=== PATIENT | female | born 1980 | race Caucasian/White ===

== ENCOUNTER 2022-12-19 07:29 | Outpatient (OUT) | payer OTHER, SELFPAY ==
[2022-12-19 07:50] LABS: Hematocrit 43.2 % (36.0-48.0); Hemoglobin 13.9 g/dL (12.0-16.0); Mean Corpuscular HGB Conc 32.2 g/dL (29.9-35.2); Mean Corpuscular Hemoglobin 31.1 pg (26.7-34.0); Mean Corpuscular Volume 96.6 fL (81.0-99.0); Mean Platelet Volume 9.7 fL (9.5-13.5); Platelet Count 323 10^3/uL (150-450); Red Blood Count 4.47 10^6/uL (4.20-5.40); Red Cell Distribution Width 14.3 % (11.0-15.0); White Blood Count 10.7 10^3/uL (4.0-11.0)
[2022-12-19 09:08] LABS: Alanine Aminotransferase 24 U/L (14-59); Albumin Globulin Ratio 0.9; Albumin Level 3.2 g/dL (3.4-5.0); Alkaline Phosphatase 64 U/L (46-116); Anion Gap 14.9; Aspartate Amino Transferase 17 U/L (15-37); BUN Creatinine Ratio 18.3; Bilirubin Total 0.4 mg/dL (0.2-1.0); Calcium 8.7 mg/dL (8.5-10.1); Carbon Dioxide 23.9 mmol/L (21.0-32.0); Chloride 101 mmol/L (98-107); Chol HDL Ratio 2.5; Cholesterol 155 mg/dL (<=200); Estimated GFR (African America >60 (>=60); Estimated GFR (Non-African Ame >60 (>=60); Globulin 3.6 g/dL; Glucose 86 mg/dL (74-106); HDL Cholesterol 61 mg/dL (40-60); Potassium 3.8 mmol/L (3.5-5.1); Sodium 136 mmol/L (136-145); Total Protein 6.8 g/dL (6.4-8.2); Triglycerides 134 mg/dL (<=150); VLDL CHOLESTEROL 26.8 mg/dL
[2022-12-19 10:14] LABS: Free T4 0.82 ng/dL (0.76-1.46)
[2022-12-20 06:09] LABS: HCV Ab Non Reactive (Non Reactive); HIV Ab/p24 Ag Screen Non Reactive (Non Reactive)
== END 2022-12-19 07:30 | disposition home or self-care (01) ==
LOC: LAB 07:32
PROVIDERS: PCP Nurse Practitioner Primary Care; Visit Provider Nurse Practitioner Primary Care
DX: Z00.00 Encounter for general adult medical examination without abnormal findings (principal); Z11.59 Encounter for screening for other viral diseases; Z13.6 Encounter for screening for cardiovascular disorders; Z13.29 Encounter for screening for other suspected endocrine disorder; Z11.4 Encounter for screening for human immunodeficiency virus [HIV]
CPT/HCPCS: 36415; 80053; 80061; 84439; 84443; 85027; 87389; 87522

== ENCOUNTER 2023-07-30 10:59 | Outpatient (OUT) | payer OTHER, SELFPAY ==
--- NOTE | 2023-07-30 11:49 | PM.PRESUREVA ---
History of Present Illness History of Present Illness Chief complaint: CHRONIC SINUSITITS Narrative: Patient presents for preadmission testing. The patient reports a long history of sinus issues including sinus infections, severe headaches, and congestion. She states she also has a chronic cough, although she continues to smoke a pack of cigarettes a day. Review of Systems ROS Narrative : Negative except as stated in HPI, ten or more systems reviewed. Constitutional: No fever , chills, weakness ENT: No sore throat or epistaxis Cardiovascular: No chest pain, palpitations, or activity intolerance Respiratory: Chronic cough, occasional shortness of breath and wheezing Musculoskeletal: No joint pain or swelling Gastrointestinal: No abdominal pain, constipation, diarrhea, or vomiting Genitourinary: No dysuria or hematuria Neurological: No numbness, tingling, weakness, or headache Psychiatric: No mood changes. [facility] Medical History (Updated 07/30/23 @ 11:54 by Suad Guthrie NP) Chronic cough ?R05.3 - Chronic cough (ICD-10) Anemia ?D64.9 - Anemia, unspecified (ICD-10) Extremity edema ?R60.0 - Localized edema (ICD-10) Insomnia ?G47.00 - Insomnia, unspecified (ICD-10) Depression ?F32.A - Depression, unspecified (ICD-10) Anxiety ?F41.9 - Anxiety disorder, unspecified (ICD-10) Bipolar disorder ?F31.9 - Bipolar disorder, unspecified (ICD-10) COVID-19 ?U07.1 - COVID-19 (ICD-10) Bronchitis ?J40 - Bronchitis, not specified as acute or chronic (ICD-10) Reactive airway disease ?J45.909 - Unspecified asthma, uncomplicated (ICD-10) Migraine ?G43.909 - Migraine, unspecified, not intractable, without status migrainosus (ICD-10) Seizures ?R56.9 - Unspecified convulsions (ICD-10) Dysmenorrhea ?N94.6 - Dysmenorrhea, unspecified (ICD-10) Menorrhagia ?N92.0 - Excessive and frequent menstruation with regular cycle (ICD-10) Seasonal allergies ?J30.2 - Other seasonal allergic rhinitis (ICD-10) Hypertrophy, nasal, turbinate ?J34.3 - Hypertrophy of nasal turbinates (ICD-10) Deviated septum ?J34.2 - Deviated nasal septum (ICD-10) Chronic sinusitis ?J32.9 - Chronic sinusitis, unspecified (ICD-10) Surgical History (Updated 07/30/23 @ 11:30 by uSad Guthrie NP) History of esophagogastroduodenoscopy (EGD) ?Z98.890 - Other specified postprocedural states (ICD-10) History of section ?Z98.891 - History of uterine scar from previous surgery (ICD-10) History of section ?Z98.891 - History of uterine scar from previous surgery (ICD-10) Family History (Updated 07/30/23 @ 11:30 by Suad Guthrie NP) Other Family history of DVT Family history of Parkinson disease Family history of aneurysm Family history of cancer Family history of diabetes mellitus Social History (Updated 07/30/23 @ 11:26 by Suad Guthrie NP) Within the past year, how often did you have a drink containing alcohol: monthly or less Smoking status: Current every day smoker What tobacco products do you use: cigarettes Packs per day: 1 Years smoked: 30 Smoking pack-years: 30.00 Non-prescribed substance use: denies use 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[employer] Highest level of school completed/degree received: Bachelor's degree Meds Home Medications and Allergies Home Medications ?Medication ?Instructions ?Recorded ?Confirmed ?Type albuterol sulfate 2.5 mg/3 mL 2.5 mg inhalation Q6H PRN 07/30/23 07/30/23 History (0.083 %) solution for nebulization shortness of breath or wheezing albuterol sulfate 90 mcg/actuation 2 inh inhalation Q4H PRN shortness 07/30/23 07/30/23 History aerosol inhaler of breath or wheezing aripiprazole 5 mg tablet 5 mg PO DAILY 07/30/23 07/30/23 History buspirone 10 mg tablet 10 mg PO DAILY 07/30/23 07/30/23 History fluticasone fur. 200 mcg-umeclid 1 inh inhalation Q24H 07/30/23 07/30/23 History 62.5 mcg-vilant 25 mcg inhalat.powder (Trelegy Ellipta) furosemide 20 mg tablet 20 mg PO DAILY PRN edema 07/30/23 07/30/23 History lamotrigine 100 mg tablet 100 mg PO QAM 07/30/23 07/30/23 History venlafaxine 75 mg capsule,extended 75 mg PO QAM 07/30/23 07/30/23 History release 24 hr Allergies Allergy/AdvReac Type Severity Reaction Status Date / Time No Known Drug Allergies Allergy Verified 07/30/23 11:17 Exam Narrative Exam Narrative: Constitutional: Awake, alert, comfortable, well-appearing, nontoxic, interactive, vital signs as charted Head: Normocephalic, atraumatic Eyes: Conjunctiva and lids normal to inspection, pupils normal ENT: Tympanic membranes pearly parkinson, nonerythematous, noninjected, Bilateral nasal turbinate hypertrophy, posterior oropharynx clear, oral mucosa moist Neck: Supple, normal appearance, normal range of motion, no meningeal signs, no lymphadenopathy Respiratory: No respiratory distress, breath sounds clear Cardiovascular: Regular rate and rhythm, strong and regular heart tones Musculoskeletal: Normal gait, no swelling or edema Skin: No rashes or induration, no lesions, only visible skin inspected Neuro: No neurological deficits, normal sensation Psychiatric: Oriented ?3, normal affect. Assessment and Plan Assessment and Plan (1) Chronic sinusitis: (2) Deviated septum: (3) Hypertrophy, nasal, turbinate: Plan Bilateral maxillary antrostomy, right anterior ethmoidectomy, septoplasty, bilateral inferior turbinate submucosal resection scheduled with Dr. Patterson Aug 12 2023.
[2023-07-30 13:14] LABS: INR 0.97; Partial Thromboplastin Time 29.7 sec (22.3-36.2); Prothrombin Time 10.3 sec (9.0-11.6)
[2023-07-30 13:41] LABS: Anion Gap 11.1; BUN Creatinine Ratio 12.1; Calcium 9.1 mg/dL (8.5-10.1); Carbon Dioxide 27.1 mmol/L (21.0-32.0); Chloride 103 mmol/L (98-107); Estimated GFR (African America >60 (>=60); Estimated GFR (Non-African Ame >60 (>=60); Glucose 104 mg/dL (74-106); Potassium 4.2 mmol/L (3.5-5.1); Sodium 137 mmol/L (136-145)
== END 2023-07-30 11:00 | disposition home or self-care (01) ==
LOC: PST 10:59
PROVIDERS: PCP Nurse Practitioner Primary Care; Visit Provider Otolaryngology
DX: Z01.812 Encounter for preprocedural laboratory examination (principal); Z01.818 Encounter for other preprocedural examination; J32.9 Chronic sinusitis, unspecified; J34.2 Deviated nasal septum
CPT/HCPCS: 80048; 85610; 85730; G0463

== ENCOUNTER 2023-08-12 09:43 | Day surgery (SDC) | payer OTHER, SELFPAY ==
[2023-07-30 11:45] VITALS: BP 132/84; PULSE 87; TEMP 36.4; O2SAT 97; BMI 37.8
[2023-08-12] VITALS (14 sets, daily range): BP systolic 100–153; BP diastolic 64–102; PULSE 80–91; TEMP 36.1–36.2; O2SAT 93–96; BMI 38.5
--- NOTE | 2023-08-12 | OP_ITS ---
OPERATION DATE: 08/12/2023 SURGEON: Delicia Patterson M.D. PREOPERATIVE DIAGNOSIS: Chronic sinusitis, deviated nasal septum and bilateral inferior turbinate hypertrophy. POSTOPERATIVE DIAGNOSIS: Chronic sinusitis, deviated nasal septum and bilateral inferior turbinate hypertrophy. PROCEDURE: Bilateral maxillary antrostomy, right anterior ethmoidectomy, septoplasty and bilateral inferior turbinate submucosal resection. INDICATIONS: This 42-year-old woman presented with chronic nasal obstruction secondary to a deviated nasal septum and bilateral inferior turbinate hypertrophy, as well as chronic sinusitis, unresponsive to aggressive medical management. PROCEDURE: Patient identified in the holding area and taken back to the OR where she was placed in a supine position. After induction of general anesthesia, the table was turned, the head elevated 20 degrees and the face was draped in a sterile fashion. Afrin soaked pledgets were placed in each side of the nose and, after waiting adequate time for decongestion, the nose was copiously irrigated bilaterally. Attention was then turned to the right paranasal sinuses. The right middle turbinate and lateral nasal wall were injected with lidocaine 1% with 1:100,000 epinephrine as was the left side of the nasal septum. After waiting adequate time for hemostasis, a curved scissor to the right was used to incise the large sarah bullosa, and was removed with an ethmoid forcep. The uncinate process was incised with a sickle knife and removed with an ethmoid forcep. The natural ostium of the maxillary sinus was then found using a Luis Antonio seeker and opened posteriorly with a straight cutting ethmoid forcep and inferiorly using a back biter and side biting forceps. Then a straight ethmoid forcep was used to open the bulla ethmoidalis and the anterior turbinate air cells anteriorly were exenterated using a straight ethmoid forcep and upbiting ethmoid forcep. The maxillary sinus was then copiously irrigated, and the posterior root of the middle turbinate was prophylactically cauterized to minimize the risk of postoperative bleeding. The right nasal septum and the right inferior turbinate were injected with lidocaine 1% with 1:100,000 epinephrine. Attention was the turned to the nasal septum. A left sided Claxton incision was made and a caudal elevator was used to elevate the left perichondrium and periosteum. Then, the bony cartilaginous junction was and a mucoperiosteal flap was elevated on the right hand side. Cutting and grabbing Brittany forceps were then used to remove the boy septum. A large septal spur was careful exposed using a caudal elevator and then removed with an ethmoid forcep. To help alleviate deflection of the anterior cartilaginous septum, a 2-3 mm inferior strut of cartilaginous septum was trimmed inferiorly, maintaining a 1 cm or greater attachment anteriorly. This was then removed and the cartilaginous septum laid much more freely within the midline. The septal flap was then copiously irrigated and lidocaine 1% with 1:100,000 epinephrine was injected into the left middle turbinate and lateral nasal wall, as well as the left inferior turbinate. Then, attention was turned to the right inferior turbinate. A stab incision was made anteriorly with a caudal elevator, and tunnel elevated along the medial surface of the turbinate bone with caudal elevator. A 2.0 mm microdebrider blade was used to exenterate the submucosal tissues of the inferior turbinate. The turbinate was then outfractured with the long nasal speculum. Attention was turned to the left inferior turbinate, and the same procedure performed. Then, a curved scissor to the right was used to incise the inferior portion of the right middle turbinate, exposing the uncinate process. The uncinate process was incised with a sickle knife, removed with an ethmoid forcep, and a [place] seeker was used to identify the natural ostium of the maxillary sinus. This was opened posteriorly with the straight cutting forcep and inferiorly with side biting and back biting forceps. The right maxillary sinus was then copiously irrigated. Then, once again, the septal flap was irrigated and both sides of the nose were copiously irrigated. A 5-0 chromic suture was used to close the Claxton incision, and then ventilating Silastic splints were coated with antibiotic ointment, placed in the nose and sutured in place with a 2-0 nylon transseptal stitch. The patient was awakened and taken to the recovery room in good condition. BRADEN
--- OUTSIDE RECORDS SUMMARY | 2023-08-12 09:48 | XMS_ITS | CCD ---
Author Organization [facility] Care Team Providers Care Business Analytics Faculty Member Name Role Phone Yohana Kitchen Unavailable Chela Kumar Unavailable NITO ., DR JOSÉ MIGUEL Potts Admitting Unavailable BEAUCHAMP ., DR JOSÉ MIGUEL Potts Attending Unavailable MIS, DR THOMSON Primary Care Unavailable LAURITAY ., DR CORREA Consulting Unavailable BARTLETT ., FABIOLA Consulting Unavailable HALKER ., PAIGE Admitting Unavailable HALKER ., PAIGE Attending Unavailable ELIOT CHO Primary Care Unavailable BARTLETT ., FABIOLA Admitting Unavailable BARTLETT ., FABIOLA Attending Unavailable [facility] Primary Care Unavailable KINGSLAND, DR LOUIE Carrillo Consulting Unavailable BARTLETT ., FABIOLA Consulting Unavailable BEAUCHAMP ., DR JOSÉ MIGUEL Potts Admitting Unavailable BEAUCHAMP ., DR JOSÉ MIGUEL Potts Attending Unavailable MISC, DR THOMSON Primary Care Unavailable BARTLETT ., FABIOLA Consulting Unavailable BEAUCHAMP ., DR JOSÉ MIGUEL Potts Admitting Unavailable BEAUCHAMP ., DR JOSÉ MIGUEL Potts Attending Unavailable MISC, DR THOMSON Primary Care Unavailable BARTLETT ., FABIOLA Consulting Unavailable BEAUCHAMP ., DR JOSÉ MIGUEL Potts Admitting Unavailable BEAUCHAMP ., DR JOSÉ MIGUEL Potts Attending Unavailable MIS, DR THOMSON Primary Care Unavailable BARTLETT ., FABIOLA Consulting Unavailable Ilana Gallegos Unavailable Neyda Garland Unavailable Sridhar Brown Primary Care Provider [phone] ARIANA LOTT Primary Care Physician [phone] Timmis, Jana H Admitting Unavailable Timmis, Jana H Attending Unavailable Timmis, Jana H Referring Unavailable TIMMIS, JANA H Attending Unavailable SRIDHAR BIRD Referring Unavailable TIMMIS, JANA H Attending Unavailable BUDDY, BELÉN L Attending Unavailable SHAMMO, SRIDHAR Referring Unavailable SHAMMO, SRIHDAR Primary Care Unavailable BUDDY, EBLÉN L Attending Unavailable SHAMMO, SRIDHAR Referring Unavailable SHAMMO, SRIDHAR Primary Care Unavailable SHANTHI LUGO Attending Unavailable SHAMMO, SRIDHAR Referring Unavailable SHAMMO, SRIDHAR Primary Care Unavailable BUDDY, BELÉN L Attending Unavailable SHAMMO, SRIDHAR Referring Unavailable SHAMMO, SRIDHAR Primary Care Unavailable BUDDY, BELÉN Referring Unavailable SHAMMO, SRIDHAR Primary Care Unavailable BUDDY, BELÉN Referring Unavailable SHAMMO, SRIDHAR Primary Care Unavailable BUDDY, BELÉN Referring Unavailable SHAMMO, SRIDHAR Primary Care Unavailable JACKSON, ZENAIDA Referring Unavailable [place], [place] Primary Care Unavailable LOUIE HEREDIA Referring Unavailable JACKSON, [place] Primary Care Unavailable LOUIE HEREDIA Attending Unavailable LOUIE HEREDIA Referring Unavailable JACKSON, [place] Primary Care Unavailable SHAMMO, SRIDHAR Referring Unavailable SHAMMO, SRIDHAR Primary Care Unavailable SHAMMO, SRIDHAR Referring Unavailable SHAMMO, SRIDHAR Primary Care Unavailable BUDDY, BELÉN Admitting Unavailable BUDDY, BELÉN Attending Unavailable BUDDY, BELÉN Referring Unavailable SHAMMO, SRIDHAR Primary Care Unavailable REGGIE WEBB Attending Unavailable JACKSON, [place] Primary Care Unavailable JACKSON, [place] Primary Care Unavailable BRUNO WALL Attending Unavailable Medications Current Medications Medication Drug Class(es) Dates Sig (Normalized) Sig (Original) [id number] 200 actuat albuterol 0.09 mg/actuat metered dose inhaler (17 sources) beta2-Adrenergic Agonist Start: 08-26-2022 take 2 puff(s) by inhalation every four to six hours as needed Albuterol Sulfate HFA 108 (90 Base) MCG/ACT 2 puffs as needed Inhalation every 4-6 hours for 14 days Aug, Active Start: 08-26-2022 take 2 puff(s) by in halation every four to six hours as needed Albuterol Sulfate HFA 108 (90 Base) MCG/ACT 2 puffs as needed Inhalation every 4-6 hours for 14 days Aug, Not-Taking/PRN Start: 10-16-2021 take 2 puff(s) by in halation every four hours as needed albuterol (PROVENTIL HFA;VENTOLIN HFA) 90 mcg/actuation inhaler Inhale 2 puffs every 4 (four) hours as needed. 0 10/16/2021 Active Start: 08-08-2021 take 3 mL by inhalat ion every six hours as needed albuterol (PROVENTIL,VENTOLIN) 2.5 mg /3 mL (0.083 %) nebulizer solution Inhale 3 mL by nebulization every 6 (six) hours as needed. 0 08/08/2021 Active Albuterol Sulfat e HFA Active albuterol HFA 90 mcg/inh MDI (1 source) Start: 12-02-2017 take 2 puff(s) by inhalation every four hours for wheezing albuterol HFA 90 mcg/inh MDI 2 puff(s), Inhalation, q4hr for wheezing, 8.5 gram, Refill(s) 0 Start Date: 12/02/17 Status: Ordered amoxicillin 875 mg / clavulanate 125 mg oral tablet (3 sources) Penicillin-class Antibacterial Start: 04-16-2023 End: 05-16-2023 take 1 tablet by mouth once in the morning amoxicillin-pot clavulanate (AUGMENTIN) 875-125 mg per tablet Take 1 tablet by mouth in the morning and 1 tablet before bedtime. 0 04/16/2023 05/16/2023 Active Start: 08-26-2022 take 1 tablet by zach th every twelve hours Amoxicillin-Pot Clavulanate 875-125 MG 1 tablet Orally every 12 hrs for 10 day(s) Aug, Not-Taking/PRN ARIPiprazole 5 mg oral tablet (6 sources) Atypical Antipsychotic Start: 04-15-2022 take 1 tablet by mouth once daily ARIPiprazole (ABILIFY) 5 mg tablet Take 1 tablet (5 mg total) by mouth nightly. 0 04/15/2022 Active baclofen 10 mg oral tablet (6 sources) gamma-Aminobutyric Acid-ergic Agonist Start: 09-13-2021 take 1 tablet by mouth once daily baclofen (LIORESAL) 10 mg tablet Take 1 tablet (10 mg total) by mouth nightly. 0 09/13/2021 Active busPIRone hydrochloride 10 mg oral tablet (8 sources) take 1 tablet by mouth in the morning, then take 1 tablet by mouth at bedtime busPIRone (BUSPAR) 10 mg tablet Take 1 tablet (10 mg total) by mouth in the morning and 1 tablet (10 mg total) before bedtime. 0 Active BuSpar Active ciprofloxacin 3 mg/ml ophthalmic solution (1 source) Quinolone Antimicrobial Start: 01-26-2021 clonazePAM 0.5 mg oral tablet (3 sources) Benzodiazepine Start: 08-15-2015 take 0.5 tablet by mouth three times daily as needed for anxiety ClonazePAM 0.5 mg Tab .5 tab, Oral, TID, PRN Anxiety, Refills(s) 0 Start Date: 08/15/15 Status: Ordered clonazePAM Activ e Dicyclomine (2 sources) Anticholinergic Dicyclomine HCl Active estradiol 0.5 mg oral tablet (5 sources) Estrogen Start: 09-02-2022 End: 06-17-2023 estradioL (ESTRACE) 0.5 mg tablet fluticasone-umecli din-vilanter (TRELEGY ELLIPTA) 200-62.5-25 mcg blister with device (6 sources) Start: 02-11-2023 take 1 puff(s) by mouth in the morning fluticasone-umecl idin-vilanter (TRELEGY ELLIPTA) 200-62.5-25 mcg blister with device INHALE 1 PUFF BY MOUTH IN THE MORNING 60 each 5 02/11/2023 Active furosemide 20 mg oral tablet (11 sources) Loop Diuretic Start: 08-08-2021 take 1 tablet by mouth once daily as needed furosemide (LASIX) 20 mg tablet Take 1 tablet (20 mg total) by mouth daily as needed. 0 08/08/2021 Active gabapentin 300 mg oral capsule (2 sources) Anti-epileptic Agent take 1 capsule by mouth every eight hours Gabapentin 300 MG 1 capsule Orally three times a day Active hydrOXYzine pamoate 25 mg oral capsule (6 sources) Antihistamine Start: 11-27-2021 take 1 capsule by mouth once daily hydrOXYzine (VISTARIL) 25 mg capsule Take 1 capsule (25 mg total) by mouth nightly. 0 11/27/2021 Active lamoTRIgine 100 mg oral tablet (9 sources) Mood Stabilizer, Anti-epileptic Agent Start: 04-16-2022 take 1 tablet by mouth in the morning lamoTRIgine (LaMICtal) 100 mg tablet Take 1 tablet (100 mg total) by mouth in the morning. 0 04/16/2022 Active lamoTRIgine Acti ve ofloxacin 3 mg/ml otic solution (1 source) Quinolone Antimicrobial Start: 03-03-2023 take 1-2 drop(s) into the eye(s) four times daily Ofloxacin 0.3 % 1-2 drop into affected eye Ophthalmic Four times a day for 7 day(s) Feb, Active Progesterone (3 sources) Progesterone Progesterone Active 24 hr venlafaxine 75 mg extended release oral capsule (11 sources) Serotonin and Norepinephrine Reuptake Inhibitor Start: 10-21-2021 take 1 capsule by mouth every twenty-four hours in the morning venlafaxine XR (EFFEXOR XR) 75 mg 24 hr capsule Take 1 capsule (75 mg total) by mouth in the morning. 0 10/21/2021 Active Venlafaxine HCl Active Completed/Discontinued Medications Medication Drug Class(es) Dates Sig (Normalized) Sig (Original) acetaminophen 325 mg / HYDROcodone bitartrate 5 mg oral tablet (9 sources) Opioid Agonist Start: 10-25-2021 End: 06-03-2023 HYDROcodone-acetam inophen (NORCO) 5-325 mg per tablet take 1 tablet by zach every six hours as needed [place] 5-325 MG 1 tablet as needed Orally every 6 hrs Active benzonatate 200 mg oral capsule (9 sources) Non-narcotic Antitussive Start: 06-28-2022 take 1 capsule by mouth every eight hours Benzonatate 200 MG 1 capsule Orally Three times a day Jun, Not-Taking/PRN Start: 08-29-2021 take 1 capsule by mo [facility] three times daily as needed benzonatate (TESSALON PERLES) 100 mg capsule Take 1 capsule (100 mg total) by mouth 3 (three) times a day as needed. 0 08/29/2021 Active doxycycline hyclate 100 mg oral tablet (3 sources) Tetracycline-class Drug Start: 06-28-2022 take 1 tablet by mouth every twelve hours Doxycycline Hyclate 100 MG 1 tablet Orally Twice a day for 10 day(s) Jun, Not-Taking/PRN ibuprofen 600 mg oral tablet (6 sources) Nonsteroidal Anti-inflammatory Drug Start: 05-30-2020 End: 06-03-2023 take 1 tablet by mouth every six hours as needed ibuprofen (MOTRIN) 600 mg tablet Take 1 tablet (600 mg total) by mouth every 6 (six) hours as needed. 0 10/10/2021 06/03/2023 Discontinued (Patient Discharge) Start: 12-02-2017 take 1 tablet by zach th every eight hours at mealtime ibuprofen 600 mg Tab 600 mg = 1 tab(s), Oral, q8hr, with food or milk, # 30 tab(s), Refills(s) 0 Start Date: 12/02/17 Status: Ordered methylPREDNISolone 4 mg oral tablet (2 sources) Corticosteroid Start: 08-26-2022 methylPREDNISolone 4 MG as directed Orally for daily dose take half with breakfast, half with dinner for 6 days Aug, Not-Taking/PRN Omeprazole (2 sources) Proton Pump Inhibitor PriLOSEC Not-Taking predniSONE 20 mg oral tablet (3 sources) Start: 06-28-2022 take 1 tablet by mouth every twelve hours predniSONE 20 MG 1 tablet Orally bid for 5 day(s) Jun, Not-Taking/PRN Triamcinolone (3 sources) Corticosteroid Start: 09-23-2016 Kenalog -40 mg Sep, Problems Active Problems Problem Classification Problem Date Documented Da te Episodic/Chronic Abdominal pain (5 sources) Abdominal pain; Translations: [Unspecified abdominal pain] Episodic Asthma (2 sources) Asthma-chronic obstructive pulmonary disease overlap syndrome; Translations: [Asthma-COPD overlap syndrome] Onset: 04-02-2023 04-21-2023 Chronic Chronic obstructive pulmonary disease and bronchiectasis (2 sources) Chronic bronchitis; Translations: [Unspecified chronic bronchitis] Onset: 07-14-2023 04-21-2023 Chronic Chronic obstructive pulmonary disease and bronchiectasis (1 source) Bronchitis, not specified as acute or chronic Episodic Epilepsy; convulsions (1 source) Seizure 09-02-2013 Episodic Immunizations and screening for infectious disease (4 sources) Contact with and (suspected) exposure to other viral communicable diseases; Translations: [Suspected clinical finding] Onset: 03-29-2021 Resolved: 03-29-2021 Episodic Inflammation; infection of eye (except that caused by tuberculosis or sexually transmitteddisease) (2 sources) Unspecified conjunctivitis Onset: 01-26-2021 Resolved: 01-26-2021 Episodic Menopausal disorders (1 source) Menopausal syndrome Onset: 04-22-2023 Chronic Nausea and vomiting (5 sources) Nausea; Translations: [Nausea] Episodic Nonspecific chest pain (4 sources) Other chest pain; Translations: [OTHER CHEST PAIN] Onset: 05-02-2022 Episodic Other connective tissue disease (5 sources) Bursitis of right shoulder; Translations: [Bursitis of right shoulder] Episodic Other connective tissue disease (1 source) Pain in left leg; Translations: [Pain in left leg] Onset: 08-07-2023 Episodic Other connective tissue disease (1 source) Pain in lower limb Onset: 08-07-2023 Episodic Other female genital disorders (4 sources) Abnormal uterine bleeding; Translations: [Other specified abnormal uterine and vaginal bleeding] 04-22-2023 Chronic Other female genital disorders (2 sources) Other specified abnormal uterine and vaginal bleeding; Translations: [Other specified abnormal uterine and vaginal bleeding] Onset: 06-02-2023 Chronic Other female genital disorders (1 source) Dysfunctional uterine bleeding Onset: 08-04-2023 Chronic Other female genital disorders (1 source) Abnormal uterine and vaginal bleeding, unspecified; Translations: [Abnormal uterine and vaginal bleeding, unspecified] Onset: 06-02-2023 Chronic Other gastrointestinal disorders (5 sources) Swollen abdomen; Translations: [Abdominal distension (gaseous)] Episodic Other gastrointestinal disorders (5 sources) Constipation alternates with diarrhea; Translations: [Other specified symptoms and signs involving the digestive system and abdomen] Episodic Other lower respiratory disease (1 source) Cough Onset: 04-02-2023 Episodic Other nutritional; endocrine; and metabolic disorders (5 sources) Obese class I; Translations: [Body mass index (BMI) 33.0-33.9, adult] Chronic Other nutritional; endocrine; and metabolic disorders (1 source) Obesity; Translations: [Obesity, unspecified] 04-21-2023 Chronic Other upper respiratory infections (1 source) Chronic sinusitis, unspecified; Translations: [Chronic sinusitis, unspecified] Onset: 04-10-2023 Chronic Other upper respiratory infections (2 sources) Acute sinusitis, unspecified; Translations: [Acute recurrent maxillary sinusitis] Episodic Spondylosis; intervertebral disc disorders; other back problems (11 sources) Cervicalgia; Translations: [Radiculopathy, lumbar region] Onset: 10-24-2021 Episodic Sprains and strains (6 sources) Sprain of shoulder; Translations: [Unspecified sprain of right shoulder joint, subsequent encounter] Onset: 10-29-2021 Episodic Substance-related disorders (3 sources) Tobacco dependence syndrome; Translations: [Nicotine dependence, unspecified, uncomplicated] Onset: 07-14-2023 04-21-2023 Chronic Comment on above: Added secondary to d ocumentation in Social History. Unclassified (1 source) LOW BACK PAIN, UNSPECIFIED; Translations: [LOW BACK PAIN, UNSPECIFIED] Onset: 01-28-2022 Unclassified (1 source) EMB/Hysteroscopy Onset: 06-03-2023 Varicose veins of lower extremity (5 sources) Varicose veins of lower extremity; Translations: [Varicose veins of bilateral lower extremities with other complications] Episodic Past or Other Problems Problem Classification Problem Date Documented Da te Episodic/Chronic Other connective tissue disease (4 sources) Bicipital tendinitis, right shoulder; Translations: [BICIPITAL TENDINITIS RIGHT SHOULDER] Onset: 10-25-2021 Episodic Other non-traumatic joint disorders (4 sources) Pain in right shoulder; Translations: [PAIN IN RIGHT SHOULDER] Onset: 09-13-2021 Episodic Other non-traumatic joint disorders (1 source) Pain in left knee; Translations: [PAIN IN LEFT KNEE] Onset: 10-01-2021 Episodic Other screening for suspected conditions (not mental disorders or infectious disease) (1 source) Encounter for screening mammogram for malignant neoplasm of breast; Translations: [Encounter for screening mammogram for malignant neoplasm of breast] Onset: 04-10-2023 Episodic Unclassified (1 source) Cough R05.9 Viral infection (1 source) COVID-19 Onset: 03-29-2021 Resolved: 03-29-2021 Results Test Name Value Interpretation Reference Range Facility Fibrin D-dimer DDU (PPP) [Ma ss/Vol]on 08-07-2023 D DIMER <150 Normal <255 [facility] Comment on above: Result Comment: Results <255 ng/mL DDU: The presence of a VTE can safely be excluded with a negative D-Dimer result and Wells score. A negative result doesn't exclude the possibility of DIC. The test be repeated along with other diagnostic tests if the patient's symptoms persist or worsen. [email or web address] Performed By: #### 4 8066-5 ####[facility] ([id number])[address] [place] [address] HCG ( test) Bryanna d Ql (S)on 08-04-2023 SERUM Negative Normal NEG [facility] Comment on above: Performed By: #### 8 0385-8 ####[facility] ([id number])[address] [place] [address] CBC AND AUTO DIFFon 07-14-19 24 ABSOLUTE BASOPHIL 0.1 X10E9/L Normal 0.0-0.2 [facility] Comment on above: Performed By: #### C BCA ####[facility] ([id number])[address], [address] [place] [address] ABSOLUTE NEUTROPHIL 4.4 X10E9/L Normal 1.5-6.6 [facility] Comment on above: Performed By: #### C BCA ####[facility] ([id number])[address] [address] [place] [address] Basophils/100 WBC (Bld) 1.2 % Normal P [facility] Comment on above: Performed By: #### C BCA ####[facility] ([id number])[address] [address] [place] [address] Eosinophils (Bld) [#/Vol] 0.4 10*3/uL Normal 0.0-0.4 [facility] Comment on above: Performed By: #### C BCA ####[facility] ([id number])[address], [address] [place] [address] Eosinophils/100 WBC (Bld) 4.7 % Normal [facility] Comment on above: Performed By: #### C BCA ####[facility] ([id number])[address], [place] [address] Erythrocyte distribution width (RBC) [Ratio] 14.8 % Normal 11.5-15.0 [facility] Comment on above: Performed By: #### C BCA ####[facility] ([id number])[address], [place] [address] Hematocrit (Bld) [Volume fraction] 41.2 % Normal 35-47 [facility] Comment on above: Performed By: #### C BCA ####[facility] ([id number])[address] [place] [address] Hemoglobin (Bld) [Mass/Vol] 13.6 g/dL Normal 11.7-15.5 [facility] Comment on above: Performed By: #### C BCA ####[facility] ([id number])[address] [address] [address] Lymphocytes (Bld) [#/Vol] 2.8 10*3/uL Normal 1.0-3.5 [facility] Comment on above: Performed By: #### C BCA ####[facility] ([id number])[address], [place] [address] Lymphocytes/100 WBC (Bld) 32.8 % Normal [facility] Comment on above: Performed By: #### C BCA ####[facility] ([id number])[address] [address] [place] [address] MCH (RBC) [Entitic mass] 31.3 pg Normal 27-34 [facility] Comment on above: Performed By: #### C BCA ####[facility] ([id number])[address], [place] [address] MCHC (RBC) [Mass/Vol] 33.1 g/dL Normal 32-36 [facility] Comment on above: Performed By: #### C BCA ####[facility] ([id number])[address], [place] [address] MCV (RBC) [Entitic vol] 95 fL Normal 80-100 [facility] Comment on above: Performed By: #### C BCA ####[facility] ([id number])[address], [place] [address] Monocytes (Bld) [#/Vol] 0.8 10*3/uL Normal 0-0.9 [facility] Comment on above: Performed By: #### C BCA ####[facility] ([id number])[address], [place] [address] Monocytes/100 WBC (Bld) 9.2 % Normal [facility] Comment on above: Performed By: #### C BCA ####[facility] ([id number])[address] [place] [address] Neutrophils/100 WBC (Bld) 52.1 % Normal [facility] Comment on above: Performed By: #### C BCA ####[facility] ([id number])[address], [place] [address] Platelet mean volume (Bld) [Entitic vol] 8.1 fL Normal 7-12 [facility] Comment on above: Performed By: #### C BCA ####[facility] ([id number])[address] [address], [place] [address] Platelets (Bld) [#/Vol] 321 10*3/uL Normal 150-450 [facility] Comment on above: Performed By: #### C BCA ####[facility] ([id number])[address], [place] [address] RBC COUNT 4.35 X10E12/L Normal 3.80-5.20 [facility] Comment on above: Performed By: #### C BCA ####[facility] ([id number])[address] [facility] [address] [place] [address] WBC (Bld) [#/Vol] 8.4 10*3/uL Normal 4.0-11.0 [facility] Comment on above: Performed By: #### C BCA ####[facility] ([id number])[address], [address] [place] [address] XR CHEST 2 VWSon 07-14-2023 XR CHEST 2 VWS XR CHEST 2 VWS XR CHEST 2 VWS INDICATION: Bronchitis, preoperative clearance COMPARISON: X-ray 01/29/2023 FINDINGS: Cardiomediastinal silhouette and pulmonary vasculature are within normal limits. Lungs and pleural space are clear. There is no pleural effusion or pneumothorax. IMPRESSION: No acute cardiopulmonary process. Finalized by Daniel Rosas on 07/14/2023 5:35 PM Normal [facility] POCT , urineon 05-15 Beta HCG ( test) Ql (U) Negative [facility] Surgical Pathologyon 024 Surgical Pathology Normal [facility] Comment on above: Result Comment: [facility] [address] [place] [address] Surgical Pathology Consultation Patient Name:MERE ESTEBAN:1980 (Age: 42)Gender:FTaken:4Reported:4Physician(s):Belén Goodwin M.D. ([phone])Copy To: Rec. #:[id number]: #[id number] Final Pathologic Diagnosis 1. Endocervix, curettage: Benign endocervical epithelium. 2. Endometrium, biopsy: Benign endometrium. Report Electronically Signed Out cjb/4Cjaylin Gayle MD Interpretation performed at [facility] [address] [place] [address], License number: [id number]. Clinical History Dysfunctional uterine bleeding (DUB) N93.8. Gross Description 1. Received in formalin labeled, WHITE, ECC is a plastic metal brush with a pale-adler mucoid material admixed with adler friable soft tissue fragments and brown hemorrhagic material, 2 x 0.8 x 0.1 cm in aggregate. The specimens are filtered and submitted in a single cassette. (1, ns, [id number], m2) TB 2. Received in formalin labeled, WHITE, EMB are 4 pale-adler delicate to friable soft tissue chips admixed with adler to brown hemorrhagic material, 2.5 x 1.5 x 0.1 cm in aggregate. The specimens are filtered and submitted in a single cassette. (1, ns, [id number], m2) TB tgb/06/04/2023WAK Specimen(s) Received 1: Endocervical curettings 2: Endometrial biopsy Fee Codes(s): 1; 34916 2; 37938 COMPLETE BLOOD COUNTon 06-01 Erythrocyte distribution width (RBC) [Ratio] 14.6 % Normal 11.5-15.0 [facility] Comment on above: Performed By: #### C RAYMUNDO, 78178-8, 6-3, 3024-7, 2842-3, 21600-8, 63900-7 #### [facility] ([id number]) [address], [address] [place] [address] Hematocrit (Bld) [Volume fraction] 44.6 % Normal 35-47 [facility] Comment on above: Performed By: #### C BC, 07507-8, 6-3, 3024-7, 2842-3, 61072-2, 69499-5 #### [facility] ([id number]) [address] [place] [address] Hemoglobin (Bld) [Mass/Vol] 14.6 g/dL Normal 11.7-15.5 [facility] Comment on above: Performed By: #### C RAYMUNDO, 92974-8, 3016-3, 3024-7, 2842-3, 66278-4, 77206-1 #### [facility] ([id number]) [address] [place] [address] MCH (RBC) [Entitic mass] 31.1 pg Normal 27-34 [facility] Comment on above: Performed By: #### Leila FONSECA, 70378-5, 3016-3, 3024-7, 2842-3, 20820-3, 18706-2 #### [facility] ([id number]) [address], [address] [place] [address] MCHC (RBC) [Mass/Vol] 32.6 g/dL Normal 32-36 [facility] Comment on above: Performed By: #### Leila FONSECA, 75206-1, 3016-3, 3024-7, 2842-3, 73986-5, 01089-6 #### [facility] ([id number]) [address], [address] [place] [address] MCV (RBC) [Entitic vol] 95 fL Normal 80-100 P [facility] Comment on above: Performed By: #### Leila FONSECA, 63892-8, 3016-3, 3024-7, 2842-3, 30722-0, 43465-1 #### [facility] ([id number]) [address], [address] [place] [address] Platelet mean volume (Bld) [Entitic vol] 8.9 fL Normal 7-12 [facility] Comment on above: Performed By: #### Leila FONSECA, 15746-1, 3016-3, 3024-7, 2842-3, 31807-9, 79955-3 #### [facility] ([id number]) [address], [address] [place] [address] Platelets (Bld) [#/Vol] 290 10*3/uL Normal 150-450 [facility] Comment on above: Performed By: #### Leila , 70353-3, 3016-3, 3024-7, 2842-3, 12060-3, 95155-9 #### [facility] ([id number]) [address], [address] [place] [address] RBC COUNT 4.68 X10E12/L Normal 3.80-5.20 [facility] Comment on above: Performed By: #### Leila , 16961-1, 3016-3, 3024-7, 2842-3, 54315-9, 70820-2 #### [facility] ([id number]) [address], [address] [place] [address] WBC (Bld) [#/Vol] 9.4 10*3/uL Normal 4.0-11.0 [facility] Comment on above: Performed By: #### Leila , 59688-5, 6-3, 3024-7, 2842-3, 35105-1, 98689-7 #### [facility] ([id number]) [address], [address] [place] [address] FREE T4on 06-02-2023 Free T4 [Mass/Vol] 0.79 ng/dL Normal 0.61-1.60 [facility] Comment on above: Performed By: #### [place], [address]-7, 6-3, 3024-7, 2842-3, 57706-7, 82881-2 #### [facility] ([id number]) [address] [place] [address] Follitropin Qnon 06-02-2023 FOLLICLE STIM HORMONE 4.2 mIU/mL Normal [facility] Comment on above: Result Comment: NORMAL FEMALE Luteal 1.8-5.1 mIU/mL Follicular 3.8-8.8 mIU/mL Mid Cycle 4.5-22.5 mIU/mL Post Pierre 16.7-113.6 mIU/mL Performed By: ###Alcira Leila , 23682-0,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 58 mm[Hg] Belén Goodwin MD Work Phone: [facility] 04-22-2023 09:07-0500 Systolic blood pressure 110 mm[Hg] Belén Goodwin MD Work Phone: [facility] 04-02-2023 10:06-0500 Body height 167.6 cm Shanthi Lugo [employer] Work Phone: [facility] 04-02-2023 10:06-0500 Body mass index (BMI) [Ratio] 34.48 kg/m2 Shanthiasmita Lugo [employer] Work Phone: [facility] 04-02-2023 10:06-0500 Body weight 96.89 kg Shanthi Lugo [employer] Work Phone: [facility] 04-02-2023 10:06-0500 Diastolic blood pressure 76 mm[Hg] Shanthi Lugo APRN-[employer]OOKIE Work Phone: [facility] 04-02-2023 10:06-0500 Heart rate 96 /min Shanthi Lugo [employer] Work Phone: [employer] 04-02-2023 10:06-0500 SaO2% (BldA) [Mass fraction] 98 % Shanthi Lugo [employer] Work Phone: [employer] 04-02-2023 10:06-0500 Systolic blood pressure 142 mm[Hg] Shanthi Lugo [employer] Work Phone: [employer] 03-03-2023 10:05-0500 Body height 167.64 cm Neyda Garland Other [facility] Other 03-03-2023 10:05-0500 Body mass index (BMI) [Ratio] 34.21 kg/m2 Neyda Garland Other [facility] Other 03-03-2023 10:05-0500 Body temperature 99.1 [degF] Neyda Garland Other [facility] Other 03-03-2023 10:05-0500 Body weight 96.16 kg Neyda Garland Other [facility] Other 03-03-2023 10:05-0500 Diastolic blood pressure 60 mm[Hg] Neyda Garland Other [facility] Other 03-03-2023 10:05-0500 Respiratory rate 18 /min Neyda Garland Other [facility] Other 03-03-2023 10:05-0500 SaO2% (BldA) [Mass fraction] 98 % Neyda Garland Other [facility] Other 03-03-2023 10:05-0500 Systolic blood pressure 125 mm[Hg] Neyda Garland Other [facility] Other 08-26-2022 17:15-0400 Body height 167.64 cm Ilana El Other [facility] Other 08-26-2022 17:15-0400 Body mass index (BMI) [Ratio] 33.08 kg/m2 Ilana Gallegos Other [facility] Other 08-26-2022 17:15-0400 Body temperature 98.2 [degF] Ilana Gallegos Other [facility] Other 08-26-2022 17:15-0400 Body weight 92.99 kg Ilana Gallegos Other [facility] Other 08-26-2022 17:15-0400 Respiratory rate 18 /min Ilana El Other [facility] Other 08-26-2022 17:15-0400 SaO2% (BldA) [Mass fraction] 97 % Ilana Gallegos Other [facility] Other 06-28-2022 18:35-0400 Body height 167.64 cm Yohana Kitchen Other [facility] Other 06-28-2022 18:35-0400 Body mass index (BMI) [Ratio] 34.38 kg/m2 Yohana Kitchen Other [facility] Other 06-28-2022 18:35-0400 Body temperature 96.9 [degF] Yohana Kitchen Other [facility] Other 06-28-2022 18:35-0400 Body weight 96.62 kg Yohana Kitchen Other [facility] Other 06-28-2022 18:35-0400 Respiratory rate 18 /min Yohana Kitchen Other [facility] Other 06-28-2022 18:35-0400 SaO2% (BldA) [Mass fraction] 96 % Yohana Kitchen Other [facility] Other 03-29-2021 10:15-0500 Body height 167.64 cm Chela Moyerault Other [facility] Other 03-29-2021 10:15-0500 Body mass index (BMI) [Ratio] 30.66 kg/m2 Chela José Other [facility] Other 03-29-2021 10:15-0500 Body temperature 97.5 [degF] Chela José Other [facility] Other 03-29-2021 10:15-0500 Body weight 86.18 kg Chela José Other [facility] Other 03-29-2021 10:15-0500 Respiratory rate 18 /min Chela José Other [facility] Other 03-29-2021 10:15-0500 SaO2% (BldA) [Mass fraction] 98 % Chela José Other [facility] Other 01-26-2021 11:35-0500 Body height Yohana Kitchen Other [facility] Other 01-26-2021 11:35-0500 Body mass index (BMI) [Ratio] 30.73 kg/m2 Yohana Fidelina Other [facility] Other 01-26-2021 11:35-0500 Body temperature 97.7 [degF] Yohana Fidelina Other [facility] Other 01-26-2021 11:35-0500 Body weight 86.37 kg Yohana Fidelina Other [facility] Other 01-26-2021 11:35-0500 Diastolic blood pressure 49 mm[Hg] Yohana Fidelina Other [facility] Other 01-26-2021 11:35-0500 Respiratory rate 18 /min Yohana Fidelina Other [facility] Other 01-26-2021 11:35-0500 SaO2% (BldA) [Mass fraction] 100 % Yohana Fidelina Other [facility] Other 01-26-2021 11:35-0500 Systolic blood pressure 11 mm[Hg] Yohana Fidelina Other [facility] Other Encounters Encounter Date Encounter Type Care Provider Facility Start: 08-07-2023 End: 08-07-2023 Emergency department patient visit ZENAIDA PAZ [facility] Start: 08-04-2023 End: 08-04-2023 Evaluation and management of inpatient REGGIE WEBB [facility] Start: 08-04-2023 End: 08-04-2023 Evaluation and management of inpatient [facility] Start: 07-14-2023 End: 07-15-2023 ambulatory LOUIE HEREDIA [facility] Start: 07-14-2023 Encounter for other preprocedural examination [facility] Start: 06-18-2023 Telephone encounter Shantel ferrell [facility] Start: 06-17-2023 End: 06-17-2023 ambulatory [facility] Start: 06-17-2023 End: 06-17-2023 Office outpatient visit 15 minutes Belén Goodwin MD Work Phone: [facility] Comment on above: DUB (dysfunctional u terine bleeding) (Primary Dx) Start: 06-04-2023 End: 06-04-2023 ambulatory JANA H TIMMIS Not Available Start: 06-03-2023 End: 06-04-2023 ambulatory [facility] Start: 06-03-2023 End: 06-03-2023 ambulatory [facility] Start: 06-03-2023 End: 06-03-2023 Office outpatient visit 15 minutes Belén Goodwin MD Work Phone: [facility] Comment on above: DUB (dysfunctional u terine bleeding) (Primary Dx) Start: 06-02-2023 End: 06-03-2023 Orders Only Cori Montilla RN [facility] Comment on above: Abnormal uterine ble eding (AUB) (Primary Dx) Start: 05-31-2023 End: 06-01-2023 ambulatory Jana H Timmis Facility:[facility] Start: 04-22-2023 End: 04-22-2023 ambulatory [facility] Start: 04-22-2023 End: 04-22-2023 Office outpatient visit 25 minutes Belén Goodwin MD Work Phone: [facility] Comment on above: DUB (dysfunctional u terine bleeding) (Primary Dx) Start: 04-16-2023 End: 04-16-2023 ambulatory JANA MELVIN Not Available Start: 04-16-2023 End: 05-24-2023 Pre-admission assessment Jana Melvin [facility] Start: 04-10-2023 End: 04-11-2023 ambulatory [facility] Start: 04-02-2023 End: 04-02-2023 ambulatory [facility] Start: 04-02-2023 End: 04-02-2023 Office outpatient visit [address] [facility] [employer] Work Phone: [facility] Comment on above: Chronic bronchitis, unspecified chronic bronchitis type (CMS- HCC) (Primary Dx); Asthma-COPD overlap syndrome; Tobacco dependence; Class 1 obesity with body mass index (BMI) of 34.0 to 34.9 in adult, unspecified obesity type, unspecified whether serious comorbidity present Start: 03-03-2023 End: 03-03-2023 ambulatory Neyda Garland Other [facility] Other Start: 03-03-2023 Office outpatient vi sit 15 minutes Neyda Garland [facility] Start: 08-26-2022 End: 08-26-2022 ambulatory Ilana Gallegos Other [facility] Other Start: 08-26-2022 Office outpatient vi sit 25 minutes Ilana Gallegos [facility] Start: 08-01-2022 ambulatory PAIGE COVARRUBIAS . Facili ty:[facility] Start: 06-28-2022 End: 06-28-2022 ambulatory Yohana Kitchen Other [facility] Other Start: 06-28-2022 Office outpatient vi sit 15 minutes Yohana Kitchen [facility] Start: 05-02-2022 End: 05-03-[address] JOSÉ MIGUEL BEAUCHAMP . Facility:[facility] Start: 01-24-2022 End: 01-25-[address] JOSÉ MIGUEL BEAUCHAMP . Facility:[facility] Start: 10-25-2021 End: 10-26-[address] JOSÉ MIGUEL BEAUCHAMP . Facility:[facility] Start: 10-24-2021 End: 10-25-2021 ambulatory FABIOLA BARTLETT . Facility:[facility] Start: 09-13-2021 End: 09-14-[address] JOSÉ MIGUEL BEAUCHAMP . Facility:[facility] Start: 03-29-2021 End: 03-29-2021 ambulatory Chela Kumar Other [facility] Other Start: 03-29-2021 Office outpatient vi sit 15 minutes Chela Kumar [facility] Start: 01-26-2021 End: 01-26-2021 ambulatory Yohana Kitchen Other [facility] Other Start: 01-26-2021 Office outpatient vi sit 15 minutes Yohananydia Kitchen [facility] Procedures Date Procedure Procedure Detail Performing Clinician Start: 06-17-2023 Follow-up visit Follow-up BELÉN GOODWIN Start: 06-03-2023 Urine test visual color cmprsn meths Belén Goodwin MD Work Phone: section Jana alvarado H/O: section Jana Melvin Plan of Treatment Date Care Activity Detail Author Start: 06-14-2032 DTaP,Tdap and Td Vaccines (3 - Td or Tdap) DTaP,Tdap and Td Vaccines (3 - Td or Tdap) [facility] Start: 06-16-2024 Adult BMI Screening Adult BMI Screen ing [facility] Start: 06-16-2024 Tobacco Screening Tobacco Screening [facility] Start: 06-02-2024 Adult BMI Screening Adult BMI Screen ing [facility] Start: 06-02-2024 Tobacco Screening Tobacco Screening [facility] Start: 04-22-2024 Adult BMI Screening Adult BMI Screen ing [facility] Start: 04-22-2024 Tobacco Screening Tobacco Screening [facility] Start: 04-10-2024 Adult BMI Screening Adult BMI Screen ing [facility] Start: 04-02-2024 Tobacco Screening Tobacco Screening [facility] Start: 11-16-2023 Influenza vaccination Influenza Vacc ine [facility] Start: 10-27-2023 End: 10-27-2023 Patient encounter procedure 10/27/2023 9:45 AM EDT Office Visit [facility] [address] [place] [id number] Luh Gupta MD [address] [id number] [place] [address] [facility] Start: 08-04-2023 End: 08-04-2023 Admission to same day surgery center 08/04/2023 12:30 PM EDT - 08/04/2023 1:30 PM EDT Surgery [facility] [address] [place] [phone] Belén Goodwin MD [address] [place] [address] HYSTEROSCOPY DILATION CURETTAGE ABLATION ENDOMETRIAL NOVASURE [41500 (CPT )] [facility] Comment on above: HYSTEROSCOPY DILATIO N CURETTAGE ABLATION ENDOMETRIAL NOVASURE [73286 (CPT )] Start: 08-04-2023 End: 08-04-2023 Hysteroscopy endometrial ablation HYSTEROSCOPY DILATION CURETTAGE ABLATION ENDOMETRIAL NOVASURE dysfunctional uterine bleeding 08/04/2023 12:30 PM EDT [facility] Start: 08-04-2023 Subsequent hospital visit by physician 08/04/2023 12:30 PM EDT Hospital Encounter [facility] [address] [place] [phone] Belén Goodwin MD [address] [place] [address] [facility] Start: 07-14-2023 End: 07-14-2023 Patient encounter procedure 07/14/2023 9:45 AM EDT Procedure visit [facility] - Pre Admit [address] [place] [address] [facility] Pre [facility] Start: 06-17-2023 End: 06-17-2023 Patient encounter procedure 06/17/2023 8:15 AM EDT Office Visit [facility] [address] [place] [phone] Belén Goodwin MD [address] [place] [address] [facility] Start: 06-03-2023 End: 06-02-2024 Surgical Pathology Surgical Pathology Pathology and Cytology Routine DUB (dysfunctional uterine bleeding) Expected: 06/03/2023 (Approximate), Expires: 06/02/2024 [facility] Work Phone: Comment on above: Expected: 06/03/2023 (Approximate), Expires: 06/02/2024 Start: 06-03-2023 End: 06-03-2023 Patient encounter procedure 06/03/2023 10:30 AM EDT Procedure visit [facility] [address] [place] [phone] Belén Goodwin MD [address] [place] [address] [facility] Start: 04-22-2023 End: 04-21-2024 US Pelvis transvaginal Ultrasound transvaginal non OB Imaging Routine DUB (dysfunctional uterine bleeding) Expected: 04/22/2023, Expires: 04/21/2024 [facility] Work Phone: Comment on above: Expected: 04/22/2023 , Expires: 04/21/2024 Start: 04-22-2023 End: 04-22-2023 Patient encounter procedure 04/22/2023 9:00 AM EST Office Visit [facility] [address] [place] [phone] Belén Goodwin MD [address] [place] [address] [facility] Start: 11-15-2022 Influenza vaccination Influenza Vacc ine [facility] Start: 09-15-2000 Screening for malign ant neoplasm of cervix Pap Smear [facility] Start: 09-15-1997 Adult BMI Follow Up Plan Adult BMI Follow Up Plan [facility] Start: 1991 Depression Screening Depression Scre ening [facility] Start: 1979 Tobacco Counseling Tobacco Counselin g [facility] End: 04-22-2024 CBC panel - Blood by Automated count CBC without diff Lab Routine DUB (dysfunctional uterine bleeding) 1 Occurrences starting 04/22/2023 until 04/22/2024 [facility] Comment on above: 1 Occurrences starti ng 04/22/2023 until 04/22/2024 End: 04-22-2024 Follicle stimulating hormone Follicle stimulating hormone Lab Routine DUB (dysfunctional uterine bleeding) 1 Occurrences starting 04/22/2023 until 04/22/2024 [facility] Comment on above: 1 Occurrences starti ng 04/22/2023 until 04/22/2024 End: 04-22-2024 HCG, Quantitative, HCG, Quantitative, Lab Routine DUB (dysfunctional uterine bleeding) 1 Occurrences starting 04/22/2023 until 04/22/2024 [facility] Comment on above: 1 Occurrences starti ng 04/22/2023 until 04/22/2024 End: 04-22-2024 Luteinizing hormone Luteinizing hormone Lab Routine DUB (dysfunctional uterine bleeding) 1 Occurrences starting 04/22/2023 until 04/22/2024 [facility] Comment on above: 1 Occurrences starti ng 04/22/2023 until 04/22/2024 End: 04-22-2024 Prolactin Prolactin Lab Routine DUB (dysfunctional uterine bleeding) 1 Occurrences starting 04/22/2023 until 04/22/2024 [facility] Comment on above: 1 Occurrences starti ng 04/22/2023 until 04/22/2024 End: 04-22-2024 Thyrotropin [Units/volume] in Serum or Plasma TSH Lab Routine DUB (dysfunctional uterine bleeding) 1 Occurrences starting 04/22/2023 until 04/22/2024 [facility] Comment on above: 1 Occurrences starti ng 04/22/2023 until 04/22/2024 End: 04-22-2024 Thyroxine (T4) free [Mass/volume] in Serum or Plasma T4, free Lab Routine DUB (dysfunctional uterine bleeding) 1 Occurrences starting 04/22/2023 until 04/22/2024 [facility] Comment on above: 1 Occurrences starti ng 04/22/2023 until 04/22/2024 Immunizations Immunization Date Immunization Notes Care Provider Vishal [facility] 12-13-2019 tetanus and diphther ia toxoids, adsorbed, preservative free, for adult use (2 Lf of tetanus toxoid and 2 Lf of diphtheria toxoid) Jana Melvin [facility] Payers Date Payer Category Payer Private Health Insurance [facility] [id number] 2021-Present [phone] [address] [place] [address] [id number] 1979 Unknown [id number] 2.16.840.1.202981.3.579. 2.593 1979 Unknown [id number] 2.16.840.1.791242.3.579. 2.593 1979 Unknown [id number] 2.16.840.1.823573.3.579. 2.593 1979 Unknown [id number] 2.16.840.1.220819.3.579. 2.593 1979 Unknown [id number] 2.16.840.1.721646.3.579. 2.593 1979 Unknown [id number] 2.16.840.1.320582.3.579. 2.3 1979 Unknown [id number] 2.16.840.1.783067.3.579. 2.727 1979 Unknown [id number] 2.16.840.1.821958.3.579. 2.1258 1979 Unknown [id number] 2.16.840.1.217437.3.579. 2.9 1979 Unknown [id number] 2.16.840.1.270648.3.579. 2.1285 1979 Unknown [id number] 2.16.840.1.982318.3.579. 2.1285 1979 Unknown [id number] 2.840.1.985778.3.579. 2.1285 1979 Unknown [id number] 2.16840.1.867831.3.579. 2.1285 1979 Unknown [id number] 2.16840.1.960794.3.579. 2.1285 1979 Unknown [id number] 2.16840.1.926528.3.579. 2.1285 1979 Unknown [id number] 2.840.1.204038.3.579. 2.1285 1979 Unknown [id number] 2.16.840.1.782607.3.579. 2.1285 1979 Unknown [id number] 2.16.840.1.087140.3.579. 2.1285 1979 Unknown [id number] 2.16.840.1.940448.3.579. 2.1285 1979 Unknown [id number] 2.16840.1.276447.3.579. 2.1285 1979 Unknown [id number] 2.16.840.1.818553.3.579. 2.1286 1979 Unknown [id number] 2.16.840.1.686122.3.579. 2.6 1979 Unknown [id number] 2.16.840.1.284553.3.579. 2.1286 1979 Unknown [id number] 2.16.840.1.844951.3.579. 2.1286 1979 Unknown [id number] 2.16.840.1.418875.3.579. 2.1286 1959 Private Health Insurance [id number] 2.16.840.1.568692.19 Social History Date Type Detail Facility Unknown if ever smoked [facility] Start: 04-02-2023 End: 06-17-2023 Sex Assigned At [facility] Other Start: 09-09-2022 Tobacco smoking status [facility] Smokes tobacco daily [facility] History of tobacco use Cigarette Smoker [facility] Start: 09-09-2022 End: 06-17-2023 Cigarettes smoked current (pack per day) - Reported 0.5 [facility] Start: 09-09-2022 Tobacco use and exposure Smokeless tobacco non-user [facility] Start: 04-21-2023 End: 06-17-2023 Alcohol intake Current drinker of alcohol (finding) [facility] Within the past 12 months we worried whether our food would run out before we got money to buy more. Never True [facility] Start: 12-03-2021 Alcohol Comment occassionally [facility] Start: 1980 Sex Assigned At Not on file P [facility] Start: 05-29-2020 Tobacco smoking status Heavy tobacco smoker (finding) [facility] Comment on above: PPD smoker Clinical Notes 03-29-2021 to 06-18-2023 Telephone Encounter - Shantel Fan - 06/18/2023 10:50 AM EDTTelephone Encounter - Shantel Fan - 06/18/2023 10:50 AM SHAKILATConeil Goodwin MD - 06/17/2023 8:15 AM EDTPatient Instructions Note Date & Type Note [facility] 06-18-2023 Miscellaneous Notes Patient has sinus surgery scheduled on 08/12/23. Patient is requesting her surgery with Dr. Goodwin be prior to that. Patient scheduled for surgery with Dr. Goodwin on 08/04/23 at 12:30pm with hospital arrival at 10:30am. PAT 07/09/23 at 9:45am. LVM for patient to return my call to discuss dates & times and schedule surgery f/u. Patient returned my call while I was out of the office at lunch. I returned patient's call. Patient notified of all dates & times. Patient voiced understanding. Surgery information letter mailed to the patient. documented in this encounter [facility] 06-18-2023 Telephone encounter Note Patient has sinus surgery scheduled on 08/12/23. Patient is requesting her surgery with Dr. Goodwin be prior to that. Patient scheduled for surgery with Dr. Goodwin on 08/04/23 at 12:30pm with hospital arrival at 10:30am. [facility] 07/09/23 at 9:45am. LVM for patient to return my call to discuss dates & times and schedule surgery f/u. [facility] 06-18-2023 Telephone encounter Note Patient returned my call while I was out of the office at lunch. I returned patient's call. Patient notified of all dates & times. Patient voiced understanding. Surgery information letter mailed to the patient. [facility] 06-17-2023 History of Presen t illness Narrative Mere Esteban is a 42 y.o.female. No LMP recorded (lmp unknown).. She presents today for follow up from [facility]. Current contraception:no method Final Pathologic Diagnosis 1. Endocervix, curettage: Benign endocervical epithelium. 2. Endometrium, biopsy: Benign endometrium. OB History 4 Para 2 Term 1 1 AB 2 Living 2 SAB 1 IAB Ectopic 1 Multiple Live Births 2 MEDICAL HX Past Medical History: Diagnosis Date Anxiety Chronic bronchitis (CMS-HCC) SURGICAL HX Past Surgical History: Procedure Laterality Date SECTION x2 TUBAL LIGATION FAMILY HX Family History Problem Relation Age of Onset Cancer Mother multiple myeloma Parkinsonism Father Breast cancer Maternal Aunt MEDS Current Outpatient Medications Medication Sig Dispense Refill albuterol (PROVENTIL HFA;VENTOLIN HFA) 90 mcg/actuation inhaler Inhale 2 puffs every 4 (four) hours as needed. albuterol (PROVENTIL,VENTOLIN) 2.5 mg /3 mL (0.083 %) nebulizer solution Inhale 3 mL by nebulization every 6 (six) hours as needed. ARIPiprazole (ABILIFY) 5 mg tablet Take 1 tablet (5 mg total) by mouth nightly. baclofen (LIORESAL) 10 mg tablet Take 1 tablet (10 mg total) by mouth nightly. benzonatate (TESSALON PERLES) 100 mg capsule Take 1 capsule (100 mg total) by mouth 3 (three) times a day as needed. busPIRone (BUSPAR) 10 mg tablet Take 1 tablet (10 mg total) by mouth in the morning and 1 tablet (10 mg total) before bedtime. zpogacldvgo-lqeyieqtu-mivpupmk (TRELEGY ELLIPTA) 200-62.5-25 mcg blister with device INHALE 1 PUFF BY MOUTH IN THE MORNING 60 each 5 furosemide (LASIX) 20 mg tablet Take 1 tablet (20 mg total) by mouth daily as needed. hydrOXYzine (VISTARIL) 25 mg capsule Take 1 capsule (25 mg total) by mouth nightly. lamoTRIgine (LaMICtal) 100 mg tablet Take 1 tablet (100 mg total) by mouth in the morning. venlafaxine XR (EFFEXOR XR) 75 mg 24 hr capsule Take 1 capsule (75 mg total) by mouth in the morning. No current facility-administered medications for this visit. ALLERGIES No Known Allergies Review of Systems Review of Systems Objective Wt 101.8 kg (224 lb 6.4 oz) LMP (LMP Unknown) BMI 36.22 kg/m Physical Exam BP 128/66 Wt 101.8 kg (224 lb 6.4 oz) LMP (LMP Unknown) BMI 36.22 kg/m Assessment/Plan: Dub EMB BENIGN DESIRES ENDOMETRIAL ABLATION RBAI OF DC/HYST/ABLATION DW PT AT LENGTH TO INCL BUT NOT LIMITED TO BLEEDING TRANSFUSION INFX ANESTHESIA DAEATH INJURY TO SURROUNDING TISSUES OR NEED FOR MORE EXTENSIVE SURGERY. VOICES UNDERSTANDING AND DESIRES TO PROCEED. CONSENT SIGNED AND ON CHART. MD Cori TELLEZ RN documented in this encounter [facility] 06-03-2023 History of Presen t illness Narrative ALL RESULTS DW PT AT LENGTH FOLLOWS AND ALL ?S ANSWERED ALL LABS WNL PELVIC SONO FINDINGS: The uterus measures 8.5 x 5.1 x 6.4 cm. The endometrium measures 1.1 cm in thickness. Small cystic focus within the endometrium. The right ovary measures 1.9 x 1.1 x 1.6 cm and left ovary measures 2.4 x 2.0 x 2.1 cm. The ovaries are normal. No free fluid in the pelvis. IMPRESSION: * The endometrium measures 1.1 cm in thickness and contains a small nonspecific internal cystic focus. The thickness of the endometrium is within normal limits if the patient is considered premenopausal. * Normal ovaries. PT INTERESTED IN ENDO ABLATION IF PATH TODAY IS BENIGN INFO DISTRIBUTED Endometrial Biopsy/ Endosee Procedure Note Indications: DUB Procedure Details The risks (including infection, bleeding, pain, and uterine perforation) and benefits of the procedure were explained to the patient. Verbal and written informed consent was obtained. The cervix prepped with betadine. A allis clamp was applied to the anterior lip of the cervix for stabilization. A pipelle passed without difficulty to sample the endometrium X 3 W SCANT SPECIMEN RETRIEVED The sample was sent for pathologic examination. The patient tolerated the procedure well. ENDOSEE HYSTEROSCOPY IS PERFORMED IN USUAL STANDARD FASHION WITHOUT DIFFICULTY BILATERAL TUBAL OSTIA ARE VISUALIZED AND HYSTEROSCOPY IS ADEQUATE. NO SUSPICIOUS LESIONS ARE VISUALIZED ATROPHIC ENDOMETRIUM IS NOTED. PATIENT TOLERATED PROCEDURE WELL SILVER NITRATE IS APPLIED TO THE ANTERIOR LIP OF THE CERVIX FOR HEMOSTASIS ALL INSTRUMENTS AND ROOF OF THE VAGINA Condition: Stable Complications: None Plan: The patient was advised to call for any fever or for prolonged or severe pain or bleeding. She was advised to use OTC ibuprofen as needed for mild to moderate pain. She was advised to avoid vaginal intercourse for 48 hours or until the bleeding has completely stopped. Follow up: To discuss results of biopsy. BELÉN GOODWIN MD documented in this encounter [facility] 06-03-2023 Miscellaneous Notes Addended by: ANGELICA RIZZO on: 06/03/2023 12:04 PM Modules accepted: Orders documented in this encounter [facility] 06-03-2023 Note Addended by: ANGELICA RIZZO on: 06/03/2023 12:04 PM Modules accepted: Orders [facility] 04-22-2023 History of Presen t illness Narrative Mere Esteban is a 42 y.o.female. Patient's last menstrual period was 04/08/2023.. She presents today for concerns with heavy period bleeding and cramping. She relates being on HRT and would like to discuss a pertial hysterectomy. REPORTS SEVERAL YEAR HO DUB REC DUB EVAL STARTED ON HRT FOR SX FROM [facility] IN [place] BUT DID NOT HELP SX OR BLEEDING ISSUES HEAVY TOBACCO USE--HAS A LOT OF ANXIETY Current contraception:no method OB History 4 Para 2 Term 1 1 AB 2 Living 2 SAB 1 IAB Ectopic 1 Multiple Live Births 2 MEDICAL HX Past Medical History: Diagnosis Date Anxiety Chronic bronchitis (CMS-HCC) SURGICAL HX Past Surgical History: Procedure Laterality Date SECTION x2 TUBAL LIGATION FAMILY HX Family History Problem Relation Age of Onset Cancer Mother multiple myeloma Parkinsonism Father Breast cancer Maternal Aunt MEDS Current Outpatient Medications Medication Sig Dispense Refill albuterol (PROVENTIL HFA;VENTOLIN HFA) 90 mcg/actuation inhaler Inhale 2 puffs every 4 (four) hours as needed. albuterol (PROVENTIL,VENTOLIN) 2.5 mg /3 mL (0.083 %) nebulizer solution Inhale 3 mL by nebulization every 6 (six) hours as needed. amoxicillin-pot clavulanate (AUGMENTIN) 875-125 mg per tablet Take 1 tablet by mouth in the morning and 1 tablet before bedtime. ARIPiprazole (ABILIFY) 5 mg tablet Take 1 tablet (5 mg total) by mouth nightly. baclofen (LIORESAL) 10 mg tablet Take 1 tablet (10 mg total) by mouth nightly. benzonatate (TESSALON PERLES) 100 mg capsule Take 1 capsule (100 mg total) by mouth 3 (three) times a day as needed. busPIRone (BUSPAR) 10 mg tablet Take 1 tablet (10 mg total) by mouth in the morning and 1 tablet (10 mg total) before bedtime. estradioL (ESTRACE) 0.5 mg tablet rdieoyizsxh-trjpmcmtr-fnfrtsom (TRELEGY ELLIPTA) 200-62.5-25 mcg blister with device INHALE 1 PUFF BY MOUTH IN THE MORNING 60 each 5 furosemide (LASIX) 20 mg tablet Take 1 tablet (20 mg total) by mouth daily as needed. hydrOXYzine (VISTARIL) 25 mg capsule Take 1 capsule (25 mg total) by mouth nightly. lamoTRIgine (LaMICtal) 100 mg tablet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 atrophy to the right upper extremity. NEUROLOGICAL: Brachioradialis +2 bilaterally. Radicular sensory is intact. DIAGNOSIS: Right shoulder pain, left knee pain, cervical neuritis and lumbar neuritis. PLAN: I believe most of her pain from her shoulder is originated from the neck, therefore we will get a cervical and lumbar x-ray with flexion and extension. The patient does have slight back pain but due to the lack of imaging, we will capture lumbar films as well. We will change her muscle relaxer from tizanidine to Baclofen 10 mg q.h.s. and add [place] 5/325 one q. day p.r.n. The patient was educated on the excessive use of her NSAIDs and appropriate doses were discussed. The intent is that the [place] will help with her pain relief and decrease the need for the ibuprofen as frequently. The patient agrees with the plan of care. She will be brought back to the clinic in two weeks' time for x-ray review. [facility] Signed and Approved by: FABIOLA BARTLETT . 10/05/2021 14:14:00[facility]01-13-2022 Evaluation note* Encounter Date Diagnosis Assessment Notes Treatment Notes Treatment Clinical Notes Mar, Contact with and (suspected) exposure to other viral communicable diseases (ICD-10 - Z20.828) Mar, COVID-19 (ICD-10 - U07.1) Today you tested positive for the COVID virus. This mean you need to follow all CDC quarantine guidelines found at [email or web address] v. It is important to rest, increase fluids, and stay at home. Contact PCP and inform them of results. Medications like Mucinex, Cepacol, Tylenol, saline nasal spray are over the counter medications that can help with the symptoms. Current guidelines include staying home, having no fever above 100.4 for 24 hours without medication and having significant improvement of symptoms before you are allowed to stop your quarantine.. For full guidelines go to CDC. GOV. Contact primary care and ask for guidance is essential to follow up * EDUCATION HANDOUT GIVEN ON OTC TREATMENTS, FOLLOW UP AND WHEN TO SEEK EMERGENCY TREATMENT Mar, Other Additional time spent conducting pre-visit phone call, screening for symptoms, instructions on social distancing, application and removal of PPE, and cleaning of examination room, equipment and supplies was preformed. Patient education given for testing methodology and results. Patient care instructions given in writting by [facility] Care At Home document. [employer] Other Evaluation + Plan note No data available for this section [facility] noteNort [employer] Other Evaluation note* Diagnosis Chronic bronchitis, unspecified chronic bronchitis type ([facility])- Primary Asthma-COPD overlap syndrome Tobacco dependence Tobacco use disorder Class 1 obesity with body mass index (BMI) of 34.0 to 34.9 in adult, unspecified obesity type, unspecified whether serious comorbidity present documented in this encounter [facility] [email or web address] SystemEvaluation note* Diagnosis DUB (dysfunctional uterine bleeding)- Primary Other disorder of menstruation and other abnormal bleeding from female genital tract [facility] [email or web address] System[facility]* Diagnosis Abnormal uterine bleeding (AUB) Abnormal uterine bleeding (AUB)- Primary documented in this encounter [facility] [email or web address] SystemEvaluation note* Diagnosis DUB (dysfunctional uterine bleeding)- Primary Other disorder of menstruation and other abnormal bleeding from female genital tract documented in this encounter [facility] [email or web address] SystemEvaluation note* Diagnosis DUB (dysfunctional uterine bleeding)- Primary Other disorder of menstruation and other abnormal bleeding from female genital tract documented in this encounter [facility] [email or web address] SystemHistory general Narrative - ReportedNort [employer] Other Hislbnq general Narrative - Reported* Type Description Date 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 Surgical History C section (two) [employer] Other History general Narrative - Reported* Type Description Date 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 Medical History Edema leg Medical History Depression Surgical History C section (two) [facility] Other Hospital Discharge instructions No data available for this section [facility] RehabilitationInstructionsNot on filedocumented in this encounter [facility] [email or web address] SystemInstructionsNot on filedocumented in this encounter [facility] [email or web address] SystemInstructionsNot on filedocumented in this encounter [facility] SystemProgress note No data available for this section [facility] Summary Purpose Family History No Family History Records FoundNo Family History Records Found No data available for this section No Family History Records FoundNo Family History Records FoundNo Family History Records FoundNo Family History Records Found Advance Directives No Advanced Directives Records FoundNo Advanced Directives Records FoundNo Advanced Directives Records FoundNo Advanced Directives Records FoundNo Advanced Directives Records FoundNo Advanced Directives Records Found Additional Source Comments INFORMATION SOURCE (unrecogn ized section and content) DATE CREATED AUTHOR 06/15/2021 [facility] DATE CREATED AUTHOR AUTHOR'S ORGANIZ ATION 07/27/2022 [facility] DATE CREATED AUTHOR AUTHOR'S ORGANIZ ATION 06/01/2023 [facility] DATE CREATED AUTHOR AUTHOR'S ORGANIZ ATION 06/05/2023 [facility] DATE CREATED AUTHOR AUTHOR'S ORGANIZ ATION 06/18/2023 [facility] DATE CREATED AUTHOR AUTHOR'S ORGANIZ ATION [facility]20[facility] REASON FOR VISIT (unrecogniz ed section and content) Reason Comments Asthma Labs: 01/29/2023 Cough Reason Comments Menopause Reason Comments EMB/Hysteroscopy Reason Comments Follow-up Care Teams (unrecognized sec tion and content) [employer] Faculty Member Relationship Specialty Start Date End Date Sridhar Bird APRN-CNP [address] [place] [address] PCP - General Primary Care 09/09/22 [employer] Faculty Member Relationship Specialty Start Date End Date Sridhar Bird APRN-CNP [address] [place] [address] PCP - General Primary Care 09/09/22 [employer] Faculty Member Relationship Specialty Start Date End Date Sridhar Bird APRN-CNP [address] [place] [address] PCP - General Primary Care 09/09/22 [employer] Faculty Member Relationship Specialty Start Date End Date Sridhar Bird APRN-CNP [address] [place] [address] PCP - General Primary Care 09/09/22 [employer] Faculty Member Relationship Specialty Start Date End Date Sridhar Bird APRN-CNP [address] [place] [address] PCP - General Primary Care 09/09/22 [employer] Faculty Member Relationship Specialty Start Date End Date Sridhar Bird APRN-CNP [address] [place] [id number] PCP - General Primary Care 09/09/22 FOR RECORDS PERTAINING TO PATIENTS WHO ARE OR HAVE BEEN ENROLLED IN A CHEMICAL DEPENDENCY/SUBSTANCEABUSE PROGRAM, SOME INFORMATION MAY BE OMITTED. This clinical summary was aggregated from multiple sources. Caution should be exercised in using it in the provision of clinical care. This summary normalizes information from multiple sources, and as a consequence, information in this document may materially change the coding, format and clinical context of patient data. In addition, data may be omitted in some cases. CLINICAL DECISIONS SHOULD BE BASED ON THE PRIMARY CLINICAL RECORDS. [facility] [employer] provides no warranty or guarantee of the accuracy or completeness of information in this document.
[2023-08-12 10:18] LABS: HCG Qualitative NEGATIVE (NEGATIVE); Internal Control Within Normal Limits
[2023-08-12] MEDS: LACTATED RINGER'S SOLUTION 1,000 ML 50 ML IV (10:18)
[2023-08-12] MEDS: OXYMETAZOLINE HCL 0.05% NASAL SPRAY 30 SPRAY NS (13:20)
[2023-08-12] MEDS: LIDOCAINE HCL 1%-EPINEPHRINE 1:100,000 20 ML MDV INJ (13:25)
[2023-08-12] MEDS: BACITRACIN OINTMENT 28.4 GM TUBE 1 APPLIC TOPICAL (14:13)
[2023-08-12] MEDS: HYDROMORPHONE HCL 0.5 MG/0.5 ML SYRINGE IV (14:36)
[2023-08-12] MEDS: ACETAMINOPHEN 300 MG/ 30 MG CODEINE TABLET 1 TAB PO (15:00)
--- NOTE | 2023-08-12 16:13 | PC.NURSE ---
Noted patient blotting nose. Scant amount of blood noted to tissue. Informed patient I could place a drip pad if she would like to avoid having to blot and cause her nose to be sore. Patient agreed. Encouraged patient to use ice at intervals as this would assist with swelling and potential bleeding.
== END 2023-08-12 15:50 | disposition home or self-care (01) ==
PROVIDERS: PCP Nurse Practitioner Primary Care; Visit Provider Otolaryngology
PROC: (CPT 160; principal; 2023-08-12 10:45)
DX: J32.9 Chronic sinusitis, unspecified (principal); J34.2 Deviated nasal septum; J34.3 Hypertrophy of nasal turbinates; Z86.16 Personal history of COVID-19; F17.210 Nicotine dependence, cigarettes, uncomplicated; R51.9 Headache, unspecified; J34.89 Other specified disorders of nose and nasal sinuses; J45.909 Unspecified asthma, uncomplicated
CPT/HCPCS: 30140; 30520; 31020; 31200; 36415; 84703; 88300; 88304; J1094; J1170; J2704

== ENCOUNTER 2023-09-03 14:40 | Emergency (ER) | payer OTHER, SELFPAY ==
[2023-09-03 14:49] VITALS: BP 125/86; PULSE 85; TEMP 36.6; O2SAT 98; BMI 35.5
--- OUTSIDE RECORDS SUMMARY | 2023-09-03 14:58 | XMS_ITS ---
Patient Summarization (C-CDA 2.1 CCD) Created on: September 03, 2023 MERE ESTEBAN : 1980 Sex: Undifferentiated Author Organization Sample organization Care Team Providers Care Paid Search Specialist Name Role Phone Yohana Kitchen Unavailable Chela Kumar Unavailable NITO ., DR JOSÉ MIGUEL Potts Admitting Unavailable BEAUCHAMP ., DR JOSÉ MIGUEL Potts Attending Unavailable MISC, DR THOMSON Primary Care Unavailable HOY ., DR CORREA Consulting Unavailable BARTLETT ., FABIOLA Consulting Unavailable HALKER ., PAIGE Admitting Unavailable HALKER ., PAIGE Attending Unavailable ELIOT CHO Primary Care Unavailable BARTLETT ., FABIOLA Admitting Unavailable BARTLETT ., FABIOLA Attending Unavailable MISC, DR THOMSON Primary Care Unavailable [place], DR LOUIE Carrillo Consulting Unavailable BARTLETT ., [...] Unavailable Ilana Gallegos Unavailable Neyda Garland Unavailable Shammo CHIEF RADIOLOGY-FRAME TABLE OPERATOR HELPER, Sridhar Primary Care Provider [phone] ARIANA RENDON Primary Care Physician Timmis, Delicia H Admitting Unavailable Timmis, Delicia H Attending Unavailable Timmis, Delicia H Referring Unavailable BUDDY, BELÉN Referring Unavailable SHAMMO, SRIDHAR Primary Care Unavailable BUDDY, BELÉN Referring Unavailable SHAMMO, SRIDHAR Primary Care Unavailable BUDDY, BELÉN Referring Unavailable SHAMMO, SRIDHAR Primary Care Unavailable JACKSON, ZENAIDA Referring Unavailable JACKSON, ZENAIDA Primary Care Unavailable LOUIE HEREDIA Referring Unavailable JACKSON, ZENAIDA Primary Care Unavailable LOUIE HEREDIA Attending Unavailable LOUIE HEREDIA Referring Unavailable JACKSON, ZENAIDA Primary Care Unavailable SHAMMO, SRIDHAR Referring Unavailable SHAMMO, SRIDHAR Primary Care Unavailable SHAMMO, SRIDHAR Referring Unavailable SHAMMO, SRIDHAR Primary Care Unavailable BUDDYGAVINOIE Admitting Unavailable BUDDY, BELÉN Attending Unavailable BUDDY, BELÉN Referring Unavailable SHAMMO, SRIDHAR Primary Care Unavailable REGGIE WEBB Attending Unavailable JACKSON, ZENAIDA Primary Care Unavailable JACKSON, ZENAIDA Primary Care Unavailable BRUNO WALL Attending Unavailable MD Delicia Melvin Jr Attending Provider Delicia Cabral Jr Attending Unavailable Delicia Melvin Jr Admitting Unavailable TIMMIDELICIA Potts Attending Unavailable SHAMMO, SRIDHAR Referring Unavailable TIMMIS, DELICIA Marin Attending Unavailable TIMMIS, DELICIA Marin Attending Unavailable JACKSON, ZENAIDA Referring Unavailable BUDDYBELÉN L Attending Unavailable SHAMMO, SRIDHAR Referring Unavailable SHAMMO, SRIDHAR Primary Care Unavailable BUDDY, BELÉN L Attending Unavailable SHAMMO, SRIDHAR Referring Unavailable SHAMMO, SRIDHAR Primary Care Unavailable SHANTHI LUGO Attending Unavailable SHAMMO, SRIDHAR Referring Unavailable SHAMMO, SRIDHAR Primary Care Unavailable BUDDY, BELÉN L Attending Unavailable SHAMMO, SRIDHAR Referring Unavailable SHAMMO, SRIDHAR Primary Care Unavailable BUDDY, BELÉN L Attending Unavailable JACKSON, ZENAIDA Referring Unavailable JACKSON, ZENAIDA Primary Care Unavailable Encounters Encounter Date Encounter Type Care Provider Facility Start: 09-01-2023 End: 09-01-2023 [facility] Start: 08-20-2023 End: 08-20-2023 ambulatory DELICIA MELVIN Not Available Start: 08-12-2023 End: 08-12-2023 ambulatory Delicia Melvin Jr [facility] Work Phone: Start: 08-12-2023 End: 08-12-2023 Departed Referred MD Delicia Melvin Jr [facility] Start: 08-07-2023 End: 08-07-2023 Emergency department patient visit [facility] Start: 08-04-2023 End: 08-04-2023 Evaluation and management of inpatient REGGIE WEBB [facility] Start: 08-04-2023 End: 08-04-2023 Evaluation and management of inpatient [facility] Start: 07-14-2023 End: 07-15-2023 ambulatory LOUIE HEREDIA [facility] Start: 07-14-2023 Encounter for other preprocedural examination [facility] Start: 06-18-2023 Telephone encounter Shantel ferrell [facility] Start: 06-17-2023 End: 06-17-2023 ambulatory [facility] Start: 06-17-2023 End: 06-17-2023 Office outpatient visit 15 minutes Belén Goodwin MD Work Phone: [facility] Comment on above: DUB (dysfunctional u terine bleeding) (Primary Dx) Start: 06-04-2023 End: 06-04-2023 ambulatory DELICIA H TIMMIS Not Available Start: 06-03-2023 End: 06-04-2023 ambulatory [facility] Start: 06-03-2023 End: 06-03-2023 Office outpatient visit 15 minutes Belén Goodwin MD Work Phone: [facility] Comment on above: DUB (dysfunctional u terine bleeding) (Primary Dx) Start: 06-03-2023 End: 06-03-2023 ambulatory [facility] Start: 06-02-2023 End: 06-03-2023 Orders Only Cori Montilla RN [facility] Comment on above: Abnormal uterine ble eding (AUB) (Primary Dx) Start: 05-31-2023 End: 06-01-2023 ambulatory Delicia H Timmis Facility:[facility] Start: 04-22-2023 End: 04-22-2023 Office outpatient visit 25 minutes Belén Goodwin MD Work Phone: [facility] Comment on above: DUB (dysfunctional u terine bleeding) (Primary Dx) Start: 04-22-2023 End: 04-22-2023 ambulatory BELÉN Belle [facility] Start: 04-16-2023 End: 05-24-2023 Pre-admission assessment Delicia Melvin [facility] Start: 04-16-2023 End: 04-16-2023 ambulatory DELICIA MELVIN Not Available Start: 04-10-2023 End: 04-11-2023 ambulatory [facility] Start: 04-02-2023 End: 04-02-2023 Office outpatient visit 25 minutes Shanthi Belle [facility] CHIEF RADIOLOGY-FRAME TABLE OPERATOR HELPER Work Phone: [facility] Comment on above: Chronic bronchitis, unspecified chronic bronchitis type (CMS- HCC) (Primary Dx); Asthma-COPD overlap syndrome; Tobacco dependence; Class 1 obesity with body mass index (BMI) of 34.0 to 34.9 in adult, unspecified obesity type, unspecified whether serious comorbidity present Start: 04-02-2023 End: 04-02-2023 ambulatory [facility] Start: 03-03-2023 End: 03-03-2023 ambulatory Neyda Garland Other [employer] Other Start: 03-03-2023 Office outpatient vi sit 15 minutes Neyda Garland [facility] Start: 08-26-2022 End: 08-26-2022 ambulatory Ilana Gallegos Other [employer] Other Start: 08-26-2022 Office outpatient vi sit 25 minutes Ilana Gallegos [facility] Start: 08-01-2022 ambulatory PAIGE COVARRUBIAS . Facili ty:[facility] Start: 06-28-2022 End: 06-28-2022 ambulatory Yohana Kitchen Other [employer] Other Start: 06-28-2022 Office outpatient vi sit 15 minutes Yohana Kitchen [facility] Start: 05-02-2022 End: 05-03-2022 [...] 03-29-2021 End: 03-29-2021 ambulatory Chela Kumar Other [employer] Other Start: 03-29-2021 Office outpatient vi sit 15 minutes Chela Kumar [facility] Start: 01-26-2021 End: 01-26-2021 ambulatory Yohana Fidelina Other [employer] Other Start: 01-26-2021 Office outpatient vi sit 15 minutes Yohana Fidelina [facility] Immunizations Immunization Date Immunization Notes Care Provider Vishal [facility] 12-13-2019 tetanus and diphther ia toxoids, adsorbed, preservative free, for adult use (2 Lf of tetanus toxoid and 2 Lf of diphtheria toxoid) Delicia Melvin [facility] Medications Current Medications Medication Drug Class(es) Dates Sig (Normalized) Sig (Original) [id number] 200 actuat albuterol 0.09 mg/actuat metered dose [...] Start: 01-26-2021 clonazePAM 0.5 mg oral tablet (4 sources) Benzodiazepine Start: 08-15-2015 Clonazepam (Klonopin) 0.5 mg Tablet Active 0.5 MG PO As Directed March 24, 2018 1:00am clonazePAM Activ e dicyclomine hydrochloride 10 mg oral capsule (3 sources) Anticholinergic Start: 03-24-2018 Dicyclomine Ac tive 10 MG PO As Directed March 24, 2018 1:00am Dicyclomine HCl Active estradiol 0.5 mg oral [...] 02/11/2023 Active furosemide 20 mg oral tablet (12 sources) Loop Diuretic Start: 03-24-2018 take 1 tablet by mouth once daily [...] a day for 7 day(s) Feb, Active omeprazole 40 mg delayed release oral capsule (3 sources) Proton Pump Inhibitor Start: 03-24-2018 Omeprazole Active 40 MG PO As Directed March 24, 2018 1:00am PriLOSEC Not-Valentin ing Progesterone (3 sources) Progesterone Progesterone Act kushal 24 hr venlafaxine 75 mg extended release oral capsule (11 sources) Serotonin and Norepinephrine Reuptake Inhibitor Start: 10-22-19 take 1 capsule by mouth every twenty-four hours in the morning venlafaxine XR (EFFEXOR XR) 75 mg 24 hr capsule Take 1 capsule (75 mg total) by mouth in the morning. 0 10/21/2021 Active Venlafaxine HCl Active Completed/Discontinued Medications Medication Drug Class(es) Dates Sig (Normalized) Sig (Original) acetaminophen 325 mg / HYDROcodone bitartrate 5 mg oral tablet (10 sources) Opioid Agonist Start: 10-25-2021 End: 06-03-2023 HYDROcodone-acetam inophen (NORCO) 5-325 mg per tablet Start: 03-24-2018 Hydrocodone-Ac etaminophen Active 1 TAB PO As Directed March 24, 2018 1:00am take 1 tablet by zach th every six hours as needed [place] 5-325 MG 1 tablet as needed Orally every 6 hrs Active benzonatate 200 mg oral capsule (9 sources) Non-narcotic Antitussive Start: 06-28-2022 take 1 capsule by mouth every eight hours Benzonatate 200 MG 1 capsule Orally Three times a day Jun, Not-Taking/PRN Start: 08-29-2021 take 1 capsule by mo ut three times daily as needed benzonatate (TESSALON [...] Start: 12-02-2017 take 1 tablet by zach every eight hours at mealtime ibuprofen 600 mg Tab 600 mg = 1 tab(s), Oral, q8hr, with food or milk, # 30 tab(s), Refills(s) 0 Start Date: 12/02/17 Status: Ordered methylPREDNISolone 4 mg oral tablet (2 sources) Corticosteroid Start: 08-26-2022 methylPREDNISolone 4 MG as directed Orally for daily dose take half with breakfast, half with dinner for 6 days Aug, Not-Taking/PRN predniSONE 20 mg oral tablet (3 sources) Start: 06-28-2022 take 1 tablet by mouth every twelve hours predniSONE 20 MG 1 tablet Orally bid for 5 day(s) Jun, Not-Taking/PRN Triamcinolone (3 sources) Corticosteroid Start: 09-23-2016 Kenalog -40 mg Sep, Payers Date Payer Category Payer Self-pay [id number] 2021 Private Health Insurance [facility] [id number] 2021-[facility] [phone] [address] [place] [address] [id number] .[id number] 1980 Unknown [id number] 2.16.840.1.398738.3.579.2 .593 1979 Unknown [id number] 2.16.840.1.196949.3.579.2 .593 1979 Unknown [id number] 2.16.840.1.003976.3.579.2 .593 1979 Unknown [id number] 2.16.840.1.320764.3.579.2 .593 1979 Unknown [id number] 2.16.840.1.060734.3.579.2 .593 1979 Unknown [id number] 2.16.840.1.770804.3.579.2 .593 1979 Unknown [id number] 2.16840.1.915826.3.579.2 .727 1979 Unknown [id number] 2.16.840.1.579908.3.579.2 .1286 1979 Unknown [id number] 2.16.840.1.594171.3.579.2 .128 1979 Unknown [id number] 2.16.840.1.611401.3.579.2 .1286 1979 Unknown [id number] 2.16840.1.486181.3.579.2 .128 1979 Unknown [id number] 2.16.840.1.687651.3.579.2 .1286 1979 Unknown [id number] 2.16.840.1.599830.3.579.2 .128 1979 Unknown [id number] 2.16.840.1.309732.3.579.2 .1286 1979 Unknown [id number] 2.16.840.1.008949.3.579.2 .12808 1980 Unknown [id number] 2.840.1.589664.3.579.2 .1285 1979 Unknown [id number] 2.840.1.011897.3.579.2 .1285 1979 Unknown [id number] 2.840.1.970356.3.579.2 .1285 1979 Unknown [id number] 2.0.1.414837.3.579.2 .1285 1979 Unknown [id number] 2.0.1.350215.3.579.2 .1258 1979 Unknown [id number] 2.0.1.633641.3.579.2 .1258 1979 Unknown [id number] 2.0.1.579876.3.579.2 .1258 1979 Unknown [id number] 2..1.493093.3.579.2 .1285 1979 Unknown [id number] 2.0.1.871064.3.579.2 .1285 1979 Unknown [id number] .0.1.705181.3.579.2 .1285 1979 Unknown [id number] .0.1.359251.3.579.2 .1285 1979 Unknown [id number] 05.02.830.1.948685.3.579.2 .1285 1959 Private Health Insurance [id number] Medicaid [facility] [id number] Unknown [place] BC/BS [id number] Unknown [id number] 05.02.830.1.235510.3.579.2 .531 Plan of Treatment Date Care Activity Detail Author Start: 06-14-2032 DTaP,Tdap and Td Vaccines (3 - Td or Tdap) DTaP,Tdap and Td Vaccines (3 - Td or Tdap) [facility] Start: 06-16-2024 Adult BMI Screening Adult BMI Screen ing [facility] Start: 06-16-2024 Tobacco Screening Tobacco Screening [facility] Start: 06-02-2024 Adult BMI Screening Adult BMI Screen ing [facility] Start: 06-02-2024 Tobacco Screening Tobacco Screening [facility] Start: 04-22-2024 Adult BMI Screening Adult BMI Screen ing [facility] Start: 04-22-2024 Tobacco Screening Tobacco Screening [facility] Start: 04-10-2024 Adult BMI Screening Adult BMI Screen ing [facility] Start: 04-02-2024 Tobacco Screening Tobacco Screening [facility] Start: 11-16-2023 Influenza vaccination Influenza Vacc ine [facility] Start: 10-27-2023 End: 10-27-2023 Patient encounter procedure 10/27/2023 9:45 AM EDT [facility] [address] [address] Luh Gupta MD [address] [place] [address] [facility] Start: 08-04-2023 End: 08-04-2023 Admission to same day surgery center 08/04/2023 12:30 PM EDT - 08/04/2023 1:30 PM EDT Surgery [facility] [address] [place] [address] Belén Goodwin MD [address] [place], [place] [id number] HYSTEROSCOPY DILATION CURETTAGE ABLATION ENDOMETRIAL NOVASURE [43214 (CPT )] [facility] Comment on above: HYSTEROSCOPY DILATIO N CURETTAGE ABLATION ENDOMETRIAL NOVASURE [75338 ([facility] )] Start: 08-04-2023 End: 08-04-2023 Hysteroscopy endometrial ablation HYSTEROSCOPY DILATION CURETTAGE ABLATION ENDOMETRIAL NOVASURE dysfunctional uterine bleeding 08/04/2023 12:30 PM EDT [facility] Start: 08-04-2023 Subsequent hospital visit by physician 08/04/2023 12:30 PM EDT Hospital Encounter [facility] Surgery [address] [place] [address] Belén Goodwin MD [address] [place] [address] [facility] Start: 07-14-2023 End: 07-14-2023 Patient encounter procedure 07/14/2023 9:45 AM EDT Procedure visit [facility] - Pre Admit [address] [place] [address] [facility] Pre [facility] Start: 06-17-2023 End: 06-17-2023 Patient encounter procedure 06/17/2023 8:15 AM EDT Office Visit [facility] [address] Belén Goodwin MD [address] [place] [address] [facility] Start: 06-03-2023 End: 06-02-2024 Surgical Pathology Surgical Pathology Pathology and Cytology Routine DUB (dysfunctional uterine bleeding) Expected: 06/03/2023 (Approximate), Expires: 06/02/2024 [facility] Work Phone: Comment on above: Expected: 06/03/2023 (Approximate), Expires: 06/02/2024 Start: 06-03-2023 End: 06-03-2023 Patient encounter procedure 06/03/2023 10:30 AM EDT Procedure visit [facility] [address] [place] [address] Belén Goodwin MD [address] [place] [address] [facility] Start: 04-22-2023 End: 04-21-2024 US Pelvis transvaginal Ultrasound transvaginal non OB Imaging Routine DUB (dysfunctional uterine bleeding) Expected: 04/22/2023, Expires: 04/21/2024 [facility] Work Phone: Comment on above: Expected: 04/22/2023 , Expires: 04/21/2024 Start: 04-22-2023 End: 04-22-2023 Patient encounter procedure 04/22/2023 9:00 AM EST Office Visit [facility] [address] [place] [id number] Belén Goodwin MD [address] [address] [facility] Start: 11-15-2022 Influenza vaccination Influenza Vacc ine [facility] Start: 09-15-2000 Screening for malign ant neoplasm of cervix Pap Smear [facility] Start: 09-15-1997 Adult BMI Follow Up Plan Adult BMI Follow Up Plan [facility] Start: 1991 Depression Screening Depression Scre ening [facility] Start: 1979 Tobacco Counseling Tobacco Counselin g [facility] End: 04-22-2024 CBC panel - Blood by Automated count CBC without diff Lab Routine DUB (dysfunctional uterine bleeding) 1 Occurrences starting 04/22/2023 until 04/22/2024 [facility] Comment on above: 1 Occurrences starti ng 04/22/2023 until 04/22/2024 End: 04-22-2024 Follicle stimulating hormone Follicle stimulating hormone Lab Routine DUB (dysfunctional uterine bleeding) 1 Occurrences starting 04/22/2023 until 04/22/2024 [facility] Comment on above: 1 Occurrences starti ng 04/22/2023 until 04/22/2024 End: 04-22-2024 HCG, Quantitative, HCG, Quantitative, Lab Routine DUB (dysfunctional uterine bleeding) 1 Occurrences starting 04/22/2023 until 04/22/2024 [facility] Comment on above: 1 Occurrences starti ng 04/22/2023 until 04/22/2024 End: 04-22-2024 Luteinizing hormone Luteinizing hormone Lab Routine DUB (dysfunctional uterine bleeding) 1 Occurrences starting 04/22/2023 until 04/22/2024 [facility] Comment on above: 1 Occurrences starti ng 04/22/2023 until 04/22/2024 End: 04-22-2024 Prolactin Prolactin Lab Routine DUB (dysfunctional uterine bleeding) 1 Occurrences starting 04/22/2023 until 04/22/2024 [facility] Comment on above: 1 Occurrences starti ng 04/22/2023 until 04/22/2024 End: 04-22-2024 Thyrotropin [Units/volume] in Serum or Plasma TSH Lab Routine DUB (dysfunctional uterine bleeding) 1 Occurrences starting 04/22/2023 until 04/22/2024 [facility] Comment on above: 1 Occurrences starti ng 04/22/2023 until 04/22/2024 End: 04-22-2024 Thyroxine (T4) free [Mass/volume] in Serum or Plasma T4, free Lab Routine DUB (dysfunctional uterine bleeding) 1 Occurrences starting 04/22/2023 until 04/22/2024 [facility] Comment on above: 1 Occurrences starti ng 04/22/2023 until 04/22/2024 Problems Active Problems Problem Classification Problem Date [...] chronic Episodic Epilepsy; convulsions (1 source) Seizure 06-19-2014 Episodic Immunizations and screening for infectious disease [...] bleeding] 04-22-2023 Chronic Other female genital disorders (1 source) Dysfunctional uterine bleeding Onset: 08-04-2023 Chronic Other female genital disorders (1 source) Abnormal uterine and vaginal bleeding, unspecified; Translations: [Abnormal uterine and vaginal bleeding, unspecified] Onset: 06-02-2023 Chronic Other female genital disorders (2 sources) Other specified abnormal uterine and vaginal bleeding; Translations: [Other specified abnormal uterine and vaginal bleeding] Onset: 06-02-2023 Chronic Other gastrointestinal disorders (5 sources) Swollen abdomen; Translations: [Abdominal distension (gaseous)] Episodic Other gastrointestinal disorders (5 sources) Constipation alternates with diarrhea; Translations: [Other specified symptoms and signs involving the digestive system and abdomen] Episodic Other nutritional; endocrine; and metabolic disorders (5 sources) Obese class I; Translations: [Body mass index (BMI) 33.0-33.9, adult] Chronic Other nutritional; endocrine; and metabolic disorders (1 source) Obesity; Translations: [Obesity, unspecified] 04-21-2023 Chronic Other nutritional; endocrine; and metabolic disorders (1 source) Other obesity due to excess calories; Translations: [Other obesity due to excess calories] Onset: 09-01-2023 Chronic Other nutritional; endocrine; and metabolic disorders (1 source) Body mass index (BMI) 34.0-34.9, adult; Translations: [Body mass index (BMI) 34.0-34.9, adult] Onset: 09-01-2023 Chronic Other nutritional; endocrine; and metabolic disorders (1 source) Weight loss Onset: 09-01-2023 Episodic Other upper respiratory infections (1 source) Chronic [...] TENDINITIS RIGHT SHOULDER] Onset: 10-25-2021 Episodic Other lower respiratory disease (1 source) Cough Onset: 04-02-2023 Episodic Other non-traumatic joint disorders (4 sources) [...] (1 source) COVID-19 Onset: 03-29-2021 Resolved: 03-29-2021 Procedures Date Procedure Procedure Detail Performing Clinician Start: 06-17-2023 Follow-up visit Follow-up BELÉN GOODWIN Start: 06-03-2023 Urine test visual color cmprsn meths Belén Goodwin MD Work Phone: section Delicia alvarado H/O: section Delicia Melvin Results Test Name Value Interpretation Reference Range Facility [facility] 08-12-2023 L Specimen: [id number] Received: 08/13/23 Status: MARCELL [place] Num: [id number] Spec Type: Surgical Subm Dr: DELICIA MELVIN MD Tissues: A Turbinates (RT INFERIOR TURB) B Turbinates (LT INF TURB) C Sinus Contents/Biopsy (RT SINUS CONTENT) D Sinus Contents/Biopsy (LT SINUS CONTENT) E Nasal Septum (SEPTUM) Procedures: HE/2, Gross/Micro L4/2, Level 1 Gross/3 Age/ Patient Sex Location Account Attending Physician Mere Esteban 42/F LABELL [id number] DELICIA MELVIN MD SPEC NUM: [id number] RECD: 08/13/23 STATUS: MARCELL GLASGOW NUM: [id number] SHRUTHI: 08/12/[address]: DELICIA MELVIN MD ENTERED: 08/13/23 [facility] [address]: Amrita Villegas SPEC TYPE: Surgical DEPT: VARGHESE OCAMPO ORDERED: HE/2, Gross/Micro L4/2, Level 1 Gross/3 ORDERED: HE/2, Gross/Micro L4/2, Level 1 Gross/3 Pathological Diagnosis A, right inferior turbinate, reduction turbinectomy: -Multiple minute pieces of turbinate tissue. Gross only examination B, left inferior turbinate, reduction turbinectomy:: -Multiple minute pieces of turbinate tissue. Gross only examination C, right sinus content, right sinus surgery: -Moderate chronic sinusitis of the nonspecific, and chronic hypertrophic (polypoid), and only mild allergic types, including patchy associated squamous metaplasia without dysplasia -No feature of fungal infection observed D, left sinus content, left sinus surgery: -Severe chronic sinusitis of nonspecific, and marked polypoid, and only mild allergic types, including patchy associated squamous metaplasia with reactive atypia and without obvious dysplasia -No feature of fungal infection observed E, nasal septum, septoplasty: -Fragments of nasal septal cartilage. Gross only examination Specimen: [id number] Received: 08/13/23 Status: MARCELL Pee Num: [id number] Spec Type: Surgical Subm Dr: DELICIA MELVIN MD Tissues: A Turbinates (RT INFERIOR TURB) B Turbinates (LT INF TURB) C Sinus Contents/Biopsy (RT SINUS CONTENT) D Sinus Contents/Biopsy (LT SINUS CONTENT) E Nasal Septum (SEPTUM) Procedures: HE/2, Gross/Micro L4/2, Level 1 Gross/3 Patient: Mere Esteban [id number] (Continued) Specimen: [id number] Received: 08/13/23 (Continued) Signed (signature on file) Neil Johns MD 08/18/232036 Specimen: [id number] Received: 08/13/23 Status: MARCELL [place] Num: [id number] Spec Type: Surgical Subm Dr: DELICIA MELVIN MD Tissues: A Turbinates (RT INFERIOR TURB) B Turbinates (LT INF TURB) C Sinus Contents/Biopsy (RT SINUS CONTENT) D Sinus Contents/Biopsy (LT SINUS CONTENT) E Nasal Septum (SEPTUM) Procedures: HE/2, Gross/Micro L4/2, Level 1 Gross/3 Patient: Mere Esteban [id number] (Continued) Specimen: [id number] Received: 08/13/23 (Continued) Clinical Information Chronic sinusitis, deviated septum, nasal turbinate. Gross Description Received are 5 formalin filled containers each labeled with the patient's name, date of and specific specimen site. A. Further labeled right inferior turbinate are multiple minute fragments of adler tissue within a cloth collection device collectively measuring 2.0 x 0.9 x 0.2 cm. The specimen is for gross only examination. A gross photo is included. B. Further labeled left inferior turbinate is an aggregate of minute adler tissue collectively measuring 1.0 x 0.3 x 0.1 cm. The specimen is for gross only examination. A gross photo is included. C. Further labeled right sinus content is a 3.8 x 2.2 x 0.6 cm aggregate of adler and cartilaginous tissue. Assistant Analyst sections following decalcification are submitted in C1. D. Further labeled left sinus content is a 2.6 x 1.8 x 0.5 cm aggregate of adler tissue, cartilaginous tissue and mucus. The specimen is submitted entirely following decalcification in D1. E. Further labeled septum are multiple fragments of adler-white cartilaginous tissue measuring in aggregate 6.2 x 1.8 x 0.5 cm. The specimen is for gross only examination. A gross photo is included. TW CPT Codes 83286L9 40933 X.3 Specimen: [id number] Received: 08/13/23 Status: MARCELL [place] Num: [id number] Spec Type: Surgical Subm Dr: DELICIA EMLVIN MD Tissues: A Turbinat (more content not included)... Normal [facility] Fibrin D-dimer DDU (PPP) [Ma ss/Vol]on 08-07-2023 D DIMER <150 Normal <255 [facility] Comment on above: Result Comment: Results <255 ng/mL DDU: The presence of a VTE can safely be excluded with a negative D-Dimer result and Wells score. A negative result doesn't exclude the possibility of DIC. The test be repeated along with other diagnostic tests if the patient's symptoms persist or worsen. [email or web address] Performed By: #### 4 8066-5 ####[facility] ([id number])[address] [place] [address] HCG ( test) IA.lindai d Ql (S)on 08-04-2023 SERUM Negative Normal NEG [facility] Comment on above: Performed By: #### 8 0385-8 ####[facility] ([id number])[address] [place] [address] Surgical Pathologyon 024 Surgical Pathology Normal [facility] Comment on above: Result Comment: [facility] [address] [place] [address] Surgical Pathology Consultation Patient Name:MERE ESTEBAN:1980 (Age: 42)Gender:FTaken:4Reported:08/12/2023hysician(s):Belén Goodwin M.D. ([phone])Copy To: Rec. #:[id number]: #[id number] Final Pathologic Diagnosis 1. Endocervical curettings: Fragments of endocervix, negative for dysplasia 2. Endometrial curettings: Fragments of secretory endometrium with breakdown Report Electronically Signed Out junaidk/08/12/2023Jacque Martin MD Interpretation performed at [employer], [address] [place] [address], License number: [id number]. Clinical History Dysfunctional uterine bleeding. Gross Description 1. Received in formalin labeled WHITE, #1: Endocervical curettings is a single Telfa pad with multiple adherent adler feathery bits of soft tissue, embedded in adler cloudy mucoid debris tinged with blood. The Telfa pad is scraped and the rest of the specimen is filtered, aggregating to 1.5 x 0.4 x 0.1 cm, and submitted in a single cassette. (1, ns, [id number], m1) MG 2. Received in formalin labeled WHITE, #2: Endometrial curettings are 2 Telfa pads with multiple adherent adler fragments/feathery bits of soft tissue, embedded in adler cloudy mucoid debris and hemorrhagic material. The Telfa pads are scraped and the rest of the specimen is filtered, aggregating to 7.5 x 1.2 x 0.3 cm, and submitted in cassettes A-C. (3, ns, [id number], m1) MG mjg/08/05/2023NSK Intraoperative Consultation Specimen(s) Received 1: Endocervical curettings 2: Endometrial curettings Fee Codes(s): 1; 90042 2; 44776 CBC AND AUTO DIFFon 07-14-19 24 ABSOLUTE BASOPHIL 0.1 X10E9/L Normal 0.0-0.2 [facility] Comment on above: Performed By: #### C BCA ####[facility] ([id number])[address], [address] [place] [address] ABSOLUTE NEUTROPHIL 4.4 X10E9/L Normal 1.5-6.6 [facility] Comment on above: Performed By: #### C BCA ####[facility] ([id number])[address], [address] [place] [address] Basophils/100 WBC (Bld) 1.2 % Normal P [facility] Comment on above: Performed By: #### C BCA ####[facility] ([id number])[address] [facility], [address] [place] [address] Eosinophils (Bld) [#/Vol] 0.4 10*3/uL Normal 0.0-0.4 [facility] Comment on above: Performed By: #### C BCA ####[facility] ([id number])[address] [address] [address] Eosinophils/100 WBC (Bld) 4.7 % Normal [facility] Comment on above: Performed By: #### C BCA ####[facility] ([id number])[address], [address] [address] Erythrocyte distribution width (RBC) [Ratio] 14.8 % Normal 11.5-15.0 [facility] Comment on above: Performed By: #### C BCA ####[facility] ([id number])[address] [address] [address] Hematocrit (Bld) [Volume fraction] 41.2 % Normal 35-47 [facility] Comment on above: Performed By: #### C BCA ####[facility] ([id number])[address] [address] [address] Hemoglobin (Bld) [Mass/Vol] 13.6 g/dL Normal 11.7-15.5 [facility] Comment on above: Performed By: #### C BCA ####[facility] ([id number])[address] [address] [address] Lymphocytes (Bld) [#/Vol] 2.8 10*3/uL Normal 1.0-3.5 [facility] Comment on above: Performed By: #### C BCA ####[facility] ([id number])[address] [address] [address] Lymphocytes/100 WBC (Bld) 32.8 % Normal [facility] Comment on above: Performed By: #### C BCA ####[facility] ([id number])[address] [address] [place] [address] MCH (RBC) [Entitic mass] 31.3 pg Normal 27-34 [facility] Comment on above: Performed By: #### C BCA ####[facility] ([id number])[address], [address], [place] [address] MCHC (RBC) [Mass/Vol] 33.1 g/dL Normal 32-36 [facility] Comment on above: Performed By: #### C BCA ####[facility] ([id number])[address], [address], [place] [address] MCV (RBC) [Entitic vol] 95 fL Normal 80-100 [facility] Comment on above: Performed By: #### C BCA ####[facility] ([id number])[address], [address], [place] [address] Monocytes (Bld) [#/Vol] 0.8 10*3/uL Normal 0-0.9 [facility] Comment on above: Performed By: #### C BCA ####[facility] ([id number])[address], [address], [place] [address] Monocytes/100 WBC (Bld) 9.2 % Normal [facility] Comment on above: Performed By: #### C BCA ####[facility] ([id number])[address], [place] [address] Neutrophils/100 WBC (Bld) 52.1 % Normal [facility] Comment on above: Performed By: #### C BCA ####[facility] ([id number])[address], [address], [place] [address] Platelet mean volume (Bld) [Entitic vol] 8.1 fL Normal 7-12 [facility] Comment on above: Performed By: #### C BCA ####[facility] ([id number])[address], [address], [place] [address] Platelets (Bld) [#/Vol] 321 10*3/uL Normal 150-450 [facility] Comment on above: Performed By: #### C BCA ####[facility] ([id number])[address], [address] [place] [address] RBC COUNT 4.35 X10E12/L Normal 3.80-5.20 [facility] Comment on above: Performed By: #### C BCA ####[facility] ([id number])[address], [address] [place] [address] WBC (Bld) [#/Vol] 8.4 10*3/uL Normal 4.0-11.0 [facility] Comment on above: Performed By: #### C BCA ####[facility] ([id number])[address], [address] [place] [address] XR CHEST 2 VWSon 07-14-2023 XR CHEST 2 VWS XR CHEST 2 VWS XR CHEST 2 VWS INDICATION: Bronchitis, preoperative clearance COMPARISON: X-ray 01/29/2023 FINDINGS: Cardiomediastinal silhouette and pulmonary vasculature are within normal limits. Lungs and pleural space are clear. There is no pleural effusion or pneumothorax. IMPRESSION: No acute cardiopulmonary process. Finalized by Daniel Rosas on 07/14/2023 5:35 PM Normal [facility] POCT , urineon 05-15 Beta HCG ( test) Ql (U) Negative [facility] Surgical Pathologyon 024 Surgical Pathology Normal [facility] Comment on above: Result Comment: [facility] [address] [place] [address] Surgical Pathology Consultation Patient Name:MERE ESTEBAN:1980 (Age: 42)Gender:FTaken:4Reported:4Physician(s):Belén Goodwin M.D. ([phone])Copy To: Rec. #:[id number]: #[id number] Final Pathologic Diagnosis 1. Endocervix, curettage: Benign endocervical epithelium. 2. Endometrium, biopsy: Benign endometrium. Report Electronically Signed Out cjb/06/06/2023jaylin Gayle MD Interpretation performed at [facility], [address] [place] [address], License number: [id number]. Clinical History Dysfunctional uterine bleeding (DUB) N93.8. Gross Description 1. Received in formalin labeled, WHITE, ECC is a plastic metal brush with a pale-adler mucoid material admixed with adler friable soft tissue fragments and brown hemorrhagic material, 2 x 0.8 x 0.1 cm in aggregate. The specimens are filtered and submitted in a single cassette. (1, ns, [id number], m2) TB 2. Received in formalin labeled, WHITE, EMB are 4 pale-adler delicate to friable soft tissue chips admixed with adler to brown hemorrhagic material, 2.5 x 1.5 x 0.1 cm in aggregate. The specimens are filtered and submitted in a single cassette. (1, ns, [id number], m2) TB tgb/06/04/2023WAK Specimen(s) Received 1: Endocervical curettings 2: Endometrial biopsy Fee Codes(s): 1; 74726 2; 36826 COMPLETE BLOOD COUNTon 06-01 Erythrocyte distribution width (RBC) [Ratio] 14.6 % Normal 11.5-15.0 [facility] Comment on above: Performed By: #### C , 74355-8, 6-3, 3024-7, 2842-3, 26211-0, 92899-4 #### [facility] ([id number]) [address] [facility], [address] [place] [address] Hematocrit (Bld) [Volume fraction] 44.6 % Normal 35-47 [facility] Comment on above: Performed By: #### C BC, 86292-4, 6-3, 3024-7, 2842-3, 19648-7, 48541-3 #### [facility] ([id number]) [address], [address] [place] [address] Hemoglobin (Bld) [Mass/Vol] 14.6 g/dL Normal 11.7-15.5 [facility] Comment on above: Performed By: #### Leila FONSECA, 61696-9, 3016-3, 3024-7, 2842-3, 61056-5, 27338-1 #### [facility] ([id number]) [address], [address] [place] [address] MCH (RBC) [Entitic mass] 31.1 pg Normal 27-34 [facility] Comment on above: Performed By: #### Leila FONSECA, 72183-3, 6-3, 3024-7, 2842-3, 63739-4, 19239-7 #### [facility] ([id number]) [address], [address] [place] [address] MCHC (RBC) [Mass/Vol] 32.6 g/dL Normal 32-36 [facility] Comment on above: Performed By: #### Leila FONSECA, 24141-6, 6-3, 3024-7, 2842-3, 13925-2, 04442-1 #### [facility] ([id number]) [address], [address] [place] [address] MCV (RBC) [Entitic vol] 95 fL Normal 80-100 [facility] Comment on above: Performed By: #### Leila FONSECA, 36617-1, 3016-3, 3024-7, 2842-3, 14491-6, 17229-5 #### [facility] ([id number]) [address], [address] [place] [address] Platelet mean volume (Bld) [Entitic vol] 8.9 fL Normal 7-12 [facility] Comment on above: Performed By: #### Leila FONSECA, 35739-8, 3016-3, 3024-7, 2842-3, 08660-5, 11546-4 #### [facility] ([id number]) [address], [address] [place] [address] Platelets (Bld) [#/Vol] 290 10*3/uL Normal 150-450 [facility] Comment on above: Performed By: #### Leila , 82061-0, 3016-3, 3024-7, 2842-3, 45846-4, 95952-1 #### [facility] ([id number]) [address], [address] [place] [address] RBC COUNT 4.68 X10E12/L Normal 3.80-5.20 [facility] Comment on above: Performed By: #### Leila FONSECA, 27413-6, 3016-3, 3024-7, 2842-3, 43007-9, 01707-6 #### [facility] ([id number]) [address] [address] [place] [address] WBC (Bld) [#/Vol] 9.4 10*3/uL Normal 4.0-11.0 [facility] Comment on above: Performed By: #### Leila FONSECA, 12659-6, 6-3, 3024-7, 2842-3, 93260-5, 07366-8 #### [facility] ([id number]) [address], [address] [place] [address] FREE T4on 06-02-2023 Free T4 [Mass/Vol] 0.79 ng/dL Normal 0.61-1.60 [facility] Comment on above: Performed By: #### [place], 11265-0, 3016-3, 3024-7, 2842-3, 00704-9, 58744-0 #### [facility] ([id number]) [address], [address] [place] [address] Follitropin Qnon 06-02-2023 FOLLICLE STIM HORMONE 4.2 mIU/mL Normal [facility] Comment on above: Result Comment: NORMAL FEMALE Luteal 1.8-5.1 mIU/mL Follicular 3.8-8.8 mIU/mL Mid Cycle 4.5-22.5 mIU/mL Post Mandi 16.7-113.6 mIU/mL Performed By: #### C , 18969-1, 3016-3, 3024-7, 2842-3, 67411-7, 04162-6 #### [facility] ([id number]) [address] [facility], [address] [place] [address] HCG.beta subunit IA 3rd IS Q non 06-02-2023 SERUM B HCG,3RD I.S. <5 Normal [facility] Comment on above: Result Comment: NEW REFERENCE [...] trophoblastic or nontrophoblastic neoplasms. Performed By: #### C , 76056-9, 3016-3, 3024-7, 2842-3, 08086-0, 56727-7 #### [facility] ([id number]) [address] [facility], [address] [place] [address] Lutropin Qnon 06-02-2023 LUTEINIZING HORMONE 5.9 mIU/mL Normal [facility] Comment on above: Result Comment: NORMAL FEMALE Follicular 2.1-10.9 mIU/mL Mid Cycle 19.2-103 mIU/mL Luteal 1.2-12.9 mIU/mL Post [place] 10.9-58.6 mIU/mL Performed By: #### C , 38597-1, 3016-3, 3024-7, 2842-3, 98677-3, 12922-2 #### [facility] ([id number]) [address], [address] [place] [address] Prolactin [Mass/Vol]on 06-01 PROLACTIN 21.1 ng/mL Normal 3.3-26.7 [facility] Comment on above: Performed By: #### Leila , 87111-2, 3016-3, 3024-7, 2842-3, 53617-0, 33005-0 #### [facility] ([id number]) [address], [address] [place] [address] TSH Qnon 06-02-2023 TSH 2.98 uIU/mL Normal 0.49-4.67 [facility] Comment on above: Performed By: #### Leila , 67114-0, 3016-3, 3024-7, 2842-3, 27145-8, 79019-9 #### [facility] ([id number]) [address], [address] [place] [address] US PELVIC WITH TRANSVAGINALo n 06-02-2023 US [...] Billy MD on 06/02/2023 2:55 PM Normal [facility] Pelvis transabdominal and transvaginalon 06-02-2023 Radiology Study observation (narrative) [facility] PELVIC ULTRASOUND HISTORY: Heavy bleeding COMPARISON: None [...] Erick Billy MD on 06/02/2023 2:55 PM SECTRAPACS Erick Billy MD - 06/02/2023 PELVIC ULTRASOUND [...] Erick Billy MD on 06/02/2023 2:55 PM [email or web address] US Pelvis transabdominal and transvaginalOrdered By: Erick Billy on 06-02-2023 [email or web address] Work Phone: CT Maxillofacial w/o Contras ton 05-31-2023 CT Maxillofacial w/o Contrast Exam Date/Time: 05/31/2023 08:10 EDT Reason for Exam: J32.4 Chronic pansinusitis Report IMPRESSION: 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 THERE [...] pneumatization of the right middle turbinate bone, sarah bullosa with mucosal thickening. There is moderate deviation of nasal septum towards the left with a moderate left nasal septal spur. The visualized portions of the mastoid air cells and middle ear spaces are within normal limits. Report The soft tissues are within normal limits. Ordering Provider: Delicia Melvin FINAL REPORT Dictated: 05/31/2023 10:30 am Eleazar Herr MD, V. Signed (Electronic Signature): 05/31/2023 10:30 am Signed by: Eleazar Herr MD, V. Transcribed by: MALORIE Technologist: DELISA [facility] Consent for Treatmenton 05-15 Consent for Treatment [id number] #1.00TIFF [facility] Physician Orderon 04-21-2023 Physician Order [id number] #1.00TIFF [facility] Physician Orderon 04-16-2023 Physician Order [id number] #1.00TIFF [facility] CT SINUSES WO CONTon 024 CT [...] is moderate leftward nasal septal deviation with sarah bullosa of right middle nasal turbinate. The [...] 2. Moderate rightward nasal septal deviation with sarah bullosa of right middle nasal turbinate. 3. Left ostiomeatal complex appears widely patent, right is occluded. All CT scans at this facility use dose modulation, iterative reconstruction, and/or weight based dosing when appropriate to reduce radiation dose to as low as reasonably achievable. Finalized by Kathryn Londono MD on 04/11/2023 1:22 PM Normal [facility] MAMM SCREENING BILATERAL W C medical lab assistant 04-10-2023 MAMM SCREENING BILATERAL W CAD MAMM [...] AM 1 c MAMM 1 YR Normal [facility] COVID + FLU Quick Testingon 06-28-2022 SARS-CoV-2 (COVID-19) RNA SADE+probe Ql (Unsp spec) Negative [employer] Other COVID + FLU Quick Testing Negative [employer] Other XR CSPINE MIN 4 VIEWSon 10-15 [...] by: LOUIE ROTHMAN Date: 2021-10-24 15:[address] [facility] XR LSPINE W_OBLS AND FLEX_EX Ton 10-24-2021 [...] LOUIE ROTHMAN Date: 2021-10-24 15:11 Normal [facility] COVID Quick Testingon 2021 Result Positive [employer] Other Social History Date Type Detail Facility Start: 04-21-2023 End: 06-17-2023 Alcohol intake Current drinker of alcohol (finding) [facility] [employer] Start: 04-02-2023 End: 06-17-2023 Sex Assigned At [employer] Other Start: 09-09-2022 Tobacco smoking status WYIS Smokes tobacco daily [facility] [employer] Start: 09-09-2022 End: 06-17-2023 Cigarettes smoked current (pack per day) - Reported 0.5 [facility] [employer] Start: 09-09-2022 Tobacco use and exposure Smokeless tobacco non-user [facility] [employer] Start: 12-03-2021 Alcohol Comment occassionally [facility] [employer] Start: 05-29-2020 Tobacco smoking status Heavy tobacco smoker (finding) [facility] Comment on above: PPD smoker Start: 03-23-2018 Tobacco smoking status NHIS Smoker (finding) [facility] Start: 1980 Sex Assigned At Not on file P [facility] [employer] Start: 1980 Sex Assigned At Female [facility] Unknown if ever smoked [employer] Other History of tobacco use Cigarette Smoker [facility] [employer] Within the past 12 months we worried whether our food would run out before we got money to buy more. Never True [facility] [employer] Vital Signs Date Time Vital Sign Value Performing Clinician Facility 06-17-2023 08:21-0400 Body mass index (BMI) [Ratio] 36.22 kg/m2 Belén Goodwin MD Work Phone: [facility] 06-17-2023 08:21-0400 Body weight 101.79 kg Belén Goodwin MD Work Phone: [facility] 06-17-2023 08:21-0400 Diastolic blood pressure 66 mm[Hg] Belén Goodwin MD Work Phone: [facility] 06-17-2023 08:21-0400 Systolic blood pressure 128 mm[Hg] Belén Goodwin MD Work Phone: [facility] 06-03-2023 10:53-0400 Body height 167.6 cm Belén Goodwin MD Work Phone: [facility] 06-03-2023 10:53-0400 Body mass index (BMI) [Ratio] 36.32 kg/m2 Belén Goodwin MD Work Phone: [facility] 06-03-2023 10:53-0400 Body weight 102.06 kg Belén Goodwin MD Work Phone: [facility] 06-03-2023 10:53-0400 Diastolic blood pressure 78 mm[Hg] Belén Goodwin MD Work Phone: [facility] 06-03-2023 10:53-0400 Systolic blood pressure 116 mm[Hg] Belén Goodwin MD Work Phone: [facility] 04-22-2023 09:07-0500 Body mass index (BMI) [Ratio] 35.99 kg/m2 Belén Goodwin MD Work Phone: [facility] 04-22-2023 09:07-0500 Body weight 101.15 kg Belén Goodwin MD Work Phone: [facility] 04-22-2023 09:07-0500 Diastolic blood pressure 58 mm[Hg] Belén Goodwin MD Work Phone: [facility] 04-22-2023 09:07-0500 Systolic blood pressure 110 mm[Hg] Belén Goodwin MD Work Phone: [email or web address] 04-02-2023 10:06-0500 Body height 167.6 cm Shanthi Lugo CHIEF RADIOLOGY-FRAME TABLE OPERATOR HELPER Work Phone: [email or web address] 04-02-2023 10:06-0500 Body mass index (BMI) [Ratio] 34.48 kg/m2 Shanthiasmita Lugo CHIEF RADIOLOGY-FRAME TABLE OPERATOR HELPER Work Phone: [email or web address] 04-02-2023 10:06-0500 Body weight 96.89 kg Shanthi Lugo CHIEF RADIOLOGY-FRAME TABLE OPERATOR HELPER Work Phone: [email or web address] 04-02-2023 10:06-0500 Diastolic blood pressure 76 mm[Hg] Shanthi Lugo CHIEF RADIOLOGY-FRAME TABLE OPERATOR HELPER Work Phone: [email or web address] 04-02-2023 10:06-0500 Heart rate 96 /min Shanthi Lugo CHIEF RADIOLOGY-FRAME TABLE OPERATOR HELPER Work Phone: [email or web address] 04-02-2023 10:06-0500 SaO2% (BldA) [Mass fraction] 98 % Shanthi Lugo CHIEF RADIOLOGY-FRAME TABLE OPERATOR HELPER Work Phone: [email or web address] 04-02-2023 10:06-0500 Systolic blood pressure 142 mm[Hg] Shanthi Lugo CHIEF RADIOLOGY-FRAME TABLE OPERATOR HELPER Work Phone: [email or web address] 03-03-2023 10:05-0500 Body height 167.64 cm [employer] Other [employer] Other 03-03-2023 10:05-0500 Body mass index (BMI) [Ratio] 34.21 kg/m2 [employer] Other [employer] Other 03-03-2023 10:05-0500 Body temperature 99.1 [degF] [employer] Other [employer] Other 03-03-2023 10:05-0500 Body weight 96.16 kg Neyda Garland Other [employer] Other 03-03-2023 10:05-0500 Diastolic blood pressure 60 mm[Hg] Neyda Garland Other [employer] Other 03-03-2023 10:05-0500 Respiratory rate 18 /min Neyda Garland Other [employer] Other 03-03-2023 10:05-0500 SaO2% (BldA) [Mass fraction] 98 % Neyda Garland Other [employer] Other 03-03-2023 10:05-0500 Systolic blood pressure 125 mm[Hg] Neyda Garland Other [employer] Other 08-26-2022 17:15-0400 Body height 167.64 cm Ilana Gallegos Other [employer] Other 08-26-2022 17:15-0400 Body mass index (BMI) [Ratio] 33.08 kg/m2 Ilana Gallegos Other [employer] Other 08-26-2022 17:15-0400 Body temperature 98.2 [degF] Ilana Gallegos Other [employer] Other 08-26-2022 17:15-0400 Body weight 92.99 kg Ilana Gallegos Other [employer] Other 08-26-2022 17:15-0400 Respiratory rate 18 /min Ilana Gallegos Other [employer] Other 08-26-2022 17:15-0400 SaO2% (BldA) [Mass fraction] 97 % Ilana Gallegos Other [employer] Other 06-28-2022 18:35-0400 Body height 167.64 cm Yohana Kitchen Other [employer] Other 06-28-2022 18:35-0400 Body mass index (BMI) [Ratio] 34.38 kg/m2 Yohana Kitchen Other [employer] Other 06-28-2022 18:35-0400 Body temperature 96.9 [degF] Yohana Kitchen Other [employer] Other 06-28-2022 18:35-0400 Body weight 96.62 kg Yohana Kitchen Other [employer] Other 06-28-2022 18:35-0400 Respiratory rate 18 /min Yohana Kitchen Other [facility] Media Other 06-28-2022 18:35-0400 SaO2% (BldA) [Mass fraction] 96 % Yohana Kitchen Other [employer] Other 03-29-2021 10:15-0500 Body height 167.64 cm Chela Kumar Other [employer] Other 03-29-2021 10:15-0500 Body mass index (BMI) [Ratio] 30.66 kg/m2 Chela Kumar Other [employer] Other 03-29-2021 10:15-0500 Body temperature 97.5 [degF] Chela Kumar Other [employer] Other 03-29-2021 10:15-0500 Body weight 86.18 kg Chela Kumar Other [employer] Other 03-29-2021 10:15-0500 Respiratory rate 18 /min Chela Kumar Other [employer] Other 03-29-2021 10:15-0500 SaO2% (BldA) [Mass fraction] 98 % Chela Kumar Other [employer] Other 01-26-2021 11:35-0500 Body height Yohana Kitchen Other [employer] Other 01-26-2021 11:35-0500 Body mass index (BMI) [Ratio] 30.73 kg/m2 Yohana Reamond Other [employer] Other 01-26-2021 11:35-0500 Body temperature 97.7 [degF] Yohana Reamond Other [employer] Other 01-26-2021 11:35-0500 Body weight 86.37 kg Yohana Reamond Other [employer] Other 01-26-2021 11:35-0500 Diastolic blood pressure 49 mm[Hg] Yohana Fidelina Other [employer] Other 01-26-2021 11:35-0500 Respiratory rate 18 /min Yohana Fidelina Other [employer] Other 01-26-2021 11:35-0500 SaO2% (BldA) [Mass fraction] 100 % Yohana Fidelina Other [employer] Other 01-26-2021 11:35-0500 Systolic blood pressure 11 mm[Hg] Yohana Kitchen Other [facility] Other Clinical Notes 03-29-2021 to 06-18-2023 Telephone Encounter - Shantel Fan - 06/18/2023 10:50 AM EDTTelephone Encounter - Shantel Fan - 06/18/2023 10:50 AM EDTConeil Goodwin MD - 06/17/2023 8:15 AM EDTPatient Instructions Note Date & Type Note Facility 06-18-2023 Miscellaneous Notes Patient has sinus surgery [...] to the patient. documented in this encounter [facility] 06-18-2023 Telephone encounter Note Patient has sinus surgery scheduled on 08/12/23. Patient is requesting her surgery with Dr. Goodwin be prior to that. Patient scheduled for surgery with Dr. Goodwin on 08/04/23 at 12:30pm with hospital arrival at 10:30am. PAT 07/09/23 at 9:45am. LVM for patient to return my call to discuss dates & times and schedule surgery f/u. [facility] 06-18-2023 Telephone encounter Note Patient returned my call while I was out of the office at lunch. I returned patient's call. Patient notified of all dates & times. Patient voiced understanding. Surgery information letter mailed to the patient. [facility] 06-17-2023 History of Presen t illness Narrative Mere Esteban is a 42 y.o.female. No LMP recorded (lmp unknown).. She presents today for follow up from [facility]. Current contraception:no method Final Pathologic Diagnosis 1. Endocervix, curettage: Benign endocervical epithelium. 2. Endometrium, biopsy: Benign endometrium. OB History 4 Para 2 Term 1 1 AB 2 Living 2 SAB 1 IAB Ectopic 1 Multiple Live Births 2 MEDICAL HX Past Medical History: Diagnosis Date Anxiety Chronic bronchitis ([facility]) SURGICAL HX Past Surgical History: Procedure Laterality [...] 1 tablet (10 mg total) before bedtime. gvqknsitauq-uobdbxalz-rgefihzz (TRELEGY ELLIPTA) 200-62.5-25 mcg blister with device [...] Cori TELLEZ RN [facility] History of Presen t illness Narrative [...] BELÉN GOODWIN MD documented in this encounter [facility] 06-03-2023 Miscellaneous Notes Addended by: ANGELICA RIZZO on: 06/03/2023 12:04 PM Modules accepted: Orders documented in this encounter [facility] 06-03-2023 Note Addended by: ANGELICA RIZZO on: 06/03/2023 12:04 PM Modules accepted: Orders [facility] 04-22-2023 History of Presen t illness Narrative Mere Esteban is a 42 y.o.female. Patient's last menstrual period was 04/08/2023.. She presents today for concerns with heavy period bleeding and cramping. She relates being on HRT and would like to discuss a pertial hysterectomy. REPORTS SEVERAL YEAR HO DUB REC DUB EVAL STARTED ON HRT FOR SX FROM [facility] IN [place] BUT DID NOT HELP SX OR BLEEDING [...] before bedtime. estradioL (ESTRACE) 0.5 mg tablet metqdniwnuh-bvjctqttp-vzasjizn (TRELEGY ELLIPTA) 200-62.5-25 mcg blister with device [...] RTO EMB/HYST TAKING ?HRT FROM DOC IN [place] WITHOUT EVAL OF AUB/DUB HEAVY TOBACCO USE ANXIETY OBESITY SP BTL LACK OF PREVENTATIVE CARE MD Cori TELLEZ RN documented in this encounter [email or web address] 04-02-2023 History of Presen t illness Narrative [...] Medical History: Diagnosis Date Anxiety Chronic bronchitis ([facility]) PERTINENT HISTORY: Her pertinent medical history includes Past Medical History: Diagnosis Date Anxiety Chronic bronchitis ([facility]) CURRENT MEDICATIONS: Reviewed with patient. Current Outpatient [...] 0.5 mg tablet, , Disp: , Rfl: llylhoibjox-cigkqgwxj-eyxhzkab (TRELEGY ELLIPTA) 200-62.5-25 mcg blister with device, [...] is moderate leftward nasal septal deviation with sarah bullosa of right middle nasal turbinate. The [...] 2. Moderate rightward nasal septal deviation with sarah bullosa of right middle nasal turbinate. 3. [...] is moderate leftward nasal septal deviation with sarah bullosa of right middle nasal turbinate. The [...] 2. Moderate rightward nasal septal deviation with sarah bullosa of right middle nasal turbinate. 3. [...] to give our office a call. CC: SUSIE Benitez [facility] Office: [phone] 8:26 AM on 04/21/2023 This note is dictated with the use of M*Modal.Please note that this dictation was completed with computer voice recognition software. Quite often unanticipated grammatical, syntax, homophones, and other interpretive errors are inadvertently transcribed by the computer software. Please disregard these errors. Please excuse any errors that have escaped final proofreading. SUSIE Bellamy 04/21/23 0840 documented in this encounter [facility] 04-02-2023 Instructions SUSIE Bellamy - 04/02/2023 9:45 AM EST If you re looking for general health and wellness resources, please visit [email or web address]. documented in this encounter [facility] 03-03-2023 Evaluation note Encounter Date Diagnosis Assessment [...] 24-28 hours if s/s persists or worsens. [employer] Other 06-12-2023 Evaluation note* Encounter Date Diagnosis [...] understanding and is agreeable to treatment plan. [employer] Other 04-14-2023 Evaluation note* Encounter Date Diagnosis [...] fever. May return to work on Friday [employer] Other 02-16-2023 NoteCONSULTATION CONSULTATION DATE: 05/02/2022 HISTORY [...] Medications include diclofenac 50 mg b.i.d., Abilify, Polkton 5/325 daily p.r.n., Lyrica 50 mg b.i.d. [...] 50 mg b.i.d. and will refill her Polkton today 5/325 daily p.r.n. 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 Our clinic has prescribed her Polkton 5/325 daily p.r.n. in the past. Patient was unaware she could call for refills. She has been out of Polkton since early November and has increased the [...] will start diclofenac 50 mg b.i.d. Her Polkton will be restarted at 5/325 daily p.r.n. Vitamin importance was discussed as was continuing with her workout therapy. She will be seen in the clinic in three months' time, unless otherwise indicated. Patient is in agreement with this plan.[id number] NoteCONSULTATION PROCEDURE DATE: 10/25/2021 PRE AND POSTOPERATIVE [...] be followed up in the clinic. [facility] [id number] NoteCONSULTATION CONSULTATION DATE: 10/25/2021 This is a [...] standing, walking and bending. Her medications include Polkton 5/325 q. day, Baclofen 10 mg q.h.s. and Motrin 600 mg daily. The patient did have oral surgery last week for removal of a broken tooth. The patient was given Tylenol 3 and a course of amoxicillin. The patient did not take the Tylenol 3 but continued with the Polkton that was prescribed from our clinic. REVIEW [...] in three months' time unless otherwise indicated.[facility] [id number] NoteCONSULTATION CONSULTATION DATE: 09/13/2021 This is a [...] to Baclofen 10 mg q.h.s. and add Polkton 5/325 one q. day p.r.n. The patient was educated on the excessive use of her NSAIDs and appropriate doses were discussed. The intent is that the Polkton will help with her pain relief and decrease the need for the ibuprofen as frequently. The patient agrees with the plan of care. She will be brought back to the clinic in two weeks' time for x-ray review. [facility] Signed and Approved by: FABIOLA BARTLETT . 10/05/2021 14:14:00[facility]01-13-2022 Evaluation note* Encounter Date Diagnosis Assessment Notes Treatment Notes Treatment Clinical Notes Mar, Contact with and (suspected) exposure to other viral communicable diseases (ICD-10 - Z20.828) Mar, COVID-19 (ICD-10 - U07.1) Today you tested positive for the COVID virus. This mean you need to follow all CDC quarantine guidelines found at [email or web address] v. It is important to rest, increase [...] Patient care instructions given in writting by [facility] document. [employer] Other Evaluation + Plan note No data available for this section [facility] noteNort [employer] Other Evaluation note* Diagnosis Chronic bronchitis, unspecified chronic bronchitis type ([facility])- Primary Asthma-COPD overlap syndrome Tobacco dependence Tobacco use disorder Class 1 obesity with body mass index (BMI) of 34.0 to 34.9 in adult, unspecified obesity type, unspecified whether serious comorbidity present [facility] Diagnosis DUB (dysfunctional uterine bleeding)- Primary Other disorder of menstruation and other abnormal bleeding from female genital tract [facility] Diagnosis Abnormal uterine bleeding (AUB) Abnormal uterine bleeding (AUB)- Primary [facility] Diagnosis DUB (dysfunctional uterine bleeding)- Primary Other disorder of menstruation and other abnormal bleeding from female genital tract [facility] Diagnosis DUB (dysfunctional uterine bleeding)- Primary Other disorder of menstruation and other abnormal bleeding from female genital tract [facility] noteNo assessment information available [facility] Work Phone: [employer] general Narrative - ReportedNortIngenium [employer] Other Hisbpqh general Narrative - Reported* Type Description Date 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 Surgical History C section (two) [employer] Other History general Narrative - Reported* Type Description Date 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 Medical History Edema leg Medical History Depression Surgical History C section (two) [employer] Other Hospital Discharge instructions No data available for this section [facility] filedocumented in this encounter [facility] filedocumented in this encounter [facility] SystemInstructionsNot on filedocumented in this encounter [facility] No data available for this section [facility] Summary Purpose Family History No Family History Records Found Relationship Condition Age at Onset Recorded Date/T marcie Not Specified Malignant neoplasm of bone Unknown Unknown Malignant neoplasm Unknown sister Malignant neoplasm Unknown History of malignant neoplasm of cervix U nknown Advance Directives No Advanced Directives Records Found Advance Directive Response Recorded Date/ Time Advance Directives No November 13, 2017 10:32am Additional Source Comments REASON FOR VISIT (unrecogniz ed section and content) Reason Comments Asthma Labs: 01/29/2023 Cough Reason Comments Menopause Reason Comments EMB/Hysteroscopy Reason Comments Follow-up INFORMATION SOURCE (unrecogn ized section and content) DATE CREATED AUTHOR 07/27/2022 [facility] DATE CREATED AUTHOR AUTHOR'S ORGANIZ ATION 06/01/2023 [facility] DATE CREATED AUTHOR AUTHOR'S ORGANIZ ATION 08/12/2023 [facility] DATE CREATED AUTHOR AUTHOR'S ORGANIZ ATION 08/19/2023 [facility] DATE CREATED AUTHOR AUTHOR'S ORGANIZ ATION 08/21/2023 [facility] EPIC DATE CREATED AUTHOR AUTHOR'S ORGANIZ ATION 09/01/2023 [facility] Care Teams (unrecognized sec tion and content) Paid Search Specialist Relationship Specialty Start Date End Date Sridhar Bird APRN-CNP [address] [place], [place] [id number] PCP - General Primary Care 09/09/22 Paid Search Specialist Relationship Specialty Start Date End Date Sridhar Bird APRN-CNP [address] [place] [address] PCP - General Primary Care 09/09/22 Paid Search Specialist Relationship Specialty Start Date End Date Sridhar Bird APRN-DIANA [address] [place] [address] PCP - General Primary Care 09/09/22 Paid Search Specialist Relationship Specialty Start Date End Date Sridhar Bird APRN-FRAME TABLE OPERATOR HELPER [address] [place] [address] PCP - General Primary Care 09/09/22 Paid Search Specialist Relationship Specialty Start Date End Date Sridhar Bird APRN-DIANA [address] [place] [address] PCP - General Primary Care 09/09/22 Paid Search Specialist Relationship Specialty Start Date End Date Sridhar Bird APRN-DIANA [address] [place] [address] PCP - General Primary Care 09/09/22 Team Status: Inactive Member Role Status Dates Delicia Melvin Jr, MD Attending Provider Active Start: August 12, 2023 End: August 12, 2023 Goals (unrecognized section and content) Goals may be documented in a n alternate section FOR RECORDS PERTAINING TO PATIENTS WHO ARE [...] BE BASED ON THE PRIMARY CLINICAL RECORDS. [facility] [employer] [facility]. provides no warranty or guarantee of the accuracy or completeness of information in this document.
--- NOTE | 2023-09-03 15:05 | ED_ITS ---
HPI HPI - General Adult General Chief complaint: Headache Stated complaint: HEADACHE - POST OP Time Seen by Provider: 09/03/23 14:44 Source: patient Mode of arrival: walk-in Limitations: no limitations History of Present Illness HPI narrative: Patient is a 42-year-old female who presents to the emergency department for pain and pressure in the frontal sinuses and across the nasal bridge. She states that headache has been present for 5 days. Today she feels nauseous. She had sinus surgery at this facility [address] Andres. She states she followed up with him yesterday for a postop follow-up. He numbed up her nose and instilled the camera into her sinuses and directly visualize the sinuses. He was happy with her postop progress. She states she mention the headache yesterday to him and he was not concerned that it was related to her surgery. She has had no visual changes, fevers, vomiting, peripheral paresthesias, neck pain. She states the pressure in her sinuses backs up to the ears. She has been using Tylenol without improvement. She states she had to miss work due to her symptoms. She went to urgent care today and they referred her to the ER for CT scanning because they told the patient that she may have bleeding or pus pockets . Related Data Home Medications ?Medication ?Instructions ?Recorded ?Confirmed albuterol sulfate 2.5 mg/3 mL 2.5 mg inhalation Q6H PRN 07/30/23 08/12/23 (0.083 %) solution for nebulization shortness of breath or wheezing albuterol sulfate 90 mcg/actuation 2 inh inhalation Q4H PRN shortness 07/30/23 08/12/23 aerosol inhaler of breath or wheezing aripiprazole 5 mg tablet 5 mg PO DAILY 07/30/23 08/12/23 buspirone 10 mg tablet 10 mg PO DAILY 07/30/23 08/12/23 fluticasone fur. 200 mcg-umeclid 1 inh inhalation Q24H 07/30/23 08/12/23 62.5 mcg-vilant 25 mcg inhalat.powder (Trelegy Ellipta) furosemide 20 mg tablet 20 mg PO DAILY PRN edema 07/30/23 08/12/23 lamotrigine 100 mg tablet 100 mg PO QAM 07/30/23 08/12/23 venlafaxine 75 mg capsule,extended 75 mg PO QAM 07/30/23 08/12/23 release 24 hr Previous Rx's ?Medication ?Instructions ?Recorded kfhafbkpaf-rjyunvifubcyh-ewfuimpe 1 cap PO Q6H PRN headache #12 caps 09/03/23 50 mg-300 mg-40 mg capsule (Fioricet) ketorolac 10 mg tablet 10 mg PO TID PRN pain #10 tabs 09/03/23 ondansetron 4 mg disintegrating 4 mg PO Q6H PRN nausea and 09/03/23 tablet vomiting #12 tabs Allergies Allergy/AdvReac Type Severity Reaction Status Date / Time No Known Drug Allergies Allergy Verified 07/30/23 11:17 Opioid HPI Opioid Management Most Recent Opioid Data: Last Pain Scale 4 08/12/23 15:36 Review of Systems ROS Constitutional Denies: fever or chills Ears, nose, mouth, and throat Denies: throat pain or nasal congestion Cardiovascular Denies: chest pain Respiratory Denies: shortness of breath or cough Gastrointestinal Denies: nausea or vomiting Integumentary/Breast Denies: rash Neurological Reports: headache; Denies: numbness in extremities, weakness in extremities, lack of coordination or dizziness Hematologic/Lymphatic Denies: easy bruising or easy bleeding [facility] Medical History (Updated 09/03/23 @ 15:56 by KEVIN Camara) Chronic cough ?R05.3 - Chronic cough (ICD-10) Anemia ?D64.9 - Anemia, unspecified (ICD-10) Extremity edema ?R60.0 - Localized edema (ICD-10) Insomnia ?G47.00 - Insomnia, unspecified (ICD-10) Depression ?F32.A - Depression, unspecified (ICD-10) Anxiety ?F41.9 - Anxiety disorder, unspecified (ICD-10) Bipolar disorder ?F31.9 - Bipolar disorder, unspecified (ICD-10) COVID-19 ?U07.1 - COVID-19 (ICD-10) Bronchitis ?J40 - Bronchitis, not specified as acute or chronic (ICD-10) Reactive airway disease ?J45.909 - Unspecified asthma, uncomplicated (ICD-10) Migraine ?G43.909 - Migraine, unspecified, not intractable, without status migrainosus (ICD-10) Seizures ?R56.9 - Unspecified convulsions (ICD-10) Dysmenorrhea ?N94.6 - Dysmenorrhea, unspecified (ICD-10) Menorrhagia ?N92.0 - Excessive and frequent menstruation with regular cycle (ICD-10) Seasonal allergies ?J30.2 - Other seasonal allergic rhinitis (ICD-10) Hypertrophy, nasal, turbinate ?J34.3 - Hypertrophy of nasal turbinates (ICD-10) Deviated septum ?J34.2 - Deviated nasal septum (ICD-10) Chronic sinusitis ?J32.9 - Chronic sinusitis, unspecified (ICD-10) Surgical History (Updated 07/30/23 @ 11:30 by Suad Guthrie NP) History of esophagogastroduodenoscopy (EGD) ?Z98.890 - Other specified postprocedural states (ICD-10) History of section ?Z98.891 - History of uterine scar from previous surgery (ICD-10) History of section ?Z98.891 - History of uterine scar from previous surgery (ICD-10) Family History (Updated 07/30/23 @ 11:30 by Suad Guthrie NP) Other Family history of DVT Family history of Parkinson disease Family history of aneurysm Family history of cancer Family history of diabetes mellitus Social History Within the past year, how often did you have a drink containing alcohol: monthly or less Smoking status: Current every day smoker What tobacco products do you use: ci garettes Packs per day: 1 Years smoked: 30 Smoking pack-years: 30.00 Non-prescribed substance use: denies use Previous occupational history: [email or web address] / [email or web address] work @ [email or web address] Highest level of school completed/degree received: Bachelor's degree Exam Narrative Exam Narrative: Gen.: Awake, alert, in no distress Head: Normocephalic, atraumatic ENT: Moist mucous membranes, Bilateral TMs bulging, normal pharynx with clear speech. Tenderness over the frontal sinuses and nasal bridge Respiratory: No respiratory distress Extremities: Moves extremities equally Psych: Normal mood and affect Neuro: No focal neuro deficit Skin: Warm, dry, intact Constitutional Vital Signs, click to edit/add: Last Vital Signs Temp 97.8 F 09/03/23 14:49 Pulse 85 09/03/23 14:49 Resp 20 09/03/23 14:49 BP 125/86 09/03/23 14:49 Pulse Ox 98 09/03/23 14:49 O2 Del Method Room Air 09/03/23 14:49 Course Vital Signs Vital signs: Vital Signs Temperature 97.8 F 09/03/23 14:49 Pulse Rate 85 09/03/23 14:49 Respiratory Rate 20 09/03/23 14:49 Blood Pressure 125/86 09/03/23 14:49 Pulse Oximetry 98 09/03/23 14:49 Oxygen Delivery Method Room Air 09/03/23 14:49 Temperature 97.8 F 09/03/23 14:49 Pulse Rate 85 09/03/23 14:49 Respiratory Rate 20 09/03/23 14:49 Blood Pressure 125/86 09/03/23 14:49 Pulse Oximetry 98 09/03/23 14:49 Oxygen Delivery Method Room Air 09/03/23 14:49 Medical Decision Making MDM Narrative Medical decision making narrative: Patient treated with IV fluids, Toradol, Decadron, Zofran. She drove herself to the emergency department. At this point, I do not feel the patient needs CT scanning as she had direct visualization of her sinuses yesterday and she is not having any purulent nasal drainage, bleeding, visual loss or fevers. She has a benign exam and stable vital signs in the ER. She will be treated for symptoms for home with Fioricet, Toradol, Zofran. Follow-up with PCP and ENT and return to the ER if symptoms change or worsen. SUPERVISED APC VISIT, PHYSICIAN ATTESTATION: Based on the medical record the care appears appropriate. ? Medical Records Medical records reviewed: Yes I reviewed the patient's medical records Lab Data Lab results reviewed: Yes I reviewed the patient's lab results Labs: Lab Results 09/03/23 Range/Units 15:10 WBC 9.7 (4.0-11.0) 10^3/uL RBC 4.21 (4.20-5.40) 10^6/uL Hgb 12.8 (12.0-16.0) g/dL Hct 39.7 (36.0-48.0) % MCV 94.3 (81.0-99.0) fL MCH 30.4 (26.7-34.0) pg MCHC 32.2 (29.9-35.2) g/dL RDW 14.0 (11.0-15.0) % Plt Count 328 (150-450) 10^3/uL MPV 9.5 (9.5-13.5) fL Neut % (Auto) 62.9 (43.0-75.0) % Lymph % (Auto) 20.9 (20.5-60.0) % Gregory % (Auto) 7.7 (1.7-12.0) % Eos % (Auto) 7.5 H (0.9-7.0) % Baso % (Auto) 0.7 (0.2-2.0) % Neut # (Auto) 6.1 (1.4-6.5) 10^3/uL Lymph # (Auto) 2.0 (1.2-3.8) 10^3/uL Gregory # (Auto) 0.8 (0.3-0.8) 10^3/uL Eos # (Auto) 0.7 (0.0-0.7) 10^3/uL Baso # (Auto) 0.1 (0.0-0.1) 10^3/uL Abs Immat Gran (auto) 0.03 (0.00-0.03) 10^3/uL Imm/Tot Granulo (auto) 0.3 (0.0-0.5) % Sodium 135 L (136-145) mmol/L Potassium 3.6 (3.5-5.1) mmol/L Chloride 102 (98-107) mmol/L Carbon Dioxide 26.3 (21.0-32.0) mmol/L Anion Gap 10.3 BUN 10.0 (7.0-18.0) mg/dL Creatinine 0.83 (0.55-1.02) mg/dL Est GFR ( Amer) >60 (>=60) Est GFR (Non-Af Amer) >60 (>=60) BUN/Creatinine Ratio 12.0 Glucose 106 (74-106) mg/dL Calcium 8.4 L (8.5-10.1) mg/dL Discharge Plan Discharge Stand Alone Forms: Portal Instructions Chief Complaint: Headache Clinical Impression: Headache Patient Disposition: Home, Self-Care Time of Disposition Decision: 15:56 Condition: Good Prescriptions / Home Meds: New ketorolac 10 mg tablet 10 mg PO TID PRN (Reason: pain) Qty: 10 0RF ondansetron 4 mg tablet,disintegrating 4 mg PO Q6H PRN (Reason: nausea and vomiting) Qty: 12 0RF gcmcststvn-sumxssyvydgak-ojil [Fioricet] 50-300-40 mg capsule 1 cap PO Q6H PRN (Reason: headache) Qty: 12 0RF Rx Instructions: DX: R51.9 No Action albuterol sulfate 2.5 mg /3 mL (0.083 %) solution for nebulization 2.5 mg inhalation Q6H PRN (Reason: shortness of breath or wheezing) albuterol sulfate 90 mcg/actuation HFA aerosol inhaler 2 inh INHALATION Q4H PRN (Reason: shortness of breath or wheezing) aripiprazole 5 mg tablet 5 mg PO DAILY buspirone 10 mg tablet 10 mg PO DAILY Trelegy Ellipta 200-62.5-25 mcg blister with device 1 inh INHALATION Q24H furosemide 20 mg tablet 20 mg PO DAILY PRN (Reason: edema) lamotrigine 100 mg tablet 100 mg PO QAM venlafaxine 75 mg capsule,extended release 24hr 75 mg PO QAM Print Language: Cambodian Instructions: Acute Headache (ED) Referrals: Sridhar Bird NP [Primary Care Provider] - 1 week
[2023-09-03] MEDS: 0.9 % SODIUM CHLORIDE 1,000 ML 999 ML IV (15:18)
[2023-09-03] MEDS: KETOROLAC TROMETHAMINE 30 MG/ML VIAL IVP (15:18)
[2023-09-03] MEDS: ONDANSETRON PF 4 MG/2 ML VIAL IV (15:18)
[2023-09-03] MEDS: DEXAMETHASONE SOD PHOS 10 MG/ML VIAL IV (15:18)
[2023-09-03 15:21] LABS: Basophils Absolute Auto 0.1 10^3/uL (0.0-0.1); Basophils Percent Auto 0.7 % (0.2-2.0); Eosinophils Absolute Auto 0.7 10^3/uL (0.0-0.7); Eosinophils Percent Auto 7.5 % (0.9-7.0); Hematocrit 39.7 % (36.0-48.0); Hemoglobin 12.8 g/dL (12.0-16.0); Immature Granulocytes Abs Auto 0.03 10^3/uL (0.00-0.03); Immature Granulocytes Pct Auto 0.3 % (0.0-0.5); Lymphocytes Percent Auto 20.9 % (20.5-60.0); Mean Corpuscular HGB Conc 32.2 g/dL (29.9-35.2); Mean Corpuscular Hemoglobin 30.4 pg (26.7-34.0); Mean Corpuscular Volume 94.3 fL (81.0-99.0); Mean Platelet Volume 9.5 fL (9.5-13.5); Monocytes Absolute Auto 0.8 10^3/uL (0.3-0.8); Monocytes Percent Auto 7.7 % (1.7-12.0); Neutrophils Absolute Auto 6.1 10^3/uL (1.4-6.5); Neutrophils Percent Auto 62.9 % (43.0-75.0); Platelet Count 328 10^3/uL (150-450); Red Blood Count 4.21 10^6/uL (4.20-5.40); White Blood Count 9.7 10^3/uL (4.0-11.0)
[2023-09-03 15:45] LABS: Anion Gap 10.3; Calcium 8.4 mg/dL (8.5-10.1); Carbon Dioxide 26.3 mmol/L (21.0-32.0); Chloride 102 mmol/L (98-107); Estimated GFR (African America >60 (>=60); Estimated GFR (Non-African Ame >60 (>=60); Glucose 106 mg/dL (74-106); Potassium 3.6 mmol/L (3.5-5.1); Sodium 135 mmol/L (136-145)
[2023-09-03 16:05] VITALS: BP 120/80; PULSE 78; O2SAT 98
== END 2023-09-03 16:06 | disposition home or self-care (01) ==
PROVIDERS: Physician Assistant; Emergency Provider Emergency Medicine; PCP Nurse Practitioner Primary Care
DX: R51.9 Headache, unspecified (principal); F17.210 Nicotine dependence, cigarettes, uncomplicated
CPT/HCPCS: 36415; 80048; 85025; 96374; 96375; 99284; J1100; J1885; J2405

== ENCOUNTER 2023-09-08 14:44 | Emergency (ER) | payer OTHER, SELFPAY ==
[2023-09-08 14:47] VITALS: BP 146/103; PULSE 84; TEMP 36.6; O2SAT 99; BMI 36.6
--- NOTE | 2023-09-08 14:54 | US_ITS ---
The [address] [address] Patient Name: MARIELENA ENGLAND MRN: [id number] date: 1980 Sex: F Assigned Patient Location: ER Current Patient Location: ER Accession/Order Number: [id number] Exam Date: 09/08/2023 15:36 Report Date: 09/08/2023 16:53 At the request of: MARIA TERESA TUCKER Procedure: US right upper quadrant Limited abdominal ultrasound 09/08/2023 3:36 PM EDT. Indication: Right upper quadrant abdominal pain. Comparison: None. . Findings: Liver is unremarkable in echotexture without evidence of focal lesion. No intra- or extrahepatic biliary ductal dilatation with the visualized portion of the common duct measuring 3 mm. Small gallbladder stones and/or polyps measuring up to 3.5 mm. No suspicious gallbladder wall thickening, pericholecystic fluid or sonographic Cano's sign. Limited visualization of the tail of the pancreas, with the visualized portion of the pancreas unremarkable. Right kidney measures 9.7 x 4.4 x 5.3 cm. No hydronephrosis. No free fluid in the right upper quadrant. US/US right upper quadrant Impression: 1. No radiographic evidence for acute cholecystitis. 2. Small gallbladder stones and/or polyps measuring up to 3.5 mm. Electronically authenticated by: CHUY SULLIVAN Date: 09/08/2023 16:53
--- OUTSIDE RECORDS SUMMARY | 2023-09-08 15:09 | XMS_ITS | CCD ---
Author Organization [facility] Care Team Providers Care Steel Handler Name Role Phone Yohana Kitchen Unavailable Chela Kumar Unavailable NITO ., DR JOSÉ MIGUEL Potts Admitting Unavailable BEAUCHAMP ., DR JOSÉ MIGUEL Potts Attending Unavailable MISC, DR THOMSON Primary Care Unavailable HOY ., DR CORREA Consulting Unavailable BARTLETT ., FABIOLA Consulting Unavailable HALKER ., PAIGE Admitting Unavailable HALMARIANNE .PAIGE Attending Unavailable ELIOT CHO Primary Care Unavailable BARTLETT ., FABIOLA Admitting Unavailable BARTLETT ., FABIOLA Attending Unavailable [facility] DR THOMSON Primary Care Unavailable [place], DR LOUIE Carrillo Consulting Unavailable BARTLETT ., [...] ., DR JOSÉ MIGUEL Potts Attending Unavailable [facility], DR THOMSON Primary Care Unavailable BARTLETT ., FABIOLA Consulting Unavailable Ilana Gallegos Unavailable Neyda Garland Unavailable Sridhar Brown Primary Care Provider ARIANA RENDON Primary Care Physician Jana Melvin Admitting Unavailable Jana Melvin Attending Unavailable Jana Melvin Referring Unavailable MD Jana Melvin Jr Attending Provider Jana Cabral Jr Attending Unavailable Timmis Jr, Jana H Admitting Unavailable BUDDY, BELÉN L Attending Unavailable SHAMMO, SRIDHAR Referring Unavailable SHAMMO, SRIDHAR Primary Care Unavailable BUDDY, BELÉN L Attending Unavailable SHAMMO, SRIDHAR Referring Unavailable SHAMMO, SRIDHAR Primary Care Unavailable SHANTHI LUGO Attending Unavailable SHAMMO, SRIDHAR Referring Unavailable SHAMMO, SRIDHAR Primary Care Unavailable BUDDY, BELÉN L Attending Unavailable SHAMMO, SRIDHAR Referring Unavailable SHAMMO, SRIDHAR Primary Care Unavailable BUDDY, BELÉN L Attending Unavailable JACKSON, SUN PRAIRIE Referring Unavailable JACKSON, SUN PRAIRIE Primary Care Unavailable TIMMIS, JANA H Attending Unavailable SHAMMO, SRIDHAR Referring Unavailable TIMMIS, JANA H Attending Unavailable TIMMIS, JANA H Attending Unavailable JACKSON, SUN [place] Referring Unavailable TIMMIS, JANA H Attending Unavailable JACKSON, SUN PRA[place]IE Referring Unavailable BUDDY, BELÉN L Referring Unavailable SHAMMO, SRIDHAR Primary Care Unavailable BUDDY, BELÉN L Referring Unavailable SHAMMO, SRIDHAR Primary Care Unavailable BUDDY, BELÉN L Referring Unavailable SHAMMO, SRIDHAR Primary Care Unavailable JACKSON, SUN PRAIRIE Referring Unavailable JACKSON, SUN PRAIRIE Primary Care Unavailable LOUIE HEREDIA Referring Unavailable JACKSON, SUN PRAIRIE Primary Care Unavailable LOUIE HEREDIA Attending Unavailable GIOVANNALOUIE Referring Unavailable JACKSON, SUN PRAIRIE Primary Care Unavailable SHAMMO, SRIDHAR Referring Unavailable SHAMMO, SRIDHAR Primary Care Unavailable SHAMMO, SRIDHAR Referring Unavailable SHAMMO, SRIDHAR Primary Care Unavailable BUDDY, BELÉN L Admitting Unavailable BUDDY, BELÉN L Attending Unavailable BUDDY, BELÉN L Referring Unavailable SHAMMO, SRIDHAR Primary Care Unavailable REGGIE WEBB Attending Unavailable JACKSON, SUN PRAIRIE Primary Care Unavailable JACKSON, SUN PRAIRIE Primary Care Unavailable BRUNO WALL Attending Unavailable BUDDY, BELÉN L Referring Unavailable JACKSON, SUN PRAIRIE Primary Care Unavailable Medications Current Medications Medication Drug Class(es) Dates Sig (Normalized) Sig (Original) [id number] 200 actuat albuterol 0.09 mg/actuat metered dose [...] zach th every six hours as needed [place] 5-325 MG 1 tablet as needed Orally every 6 hrs Active benzonatate 200 mg oral capsule (9 sources) Non-narcotic Antitussive Start: 06-28-2022 take 1 capsule by mouth every eight hours Benzonatate 200 MG 1 capsule Orally Three times a day Jun, Not-Taking/PRN Start: 08-29-2021 take 1 capsule by mo [facility] three times daily as needed benzonatate [...] Chronic Other nutritional; endocrine; and metabolic disorders (2 sources) Other obesity due to excess calories; Translations: [Other obesity due to excess calories] Onset: 09-01-2023 Chronic Other nutritional; endocrine; and metabolic disorders (2 sources) Body mass index (BMI) 34.0-34.9, adult; Translations: [...] Test Name Value Interpretation Reference Range Facility COMPLETE BLOOD COUNTon 09-02 Erythrocyte distribution width (RBC) [Ratio] 15.0 % Normal 11.5-15.0 [facility] Comment on above: Performed By: #### C DIANE FONSECA, 29025-0, 3024-7, [facility], 68941-4 ####[facility] ([id number])[address] [address] [place] [address] Hematocrit (Bld) [Volume fraction] 41.6 % Normal 35-47 [facility] Comment on above: Performed By: #### C DIANE FONSECA, 95820-8, 3024-7, HA1C, 53996-2 ####[facility] ([id number])[address] [address] [place] [address] Hemoglobin (Bld) [Mass/Vol] 14.0 g/dL Normal 11.7-15.5 [facility] Comment on above: Performed By: #### C DIANE FONSECA, 26910-4, 3024-7, [facility], 59473-7 ####[facility] ([id number])[address] [address] [place] [address] MCH (RBC) [Entitic mass] 31.6 pg Normal 27-34 [facility] Comment on above: Performed By: #### C BC, CMP, 82299-9, 3024-7, HA1C, 93660-6 ####[facility] ([id number])[address] [address], [place] [address] MCHC (RBC) [Mass/Vol] 33.7 g/dL Normal 32-36 [facility] Comment on above: Performed By: #### C BC, CMP, 43663-2, 3024-7, HA1C, 24884-7 ####[facility] ([id number])[address], [place] [address] MCV (RBC) [Entitic vol] 94 fL Normal 80-100 [facility] Comment on above: Performed By: #### C BC, CMP, 31690-5, 3024-7, HA1C, 60431-5 ####[facility] ([id number])[address] [address] [place] [address] Platelet mean volume (Bld) [Entitic vol] 8.4 fL Normal 7-12 [facility] Comment on above: Performed By: #### C BC, CMP, 95953-7, 3024-7, HA1C, 90438-8 ####[facility] ([id number])[address] [address] [place] [address] Platelets (Bld) [#/Vol] 319 10*3/uL Normal 150-450 [facility] Comment on above: Performed By: #### C BC, CMP, 71804-3, 3024-7, HA1C, 95700-1 ####[facility] ([id number])[address] [address] [place] [address] RBC COUNT 4.43 X10E12/L Normal 3.80-5.20 [facility] Comment on above: Performed By: #### C BC, CMP, 33980-0, 3024-7, HA1C, 82157-9 ####[facility] ([id number])[address] [place] [place] [address] WBC (Bld) [#/Vol] 8.0 10*3/uL Normal 4.0-11.0 [facility] Comment on above: Performed By: #### C BC, CMP, 06559-0, 3024-7, HA1C, 02286-7 ####[facility] ([id number])[address], [address] [place] [address] COMPREHENSIVE METABOLIC PANE Nito 09-03-2023 Albumin [Mass/Vol] 4.0 g/dL Normal 3.2-5.3 [facility] Comment on above: Performed By: #### C BC, CMP, 29388-7, 3024-7, HA1C, 24754-5 ####[facility] ([id number])[address] [address] [place] [address] ALP [Catalytic activity/Vol] 77 U/L Normal 39-130 [facility] Comment on above: Performed By: #### C BC, CMP, 59627-1, 3024-7, HA1C, 38310-6 ####[facility] ([id number])[address] [address], [place] [address] ALT [Catalytic activity/Vol] 19 U/L Normal 0-31 [facility] Comment on above: Performed By: #### C BC, CMP, 50010-3, 3024-7, HA1C, 07229-8 ####[facility] ([id number])[address] [address] [place] [address] Anion gap [Moles/Vol] 10 mmol/L Normal 5-15 [facility] Comment on above: Performed By: #### C BC, CMP, 53322-1, 3024-7, HA1C, 62482-4 ####[facility] ([id number])[address] [address] [place] [address] AST [Catalytic activity/Vol] 19 U/L Normal 0-41 [facility] Comment on above: Performed By: #### C BC, CMP, 36353-8, 3024-7, HA1C, 50483-1 ####[facility] ([id number])[address], [address], [place] [address] Bilirubin [Mass/Vol] 0.7 mg/dL Normal 0.3-1.2 [facility] Comment on above: Performed By: #### C BC, CMP, 10050-4, 3024-7, [facility], 25922-9 ####[facility] ([id number])[address] [address] [place] [address] Calcium [Mass/Vol] 9.0 mg/dL Normal 8.5-10.5 [facility] Comment on above: Performed By: #### C BC, CMP, 51039-4, 3024-7, [facility], 26359-4 ####[facility] ([id number])[address] [address] [place] [address] Chloride [Moles/Vol] 101 mmol/L Normal 98-109 [facility] Comment on above: Performed By: #### C BC, CMP, 32584-6, 3024-7, HA1C, 06488-4 ####[facility] ([id number])[address], [address], [place] [address] CO2 [Moles/Vol] 27 mmol/L Normal 22-32 [facility] Comment on above: Performed By: #### C BC, CMP, 06414-0, 3024-7, HA1C, 64001-8 ####[facility] ([id number])[address], [address], [place] [address] Creatinine [Mass/Vol] 0.71 mg/dL Normal 0.40-1.00 [facility] Comment on above: Result Comment: METH OD TRACEABLE TO IDMS STANDARD Performed By: #### C BC, CMP, 99041-8, 3024-7, HA1C, 05412-2 ####[facility] ([id number])[address] [address], [place] [address] eGFR (CKD-EPI) NON-RACE DEPENDENT >90 Normal >59 [facility] Comment on above: Result Comment: Reported eGFR is based on the CKD-EPI 2020 equation that does not use a race coefficient. Performed By: #### C BC, CMP, 15554-9, 3024-7, HA1C, 64897-7 ####[facility] ([id number])[address] [address] [place] [place] [address] Glucose [Mass/Vol] 88 mg/dL Normal 65-99 [facility] Comment on above: Performed By: #### C BC, CMP, 33744-7, 3024-7, HA1C, 26812-5 ####[facility] ([id number])[address] [address], [place] [address] Potassium [Moles/Vol] 3.7 mmol/L Normal 3.5-5.0 [facility] Comment on above: Performed By: #### C BC, CMP, 16575-5, 3024-7, HA1C, 07660-2 ####[facility] ([id number])[address] [address] [place] [place] [address] Protein [Mass/Vol] 6.9 g/dL Normal 6.0-8.0 [facility] Comment on above: Performed By: #### C BC, CMP, 61128-1, 3024-7, HA1C, 75163-9 ####[facility] ([id number])[address] [address] [place] [place] [address] Sodium [Moles/Vol] 138 mmol/L Normal 134-146 [facility] Comment on above: Performed By: #### C BC, CMP, 47388-0, 3024-7, HA1C, 43065-1 ####[facility] ([id number])[address], [address], [place] [address] Urea nitrogen [Mass/Vol] 8 mg/dL Normal 5-23 [facility] Comment on above: Performed By: #### Leila BC, CMP, 70108-9, 3024-7, HA1C, 06202-3 ####[facility] ([id number])[address], [address], [place] [address] FREE T4on 09-03-2023 Free T4 [Mass/Vol] 0.81 ng/dL Normal 0.61-1.60 [facility] Comment on above: Performed By: #### Leila BC, CMP, 45079-6, 4-7, HA1C, 76557-3 ####[facility] ([id number])[address], [address] [place] [address] HGB A1C (GLYCO-HGB)on 2023 Glucose [Mass/Vol] 103 mg/dL Normal [facility] Comment on above: Performed By: #### [place], 84946-8, 6-3, 3024-7, 2842-3, 84189-7, 89159-2 #### [facility] ([id number]) [address], [address] [place] [address] HbA1c (Bld) [Mass fraction] 5.2 % Normal 4.4-5.6 [facility] Comment on above: Result Comment: NOTE ADA Guidelines Result HgbA1c Normal : less than 5.7 % Prediabetes : 5.7 % to 6.4 % Diabetes : > 6.4 % Use with caution in patients with abnormal hemoglobin variants as the half-life of red blood cells and in vivo glycation rates are affected. Performed By: #### [place], 71061-8, 6-3, 3024-7, 2842-3, 98929-9, 73093-9 #### [facility] ([id number]) [address], [address] [place] [address] Lipid 1996 panelon 4 Cholesterol [Mass/Vol] 171 mg/dL Normal 150-200 [facility] Comment on above: Performed By: #### Leila BC, CMP, 45961-8, 3024-7, HA1C, 33210-8 ####[facility] ([id number])[address], [address] [place] [address] Cholesterol in HDL [Mass/Vol] 67 mg/dL Normal >39 [facility] Comment on above: Result Comment: HDL <40 mg/dL - High Risk HDL > or = 40mg/dL- Desirable HDL >60 mg/dL - Negative Risk Performed By: #### Leila BC, CMP, 03388-3, 4-7, HA1C, 33502-8 ####[facility] ([id number])[address] [address] Cholesterol in LDL [Mass/Vol] 55 mg/dL Normal <130 [facility] Comment on above: Result Comment: LDL <100 mg/dL - Desirable LDL >160 mg/dL - High Risk Performed By: #### C BC, CMP, 57333-4, 3024-7, HA1C, 47054-7 ####[facility] ([id number])[address] [address] Cholesterol in VLDL [Mass/Vol] 49 mg/dL High 0-30 [facility] Comment on above: Performed By: #### C BC, CMP, 79623-3, 3024-7, HA1C, 11526-2 ####[facility] ([id number])[address], [address], [place] [address] CHOLESTEROL:HDL 2.6 Normal 1.0-5.0 [facility] Comment on above: Performed By: #### C BC, CMP, 38896-7, 3024-7, HA1C, 57653-1 ####[facility] ([id number])[address], [address], [place] [address] Triglyceride [Mass/Vol] 243 mg/dL High 27-150 P [facility] Comment on above: Performed By: #### C BC, [facility], 74323-8, 3024-7, [facility], 64425-7 ####[facility] ([id number])[address] [address], [place] [address] Vitamin D+Metabolites [Mass/ Vol]on 09-03-2023 VITAMIN D 25 HYD TOT 13.9 ng/mL Low 30-100 [facility] Comment on above: Result Comment: Vitamin D status 25 [place] Vitamin D Deficiency <20 ng/mL Insufficiency 20-29 ng/mL Sufficiency 30-100 ng/mL Toxicity >100 ng/mL NOTE: A pediatric reference range has not been established by the sensor operator of this kit. The [place] [employer] recommends a Vitamin D level of = or >20ng/mL in infants and children. Performed By: #### C BC, 71437-2, 3016-3, 3024-7, 2842-3, 31729-1, 50905-8 #### [facility] ([id number]) [address], [address] [place] [address] Nito 08-12-2023 L Specimen: [id number] Received: 08/13/23 Status: MARCELL [place] Num: [id number] Spec Type: Surgical Subm Dr: JANA MELVIN MD Tissues: A Turbinates (RT INFERIOR TURB) B Turbinates (LT INF TURB) C Sinus Contents/Biopsy (RT SINUS CONTENT) D Sinus Contents/Biopsy (LT SINUS CONTENT) E Nasal Septum (SEPTUM) Procedures: HE/2, Gross/Micro L4/2, Level 1 Gross/3 Age/ Patient Sex Location Account Attending Physician EulaliaMere 42/F LABELL [id number] JANA MELVIN MD SPEC NUM: [id number] RECD: 08/13/23 STATUS: MARCELL [place] NUM: [id number] SHRUTHI: 08/12/[address]: JANA MELVIN MD ENTERED: 08/13/23 [facility] DR: Amrita Villegas SPEC TYPE: [...] nasal septal cartilage. Gross only examination Specimen: [id number] Received: 08/13/23 Status: MARCELL [place] Num: [id number] Spec Type: Surgical Subm Dr: JANA MELVIN MD Tissues: A Turbinates (RT INFERIOR TURB) B Turbinates (LT INF TURB) C Sinus Contents/Biopsy (RT SINUS CONTENT) D Sinus Contents/Biopsy (LT SINUS CONTENT) E Nasal Septum (SEPTUM) Procedures: HE/2, Gross/Micro L4/2, Level 1 Gross/3 Patient: Mere Esteban [id number] (Continued) Specimen: [id number] Received: 08/13/23 (Continued) Signed (signature on file) Neil Johns MD 08/18/232036 Specimen: [id number] Received: 08/13/23 Status: MARCELL [place] Num: [id number] Spec Type: Surgical Subm Dr: JANA MELVIN MD Tissues: A Turbinates (RT INFERIOR TURB) B Turbinates (LT INF TURB) C Sinus Contents/Biopsy (RT SINUS CONTENT) D Sinus Contents/Biopsy (LT SINUS CONTENT) E Nasal Septum (SEPTUM) Procedures: HE/2, Gross/Micro L4/2, Level 1 Gross/3 Patient: Mere Esteban Mandy [id number] (Continued) Specimen: [id number] Received: 08/13/23-141 (Continued) Clinical Information Chronic sinusitis, deviated septum, [...] cm aggregate of adler and cartilaginous tissue. Decating Machine Operator sections following decalcification are submitted in C1. [...] gross photo is included. TW CPT Codes 27210R0 33531 X.3 Specimen: [id number] Received: 08/13/23 Status: MARCELL [place] Num: [id number] Spec Type: Surgical Subm Dr: JANA MELVIN MD Tissues: A Turbinat (more content not included)... Normal [facility] Fibrin D-dimer DDU (PPP) [Ma ss/Vol]on 08-07-2023 D DIMER <150 Normal <255 [facility] Comment on above: Result Comment: Results <255 ng/mL DDU: The presence of a VTE can safely be excluded with a negative D-Dimer result and Wells score. A negative result doesn't exclude the possibility of DIC. The test be repeated along with other diagnostic tests if the patient's symptoms persist or worsen. [email or web address] Performed By: #### 4 8066-5 ####[facility] ([id number])[address] [place] [address] HCG ( test) IAmatthew fan Ql (S)on 08-04-2023 SERUM Negative Normal NEG [facility] Comment on above: Performed By: #### 8 0385-8 ####[facility] ([id number])[address] [place] [address] Surgical Pathologyon [address] [facility] Comment on above: Result Comment: [facility] [address] [place] [address] Surgical Pathology Consultation Patient Name:MERE ESTEBAN:1980 (Age: 42)Gender:FTaken:4Reported:4Physician(s):Belén Goodwin M.D. ([phone])Copy To: Rec. #:[id number]: #[id number] Final Pathologic Diagnosis 1. Endocervical curettings: Fragments of endocervix, negative for dysplasia 2. Endometrial curettings: Fragments of secretory endometrium with breakdown Report Electronically Signed Out nsk/08/12/2023Alfredoi Patti Martin MD Interpretation performed at [facility], [address] [place] [address], License number: [id number]. Clinical History Dysfunctional uterine bleeding. Gross Description [...] submitted in a single cassette. (1, ns, [id number], m1) MG 2. Received in formalin labeled WHITE, #2: Endometrial curettings are 2 Telfa pads with multiple adherent adler fragments/feathery bits of soft tissue, embedded in adler cloudy mucoid debris and hemorrhagic material. The Telfa pads are scraped and the rest of the specimen is filtered, aggregating to 7.5 x 1.2 x 0.3 cm, and submitted in cassettes A-C. (3, ns, [id number], m1) MG mjg/08/05/2023NSK Intraoperative Consultation Specimen(s) Received 1: Endocervical curettings 2: Endometrial curettings Fee Codes(s): 1; 38163 2; 08869 CBC AND AUTO DIFFon 04-29-20 24 ABSOLUTE BASOPHIL 0.1 X10E9/L Normal 0.0-0.2 [facility] Comment on above: Performed By: #### C BCA ####[facility] ([id number])[address] [address], [place] [address] ABSOLUTE NEUTROPHIL 4.4 X10E9/L Normal 1.5-6.6 [facility] Comment on above: Performed By: #### C BCA ####[facility] ([id number])[address] [address], [place] [address] Basophils/100 WBC (Bld) 1.2 % Normal [facility] Comment on above: Performed By: #### C BCA ####[facility] ([id number])[address] [address] [place] [address] Eosinophils (Bld) [#/Vol] 0.4 10*3/uL Normal 0.0-0.4 [facility] Comment on above: Performed By: #### C BCA ####[facility] ([id number])[address] [address] Eosinophils/100 WBC (Bld) 4.7 % Normal [facility] Comment on above: Performed By: #### C BCA ####[facility] ([id number])[address] [address], [place] [address] Erythrocyte distribution width (RBC) [Ratio] 14.8 % Normal 11.5-15.0 [facility] Comment on above: Performed By: #### C BCA ####[facility] ([id number])[address] [address] Hematocrit (Bld) [Volume fraction] 41.2 % Normal 35-47 [facility] Comment on above: Performed By: #### C BCA ####[facility] ([id number])[address] [address] [place] [address] Hemoglobin (Bld) [Mass/Vol] 13.6 g/dL Normal 11.7-15.5 [facility] Comment on above: Performed By: #### C BCA ####[facility] ([id number])[address] [address] Lymphocytes (Bld) [#/Vol] 2.8 10*3/uL Normal 1.0-3.5 [facility] Comment on above: Performed By: #### C BCA ####[facility] ([id number])[address] [address] Lymphocytes/100 WBC (Bld) 32.8 % Normal [facility] Comment on above: Performed By: #### C BCA ####[facility] ([id number])[address] [address] MCH (RBC) [Entitic mass] 31.3 pg Normal 27-34 [facility] Comment on above: Performed By: #### C BCA ####[facility] ([id number])[address] [address] MCHC (RBC) [Mass/Vol] 33.1 g/dL Normal 32-36 [facility] Comment on above: Performed By: #### C BCA ####[facility] ([id number])[address] [address] MCV (RBC) [Entitic vol] 95 fL Normal 80-100 [facility] Comment on above: Performed By: #### C BCA ####[facility] ([id number])[address] [address] Monocytes (Bld) [#/Vol] 0.8 10*3/uL Normal 0-0.9 [facility] Comment on above: Performed By: #### C BCA ####[facility] ([id number])[address] [address], [place] [address] Monocytes/100 WBC (Bld) 9.2 % Normal [facility] Comment on above: Performed By: #### C BCA ####[facility] ([id number])[address] [address] [place] [address] Neutrophils/100 WBC (Bld) 52.1 % Normal [facility] Comment on above: Performed By: #### C BCA ####[facility] ([id number])[address] [address] [place] [address] Platelet mean volume (Bld) [Entitic vol] 8.1 fL Normal 7-12 [facility] Comment on above: Performed By: #### C BCA ####[facility] ([id number])[address] [address] Platelets (Bld) [#/Vol] 321 10*3/uL Normal 150-450 [facility] Comment on above: Performed By: #### C BCA ####[facility] ([id number])[address] [address] RBC COUNT 4.35 X10E12/L Normal 3.80-5.20 [facility] Comment on above: Performed By: #### C BCA ####[facility] ([id number])[address] [address] WBC (Bld) [#/Vol] 8.4 10*3/uL Normal 4.0-11.0 [facility] Comment on above: Performed By: #### C BCA ####[facility] ([id number])[address] [address] [place] [address] XR CHEST 2 VWSon 07-14-2023 XR CHEST 2 VWS XR CHEST 2 VWS XR CHEST 2 VWS INDICATION: Bronchitis, preoperative clearance COMPARISON: X-ray 01/29/2023 FINDINGS: Cardiomediastinal silhouette and pulmonary vasculature are within normal limits. Lungs and pleural space are clear. There is no pleural effusion or pneumothorax. IMPRESSION: No acute cardiopulmonary process. Finalized by Daniel Rosas on 07/14/2023 5:35 PM Normal [facility] POCT , urineon 05-15 Beta HCG ( test) Ql (U) Negative [facility] Surgical Pathologyon [address] [facility] Comment on above: Result Comment: [facility] [address] [place] [address] Surgical Pathology Consultation Patient Name:MERE ESTEBAN:1980 (Age: 42)Gender:FTaken:4Reported:4Physician(s):Belén Goodwin M.D. ([phone])Copy To: Rec. #:[id number]: #[id number] Final Pathologic Diagnosis 1. Endocervix, curettage: Benign endocervical epithelium. 2. Endometrium, biopsy: Benign endometrium. Report Electronically Signed Out cjb/4Cjaylin Gayle MD Interpretation performed at [facility], [address] [place] [address], License number: [id number]. Clinical History Dysfunctional uterine bleeding (DUB) N93.8. Gross Description 1. Received in formalin labeled, WHITE, ECC is a plastic metal brush with a pale-adler mucoid material admixed with adler friable soft tissue fragments and brown hemorrhagic material, 2 x 0.8 x 0.1 cm in aggregate. The specimens are filtered and submitted in a single cassette. (1, ns, [id number], m2) TB 2. Received in formalin labeled, WHITE, EMB are 4 pale-adler delicate to friable soft tissue chips admixed with adler to brown hemorrhagic material, 2.5 x 1.5 x 0.1 cm in aggregate. The specimens are filtered and submitted in a single cassette. (1, ns, [id number], m2) [facility]/06/04/2023WAK Specimen(s) Received 1: Endocervical curettings 2: Endometrial biopsy Fee Codes(s): 1; 40893 2; 38374 COMPLETE BLOOD COUNTon 06-01 Erythrocyte distribution width (RBC) [Ratio] 14.6 % Normal 11.5-15.0 [facility] Comment on above: Performed By: #### C BC, 93498-1, 3016-3, 3024-7, 2842-3, 08972-0, 63146-5 #### [facility] ([id number]) [address] [facility] [place] [address] Hematocrit (Bld) [Volume fraction] 44.6 % Normal 35-47 [facility] Comment on above: Performed By: #### C BC, 97167-9, 3016-3, 3024-7, 2842-3, 94316-0, 71272-4 #### [facility] ([id number]) [address] [place] [address] Hemoglobin (Bld) [Mass/Vol] 14.6 g/dL Normal 11.7-15.5 [facility] Comment on above: Performed By: #### [place], 38333-9, 3016-3, 3024-7, 2842-3, 51146-6, 82049-8 #### [facility] ([id number]) [address] [facility] [facility] [place] [address] MCH (RBC) [Entitic mass] 31.1 pg Normal 27-34 [facility] Comment on above: Performed By: #### C BC, 74011-2, 3016-3, 3024-7, 2842-3, 66082-4, 34816-5 #### [facility] ([id number]) [address] [facility] [facility] [place] [address] MCHC (RBC) [Mass/Vol] 32.6 g/dL Normal 32-36 [facility] Comment on above: Performed By: #### Leila FONSECA, 67215-6, 3016-3, 3024-7, 2842-3, 19100-8, 60605-4 #### [facility] ([id number]) [address] [place] [address] MCV (RBC) [Entitic vol] 95 fL Normal 80-100 [facility] Comment on above: Performed By: #### Leila FONSECA, 63833-4, 3016-3, 3024-7, 2842-3, 36561-8, 37710-1 #### [facility] ([id number]) [address], [address] [place] [address] Platelet mean volume (Bld) [Entitic vol] 8.9 fL Normal 7-12 [facility] Comment on above: Performed By: #### Leila FONSECA, 36480-6, 3016-3, 3024-7, 2842-3, 31188-7, 52806-9 #### [facility] ([id number]) [address], [address] [place] [address] Platelets (Bld) [#/Vol] 290 10*3/uL Normal 150-450 [facility] Comment on above: Performed By: #### Leila FONSECA, 99777-8, 3016-3, 3024-7, 2842-3, 83721-1, 52275-8 #### [facility] ([id number]) [address], [address] [place] [address] RBC COUNT 4.68 X10E12/L Normal 3.80-5.20 [facility] Comment on above: Performed By: #### Leila FONSECA, 30211-5, 3016-3, 3024-7, 2842-3, 01875-6, 63460-3 #### [facility] ([id number]) [address] [place] [address] WBC (Bld) [#/Vol] 9.4 10*3/uL Normal 4.0-11.0 [facility] Comment on above: Performed By: #### Leila FONSECA, 89366-1, 3016-3, 3024-7, 2842-3, 65967-1, 07706-3 #### [facility] ([id number]) [address] [place] [address] FREE T4on 06-02-2023 Free T4 [Mass/Vol] 0.79 ng/dL Normal 0.61-1.60 [facility] Comment on above: Performed By: #### Leila FONSECA, 11378-3, 3016-3, 3024-7, 2842-3, 17179-9, 27559-0 #### [facility] ([id number]) [address] [place] [address] Follitropin Qnon 06-02-2023 FOLLICLE STIM HORMONE 4.2 mIU/mL Normal [facility] Comment on above: Result Comment: NORMAL FEMALE Luteal 1.8-5.1 mIU/mL Follicular 3.8-8.8 mIU/mL Mid Cycle 4.5-22.5 mIU/mL Post [place] 16.7-113.6 mIU/mL Performed By: #### Leila FONSCEA, 89078-4, 3016-3, 3024-7, 2842-3, 17241-1, 67677-8 #### [facility] ([id number]) [address] [place] [address] HCG.beta subunit IA 3rd IS Q non 06-02-2023 SERUM B HCG,3RD I.S. <5 Normal [facility] Comment on above: Result Comment: NEW REFERENCE [...] for trophoblastic or nontrophoblastic neoplasms. Performed By: ###Alcira FONSECA, 74065-1, 6-3, 3024-7, 2842-3, 17316-3, 10932-7 #### [facility] ([id number]) [address] [place] [address], [address] [place] [address] Lutropin Qnon 06-02-2023 LUTEINIZING HORMONE 5.9 mIU/mL Normal [facility] Comment on above: Result Comment: NORMAL FEMALE Follicular 2.1-10.9 mIU/mL Mid Cycle 19.2-103 mIU/mL Luteal 1.2-12.9 mIU/mL Post [place] 10.9-58.6 mIU/mL Performed By: ###Alcira FONSECA, 63599-5, 6-3, 3024-7, 2842-3, 91993-8, 18076-4 #### [facility] ([id number]) [address] [place] [address], [address] [place] [address] Prolactin [Mass/Vol]on 06-01 PROLACTIN 21.1 ng/mL Normal 3.3-26.7 [facility] Comment on above: Performed By: ##Michael FONSECA, 15407-5, 3016-3, 3024-7, 2842-3, 76466-9, 11318-8 #### [facility] ([id number]) [address] [place] [address] TSH Qnon 06-02-2023 TSH 2.98 uIU/mL Normal 0.49-4.67 [facility] Comment on above: Performed By: #### C , 14139-8, 3016-3, 3024-7, 2842-3, 28130-9, 18835-6 #### [facility] ([id number]) [address] [place] [address] US PELVIC WITH TRANSVAGINALo n 06-02-2023 US [...] Billy MD on 06/02/2023 2:55 PM Normal [facility] US Pelvis transabdominal and transvaginalon 06-02-2023 [...] Erick Billy MD on 06/02/2023 2:55 PM [facility] Billy MD - 06/02/2023 PELVIC ULTRASOUND [...] Erick Billy MD on 06/02/2023 2:55 PM [facility] (narrative[facility] US Pelvis transabdominal and transvaginalOrdered By: Erick Billy on 06-02-2023 [facility] Work Phone: CT Maxillofacial w/o Contras ton [...] MD, V. Transcribed by: MALORIE Technologist: DELISA [facility] Consent for Treatmenton 05-15 Consent for Treatment [id number] #1.00TIFF [facility] Physician Orderon 04-21-2023 Physician Order [id number] #1.00TIFF [facility] Physician Orderon 04-16-2023 Physician Order 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 MAMM SCREENING BILATERAL W CAD MAMM [...] AM 1 c MAMM 1 YR Normal [facility] COVID + FLU Quick Testingon 06-28-2022 SARS-CoV-2 (COVID-19) RNA SADE+probe Ql (Unsp spec) Negative [employer] Other COVID + FLU Quick Testing Negative [employer] Other XR CSPINE MIN 4 VIEWSon 10-15 [...] ROTHMAN Date: 2021-10-24 15:10 Normal [facility] XR LSPINE W_OBLS AND FLEX_EX [...] by: LOUIE ROTHMAN Date: 2021-10-24 15:11 Normal [facility] COVID Quick Testingon 2021 Result Positive [employer] Other Vital Signs Date Time Vital Sign Value Performing Clinician Facility 06-17-2023 08:21-0400 Body mass index (BMI) [Ratio] 36.22 kg/m2 Belén Goodwin MD [facility] 06-17-2023 08:21-0400 Body weight 101.79 kg Belén Goodwin MD [facility] 06-17-2023 08:21-0400 Diastolic blood pressure 66 mm[Hg] Belén Goodwin MD Work Phone: [facility] 06-17-2023 08:21-0400 Systolic blood pressure 128 mm[Hg] Belén Goodwin MD Work Phone: [facility] 06-03-2023 10:53-0400 Body height 167.6 cm Belén Goodwin MD Work Phone: [facility] 06-03-2023 10:53-0400 Body mass index (BMI) [Ratio] 36.32 kg/m2 Belén Goodwin MD Work Phone: [facility] 06-03-2023 10:53-0400 Body weight 102.06 kg Belén Goodwin MD Work Phone: [facility] 06-03-2023 10:53-0400 Diastolic blood pressure 78 mm[Hg] Belén Goodwin MD Work Phone: [facility] 06-03-2023 10:53-0400 Systolic blood pressure 116 mm[Hg] Belén Goodwin MD Work Phone: [facility] 04-22-2023 09:07-0500 Body mass index (BMI) [Ratio] 35.99 kg/m2 Belén Goodwin MD Work Phone: [facility] 04-22-2023 09:07-0500 Body weight 101.15 kg Belén Goodwin MD Work Phone: [facility] 04-22-2023 09:07-0500 Diastolic blood pressure 58 mm[Hg] Belén Goodwin MD Work Phone: [facility] 04-22-2023 09:07-0500 Systolic blood pressure 110 mm[Hg] Belén Goodwin MD Work Phone: [facility] 04-02-2023 10:06-0500 Body height 167.6 cm Shanthi RICHARDS Work Phone: [facility] 04-02-2023 10:06-0500 Body mass index (BMI) [Ratio] 34.48 kg/m2 Shanthi Lugo APRN-GAS STATION SUPERVISOR Work Phone: [employer] 04-02-2023 10:06-0500 Body weight 96.89 kg Shanthi Lugo VALIDATION INTERN-GAS STATION SUPERVISOR Work Phone: [employer] 04-02-2023 10:06-0500 Diastolic blood pressure 76 mm[Hg] Shanthi Lugo VALIDATION INTERN-GAS STATION SUPERVISOR [facility] 04-02-2023 10:06-0500 Heart rate 96 /min Shanthi Lugo VALIDATION INTERN-GAS STATION SUPERVISOR Work Phone: [facility] 04-02-2023 10:06-0500 SaO2% (BldA) [Mass fraction] 98 % Shanthi Lugo VALIDATION INTERN-GAS STATION SUPERVISOR Work Phone: [employer] 04-02-2023 10:06-0500 Systolic blood pressure 142 mm[Hg] Shanthi Lugo VALIDATION INTERN-GAS STATION SUPERVISOR Work Phone: [employer] 03-03-2023 10:05-0500 Body height 167.64 cm Neyda Garland Other [employer] Other 03-03-2023 10:05-0500 Body mass index (BMI) [Ratio] 34.21 kg/m2 Neyda Garland Other [employer] Other 03-03-2023 10:05-0500 Body temperature 99.1 [degF] Neyda Garland Other [employer] Other 03-03-2023 10:05-0500 Body weight 96.16 kg Neyda Garland Other [employer] Other 03-03-2023 10:05-0500 Diastolic blood pressure 60 mm[Hg] Neyda Garland Other [employer] Other 03-03-2023 10:05-0500 Respiratory rate 18 /min Neyda Garland Other [employer] Other 03-03-2023 10:05-0500 SaO2% (BldA) [Mass fraction] 98 % Neyda Garland Other [employer] Other 03-03-2023 10:05-0500 Systolic blood pressure 125 mm[Hg] Neyda Garland Other [employer] Other 08-26-2022 17:15-0400 Body height 167.64 cm Ilana Gallegos Other [employer] Other 08-26-2022 17:15-0400 Body mass index (BMI) [Ratio] 33.08 kg/m2 Ilana Gallegos Other [employer] Other 08-26-2022 17:15-0400 Body temperature 98.2 [degF] Ilana Gallegos Other [employer] Other 08-26-2022 17:15-0400 Body weight 92.99 kg Ilana Gallegos Other [employer] Other 08-26-2022 17:15-0400 Respiratory rate 18 /min Ilana Gallegos Other [employer] Other 08-26-2022 17:15-0400 SaO2% (BldA) [Mass fraction] 97 % Ilana Gallegos Other [employer] Other 06-28-2022 18:35-0400 Body height 167.64 cm Yohana Kitchen Other [employer] Other 06-28-2022 18:35-0400 Body mass index (BMI) [Ratio] 34.38 kg/m2 Yohana Kitchen Other [employer] Other 06-28-2022 18:35-0400 Body temperature 96.9 [degF] Yohana Kitchen Other [employer] Other 06-28-2022 18:35-0400 Body weight 96.62 kg Yohana Kitchen Other [employer] Other 06-28-2022 18:35-0400 Respiratory rate 18 /min Yohana Kitchen Other [employer] Other 06-28-2022 18:35-0400 SaO2% (BldA) [Mass fraction] 96 % Yohana Kitchen Other [employer] Other 03-29-2021 10:15-0500 Body height 167.64 cm Chela Moyerault Other [employer] Other 03-29-2021 10:15-0500 Body mass index (BMI) [Ratio] 30.66 kg/m2 Chela José Other [employer] Other 03-29-2021 10:15-0500 Body temperature 97.5 [degF] Chela José Other [employer] Other 03-29-2021 10:15-0500 Body weight 86.18 kg Chela José Other [employer] Other 03-29-2021 10:15-0500 Respiratory rate 18 /min Chela Kumar Other [employer] Other 03-29-2021 10:15-0500 SaO2% (BldA) [Mass fraction] 98 % Chela Kumar Other [employer] Other 01-26-2021 11:35-0500 Body height Yohaan Kitchen Other [employer] Other 01-26-2021 11:35-0500 Body mass index (BMI) [Ratio] 30.73 kg/m2 Yohana Reamond Other [employer] Other 01-26-2021 11:35-0500 Body temperature 97.7 [degF] Yohana Reamond Other [employer] Other 01-26-2021 11:35-0500 Body weight 86.37 kg Yohana Fidelina Other [employer] Other 01-26-2021 11:35-0500 Diastolic blood pressure 49 mm[Hg] Yohana Fidelina Other [employer] Other 01-26-2021 11:35-0500 Respiratory rate 18 /min Yohana Fidelina Other [employer] Other 01-26-2021 11:35-0500 SaO2% (BldA) [Mass fraction] 100 % Yohana Fidelina Other [employer] Other 01-26-2021 11:35-0500 Systolic blood pressure 11 mm[Hg] Yohana Fidelina Other [employer] Other Encounters Encounter Date Encounter Type Care Provider Facility Start: 09-03-2023 End: 09-03-[address] [facility] Start: 09-02-2023 End: 09-02-2023 ambulatory JANA ROBERTSONMIS Not Available Start: 09-01-2023 End: 09-01-2023 ambulatory [facility] Start: 08-20-2023 End: 08-20-2023 ambulatory JANA Marin TIMMIS Not Available Start: 08-12-2023 End: 08-12-2023 ambulatory Jana Melvin [facility] Work Phone: Start: 08-12-2023 End: 08-12-2023 Departed Referred MD Jana Melvin [facility] Start: 08-07-2023 End: 08-07-2023 Emergency department patient visit [facility] Start: 08-04-2023 End: 08-04-2023 Evaluation and management of inpatient REGGIE Jyoti [facility] Start: 08-04-2023 End: 08-04-2023 Evaluation and management of inpatient [facility] Start: 07-14-2023 End: 07-14-2023 ambulatory LOUIE Snyder GIOVANNA [facility] Start: 07-14-2023 Encounter for other preprocedural examination [facility] Start: 06-18-2023 Telephone encounter Shantel ferrell [facility] Start: 06-17-2023 End: 06-17-2023 ambulatory [facility] Start: 06-17-2023 End: 06-17-2023 Office outpatient visit 15 minutes Belén Goodwin MD Work Phone: [facility] Comment on above: DUB (dysfunctional u terine bleeding) (Primary Dx) Start: 06-04-2023 End: 06-04-2023 ambulatory JANA Tania ROBERTSONMIS Not Available Start: 06-03-2023 End: 06-03-[address] [facility] Start: 06-03-2023 End: 06-03-2023 Office outpatient visit 15 minutes Belén Goodwin MD Work Phone: [facility] Comment on above: DUB (dysfunctional u terine bleeding) (Primary Dx) Start: 06-03-2023 End: 06-03-2023 ambulatory [facility] Start: 06-02-2023 End: 06-02-2023 Orders Only Cori Montilla RN [facility] Comment on above: Abnormal uterine ble eding (AUB) (Primary Dx) Start: 05-31-2023 End: 06-01-2023 ambulatory Jana Tania Timmis Facility:[facility] Start: 04-22-2023 End: 04-22-2023 Office outpatient visit 25 minutes Belén Goodwin MD Work Phone: [facility] Comment on above: DUB (dysfunctional u terine bleeding) (Primary Dx) Start: 04-22-2023 End: 04-22-2023 ambulatory [facility] Start: 04-16-2023 End: 05-24-2023 Pre-admission assessment Jana Melvin [facility] Start: 04-16-2023 End: 04-16-2023 ambulatory JANA ROBERTSONMIS Not Available Start: 04-10-2023 End: 04-10-2023 ambulatory [facility] Start: 04-02-2023 End: 04-02-2023 Office outpatient visit 25 minutes Shnathi Lugo APRN-GAS STATION SUPERVISOR Work Phone: [facility] Comment on above: Chronic bronchitis, unspecified chronic bronchitis type (CMS- HCC) (Primary Dx); Asthma-COPD overlap syndrome; Tobacco dependence; Class 1 obesity with body mass index (BMI) of 34.0 to 34.9 in adult, unspecified obesity type, unspecified whether serious comorbidity present Start: 04-02-2023 End: 04-02-2023 [facility] Start: 03-03-2023 End: 03-03-2023 ambulatory Neyda Garland Other [employer] Other Start: 03-03-2023 Office outpatient vi sit 15 minutes Neyda Garland [facility] Start: 08-26-2022 End: 08-26-2022 ambulatory Ilana Gallegos Other [employer] Other Start: 08-26-2022 Office outpatient vi sit 25 minutes Ilana Gallegos [facility] Start: 08-01-2022 ambulatory PAIGE COVARRUBIAS . Facili ty:[facility] Start: 06-28-2022 End: 06-28-2022 ambulatory Yohana Kitchen Other [employer] Other Start: 06-28-2022 Office outpatient vi sit 15 minutes Yohananydia Kitchen [facility] Start: 05-02-2022 [...] 03-29-2021 End: 03-29-2021 ambulatory Chela Kumar Other [employer] Other Start: 03-29-2021 Office outpatient vi sit 15 minutes Chela Kumar [facility] Start: 01-26-2021 End: 01-26-2021 ambulatory Yohana Kitchen Other [employer] Other Start: 01-26-2021 Office outpatient vi sit 15 minutes Yohana Kitchen [facility] Procedures Date Procedure Procedure Detail Performing Clinician Start: 06-17-2023 Follow-up visit Follow-up BELÉN GOODWIN Start: 06-03-2023 Urine test visual color cmprsn néstors Belén Goodwin MD Work Phone: section Jana alvarado H/O: section Jana Melvin Plan of Treatment Date Care Activity Detail Author Start: 06-14-2032 DTaP,Tdap and Td Vaccines (3 - Td or Tdap) DTaP,Tdap and Td Vaccines (3 - Td or Tdap) [facility] Start: 06-16-2024 Adult BMI Screening Adult BMI Screen ing [facility] Start: 06-16-2024 Tobacco Screening Tobacco Screening [facility] Start: 06-02-2024 Adult BMI Screening Adult BMI Screen ing [facility] Start: 06-02-2024 Tobacco Screening Tobacco Screening [facility] Start: 04-22-2024 Adult BMI Screening Adult BMI Screen ing [facility] Start: 04-22-2024 Tobacco Screening Tobacco Screening [facility] Start: 04-10-2024 Adult BMI Screening Adult BMI Screen ing [facility] Start: 04-02-2024 Tobacco Screening Tobacco Screening [facility] Start: 11-16-2023 Influenza vaccination Influenza Vacc ine [facility] Start: 10-27-2023 End: 10-27-2023 Patient encounter procedure 10/27/2023 9:45 AM EDT Office Visit [facility] [address] [place] [address] Luh Gupta MD [address] [facility] [place] [address] [facility] Start: 08-04-2023 End: 08-04-2023 Admission to same day surgery center 08/04/2023 12:30 PM EDT - 08/04/2023 1:30 PM EDT Surgery [facility] Surgery [address] [place] [address] Belén Goodwin MD [address] [place] [address] HYSTEROSCOPY DILATION CURETTAGE ABLATION ENDOMETRIAL NOVASURE [61980 (CPT )] [facility] Comment on above: HYSTEROSCOPY DILATIO N CURETTAGE ABLATION ENDOMETRIAL NOVASURE [71530 (CPT )] Start: 08-04-2023 End: 08-04-2023 Hysteroscopy endometrial ablation HYSTEROSCOPY DILATION CURETTAGE ABLATION ENDOMETRIAL NOVASURE dysfunctional uterine bleeding 08/04/2023 12:30 PM EDT [facility] Start: 08-04-2023 Subsequent hospital visit by physician 08/04/2023 12:30 PM EDT Hospital Encounter [facility] - Surgery [address] [place] [address] Belén Goodwin MD [address] [place] [address] [facility] Start: 07-14-2023 End: 07-14-2023 Patient encounter procedure 07/14/2023 9:45 AM EDT Procedure visit [facility] - Pre Admit [address] [place] [address] [facility] Pre Ad[facility] Start: 06-17-2023 End: 06-17-2023 Patient encounter procedure 06/17/2023 8:15 AM EDT [facility] [address] [place] [id number] Belén Goodwin MD [address] [place] [address] [facility] Start: 06-03-2023 End: 06-02-2024 Surgical Pathology Surgical Pathology Pathology and Cytology Routine DUB (dysfunctional uterine bleeding) Expected: 06/03/2023 (Approximate), Expires: 06/02/2024 [facility] Work Phone: Comment on above: Expected: 06/03/2023 (Approximate), Expires: 06/02/2024 Start: 06-03-2023 End: 06-03-2023 Patient encounter procedure 06/03/2023 10:30 AM EDT Procedure visit [facility] [address] [place] [address] Belén Goodwin MD [address] [place], [place] [id number] [facility] Start: 04-22-2023 End: 04-21-2024 US Pelvis transvaginal Ultrasound transvaginal non OB Imaging Routine DUB (dysfunctional uterine bleeding) Expected: 04/22/2023, Expires: 04/21/2024 [facility] Work Phone: Comment on above: Expected: 04/22/2023 , Expires: 04/21/2024 Start: 04-22-2023 End: 04-22-2023 Patient encounter procedure 04/22/2023 9:00 AM EST Office Visit [facility] [place] [address] Belén Goodwin MD [address] [place] [address] [facility] Start: 11-15-2022 Influenza vaccination Influenza Vacc ine [facility] Start: 09-15-2000 Screening for malign ant neoplasm of cervix Pap Smear [facility] Start: 09-15-1997 Adult BMI Follow Up Plan Adult BMI Follow Up Plan [facility] Start: 1991 Depression Screening Depression Scre benji [facility] Start: 1979 Tobacco Counseling Tobacco Counselin g [facility] End: 04-22-2024 CBC panel - Blood by Automated count CBC without diff Lab Routine DUB (dysfunctional uterine bleeding) 1 Occurrences starting 04/22/2023 until 04/22/2024 [facility] Comment on above: 1 Occurrences starti ng 04/22/2023 until 04/22/2024 End: 04-22-2024 Follicle stimulating hormone Follicle stimulating hormone Lab Routine DUB (dysfunctional uterine bleeding) 1 Occurrences starting 04/22/2023 until 04/22/2024 [facility] [facility] Comment on above: 1 Occurrences starti ng 04/22/2023 until 04/22/2024 End: 04-22-2024 HCG, Quantitative, HCG, Quantitative, Lab Routine DUB (dysfunctional uterine bleeding) 1 Occurrences starting 04/22/2023 until 04/22/2024 [facility] Comment on above: 1 Occurrences starti ng 04/22/2023 until 04/22/2024 End: 04-22-2024 Luteinizing hormone Luteinizing hormone Lab Routine DUB (dysfunctional uterine bleeding) 1 Occurrences starting 04/22/2023 until 04/22/2024 [facility] [employer] Comment on above: 1 Occurrences starti ng 04/22/2023 until 04/22/2024 End: 04-22-2024 Prolactin Prolactin Lab Routine DUB (dysfunctional uterine bleeding) 1 Occurrences starting 04/22/2023 until 04/22/2024 [facility] [employer] Comment on above: 1 Occurrences starti ng 04/22/2023 until 04/22/2024 End: 04-22-2024 Thyrotropin [Units/volume] in Serum or Plasma TSH Lab Routine DUB (dysfunctional uterine bleeding) 1 Occurrences starting 04/22/2023 until 04/22/2024 [facility] Comment on above: 1 Occurrences starti ng 04/22/2023 until 04/22/2024 End: 04-22-2024 Thyroxine (T4) free [Mass/volume] in Serum or Plasma T4, free Lab Routine DUB (dysfunctional uterine bleeding) 1 Occurrences starting 04/22/2023 until 04/22/2024 [facility] Comment on above: 1 Occurrences starti ng 04/22/2023 until 04/22/2024 Immunizations Immunization Date Immunization Notes Care Provider Vishal [facility] 12-13-2019 tetanus and diphther ia toxoids, adsorbed, preservative free, for adult use (2 Lf of tetanus toxoid and 2 Lf of diphtheria toxoid) Jana Melvin [facility] Payers Date Payer Category Payer Self-pay [id number] 2021 Private Health Insurance [facility] [id number] 2021-Present [phone] [address] [place] [address] [id number] .7.3.536713.315 1979 Unknown [id number] 2.16.840.1.402942.3.579.2 .593 1979 Unknown [id number] 2.16.840.1.734040.3.579.2 .593 1979 Unknown [id number] 2.16.840.1.445455.3.579.2 .593 1979 Unknown [id number] 2.16.840.1.585513.3.579.2 .593 1979 Unknown [id number] 2.16.840.1.269067.3.579.2 .593 1979 Unknown [id number] 2.16.840.1.340684.3.579.2 .593 1979 Unknown [id number] 2.16.840.1.580145.3.579.2 .727 1979 Unknown [id number] 2.16.840.1.911138.3.579.2 .1286 1979 Unknown [id number] 2.16.840.1.261692.3.579.2 .1286 1979 Unknown [id number] 2.16.840.1.444430.3.579.2 .1286 1979 Unknown [id number] 2.16.840.1.347798.3.579.2 .1285 1979 Unknown [id number] 2.16.840.1.746700.3.579.2 .1285 1979 Unknown [id number] 2.16.840.1.705551.3.579.2 .1258 1979 Unknown [id number] 2.16.840.1.037351.3.579.2 .1258 1979 Unknown [id number] 2.16.840.1.598034.3.579.2 .1258 1979 Unknown [id number] 2.16.840.1.917166.3.579.2 .1258 1979 Unknown [id number] 2.16840.1.480979.3.579.2 .1285 1979 Unknown [id number] 2.840.1.869109.3.579.2 .1285 1979 Unknown [id number] 2.16840.1.970900.3.579.2 .1285 1979 Unknown [id number] 2.840.1.149762.3.579.2 .1285 1979 Unknown [id number] 2.16840.1.887948.3.579.2 .1285 1979 Unknown [id number] 2.16840.1.806663.3.579.2 .1285 1979 Unknown [id number] 2.16840.1.946685.3.579.2 .1285 1979 Unknown [id number] 2.16840.1.264899.3.579.2 .1285 1979 Unknown [id number] 2.16.840.1.174901.3.579.2 .1285 1979 Unknown [id number] 2.16.840.1.537708.3.579.2 .1285 1979 Unknown [id number] 2.16.840.1.518544.3.579.2 .1286 1979 Unknown [id number] 2.16.840.1.911202.3.579.2 .1286 1979 Unknown [id number] 2.16.840.1.383133.3.579.2 .1286 1959 Private Health Insurance [id number] 2.16.840.1.115090.19 Medicaid [facility] [id number] Unknown [place] BC/BS [id number] Unknown [id number] 2.16.840.1.489774.3.579.2 .531 Social History Date Type Detail Facility Unknown if ever smoked [employer] Other Start: 04-02-2023 End: 06-17-2023 Sex Assigned At [employer] Other Start: 09-09-2022 Tobacco smoking status [facility] Smokes tobacco daily [facility] History of tobacco use Cigarette Smoker [facility] Start: 09-09-2022 End: 06-17-2023 Cigarettes smoked current (pack per day) - Reported 0.5 [facility] Start: 09-09-2022 Tobacco use and exposure Smokeless tobacco non-user [facility] Start: 04-21-2023 End: 06-17-2023 Alcohol intake Current drinker of alcohol (finding) [facility] Within the past 12 months we worried whether our food would run out before we got money to buy more. Never True [facility] Start: 12-03-2021 Alcohol Comment occassionally [facility] Start: 1980 Sex Assigned At Not on file P [facility] Start: 05-29-2020 Tobacco smoking status Heavy tobacco smoker (finding) [facility] Comment on above: PPD smoker Start: 03-23-2018 Tobacco smoking status NHIS Smoker (finding) [facility] Start: 1980 Sex Assigned At Female [facility] Clinical Notes 03-29-2021 to 06-18-2023 Telephone Encounter - Shantel Fan - 06/18/2023 10:50 AM EDTTelephone Encounter - Shantel Fan - 06/18/2023 10:50 AM EDTConeil Goodwin MD - 06/17/2023 8:15 AM EDTPatient Instructions Note Date & Type Note Facility 06-18-2023 Miscellaneous Notes Patient has sinus surgery scheduled on 08/12/23. Patient is requesting her surgery with Dr. Buddy baxter prior to that. Patient scheduled for surgery [...] to the patient. documented in this encounter [facility] 06-18-2023 Telephone encounter Note Patient has sinus surgery scheduled on 08/12/23. Patient is requesting her surgery with Dr. Buddy baxter prior to that. Patient scheduled for surgery with Dr. Goodwin on 08/04/23 at 12:30pm with hospital arrival at 10:30am. PAT 07/09/23 at 9:45am. LVM for patient to return my call to discuss dates & times and schedule surgery f/u. [facility] Travel Notes [facility] 06-18-2023 Telephone encounter Note Patient returned my call while I was out of the office at lunch. I returned patient's call. Patient notified of all dates & times. Patient voiced understanding. Surgery information letter mailed to the patient. [facility] 06-17-2023 History of Presen t illness Narrative Mere Esteban is a 42 y.o.female. No LMP recorded (lmp unknown).. She presents today for follow up from [facility]. Current contraception:no method Final Pathologic Diagnosis 1. [...] 1 tablet (10 mg total) before bedtime. ndzfdnogofi-zvpckbsui-bivskxqi (TRELEGY ELLIPTA) 200-62.5-25 mcg blister with device [...] Cori TELLEZ RN documented in this encounter [employer] 06-03-2023 History of Presen t illness Narrative [...] BELÉN GOODWIN MD documented in this encounter [facility] 06-03-2023 Miscellaneous Notes Addended by: ANGELICA RIZZO on: 06/03/2023 12:04 PM Modules accepted: Orders documented in this encounter [facility] 06-03-2023 Note Addended by: ANGELICA RIZZO on: 06/03/2023 12:04 PM Modules accepted: Orders [facility] 04-22-2023 History of Presen t illness Narrative Mere Esteban is a 42 y.o.female. Patient's last menstrual period was 04/08/2023.. She presents today for concerns with heavy period bleeding and cramping. She relates being on HRT and would like to discuss a pertial hysterectomy. REPORTS SEVERAL YEAR HO DUB REC DUB EVAL STARTED ON HRT FOR SX FROM [facility] IN [place] BUT DID NOT HELP SX OR BLEEDING ISSUES HEAVY TOBACCO USE--HAS A LOT OF ANXIETY Current contraception:no method OB History 4 Para 2 Term 1 1 AB 2 Living 2 SAB 1 IAB Ectopic 1 Multiple Live Births 2 MEDICAL HX Past Medical History: Diagnosis Date Anxiety Chronic bronchitis ([facility]) SURGICAL HX Past Surgical History: Procedure Laterality [...] before bedtime. estradioL (ESTRACE) 0.5 mg tablet qwqiuwzsjts-fwllnaktq-hkjwmpca (TRELEGY ELLIPTA) 200-62.5-25 mcg blister with device [...] RTO EMB/HYST TAKING ?HRT FROM [facility] IN [place] WITHOUT EVAL OF AUB/DUB HEAVY TOBACCO USE ANXIETY OBESITY SP BTL LACK OF PREVENTATIVE CARE MD Cori TELLEZ RN documented in this encounter [employer] 04-02-2023 History of Presen t illness Narrative [...] Medical History: Diagnosis Date Anxiety Chronic bronchitis [facility] PERTINENT HISTORY: Her pertinent medical history includes Past Medical History: Diagnosis Date Anxiety Chronic bronchitis ([facility] CURRENT MEDICATIONS: Reviewed with patient. [...] 0.5 mg tablet, , Disp: , Rfl: yiektmkksmz-rnxlsiqbh-kjvxgbvv (TRELEGY ELLIPTA) 200-62.5-25 mcg blister with device, [...] our office a call. CC: SUSIE Benitez [facility] Office: [phone] 8:26 AM on 04/21/2023 This note is dictated with the use of M*Modal.Please note that this dictation was completed with computer voice recognition software. Quite often unanticipated grammatical, syntax, homophones, and other interpretive errors are inadvertently transcribed by the computer software. Please disregard these errors. Please excuse any errors that have escaped final proofreading. SUSIE Bellamy 04/21/23 0840 documented in this encounter [facility] 04-02-2023 Instructions SUSIE Bellamy - 04/02/2023 9:45 AM EST If you re looking for general health and wellness resources, please visit [email or web address]. documented in this encounter [facility] 03-03-2023 Evaluation note Encounter Date Diagnosis [...] 24-28 hours if s/s persists or worsens. [employer] Other 06-12-2023 Evaluation note* Encounter Date Diagnosis [...] understanding and is agreeable to treatment plan. [employer] Other 04-14-2023 Evaluation note* Encounter Date Diagnosis [...] fever. May return to work on Friday [employer] Other 02-16-2023 NoteCONSULTATION CONSULTATION DATE: 05/02/2022 HISTORY [...] Medications include diclofenac 50 mg b.i.d., Abilify, [place] 5/325 daily p.r.n., Lyrica 50 mg b.i.d. [...] 50 mg b.i.d. and will refill her Harlowton today 5/325 daily p.r.n. We will have her return to the clinic in three months' time for medication management.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 Our clinic has prescribed her Harlowton 5/325 daily p.r.n. in the past. Patient was unaware she could call for refills. She has been out of Harlowton since early November and has increased the [...] will start diclofenac 50 mg b.i.d. Her Har[place]ton will be restarted at 5/325 daily p.r.n. Vitamin importance was discussed as was continuing with her workout therapy. She will be seen in the clinic in three months' time, unless otherwise indicated. Patient is in agreement with this plan.[facility] [id number] NoteCONSULTATION PROCEDURE DATE: 10/25/2021 PRE AND POSTOPERATIVE [...] be followed up in the clinic. [facility] [id number] NoteCONSULTATION CONSULTATION DATE: 10/25/2021 This is a [...] standing, walking and bending. Her medications include Har[place] 5/325 q. day, Baclofen 10 mg q.h.s. and Motrin 600 mg daily. The patient did have oral surgery last week for removal of a broken tooth. The patient was given Tylenol 3 and a course of amoxicillin. The patient did not take the Tylenol 3 but continued with the Harlowton that was prescribed from our clinic. REVIEW [...] in three months' time unless otherwise indicated.[facility] [id number] NoteCONSULTATION CONSULTATION DATE: 09/13/2021 This is a [...] to Baclofen 10 mg q.h.s. and add Harlowton 5/325 one q. day p.r.n. The patient was educated on the excessive use of her NSAIDs and appropriate doses were discussed. The intent is that the Harlowton will help with her pain relief and decrease the need for the ibuprofen as frequently. The patient agrees with the plan of care. She will be brought back to the clinic in two weeks' time for x-ray review. [facility] Signed and Approved by: FABIOLA BARTLETT . 10/05/2021 14:14:00[facility]01-13-2022 Evaluation note* Encounter Date Diagnosis Assessment Notes Treatment Notes Treatment Clinical Notes Mar, Contact with and (suspected) exposure to other viral communicable diseases (ICD-10 - Z20.828) Mar, COVID-19 (ICD-10 - U07.1) Today you tested positive for the COVID virus. This mean you need to follow all CDC quarantine guidelines found at [email or web address] v. It is important to rest, increase [...] Patient care instructions given in writting by [facility] Care At Home document. [employer] Other Evaluation + Plan note No data available for this section [facility] noteNort Prevently Other Evaluation note* Diagnosis Chronic bronchitis, unspecified chronic bronchitis type ([facility])- Primary Asthma-COPD overlap syndrome Tobacco dependence Tobacco use disorder Class 1 obesity with body mass index (BMI) of 34.0 to 34.9 in adult, unspecified obesity type, unspecified whether serious comorbidity present documented in this encounter [facility] Travel Notes SystemEvaluation note* Diagnosis DUB (dysfunctional uterine bleeding)- Primary Other disorder of menstruation and other abnormal bleeding from female genital tract documented in this encounter [facility] Travel Notes SystemEvaluation note* Diagnosis Abnormal uterine bleeding (AUB) Abnormal uterine bleeding (AUB)- Primary [facility] Diagnosis DUB (dysfunctional uterine bleeding)- Primary Other disorder of menstruation and other abnormal bleeding from female genital tract documented in this encounter [facility]* Diagnosis DUB (dysfunctional uterine bleeding)- Primary Other disorder of menstruation and other abnormal bleeding from female genital tract documented in this encounter [facility] SystemEvaluation noteNo assessment information available [facility] Work Phone: Hisbqpa general Narrative - ReportedNort Prevently Other Hishpxt general Narrative - Reported* Type Description Date 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 Surgical History C section (two) [employer] Other History general Narrative - Reported* Type Description Date 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 Medical History Edema leg Medical History Depression Surgical History C section (two) [employer] Other Hospital Discharge instructions No data available for this section [facility] CenterInstructionsNot on filedocumented in this encounter [facility] filedocumented in this encounter [facility] SystemInstructionsNot on filedocumented in this encounter [facility] No data available for this section [facility] Summary Purpose Family History No Family History [...] and content) DATE CREATED AUTHOR 07/27/2022 [facility] DATE CREATED AUTHOR AUTHOR'S ORGANIZ ATION 06/01/2023 [facility] DATE CREATED AUTHOR AUTHOR'S ORGANIZ ATION 08/19/2023 [facility] DATE CREATED AUTHOR AUTHOR'S ORGANIZ ATION 09/01/2023 [facility] DATE CREATED AUTHOR AUTHOR'S ORGANIZ ATION 09/03/2023 [facility] Special[facility] EPIC DATE CREATED AUTHOR AUTHOR'S ORGANIZ ATION 09/05/2023 [facility] Care Teams (unrecognized sec tion and content) Steel Handler Relationship Specialty Start Date End Date Sridhar Bird APRN-CNP [address] [place] [address] PCP - General Primary Care 09/09/22 Steel Handler Relationship Specialty Start Date End Date Sridhar Bird APRN-CNP [address] [place] [address] PCP - General Primary Care 09/09/22 Steel Handler Relationship Specialty Start Date End Date Sridhar Bird APRN-CNP [address] [place] [address] PCP - General Primary Care 09/09/22 Steel Handler Relationship Specialty Start Date End Date Sridhar Bird APRN-GAS STATION SUPERVISOR [address] [place] [address] PCP - General Primary Care 09/09/22 Steel Handler Relationship Specialty Start Date End Date Sridhar Bird APRN-GAS STATION SUPERVISOR [address] [place] [address] PCP - General Primary Care 09/09/22 Steel Handler Relationship Specialty Start Date End Date Sridhar Bird APRN-DIANA [address] [place] [address] PCP - General Primary Care 09/09/22 Team Status: Inactive Member Role Status Dates Jana Melvin Jr, MD Attending Provider Active Start: [...] BE BASED ON THE PRIMARY CLINICAL RECORDS. [facility]. provides no warranty or guarantee of the accuracy or completeness of information in this document.
--- NOTE | 2023-09-08 15:10 | ED.ABDPAIN1 ---
HPI - Abdominal Pain General Chief Complaint: Abdominal Pain Stated Complaint: ABDOMINAL PAIN Time Seen by Provider: 09/08/23 14:48 Source: patient Mode of arrival: walk-in Limitations: no limitations History of Present Illness HPI narrative: 42-year-old female presents for abdominal pain. Its across her upper abdomen and she has had it continuously for 5 days. No trauma constipation or diarrhea. No fever or chest pain or shortness of breath. She is never had issues like this before and has never had any abdominal surgeries. The pain is moderate. Related Data Home Medications ?Medication ?Instructions ?Recorded ?Confirmed albuterol sulfate 2.5 mg/3 mL 2.5 mg inhalation Q6H PRN 07/30/23 08/12/23 (0.083 %) solution for nebulization shortness of breath or wheezing albuterol sulfate 90 mcg/actuation 2 inh inhalation Q4H PRN shortness 07/30/23 08/12/23 aerosol inhaler of breath or wheezing aripiprazole 5 mg tablet 5 mg PO DAILY 07/30/23 08/12/23 buspirone 10 mg tablet 10 mg PO DAILY 07/30/23 08/12/23 fluticasone fur. 200 mcg-umeclid 1 inh inhalation Q24H 07/30/23 08/12/23 62.5 mcg-vilant 25 mcg inhalat.powder (Trelegy Ellipta) furosemide 20 mg tablet 20 mg PO DAILY PRN edema 07/30/23 08/12/23 lamotrigine 100 mg tablet 100 mg PO QAM 07/30/23 08/12/23 venlafaxine 75 mg capsule,extended 75 mg PO QAM 07/30/23 08/12/23 release 24 hr Previous Rx's ?Medication ?Instructions ?Recorded [id number] 1 cap PO Q6H PRN headache #12 caps 09/03/23 50 mg-300 mg-40 mg capsule (Fioricet) ketorolac 10 mg tablet 10 mg PO TID PRN pain #10 tabs 09/03/23 ondansetron 4 mg disintegrating 4 mg PO Q6H PRN nausea and 09/03/23 tablet vomiting #12 tabs hydrocodone 5 mg-acetaminophen 325 1 tab PO Q6H PRN pain 5 days #20 09/08/23 mg tablet tabs ondansetron 4 mg disintegrating 4 mg PO Q6H PRN nausea and 09/08/23 tablet vomiting #20 tabs Allergies Allergy/AdvReac Type Severity Reaction Status Date / Time No Known Drug Allergies Allergy Verified 07/30/23 11:17 Review of Systems ROS Narrative A ten point review of systems is negative except as noted above. [facility] Medical History (Updated 09/08/23 @ 17:03 by Taz Espinal MD) Chronic cough ?R05.3 - Chronic cough (ICD-10) Anemia ?D64.9 - Anemia, unspecified (ICD-10) Extremity edema ?R60.0 - Localized edema (ICD-10) Insomnia ?G47.00 - Insomnia, unspecified (ICD-10) Depression ?F32.A - Depression, unspecified (ICD-10) Anxiety ?F41.9 - Anxiety disorder, unspecified (ICD-10) Bipolar disorder ?F31.9 - Bipolar disorder, unspecified (ICD-10) COVID-19 ?U07.1 - COVID-19 (ICD-10) Bronchitis ?J40 - Bronchitis, not specified as acute or chronic (ICD-10) Reactive airway disease ?J45.909 - Unspecified asthma, uncomplicated (ICD-10) Migraine ?G43.909 - Migraine, unspecified, not intractable, without status migrainosus (ICD-10) Seizures ?R56.9 - Unspecified convulsions (ICD-10) Dysmenorrhea ?N94.6 - Dysmenorrhea, unspecified (ICD-10) Menorrhagia ?N92.0 - Excessive and frequent menstruation with regular cycle (ICD-10) Seasonal allergies ?J30.2 - Other seasonal allergic rhinitis (ICD-10) Hypertrophy, nasal, turbinate ?J34.3 - Hypertrophy of nasal turbinates (ICD-10) Deviated septum ?J34.2 - Deviated nasal septum (ICD-10) Chronic sinusitis ?J32.9 - Chronic sinusitis, unspecified (ICD-10) Surgical History (Updated 07/30/23 @ 11:30 by Suad Guthrie NP) History of esophagogastroduodenoscopy (EGD) ?Z98.890 - Other specified postprocedural states (ICD-10) History of section ?Z98.891 - History of uterine scar from previous surgery (ICD-10) History of section ?Z98.891 - History of uterine scar from previous surgery (ICD-10) Family History (Updated 07/30/23 @ 11:30 by Suad Guthrie NP) Other Family history of DVT Family history of Parkinson disease Family history of aneurysm Family history of cancer Family history of diabetes mellitus Social History Within the past year, how often did you have a drink containing alcohol: monthly or less Smoking status: Current every day smoker What tobacco products do you use: cigarettes Packs per day: 1 Years smoked: 30 Smoking pack-years: 30.00 Non-prescribed substance use: denies use 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 General: The patient appears mildly uncomfortable. Skin: Warm, dry, no pallor noted. There is no rash noted. Head: Normocephalic, atraumatic Eye: Normal conjunctiva, no drainage Ears, Nose, Mouth, and Throat: oral mucosa is moist. Nares patent. Cardiovascular: Regular Rate and Rhythm Respiratory: Patient is in no distress, no accessory muscle use, lungs are clear to auscultation, no wheezing, rales or rhonchi Back: non-tender GI: Soft and nondistended. She has tenderness across the upper abdomen. No mass. Musculoskeletal: The patient has no evidence of calf tenderness, no pitting edema, symmetrical pulses noted bilaterally Neurological: A&O, normal speech Psychiatric: Cooperative Constitutional Vital Signs, click to edit/add: Last Vital Signs Temp 97.9 F 09/08/23 14:47 Pulse 77 09/08/23 16:39 Resp 18 09/08/23 16:39 BP 160/106 H 09/08/23 16:39 Pulse Ox 98 09/08/23 16:39 O2 Del Method Room Air 09/08/23 16:39 Course Vital Signs Vital signs: Vital Signs Temperature 97.9 F 09/08/23 14:47 Pulse Rate 84 09/08/23 14:47 Respiratory Rate 20 09/08/23 14:47 Blood Pressure 146/103 H 09/08/23 14:47 Pulse Oximetry 99 09/08/23 14:47 Oxygen Delivery Method Room Air 09/08/23 14:47 Temperature 97.9 F 09/08/23 14:47 Pulse Rate 77 09/08/23 16:39 Respiratory Rate 18 09/08/23 16:39 Blood Pressure 160/106 H 09/08/23 16:39 Pulse Oximetry 98 09/08/23 16:39 Oxygen Delivery Method Room Air 09/08/23 16:39 MDM - Abdominal Pain MDM Narrative Medical decision making narrative: Blood work is normal, no evidence of pancreatitis or hepatitis. Gallstones were noted and she is referred to general surgery for follow-up and was provided pain medication and antiemetic. Treatment diagnosis and follow-up were discussed with the patient. Differential Diagnosis Differential diagnosis: Likely abdominal pain, constipation, gastroenteritis, pancreatitis and other (Biliary colic, acute cholecystitis) Lab Data Attestation: I reviewed the patient's lab results. Labs: Lab Results 09/08/23 Range/Units 15:07 WBC 11.1 H (4.0-11.0) 10^3/uL RBC 4.41 (4.20-5.40) 10^6/uL Hgb 13.5 (12.0-16.0) g/dL Hct 41.7 (36.0-48.0) % MCV 94.6 (81.0-99.0) fL MCH 30.6 (26.7-34.0) pg MCHC 32.4 (29.9-35.2) g/dL RDW 14.1 (11.0-15.0) % Plt Count 311 (150-450) 10^3/uL MPV 10.2 (9.5-13.5) fL Neut % (Auto) 61.8 (43.0-75.0) % Lymph % (Auto) 23.3 (20.5-60.0) % [place] % (Auto) 7.2 (1.7-12.0) % Eos % (Auto) 6.8 (0.9-7.0) % Baso % (Auto) 0.6 (0.2-2.0) % Neut # (Auto) 6.9 H (1.4-6.5) 10^3/uL Lymph # (Auto) 2.6 (1.2-3.8) 10^3/uL [place] # (Auto) 0.8 (0.3-0.8) 10^3/uL Eos # (Auto) 0.8 H (0.0-0.7) 10^3/uL Baso # (Auto) 0.1 (0.0-0.1) 10^3/uL Abs Immat Gran (auto) 0.03 (0.00-0.03) 10^3/uL Imm/Tot Granulo (auto) 0.3 (0.0-0.5) % Sodium 137 (136-145) mmol/L Potassium 4.5 (3.5-5.1) mmol/L Chloride 101 (98-107) mmol/L Carbon Dioxide 25.7 (21.0-32.0) mmol/L Anion Gap 14.8 BUN 9.0 (7.0-18.0) mg/dL Creatinine 0.72 (0.55-1.02) mg/dL Est GFR ( Amer) >60 (>=60) Est GFR (Non-Af Amer) >60 (>=60) BUN/Creatinine Ratio 12.5 Glucose 92 (74-106) mg/dL Calcium 9.0 (8.5-10.1) mg/dL Total Bilirubin 0.4 (0.2-1.0) mg/dL Direct Bilirubin <0.1 (0.0-0.2) mg/dL AST 29 (15-37) U/L ALT 30 (14-59) U/L Alkaline Phosphatase 100 (46-116) U/L Total Protein 7.4 (6.4-8.2) g/dL Albumin 3.4 (3.4-5.0) g/dL Globulin 4.0 g/dL Albumin/Globulin Ratio 0.9 Amylase 36 (25-115) U/L Lipase 34.0 (16.0-77.0) U/L Serum HCG, Qual Negative (NEGATIVE) Imaging Data GallbladderNeurology:: Radiologist's impression: ITS Impressions Upper Quadrant Ultrasound 09/08/23 14:54 Impression: 1. No radiographic evidence for acute cholecystitis. 2. Small gallbladder stones and/or polyps measuring up to 3.5 mm. Electronically authenticated by: CHUY SULLIVAN Date: 09/08/2023 16:53 Discharge Plan Discharge Stand Alone Forms: Portal Instructions Chief Complaint: Abdominal Pain Clinical Impression: Abdominal pain Patient Disposition: Home, Self-Care Time of Disposition Decision: 17:02 Condition: Good Mode of Transportation: Private Vehicle Prescriptions / Home Meds: New hydrocodone-acetaminophen 5-325 mg tablet 1 tab PO Q6H PRN (Reason: pain) 5 Days Qty: 20 0RF ondansetron 4 mg tablet,disintegrating 4 mg PO Q6H PRN (Reason: nausea and vomiting) Qty: 20 0RF No Action ketorolac 10 mg tablet 10 mg PO TID PRN (Reason: pain) Qty: 10 0RF ondansetron 4 mg tablet,disintegrating 4 mg PO Q6H PRN (Reason: nausea and vomiting) Qty: 12 0RF [id number] [Fioricet] 50-300-40 mg capsule 1 cap PO Q6H PRN (Reason: headache) Qty: 12 0RF Rx Instructions: DX: R51.9 albuterol sulfate 2.5 mg /3 mL (0.083 %) solution for nebulization 2.5 mg inhalation Q6H PRN (Reason: shortness of breath or wheezing) albuterol sulfate 90 mcg/actuation HFA aerosol inhaler 2 inh INHALATION Q4H PRN (Reason: shortness of breath or wheezing) aripiprazole 5 mg tablet 5 mg PO DAILY buspirone 10 mg tablet 10 mg PO DAILY Trelegy Ellipta 200-62.5-25 mcg blister with device 1 inh INHALATION Q24H furosemide 20 mg tablet 20 mg PO DAILY PRN (Reason: edema) lamotrigine 100 mg tablet 100 mg PO QAM venlafaxine 75 mg capsule,extended release 24hr 75 mg PO QAM Print Language: Samoan Instructions: Abdominal Pain (ED) Referrals: Yadiel Nichole MD [Physician] - 1 week Physician,Non-StaffMD [Primary Care Provider] - 1 week
[2023-09-08] MEDS: ONDANSETRON PF 4 MG/2 ML VIAL IV (15:15)
[2023-09-08 15:20] LABS: Basophils Absolute Auto 0.1 10^3/uL (0.0-0.1); Basophils Percent Auto 0.6 % (0.2-2.0); Eosinophils Absolute Auto 0.8 10^3/uL (0.0-0.7); Eosinophils Percent Auto 6.8 % (0.9-7.0); Hematocrit 41.7 % (36.0-48.0); Hemoglobin 13.5 g/dL (12.0-16.0); Immature Granulocytes Abs Auto 0.03 10^3/uL (0.00-0.03); Immature Granulocytes Pct Auto 0.3 % (0.0-0.5); Lymphocytes Absolute Auto 2.6 10^3/uL (1.2-3.8); Lymphocytes Percent Auto 23.3 % (20.5-60.0); Mean Corpuscular HGB Conc 32.4 g/dL (29.9-35.2); Mean Corpuscular Hemoglobin 30.6 pg (26.7-34.0); Mean Corpuscular Volume 94.6 fL (81.0-99.0); Mean Platelet Volume 10.2 fL (9.5-13.5); Monocytes Absolute Auto 0.8 10^3/uL (0.3-0.8); Monocytes Percent Auto 7.2 % (1.7-12.0); Neutrophils Absolute Auto 6.9 10^3/uL (1.4-6.5); Neutrophils Percent Auto 61.8 % (43.0-75.0); Platelet Count 311 10^3/uL (150-450); Red Blood Count 4.41 10^6/uL (4.20-5.40); Red Cell Distribution Width 14.1 % (11.0-15.0); White Blood Count 11.1 10^3/uL (4.0-11.0)
[2023-09-08 15:30] LABS: Alanine Aminotransferase 30 U/L (14-59); Albumin Globulin Ratio 0.9; Albumin Level 3.4 g/dL (3.4-5.0); Alkaline Phosphatase 100 U/L (46-116); Amylase 36 U/L (25-115); Anion Gap 14.8; Aspartate Amino Transferase 29 U/L (15-37); BUN Creatinine Ratio 12.5; Bilirubin Direct <0.1 mg/dL (0.0-0.2); Bilirubin Total 0.4 mg/dL (0.2-1.0); Carbon Dioxide 25.7 mmol/L (21.0-32.0); Chloride 101 mmol/L (98-107); Estimated GFR (African America >60 (>=60); Estimated GFR (Non-African Ame >60 (>=60); Glucose 92 mg/dL (74-106); Sodium 137 mmol/L (136-145); Total Protein 7.4 g/dL (6.4-8.2)
[2023-09-08 15:33] LABS: Potassium 4.5 mmol/L (3.5-5.1)
[2023-09-08 16:04] LABS: HCG Qualitative NEGATIVE (NEGATIVE); Internal Control Within Normal Limits
[2023-09-08 16:39] VITALS: BP 160/106; PULSE 77; O2SAT 98
[2023-09-08 17:18] VITALS: BP 150/90; PULSE 72; O2SAT 98
== END 2023-09-08 17:23 | disposition home or self-care (01) ==
PROVIDERS: Emergency Provider Emergency Medicine
DX: R10.9 Unspecified abdominal pain (principal); F17.210 Nicotine dependence, cigarettes, uncomplicated
CPT/HCPCS: 36415; 76705; 80048; 80076; 82150; 83690; 84703; 85025; 96374; 99285; J2405

== ENCOUNTER 2023-09-11 16:16 | Outpatient (OUT) | payer OTHER, SELFPAY ==
--- NOTE | 2023-09-11 | XR_ITS ---
[address] [address] Patient Name: MARIELENA ENGLAND MRN: [id number] date: 1980 Sex: F Assigned Patient Location: [facility] Current Patient Location: Accession/Order Number: [id number] Exam Date: 09/11/2023 16:20 Report Date: 09/12/2023 07:32 At the request of: ZENAIDA PAZ Procedure: XR abdomen min 2V EXAMINATION: XR abdomen min 2V HISTORY: R10.10 Upper abdominal pain, R19.7 Diarrhea COMPARISON: No relevant comparison available. FINDINGS: BOWEL GAS PATTERN: No abnormal dilation or deviation. Moderate stool in the right colon CALCIFICATIONS: None significant. OTHER: Negative. No abnormal gaseous collections. XR/XR abdomen min 2V IMPRESSION: Nonobstructive bowel gas pattern Electronically authenticated by: LOUIE ROTHMAN Date: 09/12/2023 07:32
--- OUTSIDE RECORDS SUMMARY | 2023-09-11 16:29 | XMS_ITS | CCD ---
Author Organization [facility] Care Team Providers Care Insurance Salesperson Name Role Phone Yohana Kitchen Unavailable Chela [...] Unavailable MISC, DR THOMSON Primary Care Unavailable DUPONT, DR LOUIE Carrillo Consulting Unavailable BARTLETT ., [...] Care Provider ARIANA RENDON Primary Care Physician [phone] MD Jana Melvin Jr Attending Provider Jana Cabral Jr Attending Unavailable Jana Melvin Jr Admitting Unavailable JANA MELVIN Attending Unavailable SRIDHAR BIRD Referring Unavailable TIMMIS, JANA H Attending Unavailable TIMMIS, JANA H Attending Unavailable JACKSON, ZENAIDA Referring Unavailable TIMMIS, JANA H Attending Unavailable JACKSON, ZENAIDA Referring Unavailable BUDDY, BELÉN Referring Unavailable SHAMMO, [...] Care Unavailable REGGIE WEBB Attending Unavailable JACKSON, FORRESTON Primary Care Unavailable JACKSON, ZENAIDA Primary Care Unavailable BRUNO WALL Attending Unavailable BUDDY, BELÉN Referring Unavailable JACKSON, ZENAIDA Primary Care Unavailable JACKSON, FORRESTON Primary Care Unavailable Yadiel CASAREZ Attending Unavailable Timmis, Jana H Admitting Unavailable Timmis, Jana H Attending Unavailable Timmis, Jana H Referring Unavailable BUDDY, BELÉN L Attending Unavailable SHAMMO, [...] Attending Unavailable JACKSON, ZENAIDA Referring Unavailable JACKSON, FORRESTON Primary Care Unavailable BUDDY, BELÉN L Attending Unavailable JACKSON, ZENAIDA Referring Unavailable JACKSON, ZENAIDA Primary Care Unavailable Medications Current Medications Medication Drug Class(es) Dates Sig (Normalized) Sig (Original) [id number] 200 actuat albuterol 0.09 mg/actuat metered dose [...] 2018 1:00am take 1 tablet by zach every six hours as needed [place] 5-325 MG 1 tablet as needed Orally every 6 hrs Active benzonatate 200 mg oral capsule (9 sources) Non-narcotic Antitussive Start: 06-28-2022 take 1 capsule by mouth every eight hours Benzonatate 200 MG 1 capsule Orally Three times a day Jun, Not-Taking/PRN Start: 08-29-2021 take 1 capsule by mo [facility] three times daily as needed [...] Date Documented Da te Episodic/Chronic Abdominal pain (6 sources) Abdominal pain; Translations: [Unspecified abdominal pain] Onset: 09-08-2023 Episodic Asthma (2 sources) Asthma-chronic obstructive pulmonary [...] width (RBC) [Ratio] 15.0 % Normal 11.5-15.0 [facility] Comment on above: Performed By: #### C RAYMUNDO CMP, 40687-9, 3024-7, HA1C, 96096-3 ####[facility] ([id number])[address] [address] Hematocrit (Bld) [Volume fraction] 41.6 % Normal 35-47 [facility] Comment on above: Performed By: #### C BC, CMP, 57749-4, 3024-7, HA1C, 70986-4 ####[facility] ([id number])[address] [address] Hemoglobin (Bld) [Mass/Vol] 14.0 g/dL Normal 11.7-15.5 [facility] Comment on above: Performed By: #### C BC, CMP, 01822-9, 3024-7, HA1C, 85411-2 ####[facility] ([id number])[address] [address] MCH (RBC) [Entitic mass] 31.6 pg Normal 27-34 [facility] Comment on above: Performed By: #### C BC, CMP, 01830-9, 3024-7, HA1C, 09145-9 ####[facility] ([id number])[address], [place] [address] MCHC (RBC) [Mass/Vol] 33.7 g/dL Normal 32-36 [facility] Comment on above: Performed By: #### C BC, CMP, 75009-6, 3024-7, HA1C, 67987-3 ####[facility] ([id number])[address] [address] MCV (RBC) [Entitic vol] 94 fL Normal 80-100 [facility] Comment on above: Performed By: #### C BC, CMP, 76973-7, 3024-7, HA1C, 26302-9 ####[facility] ([id number])[address] [address], [place] [address] Platelet mean volume (Bld) [Entitic vol] 8.4 fL Normal 7-12 [facility] Comment on above: Performed By: #### C BC, CMP, 51421-1, 3024-7, HA1C, 78938-6 ####[facility] ([id number])[address] [address] [place] [address] Platelets (Bld) [#/Vol] 319 10*3/uL Normal 150-450 [facility] Comment on above: Performed By: #### C BC, CMP, 09257-2, 3024-7, HA1C, 38613-8 ####[facility] ([id number])[address] [address], [place] [address] RBC COUNT 4.43 X10E12/L Normal 3.80-5.20 [facility] Comment on above: Performed By: #### C BC, CMP, 54009-5, 3024-7, HA1C, 60213-5 ####[facility] ([id number])[address] [address], [place] [address] WBC (Bld) [#/Vol] 8.0 10*3/uL Normal 4.0-11.0 [facility] Comment on above: Performed By: #### C BC, CMP, 76937-1, 3024-7, HA1C, 27127-3 ####[facility] ([id number])[address], [place] [address] COMPREHENSIVE METABOLIC PANE Nito 09-03-2023 Albumin [Mass/Vol] 4.0 g/dL Normal 3.2-5.3 [facility] Comment on above: Performed By: #### C BC, CMP, 69765-9, 3024-7, HA1C, 74060-5 ####[facility] ([id number])[address], [address], [place] [address] ALP [Catalytic activity/Vol] 77 U/L Normal 39-130 [facility] Comment on above: Performed By: #### C BC, CMP, 42713-6, 3024-7, HA1C, 00393-9 ####[facility] ([id number])[address] [address], [place] [address] ALT [Catalytic activity/Vol] 19 U/L Normal 0-31 [facility] Comment on above: Performed By: #### C BC, CMP, 67895-2, 3024-7, HA1C, 79155-5 ####[facility] ([id number])[address] [address], [place] [address] Anion gap [Moles/Vol] 10 mmol/L Normal 5-15 [facility] Comment on above: Performed By: #### C BC, CMP, 89964-3, 3024-7, HA1C, 08809-0 ####[facility] ([id number])[address], [address], [place] [address] AST [Catalytic activity/Vol] 19 U/L Normal 0-41 [facility] Comment on above: Performed By: #### C BC, CMP, 84120-9, 3024-7, HA1C, 96140-4 ####[facility] ([id number])[address], [address], [place] [address] Bilirubin [Mass/Vol] 0.7 mg/dL Normal 0.3-1.2 [facility] Comment on above: Performed By: #### C BC, CMP, 67173-1, 3024-7, HA1C, 99156-7 ####[facility] ([id number])[address], [address], [place] [address] Calcium [Mass/Vol] 9.0 mg/dL Normal 8.5-10.5 [facility] Comment on above: Performed By: #### C BC, CMP, 53836-5, 3024-7, HA1C, 17859-1 ####[facility] ([id number])[address], [address], [place] [address] Chloride [Moles/Vol] 101 mmol/L Normal 98-109 [facility] Comment on above: Performed By: #### C BC, CMP, 29813-0, 3024-7, HA1C, 35830-7 ####[facility] ([id number])[address], [address], [place] [address] CO2 [Moles/Vol] 27 mmol/L Normal 22-32 [facility] Comment on above: Performed By: #### C BC, CMP, 71114-1, 3024-7, HA1C, 07996-9 ####[facility] ([id number])[address], [address], [place] [address] Creatinine [Mass/Vol] 0.71 mg/dL Normal 0.40-1.00 [facility] Comment on above: Result Comment: METH OD TRACEABLE TO IDMS STANDARD Performed By: #### C DIANE FONSECA, 31986-8, 3024-7, HA1C, 56512-6 ####[facility] ([id number])[address], [place] [address] eGFR (CKD-EPI) NON-RACE DEPENDENT >90 Normal >59 [facility] Comment on above: Result Comment: Reported eGFR is based on the CKD-EPI 2020 equation that does not use a race coefficient. Performed By: #### C DIANE FONSECA, 13069-7, 3024-7, HA1C, 57329-7 ####[facility] ([id number])[address] [address], [place] [address] Glucose [Mass/Vol] 88 mg/dL Normal 65-99 [facility] Comment on above: Performed By: #### C DIANE FONSECA, 40748-3, 4-7, HA1C, 24915-1 ####[facility] ([id number])[address] [address], [place] [address] Potassium [Moles/Vol] 3.7 mmol/L Normal 3.5-5.0 [facility] Comment on above: Performed By: #### Leila FONSECA CMP, 31803-2, 3024-7, HA1C, 42405-6 ####[facility] ([id number])[address] [address], [place] [address] Protein [Mass/Vol] 6.9 g/dL Normal 6.0-8.0 [facility] Comment on above: Performed By: #### Leila FONSECA, CMP, 91357-0, 3024-7, HA1C, 94565-4 ####[facility] ([id number])[address] [address], [place] [address] Sodium [Moles/Vol] 138 mmol/L Normal 134-146 [facility] Comment on above: Performed By: #### C BC, CMP, 63154-4, 3024-7, HA1C, 20435-6 ####[facility] ([id number])[address] [address], [place] [address] Urea nitrogen [Mass/Vol] 8 mg/dL Normal 5-23 [facility] Comment on above: Performed By: #### C BC, CMP, 39985-9, 3024-7, HA1C, 62497-4 ####[facility] ([id number])[address], [place] [address] FREE T4on 09-03-2023 Free T4 [Mass/Vol] 0.81 ng/dL Normal 0.61-1.60 [facility] Comment on above: Performed By: #### C BC, CMP, 34829-2, 3024-7, HA1C, 92269-9 ####[facility] ([id number])[address], [place] [address] HGB A1C (GLYCO-HGB)on 2023 Glucose [Mass/Vol] 103 mg/dL Normal [facility] Comment on above: Performed By: #### C BC, 73413-4, 3016-3, 3024-7, 2842-3, 40370-2, 24744-5 #### [facility] ([id number]) [address], [facility] [address] [place] [address] HbA1c (Bld) [Mass fraction] 5.2 % Normal 4.4-5.6 [facility] Comment on above: Result Comment: NOTE ADA Guidelines Result HgbA1c Normal : less than 5.7 % Prediabetes : 5.7 % to 6.4 % Diabetes : > 6.4 % Use with caution in patients with abnormal hemoglobin variants as the half-life of red blood cells and in vivo glycation rates are affected. Performed By: #### C BC, 22258-9, 3016-3, 3024-7, 2842-3, 29853-3, 76078-5 #### [facility] ([id number]) [address], [address] [place] [address] Lipid 1996 panelon 4 Cholesterol [Mass/Vol] 171 mg/dL Normal 150-200 [facility] Comment on above: Performed By: #### Leila BC, CMP, 56922-2, 4-7, HA1C, 11044-5 ####[facility] ([id number])[address] [address] Cholesterol in HDL [Mass/Vol] 67 mg/dL Normal >39 [facility] Comment on above: Result Comment: HDL <40 mg/dL - High Risk HDL > or = 40mg/dL- Desirable HDL >60 mg/dL - Negative Risk Performed By: #### Leila BC, CMP, 87821-1, 4-7, HA1C, 73626-7 ####[facility] ([id number])[address] [address] Cholesterol in LDL [Mass/Vol] 55 mg/dL Normal <130 [facility] Comment on above: Result Comment: LDL <100 mg/dL - Desirable LDL >160 mg/dL - High Risk Performed By: #### Leila BC, CMP, 37423-3, 4-7, HA1C, 45670-0 ####[facility] ([id number])[address] [address] Cholesterol in VLDL [Mass/Vol] 49 mg/dL High 0-30 [facility] Comment on above: Performed By: #### C BC, [facility], 64294-8, 3024-7, HA1C, 22657-9 ####[facility] ([id number])[address] [facility] [address], [place] [address] CHOLESTEROL:HDL 2.6 Normal 1.0-5.0 [facility] Comment on above: Performed By: #### C BC, [facility], 18981-0, 3024-7, HA1C, 96330-4 ####[facility] ([id number])[address] [facility], [place] [address] Triglyceride [Mass/Vol] 243 mg/dL High 27-150 P [facility] Comment on above: Performed By: #### Leila FONSECA, [facility], 60361-6, 3024-7, HA, 13077-6 ####[facility] ([id number])[address] [place] [address] Vitamin D+Metabolites [Mass/ Vol]on 09-03-2023 VITAMIN D 25 HYD TOT 13.9 ng/mL Low 30-100 [facility] Comment on above: Result Comment: Vitamin D status 25 [place] Vitamin D Deficiency <20 ng/mL Insufficiency 20-29 ng/mL Sufficiency 30-100 ng/mL Toxicity >100 ng/mL NOTE: A pediatric reference range has not been established by the vice president pharmacy of this kit. The [place] [employer] recommends a Vitamin D level of = or >20ng/mL in infants and children. Performed By: #### C BC, 06844-8, 3016-3, 3024-7, 2842-3, 70128-0, 85877-3 #### [facility] ([id number]) [address] [facility] [address] [place] [address] Nito 08-12-2023 L Specimen: [id number] Received: 08/13/23 Status: MARCELL [place] Num: [id number] Spec Type: Surgical Subm Dr: JANA MELVIN MD Tissues: A Turbinates (RT INFERIOR TURB) B Turbinates (LT INF TURB) C Sinus Contents/Biopsy (RT SINUS CONTENT) D Sinus Contents/Biopsy (LT SINUS CONTENT) E Nasal Septum (SEPTUM) Procedures: HE/2, Gross/Micro L4/2, Level 1 Gross/3 Age/ Patient Sex Location Account Attending Physician Mere Esteban 42/F LABE[facility] [id number] JANA MELVIN MD SPEC NUM: [id number] RECD: 08/13/23 STATUS: MARCELL [place] NUM: [id number] SHRUTHI: 08/12/[address]: JANA MELVIN MD ENTERED: 08/13/23 [facility] DR: Bakari,Lab SPEC TYPE: Surgical DEPT: VARGHESE OCAMPO ORDERED: [...] nasal septal cartilage. Gross only examination Specimen: [id number] Received: 08/13/23 Status: MARCELL [place] Num: [id number] Spec Type: Surgical Subm Dr: JANA MELVIN MD Tissues: A Turbinates (RT INFERIOR TURB) B Turbinates (LT INF TURB) C Sinus Contents/Biopsy (RT SINUS CONTENT) D Sinus Contents/Biopsy (LT SINUS CONTENT) E Nasal Septum (SEPTUM) Procedures: HE/2, Gross/Micro L4/2, Level 1 Gross/3 Patient: Mere Esteban [id number] (Continued) Specimen: [id number] Received: 08/13/23 (Continued) Signed (signature on file) Neil Johns MD 08/18/23 2037 Specimen: [id number] Received: 08/13/23 Status: MARCELL Burger: [id number] Spec Type: Surgical Subm Dr: JANA MELVIN MD Tissues: A Turbinates (RT INFERIOR TURB) B Turbinates (LT INF TURB) C Sinus Contents/Biopsy (RT SINUS CONTENT) D Sinus Contents/Biopsy (LT SINUS CONTENT) E Nasal Septum (SEPTUM) Procedures: HE/2, Gross/Micro L4/2, Level 1 Gross/3 Patient: Mere Esteban [id number] (Continued) Specimen: [id number] Received: 08/13/23 (Continued) Clinical Information Chronic sinusitis, [...] cm aggregate of adler and cartilaginous tissue. Classics Professor sections following decalcification are submitted in C1. [...] gross photo is included. TW CPT Codes 57654M9 21782 X.3 Specimen: [id number] Received: 08/13/23 Status: MARCELL [place] Num: [id number] Spec Type: Surgical Subm Dr: JANA MELVIN MD Tissues: A Turbinat (more content not included)... Normal [facility] Fibrin D-dimer DDU (PPP) [Ma ss/Vol]on 08-07-2023 D DIMER <150 Normal <255 [facility] Comment on above: Result Comment: Results <255 ng/mL DDU: The presence of a VTE can safely be excluded with a negative D-Dimer result and Wells score. A negative result doesn't exclude the possibility of DIC. The test be repeated along with other diagnostic tests if the patient's symptoms persist or worsen. [email or web address] Performed By: #### 4 8066-5 ####[facility] ([id number])[address] [place] [address] HCG ( test) Bryanna Morales (S)on 08-04-2023 SERUM Negative Normal NEG [facility] Comment on above: Performed By: #### 8 0385-8 ####[facility] ([id number])[address] [place] [address] Surgical Pathologyon 024 Surgical Pathology Normal [facility] Comment on above: Result Comment: [facility] [address] [place] [address] Surgical Pathology Consultation Patient Name:MERE ESTEBAN:1980 (Age: 42)Gender:FTaken:4Reported:4Physician(s):Belén Goodwin M.D. ([phone])Copy To: Rec. #:[id number]: #[id number] Final Pathologic Diagnosis 1. Endocervical curettings: Fragments of endocervix, negative for dysplasia 2. Endometrial curettings: Fragments of secretory endometrium with breakdown Report Electronically Signed Out nsk/08/12/2023Jacque Martin MD Interpretation performed at [facility], [address] [place] [address], License number: [id number]. Clinical History Dysfunctional uterine bleeding. Gross Description [...] submitted in a single cassette. (1, ns, [id number], m1) MG 2. Received in formalin labeled WHITE, #2: Endometrial curettings are 2 Telfa pads with multiple adherent adler fragments/feathery bits of soft tissue, embedded in adler cloudy mucoid debris and hemorrhagic material. The Telfa pads are scraped and the rest of the specimen is filtered, aggregating to 7.5 x 1.2 x 0.3 cm, and submitted in cassettes A-C. (3, ns, [id number], m1) MG mjg/08/05/2023NSK Intraoperative Consultation Specimen(s) Received 1: Endocervical curettings 2: Endometrial curettings Fee Codes(s): 1; 23741 2; 75991 CBC AND AUTO DIFFon 07-14-19 24 ABSOLUTE BASOPHIL 0.1 X10E9/L Normal 0.0-0.2 [facility] Comment on above: Performed By: #### C BCA ####[facility] ([id number])[address] [place] [address] ABSOLUTE NEUTROPHIL 4.4 X10E9/L Normal 1.5-6.6 [facility] Comment on above: Performed By: #### C BCA ####[facility] ([id number])[address] [address], [place] [address] Basophils/100 WBC (Bld) 1.2 % Normal [facility] Comment on above: Performed By: #### C BCA ####[facility] ([id number])[address] [address], [place] [address] Eosinophils (Bld) [#/Vol] 0.4 10*3/uL Normal 0.0-0.4 [facility] Comment on above: Performed By: #### C BCA ####[facility] ([id number])[address] [place] [address] Eosinophils/100 WBC (Bld) 4.7 % Normal [facility] Comment on above: Performed By: #### C BCA ####[facility] ([id number])[address] [address] [place] [address] Erythrocyte distribution width (RBC) [Ratio] 14.8 % Normal 11.5-15.0 [facility] Comment on above: Performed By: #### C BCA ####[facility] ([id number])[address] [address] [place] [address] Hematocrit (Bld) [Volume fraction] 41.2 % Normal 35-47 [facility] Comment on above: Performed By: #### C BCA ####[facility] ([id number])[address] [place] [address] Hemoglobin (Bld) [Mass/Vol] 13.6 g/dL Normal 11.7-15.5 [facility] Comment on above: Performed By: #### C BCA ####[facility] ([id number])[address] [address] [place] [address] Lymphocytes (Bld) [#/Vol] 2.8 10*3/uL Normal 1.0-3.5 [facility] Comment on above: Performed By: #### C BCA ####[facility] ([id number])[address] [address] [place] [address] Lymphocytes/100 WBC (Bld) 32.8 % Normal [facility] Comment on above: Performed By: #### C BCA ####[facility] ([id number])[address] [address] [place] [address] MCH (RBC) [Entitic mass] 31.3 pg Normal 27-34 [facility] Comment on above: Performed By: #### C BCA ####[facility] ([id number])[address] [address] [place] [address] MCHC (RBC) [Mass/Vol] 33.1 g/dL Normal 32-36 [facility] Comment on above: Performed By: #### C BCA ####[facility] ([id number])[address] [address] [place] [address] MCV (RBC) [Entitic vol] 95 fL Normal 80-100 [facility] Comment on above: Performed By: #### C BCA ####[facility] ([id number])[address] [address] [place] [address] Monocytes (Bld) [#/Vol] 0.8 10*3/uL Normal 0-0.9 [facility] Comment on above: Performed By: #### C BCA ####[facility] ([id number])[address], [place] [address] Monocytes/100 WBC (Bld) 9.2 % Normal P [facility] Comment on above: Performed By: #### C BCA ####[facility] ([id number])[address], [place] [address] Neutrophils/100 WBC (Bld) 52.1 % Normal [facility] Comment on above: Performed By: #### C BCA ####[facility] ([id number])[address] [address], [place] [address] Platelet mean volume (Bld) [Entitic vol] 8.1 fL Normal 7-12 [facility] Comment on above: Performed By: #### C BCA ####[facility] ([id number])[address] [address] [place] [address] Platelets (Bld) [#/Vol] 321 10*3/uL Normal 150-450 [facility] Comment on above: Performed By: #### C BCA ####[facility] ([id number])[address] [address], [place] [address] RBC COUNT 4.35 X10E12/L Normal 3.80-5.20 [facility] Comment on above: Performed By: #### C BCA ####[facility] ([id number])[address] [address], [place] [address] WBC (Bld) [#/Vol] 8.4 10*3/uL Normal 4.0-11.0 [facility] Comment on above: Performed By: #### C BCA ####[facility] ([id number])[address] [address], [place] [address] XR CHEST 2 VWSon 04-29-2024 XR CHEST 2 VWS XR CHEST 2 VWS XR CHEST 2 VWS INDICATION: Bronchitis, preoperative clearance COMPARISON: X-ray 01/29/2023 FINDINGS: Cardiomediastinal silhouette and pulmonary vasculature are within normal limits. Lungs and pleural space are clear. There is no pleural effusion or pneumothorax. IMPRESSION: No acute cardiopulmonary process. Finalized by Daniel Rosas on 07/14/2023 5:35 PM Normal [facility] POCT , urineon 05-15 Beta HCG ( test) Ql (U) Negative [facility] Surgical Pathologyon 024 Surgical Pathology Normal [facility] Comment on above: Result Comment: [facility] [address] [place] [address] Surgical Pathology Consultation Patient Name:MERE ESTEBAN:1980 (Age: 42)Gender:FTaken:4Reported:4Physician(s):Belén Goodwin M.D. ([phone])Copy To: Rec. #:[id number]: #[id number] Final Pathologic Diagnosis 1. Endocervix, curettage: Benign endocervical epithelium. 2. Endometrium, biopsy: Benign endometrium. Report Electronically Signed Out cjb/4Cjaylin Gayle MD Interpretation performed at [facility], [address] [place] [address], License number: [id number]. Clinical History Dysfunctional uterine bleeding (DUB) N93.8. Gross Description 1. Received in formalin labeled, WHITE, ECC is a plastic metal brush with a pale-adler mucoid material admixed with adler friable soft tissue fragments and brown hemorrhagic material, 2 x 0.8 x 0.1 cm in aggregate. The specimens are filtered and submitted in a single cassette. (1, ns, [id number], m2) TB 2. Received in formalin labeled, WHITE, EMB are 4 pale-adler delicate to friable soft tissue chips admixed with adler to brown hemorrhagic material, 2.5 x 1.5 x 0.1 cm in aggregate. The specimens are filtered and submitted in a single cassette. (1, ns, [id number], m2) TB tgb/06/04/2023WAK Specimen(s) Received 1: Endocervical curettings 2: Endometrial biopsy Fee Codes(s): 1; 59822 2; 90237 COMPLETE BLOOD COUNTon 06-01 Erythrocyte distribution width (RBC) [Ratio] 14.6 % Normal 11.5-15.0 [facility] Comment on above: Performed By: #### C BC, 73750-2, 3016-3, 3024-7, 2842-3, 08816-8, 69499-3 #### [facility] ([id number]) [address], [address] [place] [address] Hematocrit (Bld) [Volume fraction] 44.6 % Normal 35-47 [facility] Comment on above: Performed By: #### C BC, 21991-3, 3016-3, 3024-7, 2842-3, 36639-0, 31267-4 #### [facility] ([id number]) [address], [address] [place] [address] Hemoglobin (Bld) [Mass/Vol] 14.6 g/dL Normal 11.7-15.5 [facility] Comment on above: Performed By: #### C BC, 32788-1, 3016-3, 3024-7, 2842-3, 47293-3, 38482-7 #### [facility] ([id number]) [address], [address] [place] [address] MCH (RBC) [Entitic mass] 31.1 pg Normal 27-34 [facility] Comment on above: Performed By: #### C BC, 23095-1, 3016-3, 3024-7, 2842-3, 34382-6, 38157-1 #### [facility] ([id number]) [address], [address] [place] [address] MCHC (RBC) [Mass/Vol] 32.6 g/dL Normal 32-36 [facility] Comment on above: Performed By: #### Leila FONSECA, 38260-3, 3016-3, 3024-7, 2842-3, 32270-7, 58501-3 #### [facility] ([id number]) [address], [address] [place] [address] MCV (RBC) [Entitic vol] 95 fL Normal 80-100 [facility] Comment on above: Performed By: #### Leila FONSECA, 75143-1, 3016-3, 3024-7, 2842-3, 37996-8, 91920-9 #### [facility] ([id number]) [address], [address] [place] [address] Platelet mean volume (Bld) [Entitic vol] 8.9 fL Normal 7-12 [facility] Comment on above: Performed By: #### Leila FONSECA, 11634-9, 3016-3, 3024-7, 2842-3, 08183-9, 27226-0 #### [facility] ([id number]) [address], [facility] [address] [place] [address] Platelets (Bld) [#/Vol] 290 10*3/uL Normal 150-450 [facility] Comment on above: Performed By: #### Leila FONSECA, 53640-9, 3016-3, 3024-7, 2842-3, 41286-6, 34486-0 #### [facility] ([id number]) [address], [address] [place] [address] RBC COUNT 4.68 X10E12/L Normal 3.80-5.20 [facility] Comment on above: Performed By: #### Leila FONSECA, 68957-9, 3016-3, 3024-7, 2842-3, 74797-5, 25576-8 #### [facility] ([id number]) [address], [address] [place] [address] WBC (Bld) [#/Vol] 9.4 10*3/uL Normal 4.0-11.0 [facility] Comment on above: Performed By: #### Leila FONSECA, 96218-5, 6-3, 3024-7, 2842-3, 15219-4, 70849-4 #### [facility] ([id number]) [address], [address] [place] [address] FREE T4on 06-02-2023 Free T4 [Mass/Vol] 0.79 ng/dL Normal 0.61-1.60 [facility] Comment on above: Performed By: #### Leila FONSECA, 00846-9, 6-3, 3024-7, 2842-3, 18047-1, 93701-2 #### [facility] ([id number]) [address], [address] [place] [address] Follitropin Qnon 06-02-2023 FOLLICLE STIM HORMONE 4.2 mIU/mL Normal Pro [facility] Comment on above: Result Comment: NORMAL FEMALE Luteal 1.8-5.1 mIU/mL Follicular 3.8-8.8 mIU/mL Mid Cycle 4.5-22.5 mIU/mL Post [place] 16.7-113.6 mIU/mL Performed By: #### Leila FONSECA, 83719-3, 6-3, 3024-7, 2842-3, 26097-8, 01420-6 #### [facility] ([id number]) [address], [address] [place] [address] HCG.beta subunit IA 3rd IS Q non 06-02-2023 SERUM B HCG,3RD I.S. <5 Normal [facility] Comment on above: Result Comment: NEW [...] or nontrophoblastic neoplasms. Performed By: #### Leila FONSECA, 65653-2, 3016-3, 3024-7, 2842-3, 24509-8, 22735-5 #### [facility] ([id number]) [address], [address] [place] [address] Lutropin Qnon 06-02-2023 LUTEINIZING HORMONE 5.9 mIU/mL Normal [facility] Comment on above: Result Comment: NORMAL FEMALE Follicular 2.1-10.9 mIU/mL Mid Cycle 19.2-103 mIU/mL Luteal 1.2-12.9 mIU/mL Post [place] 10.9-58.6 mIU/mL Performed By: ###Alcira FONSECA, 84394-2, 3016-3, 3024-7, 2842-3, 50653-6, 25087-0 #### [facility] ([id number]) [address], [address] [place] [address] Prolactin [Mass/Vol]on 06-01 PROLACTIN 21.1 ng/mL Normal 3.3-26.7 [facility] Comment on above: Performed By: #### C , 53666-6, 3016-3, 3024-7, 2842-3, 29448-0, 40591-2 #### [facility] ([id number]) [address], [address] [place] [address] TSH Qnon 06-02-2023 TSH 2.98 uIU/mL Normal 0.49-4.67 [facility] Comment on above: Performed By: #### C , 22893-2, 3016-3, 3024-7, 2842-3, 66873-5, 02104-3 #### [facility] ([id number]) [address], [address] [place] [address] US PELVIC WITH TRANSVAGINALo n 06-02-2023 US [...] Billy MD on 06/02/2023 2:55 PM Normal [facility] US Pelvis transabdominal and transvaginalon 06-02-2023 [...] Erick Billy MD on 06/02/2023 2:55 PM [facility] Erick Billy MD - 06/02/2023 PELVIC ULTRASOUND [...] Erick Billy MD on 06/02/2023 2:[address] Radiology Study observation (narrative) [facility] US Pelvis transabdominal and transvaginalOrdered By: Erick Billy on 06-02-[address] [facility] Work Phone: CT Maxillofacial w/o Contras ton [...] MD, V. 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 04-10-2023 MAMM SCREENING BILATERAL W CAD MAMM [...] AM 1 c MAMM 1 YR Normal [facility] COVID + FLU Quick Testingon 06-28-2022 SARS-CoV-2 (COVID-19) RNA SADE+probe Ql (Unsp spec) Negative [employer] Other COVID + FLU Quick Testing Negative [place] [employer] Other XR CSPINE MIN 4 VIEWSon 10-15 [...] by: LOUIE ROTHMAN Date: 2021-10-24 15:10 Normal [facility] XR LSPINE W_OBLS AND FLEX_EX Ton 10-24-2021 [...] by: LOUIE ROTHMAN Date: 2021-10-24 15:11 Normal [facility] COVID Quick Testingon 2021 Result Positive [place] [employer] Other Vital Signs Date Time Vital Sign Value Performing Clinician Facility 06-17-2023 08:21-0400 Body mass index (BMI) [Ratio] 36.22 kg/m2 Belén Goodwin MD Work Phone: [facility] 06-17-2023 08:21-0400 Body weight 101.79 kg Belén Goodwin MD Work Phone: [facility] 06-17-2023 08:21-0400 Diastolic blood pressure 66 mm[Hg] Belén Goodwin MD Work Phone: [facility] 06-17-2023 08:21-0400 Systolic blood pressure 128 mm[Hg] Belén Goodwin MD Work Phone: [facility] 06-03-2023 10:53-0400 Body height 167.6 cm Belén Goodwin MD Work Phone: [facility] 06-03-2023 10:53-0400 Body mass index (BMI) [Ratio] 36.32 kg/m2 Belén Goodwin MD Work Phone: [facility] 06-03-2023 10:53-0400 Body weight 102.06 kg Belén Goodwin MD Work Phone: [facility] 06-03-2023 10:53-0400 Diastolic blood pressure 78 mm[Hg] Belén Goodwin MD Work Phone: [facility] 06-03-2023 10:53-0400 Systolic blood pressure 116 mm[Hg] Belén Goodwin MD Work Phone: [facility] 04-22-2023 09:07-0500 Body mass index (BMI) [Ratio] 35.99 kg/m2 Belén Goodwin MD Work Phone: [facility] 04-22-2023 09:07-0500 Body weight 101.15 kg Belén Goodwin MD Work Phone: [facility] 04-22-2023 09:07-0500 Diastolic blood pressure 58 mm[Hg] Belén Goodwin MD Work Phone: [facility] 04-22-2023 09:07-0500 Systolic blood pressure 110 mm[Hg] Belén Goodwin MD Work Phone: [facility] 04-02-2023 10:06-0500 Body height 167.6 cm Shanthi Lugo APRN-DELIVERY CREW WORKER Work Phone: [email or web address] 04-02-2023 10:06-0500 Body mass index (BMI) [Ratio] 34.48 kg/m2 Shanthi Lugo HEAD FILTER TANK TENDER HELPER-DELIVERY CREW WORKER Work Phone: [email or web address] 04-02-2023 10:06-0500 Body weight 96.89 kg Shanthi Lugo HEAD FILTER TANK TENDER HELPER-DELIVERY CREW WORKER Work Phone: [email or web address] 04-02-2023 10:06-0500 Diastolic blood pressure 76 mm[Hg] Shanthi Lugo HEAD FILTER TANK TENDER HELPER-DELIVERY CREW WORKER Work Phone: [email or web address] 04-02-2023 10:06-0500 Heart rate 96 /min Shanthi Lugo HEAD FILTER TANK TENDER HELPER-DELIVERY CREW WORKER Work Phone: [email or web address] 04-02-2023 10:06-0500 SaO2% (BldA) [Mass fraction] 98 % Shanthi Lugo HEAD FILTER TANK TENDER HELPER-DELIVERY CREW WORKER Work Phone: [email or web address] 04-02-2023 10:06-0500 Systolic blood pressure 142 mm[Hg] Shanthi Lugo APRN-DELIVERY CREW WORKER Work Phone: [email or web address] 03-03-2023 10:05-0500 Body height 167.64 cm Neyda Garland Other [employer] [facility] [facility] Other 03-03-2023 10:05-0500 Body mass index (BMI) [Ratio] 34.21 kg/m2 Neyda Garland Other [employer] [facility] Other 03-03-2023 10:05-0500 Body temperature 99.1 [degF] Neyda Garland Other [employer] [facility] [facility] Other 03-03-2023 10:05-0500 Body weight 96.16 kg Neyda Garland Other [employer] [facility] [facility] Other 03-03-2023 10:05-0500 Diastolic blood pressure 60 mm[Hg] Neyda Garland Other [employer] [facility] [facility] Other 03-03-2023 10:05-0500 Respiratory rate 18 /min Neyda Garland Other [employer] [facility] [facility] Other 03-03-2023 10:05-0500 SaO2% (BldA) [Mass fraction] 98 % Neyda Garland Other [employer] [facility] [facility] Other 03-03-2023 10:05-0500 Systolic blood pressure 125 mm[Hg] Neyda Garland Other [employer] [facility] [facility] Other 08-26-2022 17:15-0400 Body height 167.64 cm Ilana Gallegos Other [employer] [facility] Other 08-26-2022 17:15-0400 Body mass index (BMI) [Ratio] 33.08 kg/m2 Ilana Gallegos Other [employer] [facility] Other 08-26-2022 17:15-0400 Body temperature 98.2 [degF] Ilana Gallegos Other [employer] [facility] Other 08-26-2022 17:15-0400 Body weight 92.99 kg Ilana Gallegos Other [employer] [facility] Other 08-26-2022 17:15-0400 Respiratory rate 18 /min Ilana Gallegos Other [employer] [facility] [facility] Other 08-26-2022 17:15-0400 SaO2% (BldA) [Mass fraction] 97 % Ilana Gallegos Other [employer] [facility] Other 06-28-2022 18:35-0400 Body height 167.64 cm Yohana Kitchen Other [employer] [facility] [facility] Other 06-28-2022 18:35-0400 Body mass index (BMI) [Ratio] 34.38 kg/m2 Yohana Kitchen Other [employer] [facility] [facility] Other 06-28-2022 18:35-0400 Body temperature 96.9 [degF] Yohana Kitchen Other [employer] [facility] Other 06-28-2022 18:35-0400 Body weight 96.62 kg Yohana Kitchen Other [employer] [facility] [facility] Other 06-28-2022 18:35-0400 Respiratory rate 18 /min Yohana Kitchen Other [employer] [facility] [facility] Other 06-28-2022 18:35-0400 SaO2% (BldA) [Mass fraction] 96 % Yohana Kitchen Other [employer] [facility] Other 03-29-2021 10:15-0500 Body height 167.64 cm Chela José Other [employer] [facility] [facility] Other 03-29-2021 10:15-0500 Body mass index (BMI) [Ratio] 30.66 kg/m2 Chela Kumar Other [employer] Other 03-29-2021 10:15-0500 Body temperature 97.5 [degF] Chela Kumar Other [employer] [facility] Other 03-29-2021 10:15-0500 Body weight 86.18 kg Chela Kumar Other [employer] [facility] Other 03-29-2021 10:15-0500 Respiratory rate 18 /min Chela Kumar Other [employer] [facility] Other 03-29-2021 10:15-0500 SaO2% (BldA) [Mass fraction] 98 % Chela Kumar Other [employer] [facility] Other 01-26-2021 11:35-0500 Body height Yohana Reamond Other [employer] [facility] Other 01-26-2021 11:35-0500 Body mass index (BMI) [Ratio] 30.73 kg/m2 Yohana Fidelina Other [employer] [facility] Other 01-26-2021 11:35-0500 Body temperature 97.7 [degF] Yohana Fidelina Other [employer] [facility] Other 01-26-2021 11:35-0500 Body weight 86.37 kg Yohana Fidelina Other [employer] [facility] [facility] Other 01-26-2021 11:35-0500 Diastolic blood pressure 49 mm[Hg] Yohana Fidelina Other [employer] [facility] Other 01-26-2021 11:35-0500 Respiratory rate 18 /min Yohana Fidelina Other [employer] [facility] Other 01-26-2021 11:35-0500 SaO2% (BldA) [Mass fraction] 100 % Yohana Fidelina Other [employer] [facility] Other 01-26-2021 11:35-0500 Systolic blood pressure 11 mm[Hg] Yohana Fidelina Other [facility] [employer] Other Encounters Encounter Date Encounter Type Care Provider Facility Start: 09-25-2023 ambulatory Yadiel CASAREZ Facility :[facility] Start: 09-10-2023 ambulatory Yadiel CASAREZ Facility:[facility] Start: 09-09-2023 End: 09-09-2023 ambulatory [facility] Start: 09-08-2023 End: 09-08-2023 Emergency department patient visit [facility] Start: 09-03-2023 End: 09-03-2023 ambulatory [facility] Start: 09-02-2023 End: 09-02-2023 ambulatory JANA Tania AILYNMIS Not Available Start: 09-01-2023 End: 09-01-2023 ambulatory [facility] Start: 08-20-2023 End: 08-20-2023 ambulatory JANA ROBERTSONMIS Not Available Start: 08-12-2023 End: 08-12-2023 ambulatory Jana [facility]vin Jr [facility] Work Phone: Start: 08-12-2023 End: 08-12-2023 Departed Referred MD Jana Melvin Jr [facility] Start: 08-07-2023 End: 08-07-2023 Emergency department patient visit [facility] Start: 08-04-2023 End: 08-04-2023 Evaluation and management of inpatient REGGIE WEBB [facility] Start: 08-04-2023 End: 08-04-2023 Evaluation and management of inpatient [facility] Start: 07-14-2023 End: 07-14-2023 ambulatory LOUIE HEREDIA [facility] Start: 07-14-2023 Encounter for other preprocedural examination [facility] Start: 06-18-2023 Telephone encounter Shantel ferrell [facility] Start: 06-17-2023 End: 06-17-2023 ambulatory [facility] Start: 06-17-2023 End: 06-17-2023 Office outpatient visit 15 minutes Belén Goodwin MD Work Phone: [facility] Comment on above: DUB (dysfunctional u terine bleeding) (Primary Dx) Start: 06-04-2023 End: 06-04-2023 ambulatory JANA H TIMMIS Not Available Start: 06-03-2023 End: 06-03-2023 ambulatory [facility] Start: 06-03-2023 End: 06-03-2023 Office outpatient visit 15 minutes Belén Goodwin MD Work Phone: [facility] Comment on above: DUB (dysfunctional u terine bleeding) (Primary Dx) Start: 06-03-2023 End: 06-03-2023 ambulatory [facility] Start: 06-02-2023 End: 06-02-2023 Orders Only [facility] Montilla [facility] Comment on above: Abnormal uterine ble eding (AUB) (Primary Dx) Start: 05-31-2023 End: 05-31-2023 ambulatory Jana H Timmis [place] [place]: 04-22-2023 End: 04-22-2023 Office outpatient visit 25 minutes Belén Goodwin MD Work Phone: [facility] Comment on above: DUB (dysfunctional u terine bleeding) (Primary Dx) Start: 04-22-2023 End: 04-22-2023 ambulatory [facility] Start: 04-16-2023 End: 05-24-2023 Pre-admission assessment Jana H Timmis [facility] Start: 04-16-2023 End: 04-16-2023 ambulatory JANA H TIMMIS Not Available Start: 04-10-2023 End: 04-10-2023 ambulatory [facility] Start: 04-02-2023 End: 04-02-2023 Office outpatient visit 25 [facility] HEAD FILTER TANK TENDER HELPER-DELIVERY CREW WORKER Work Phone: [facility] Comment on above: Chronic bronchitis, unspecified chronic bronchitis type (CMS- HCC) (Primary Dx); Asthma-COPD overlap syndrome; Tobacco dependence; Class 1 obesity with body mass index (BMI) of 34.0 to 34.9 in adult, unspecified obesity type, unspecified whether serious comorbidity present Start: 04-02-2023 End: 04-02-2023 ambulatory [facility] Start: 03-03-2023 End: 03-03-2023 ambulatory Neyda Garland Other [employer] [facility] Other Start: 03-03-2023 Office outpatient vi sit 15 minutes Neyda Garland [facility] Start: 08-26-2022 End: 08-26-2022 ambulatory Ilana Gallegos Other [employer] [facility] Other Start: 08-26-2022 Office outpatient vi sit 25 minutes Ilana Gallegos [facility] Start: 08-01-2022 ambulatory PAIGE COVARRUBIAS . Facili ty:[facility] Start: 06-28-2022 End: 06-28-2022 ambulatory Yohana Kitchen Other [employer] Other Start: 06-28-2022 Office outpatient vi sit [...] 09-14-[address] JOSÉ MIGUEL BEAUCHAMP . Facility: Start: 03-29-2021 End: 03-29-2021 ambulatory Chela Kumar Other [employer] [facility] Other Start: 03-29-2021 Office outpatient vi sit 15 minutes Chela José [facility] Start: 01-26-2021 End: 01-26-2021 ambulatory Yohana Fidelina Other [employer] [facility] Other Start: 01-26-2021 Office outpatient vi sit [...] Td Vaccines (3 - Td or Tdap) [facility] Start: 06-16-2024 Adult BMI Screening Adult BMI Screen ing [facility] Start: 06-16-2024 Tobacco Screening Tobacco Screening [facility] Start: 06-02-2024 Adult BMI Screening Adult BMI Screen ing [facility] Start: 06-02-2024 Tobacco Screening Tobacco Screening [facility] Start: 04-22-2024 Adult BMI Screening Adult BMI Screen ing [facility] Start: 04-22-2024 Tobacco Screening Tobacco Screening [facility] Start: 04-10-2024 Adult BMI Screening Adult BMI Screen ing [facility] Start: 04-02-2024 Tobacco Screening Tobacco Screening [facility] Start: 11-16-2023 Influenza vaccination Influenza Vacc ine [facility] Start: 10-27-2023 End: 10-27-2023 Patient encounter procedure 10/27/2023 9:45 AM EDT Office Visit [facility] [address] [place] [phone] Luh Gupta MD [address] [facility] [address] [place] [address] [facility] Start: 08-04-2023 End: 08-04-2023 Admission to same day surgery center 08/04/2023 12:30 PM EDT - 08/04/2023 1:30 PM EDT Surgery [facility] - Surgery [address] [place] [phone] Belén Goodwin MD [address] [place] [address] HYSTEROSCOPY DILATION CURETTAGE ABLATION ENDOMETRIAL NOVASURE [58308 (CPT )] [facility] Comment on above: HYSTEROSCOPY DILATIO N CURETTAGE ABLATION ENDOMETRIAL NOVASURE [50227 (CPT )] Start: 08-04-2023 End: 08-04-2023 Hysteroscopy endometrial ablation HYSTEROSCOPY DILATION CURETTAGE ABLATION ENDOMETRIAL NOVASURE dysfunctional uterine bleeding 08/04/2023 12:30 PM EDT [facility] Start: 08-04-2023 Subsequent hospital visit by physician 08/04/2023 12:30 PM EDT Hospital Encounter [facility] - Surgery [address] [place] [id number] Belén Goodwin MD [address] [place] [address] [facility] Start: 07-14-2023 End: 07-14-2023 Patient encounter procedure 07/14/2023 9:45 AM EDT Procedure visit [facility] - Pre Admit [address] [place] [phone] [facility] - Pre Admit Start: 06-17-2023 End: 06-17-2023 Patient encounter procedure 06/17/2023 8:15 AM EDT Office Visit [facility] [place] [phone] Belén Goodwin MD [address] [place] [place] [address] [facility] Start: 06-03-2023 End: 06-02-2024 Surgical Pathology Surgical Pathology Pathology and Cytology Routine DUB (dysfunctional uterine bleeding) Expected: 06/03/2023 (Approximate), Expires: 06/02/2024 [facility] Work Phone: Comment on above: Expected: 06/03/2023 (Approximate), Expires: 06/02/2024 Start: 06-03-2023 End: 06-03-2023 Patient encounter procedure 06/03/2023 10:30 AM EDT Procedure visit [facility] [address] [place] [address] Belén Goodwin MD [address] [facility] [place] [address] [facility] Start: 04-22-2023 End: 04-21-2024 US Pelvis transvaginal Ultrasound transvaginal non OB Imaging Routine DUB (dysfunctional uterine bleeding) Expected: 04/22/2023, Expires: 04/21/2024 [facility] Work Phone: Comment on above: Expected: 04/22/2023 , Expires: 04/21/2024 Start: 04-22-2023 End: 04-22-2023 Patient encounter procedure 04/22/2023 9:00 AM EST Office Visit [facility] [address] [place] [phone] Belén Goodwin MD [address] [place] [address] [facility] y Start: 11-15-2022 Influenza vaccination Influenza Vacc ine [facility] Start: 09-15-2000 Screening for malign ant neoplasm of cervix Pap Smear [facility] Start: 09-15-1997 Adult BMI Follow Up Plan Adult BMI Follow Up Plan [facility] Start: 1991 Depression Screening Depression Scre ening [facility] Start: 1979 Tobacco Counseling Tobacco Counselin g [facility] End: 04-22-2024 CBC panel - Blood by Automated count CBC without diff Lab Routine DUB (dysfunctional uterine bleeding) 1 Occurrences starting 04/22/2023 until 04/22/2024 [facility] Comment on above: 1 Occurrences starti ng 04/22/2023 until 04/22/2024 End: 04-22-2024 Follicle stimulating hormone Follicle stimulating hormone Lab Routine DUB (dysfunctional uterine bleeding) 1 Occurrences starting 04/22/2023 until 04/22/2024 [facility] Comment on above: 1 Occurrences starti ng 04/22/2023 until 04/22/2024 End: 04-22-2024 HCG, Quantitative, HCG, Quantitative, Lab Routine DUB (dysfunctional uterine bleeding) 1 Occurrences starting 04/22/2023 until 04/22/2024 [facility] Comment on above: 1 Occurrences starti ng 04/22/2023 until 04/22/2024 End: 04-22-2024 Luteinizing hormone Luteinizing hormone Lab Routine DUB (dysfunctional uterine bleeding) 1 Occurrences starting 04/22/2023 until 04/22/2024 [facility] Comment on above: 1 Occurrences starti ng 04/22/2023 until 04/22/2024 End: 04-22-2024 Prolactin Prolactin Lab Routine DUB (dysfunctional uterine bleeding) 1 Occurrences starting 04/22/2023 until 04/22/2024 [facility] Comment on above: 1 Occurrences starti ng 04/22/2023 until 04/22/2024 End: 04-22-2024 Thyrotropin [Units/volume] in Serum or Plasma TSH Lab Routine DUB (dysfunctional uterine bleeding) 1 Occurrences starting 04/22/2023 until 04/22/2024 [facility] Comment on above: 1 Occurrences starti ng 04/22/2023 until 04/22/2024 End: 04-22-2024 Thyroxine (T4) free [Mass/volume] in Serum or Plasma T4, free Lab Routine DUB (dysfunctional uterine bleeding) 1 Occurrences starting 04/22/2023 until 04/22/[address] [facility] Comment on above: 1 Occurrences starti ng 04/22/2023 until 04/22/2024 Immunizations Immunization Date Immunization Notes Care Provider Vishal mejia 12-13-2019 tetanus and diphther ia toxoids, adsorbed, preservative free, for adult use (2 Lf of tetanus toxoid and 2 Lf of diphtheria toxoid) Jana Melvin [facility] Payers Date Payer Category Payer Self-pay [id number] 2021 Private Health Insurance [facility] [id number] 2021-Present [phone] [address] [place] [address] 1.2.840.177216.1.13.424.2 .7.3.156046.315 1979 Unknown [id number] 2.16.840.1.399725.3.579.2 .593 1979 Unknown [id number] 2.16.840.1.621911.3.579.2 .593 1979 Unknown [id number] 2.16.840.1.986762.3.579.2 .593 1979 Unknown [id number] 2.16.840.1.296014.3.579.2 .593 1979 Unknown [id number] 2.16.840.1.396699.3.579.2 .593 1979 Unknown [id number] 2.16.840.1.156679.3.579.2 .593 1979 Unknown [id number] 2.16.840.1.778553.3.579.2 .1258 1979 Unknown [id number] 2.16840.1.352095.3.579.2 .1258 1979 Unknown [id number] 2.16.840.1.250974.3.579.2 .1258 1979 Unknown [id number] 2.840.1.258972.3.579.2 .1258 1979 Unknown [id number] 2.16840.1.744153.3.579.2 .1285 1979 Unknown [id number] 2.840.1.495932.3.579.2 .1285 1979 Unknown [id number] 2.840.1.319731.3.579.2 .1285 1979 Unknown [id number] 2..1.644485.3.579.2 .1285 1979 Unknown [id number] 2.840.1.373532.3.579.2 .1285 1979 Unknown [id number] 2.0.1.737867.3.579.2 .1285 1979 Unknown [id number] 2.0.1.168210.3.579.2 .1285 1979 Unknown [id number] 2..1.060794.3.579.2 .1285 1979 Unknown [id number] 2.840.1.416525.3.579.2 .1285 1979 Unknown [id number] 2.840.1.449169.3.579.2 .1285 1979 Unknown [id number] 2.840.1.444430.3.579.2 .1285 1979 Unknown [id number] 2.840.1.089992.3.579.2 .1285 1979 Unknown [id number] 2.16.840.1.602911.3.579.2 .1285 1979 Unknown [id number] 2.16.840.1.288957.3.579.2 .1285 1979 Unknown [id number] 2.16.840.1.683009.3.579.2 .1979 Unknown [id number] 2.16.840.1.818086.3.579.2 .1979 Unknown [id number] 2.16.840.1.271098.3.579.2 .1979 Unknown [id number] 2.16.840.1.864767.3.579.2 .1285 1979 Unknown [id number] 2.16.840.1.918966.3.579.2 .1285 1979 Unknown [id number] 2.16840.1.701510.3.579.2 .1285 1979 Unknown [id number] 2.16.840.1.185726.3.579.2 .1285 1979 Unknown [id number] 2.16.840.1.995916.3.579.2 .1285 1979 Unknown [id number] 2.16.840.1.946666.3.579.2 .1285 1959 Private Health Insurance [id number] 2.840.1.058714.19 Medicaid [facility] [id number] Unknown [place]/ [id number] Unknown [id number] 2.16840.1.825854.3.579.2 .531 Social History Date Type Detail Facility Unknown if ever smoked [facility] Other Start: 04-02-2023 End: 06-17-2023 Sex Assigned At [facility] Other Start: 09-09-2022 Tobacco smoking status NHIS Smokes tobacco daily [facility] History of tobacco use Cigarette Smoker [facility] Start: 09-09-2022 End: 06-17-2023 Cigarettes smoked current (pack per day) - Reported 0.5 [facility] Start: 09-09-2022 Tobacco use and exposure Smokeless tobacco non-user [facility] Start: 04-21-2023 End: 06-17-2023 Alcohol intake Current drinker of alcohol (finding) [facility] Within the past 12 months we worried whether our food would run out before we got money to buy more. Never True [facility] Start: 12-03-2021 Alcohol Comment occassionally [facility] Start: 1980 Sex Assigned At Not on file P [facility] Start: 05-29-2020 Tobacco smoking status Heavy tobacco smoker (finding) [facility] Comment on above: PPD smoker Start: 03-23-2018 Tobacco smoking status NHIS Smoker (finding) [facility] Start: 1980 Sex Assigned At Female F [facility] Clinical Notes 03-29-2021 to 06-18-2023 Telephone Encounter - Shantel Fan - 06/18/2023 10:50 AM EDTTelephone Encounter - Shantel Fan - 06/18/2023 10:50 AM Joceline Goodwin MD - 06/17/2023 8:15 AM EDTPatient [...] to the patient. documented in this encounter [facility] 06-18-2023 Telephone encounter Note Patient has sinus surgery scheduled on 08/12/23. Patient is requesting her surgery with Dr. Goodwin be prior to that. Patient scheduled for surgery with Dr. Goodwin on 08/04/23 at 12:30pm with hospital arrival at 10:30am. PAT 07/09/23 at 9:45am. LVM for patient to return my call to discuss dates & times and schedule surgery f/u. [facility] 06-18-2023 Telephone encounter Note Patient returned my call while I was out of the office at lunch. I returned patient's call. Patient notified of all dates & times. Patient voiced understanding. Surgery information letter mailed to the patient. [facility] 06-17-2023 History of Presen t illness Narrative Mere Estbean is a 42 y.o.female. No LMP recorded (lmp unknown).. She presents today for follow up from [facility]. Current contraception:no method Final Pathologic Diagnosis [...] 1 tablet (10 mg total) before bedtime. vzppsijqyqd-xcygibhdx-peacopxj (TRELEGY ELLIPTA) 200-62.5-25 mcg blister with device [...] PROCEED. CONSENT SIGNED AND ON CHART. MD Coir TELLEZ RN documented in this encounter [facility] 06-03-2023 History of Presen t illness Narrative [...] BELÉN GOODWIN MD documented in this encounter [facility] 06-03-2023 Miscellaneous Notes Addended by: ANGELICA RIZZO on: 06/03/2023 12:04 PM Modules accepted: Orders documented in this encounter [facility] 06-03-2023 Note Addended by: ANGELICA RIZZO on: 06/03/2023 12:04 PM Modules accepted: Orders [facility] 04-22-2023 History of Presen t illness Narrative Mere Esteban is a 42 y.o.female. Patient's last menstrual period was 04/08/2023.. She presents today for concerns with heavy period bleeding and cramping. She relates being on HRT and would like to discuss a pertial hysterectomy. REPORTS SEVERAL YEAR HO DUB REC DUB EDISON STARTED ON HRT FOR SX FROM [facility] IN [place] BUT DID NOT HELP SX OR BLEEDING [...] before bedtime. estradioL (ESTRACE) 0.5 mg tablet quvkwbdyadq-hoistpwoq-rpxbdhhi (TRELEGY ELLIPTA) 200-62.5-25 mcg blister with device [...] RTO EMB/HYST TAKING ?HRT FROM [facility] IN [place] WITHOUT EVAL OF AUB/DUB HEAVY TOBACCO USE ANXIETY OBESITY SP BTL LACK OF PREVENTATIVE CARE MD Cori TELLEZ RN [facility] encounter [facility] History of Presen t illness Narrative [...] Medical History: Diagnosis Date Anxiety Chronic bronchitis ([facility]) PERTINENT HISTORY: Her pertinent medical history includes Past Medical History: Diagnosis Date Anxiety Chronic bronchitis ([facility]) CURRENT MEDICATIONS: Reviewed with patient. Current Outpatient [...] 0.5 mg tablet, , Disp: , Rfl: wepxusnihfc-bphaqvpgn-xtatbate (TRELEGY ELLIPTA) 200-62.5-25 mcg blister with device, [...] our office a call. CC: SUSIE Benitez [facility] Office: [phone] 8:26 AM on 04/21/2023 This note is dictated with the use of M*Modal.Please note that this dictation was completed with computer voice recognition software. Quite often unanticipated grammatical, syntax, homophones, and other interpretive errors are inadvertently transcribed by the computer software. Please disregard these errors. Please excuse any errors that have escaped final proofreading. SUSIE Bellamy 04/21/23 0840 documented in this encounter [facility] [email or web address] [facility] 04-02-2023 Instructions SUSIE Bellamy - 04/02/2023 9:45 AM EST If you re looking for general health and wellness resources, please visit [email or web address]. documented in this encounter [email or web address] 03-03-2023 Evaluation note Encounter Date Diagnosis Assessment [...] 24-28 hours if s/s persists or worsens. [facility] Other 06-12-2023 Evaluation note* Encounter Date Diagnosis [...] understanding and is agreeable to treatment plan. [facility] Other 04-14-2023 Evaluation note* Encounter Date Diagnosis [...] fever. May return to work on Friday [facility] Other 02-16-2023 NoteCONSULTATION CONSULTATION DATE: 05/02/2022 HISTORY [...] Medications include diclofenac 50 mg b.i.d., Abilify, Seville 5/325 daily p.r.n., Lyrica 50 mg b.i.d. [...] 50 mg b.i.d. and will refill her Seville today 5/325 daily p.r.n. 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 Our clinic has prescribed her Seville 5/325 daily p.r.n. in the past. Patient was unaware she could call for refills. She has been out of Seville since early November and has increased the [...] will start diclofenac 50 mg b.i.d. Her Seville will be restarted at 5/325 daily p.r.n. Vitamin importance was discussed as was continuing with her workout therapy. She will be seen in the clinic in three months' time, unless otherwise indicated. Patient is in agreement with this plan.[facility] HospitalKiprrabh08-[facility] NoteCONSULTATION PROCEDURE DATE: 10/25/2021 PRE AND POSTOPERATIVE [...] be followed up in the clinic. [facility] [id number] NoteCONSULTATION CONSULTATION DATE: 10/25/2021 This is a [...] standing, walking and bending. Her medications include Seville 5/325 q. day, Baclofen 10 mg q.h.s. and Motrin 600 mg daily. The patient did have oral surgery last week for removal of a broken tooth. The patient was given Tylenol 3 and a course of amoxicillin. The patient did not take the Tylenol 3 but continued with the Seville that was prescribed from our clinic. REVIEW [...] in three months' time unless otherwise indicated.[facility] [id number] NoteCONSULTATION CONSULTATION DATE: 09/13/2021 This is a [...] to Baclofen 10 mg q.h.s. and add Seville 5/325 one q. day p.r.n. The patient was educated on the excessive use of her NSAIDs and appropriate doses were discussed. The intent is that the Seville will help with her pain relief and decrease the need for the ibuprofen as frequently. The patient agrees with the plan of care. She will be brought back to the clinic in two weeks' time for x-ray review. [facility] Signed and Approved by: FABIOLA BARTLETT . 10/05/2021 14:14:00[facility]01-13-2022 Evaluation note* Encounter Date Diagnosis Assessment Notes Treatment Notes Treatment Clinical Notes Mar, Contact with and (suspected) exposure to other viral communicable diseases (ICD-10 - Z20.828) Mar, COVID-19 (ICD-10 - U07.1) Today you tested positive for the COVID virus. This mean you need to follow all [facility] quarantine guidelines found at [email or web address] v. It is important to rest, increase [...] Patient care instructions given in writting by [facility] Care At Home document. [place] [employer] Other Evaluation + Plan note No data available for this section [facility] noteNortSelect Specialty Hospital [facility] [employer] Other Evaluation note* Diagnosis Chronic bronchitis, unspecified chronic bronchitis type ([facility])- Primary Asthma-COPD overlap syndrome Tobacco dependence Tobacco use disorder Class 1 obesity with body mass index (BMI) of 34.0 to 34.9 in adult, unspecified obesity type, unspecified whether serious comorbidity present documented in this encounter [facility]* Diagnosis DUB (dysfunctional uterine bleeding)- Primary Other disorder of menstruation and other abnormal bleeding from female genital tract documented in this encounter [facility]* Diagnosis Abnormal uterine bleeding (AUB) Abnormal uterine bleeding (AUB)- Primary documented in this encounter [facility]* Diagnosis DUB (dysfunctional uterine bleeding)- Primary Other disorder of menstruation and other abnormal bleeding from female genital tract documented in this encounter 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 Surgical History C section (two) [facility] Other [place] general Narrative - Reported* Type Description Date 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 Medical History Edema leg Medical History Depression Surgical History C section (two) [facility] Other Hospital Discharge instructions No data available for this section [facility] HospitalInstructionsNot on filedocumented in this encounter [facility] System[facility]ructionsNot on filedocumented in this encounter [facility] [email or web address] SystemInstructionsNot on filedocumented in this encounter [facility] [email or web address] SystemProgress note No data available for this section [facility] Summary Purpose Family History No Family [...] and content) DATE CREATED AUTHOR 07/27/2022 [facility] DATE CREATED AUTHOR AUTHOR'S ORGANIZ ATION 08/19/2023 [facility] DATE CREATED AUTHOR AUTHOR'S ORGANIZ ATION 09/03/2023 [facility] EPIC DATE CREATED AUTHOR AUTHOR'S ORGANIZ ATION 09/09/2023 [facility] DATE CREATED AUTHOR AUTHOR'S ORGANIZ ATION 09/10/2023 [facility] DATE CREATED AUTHOR AUTHOR'S ORGANIZ ATION 09/11/2023 [facility] Care Teams (unrecognized sec tion and content) Insurance Salesperson Relationship Specialty Start Date End Date Pelon Sridhar HEAD FILTER TANK TENDER HELPER-DELIVERY CREW WORKER [address] [place] [address] PCP - General Primary Care 09/09/22 Insurance Salesperson Relationship Specialty Start Date End Date PelonSridhar HEAD FILTER TANK TENDER HELPER-DELIVERY CREW WORKER [address] [place] [address] PCP - General Primary Care 09/09/22 Insurance Salesperson Relationship Specialty Start Date End Date PelonSridhar HEAD FILTER TANK TENDER HELPER-DELIVERY CREW WORKER [address] [place] [address] PCP - General Primary Care 09/09/22 Insurance Salesperson Relationship Specialty Start Date End Date Pelon Sridhar HEAD FILTER TANK TENDER HELPER-DELIVERY CREW WORKER [address] [place] [address] PCP - General Primary Care 09/09/22 Insurance Salesperson Relationship Specialty Start Date End Date Sridhar Bird HEAD FILTER TANK TENDER HELPER-DELIVERY CREW WORKER [address] [place] [address] PCP - General Primary Care 09/09/22 Insurance Salesperson Relationship Specialty Start Date End Date Sridhar Bird HEAD FILTER TANK TENDER HELPER-DELIVERY CREW WORKER [address] [place] [address] PCP - General Primary Care 09/09/22 Team [...] BE BASED ON THE PRIMARY CLINICAL RECORDS. [facility] [facility]. provides no warranty or guarantee of the accuracy or completeness of information in this document.
== END 2023-09-11 16:17 | disposition home or self-care (01) ==
PROVIDERS: PCP Nurse Practitioner; Visit Provider Nurse Practitioner
DX: R10.10 Upper abdominal pain, unspecified (principal); R19.7 Diarrhea, unspecified
CPT/HCPCS: 74019

== ENCOUNTER 2023-11-17 15:10 | Emergency (ER) | payer OTHER, SELFPAY ==
[2023-11-17 15:15] VITALS: BP 149/108; PULSE 91; TEMP 36.8; O2SAT 98; BMI 37.8
--- NOTE | 2023-11-17 15:21 | XR_ITS ---
[address] [address] Patient Name: MARIELENA ENGLAND MRN: [id number] date: 1980 Sex: F Assigned Patient Location: ER Current Patient Location: Accession/Order Number: [id number] Exam Date: 11/17/2023 15:35 Report Date: 11/17/2023 16:28 At the request of: ROGER HUBBARD Procedure: XR ankle RT min 3V EXAM: XR ankle RT min 3V HISTORY: fall COMPARISON: None. FINDINGS/IMPRESSION: 1. No acute fracture or dislocation. 2. Ankle mortise is maintained. 3. Normal alignment of the hindfoot and midfoot. 4. Subcutaneous soft tissue edema about the ankle. Electronically authenticated by: ROBB SWEET Date: 11/17/2023 16:28
--- NOTE | 2023-11-17 15:21 | XR_ITS ---
The [address] [address] Patient Name: MARIELENA ENGLAND MRN: [id number] date: 1980 Sex: F Assigned Patient Location: ER Current Patient Location: ER Accession/Order Number: [id number] Exam Date: 11/17/2023 15:35 Report Date: 11/17/2023 16:29 At the request of: ROGER HUBBARD Procedure: XR foot RT min 3V EXAM: XR foot RT min 3V HISTORY: fall COMPARISON: None. FINDINGS/IMPRESSION: 1. Intra-articular fracture of the first proximal phalanx. There is minimal displacement of the fracture. 2. Mild degeneration of the interphalangeal joints. 3. Subcutaneous soft tissue edema overlying the mid foot. 4. Normal alignment of the hindfoot and midfoot. 5. No significant joint degeneration. Electronically authenticated by: ROBB SWEET Date: 11/17/2023 16:29
--- OUTSIDE RECORDS SUMMARY | 2023-11-17 15:35 | XMS_ITS | CCD ---
Author Organization [facility] Care Team Providers Care Data Conversion Analyst Name Role Phone Yohana Kitchen Unavailable Chela [...] Admitting Unavailable BARTLETT ., FABIOLA Attending Unavailable [facility] DR THOMSON Primary Care Unavailable DENTON, DR LOUIE Carrillo Consulting Unavailable BARTLETT ., [...] ., DR JOSÉ MIGUEL Potts Attending Unavailable [facility] Primary Care Unavailable BARTLETT ., FABIOLA Consulting Unavailable Ilana Gallegos Unavailable Neyda Garland Unavailable Shammo FRANK-DIANA, Sridhar Primary Care Provider ARIANA RENDON Primary Care Physician MD Jana Melvin Jr Attending Provider Jana Cabral Jr Attending Unavailable Jana Melvin Jr Admitting Unavailable BELÉN GOODWIN Referring Unavailable SHAMMO, SRIDHAR Primary Care Unavailable BELÉN GOODWIN Referring Unavailable SHAMMO, SRIDHAR Primary Care Unavailable BUDDY, BELÉN Referring Unavailable SHAMMO, SRIDHAR Primary Care Unavailable JACKSON, ZENAIDA Referring Unavailable JACKSON, ZENAIDA Primary Care Unavailable LOUIE HEREDIA Referring Unavailable JACKSON, ZENAIDA Primary Care Unavailable LOUIE HEREDIA Attending Unavailable GIOVANNALOUIE TINOCO Referring Unavailable JACKSON, ZENAIDA Primary Care Unavailable [...] Care Unavailable JACKSON, ZENAIDA Primary Care Unavailable JACKSON, ZENAIDA Primary Care Physician [phone] JACKSON, ZENAIDA Primary Care Unavailable BERNIE SANCHEZ Referring Unavailable TIMMIS, JANA Marin Attending Unavailable SHAMMO, SRIDHAR Referring Unavailable TIMMIS, JANA H Attending Unavailable TIMMIS, JANA H Attending Unavailable JACKSON, ZENAIDA Referring Unavailable TIMMIS, JANA H Attending Unavailable JACKSON, ZENAIDA Referring Unavailable TIMMIS, JANA H Attending Unavailable JACKSON, ZENAIDA Referring Unavailable NILL, Yadiel R Admitting Unavailable NILL, Yadiel R Attending Unavailable NILL, Yadiel R Referring Unavailable JACKSON, ZENAIDA Primary Care Unavailable Timmis, Jana H Admitting Unavailable Timmis, Jana H Attending Unavailable Timmis, Jana H Referring Unavailable NILL, Yadiel R Attending Unavailable JACKSON, ZENAIDA Primary Care Unavailable NILL, Yadiel R Attending Unavailable JACKSON, ZENAIDA Primary Care Unavailable BUDDY, BELÉN L Attending Unavailable SHAMMO, SRIDHAR Referring Unavailable SHAMMO, SRIDHAR Primary Care Unavailable BUDDY, BELÉN L Attending Unavailable SHAMMO, SRIDHAR Referring Unavailable SHAMMO, SRIDHAR Primary Care Unavailable BUDDY, BELÉN L Attending Unavailable JACKSON, ZENAIDA Referring Unavailable JACKSON, ZENAIDA Primary Care Unavailable BUDDY, BELÉN L Attending Unavailable JACKSON, ZENAIDA Referring Unavailable JACKSON, ZENAIDA Primary Care Unavailable L[facility] SANCHEZ Attending Unavailable SHAMMO, SRIDHAR Referring Unavailable JACKSON, ZENAIDA Primary Care Unavailable BUDDY, BELÉN L Attending Unavailable JACKSON, ZENAIDA Referring Unavailable JACKSON, ZENAIDA Primary Care Unavailable KREGEL, SHANTHI L Attending Unavailable SHAMMO, SRIDHAR Referring Unavailable SHAMMO, SRIDHAR Primary Care Unavailable BELÉN GOODWIN Attending Unavailable SHAMMO, SRIDHAR Referring Unavailable SHAMMO, SRIDHAR Primary Care Unavailable Medications Current Medications Medication Drug Class(es) Dates Sig (Normalized) Sig (Original) acetaminophen 300 mg / butalbital 50 mg / caffeine 40 mg / codeine phosphate 30 mg oral capsule (3 sources) Opioid Agonist, Barbiturate, Central Nervous System Stimulant, Methylxanthine Start: 09-19-2023 take 1 capsule by mouth every six hours acetaminophen/bu talbital/caffein e/codeine 300 mg-50 mg-40 mg-30 mg oral capsule 1 cap(s), Oral, q6hr Headache, Refill(s) 0 Start Date: 09/19/23 Status: Ordered albuterol 0.83 mg/ml inhalation solution (20 sources) beta2-Adrenergic Agonist Start: 09-19-2023 take 2.5 mg by inhalation every six hours albuterol 0.083% Inh Lois 3 mL 2.5 mg, 3 mL, NEB, q6hr Shortness of breath or wheezing, Refill(s) 0 Start Date: 09/19/23 Status: Ordered Start: 08-26-2022 take 2 puff(s) by in [...] HFA Active albuterol HFA 90 mcg/inh MDI (4 sources) Start: 12-02-2017 take 2 puff(s) by inhalation [...] Active busPIRone hydrochloride 10 mg oral tablet (11 sources) Start: 09-19-2023 take 1 tablet by mouth once daily busPIRone 10 mg Tab 10 mg = 1 tab(s), Oral, Daily, Refills(s) 0, Anxiety Start Date: 09/19/23 Status: Ordered take 1 tablet by zach th in the morning, then take 1 tablet [...] End: 06-17-2023 estradioL (ESTRACE) 0.5 mg tablet fluticasone-umeclid in-vilanter (TRELEGY ELLIPTA) 200-62.5-25 mcg blister with device (6 sources) Start: 02-11-2023 take 1 puff(s) by mouth in the morning fluticasone-umecli din-vilanter (TRELEGY ELLIPTA) 200-62.5-25 mcg blister with device INHALE 1 PUFF BY MOUTH IN THE MORNING 60 each 5 02/11/2023 Active furosemide 20 mg oral tablet (15 sources) Loop Diuretic Start: 09-19-2023 take 1 tablet by mouth once daily as needed for edema Lasix 20 mg Tab 20 mg = 1 tab(s), Oral, Daily, PRN Edema, Refills(s) 0 Start Date: 09/19/23 Status: Ordered Start: 03-24-2018 take 1 tablet by zach once daily as needed furosemide (LASIX) 20 mg tablet Take 1 tablet (20 mg total) by mouth daily as needed. 0 08/08/2021 Active gabapentin 300 mg oral capsule (2 sources) Anti-epileptic Agent take 1 capsule by mouth every eight hours Gabapentin 300 MG 1 capsule Orally three times a day Active hydrOXYzine pamoate 25 mg oral capsule (6 sources) Antihistamine Start: 11-28-19 take 1 capsule by mouth once daily hydrOXYzine (VISTARIL) 25 mg capsule Take 1 capsule (25 mg total) by mouth nightly. 0 11/27/2021 Active ketorolac tromethamine 10 mg oral tablet (3 sources) Nonsteroidal Anti-inflammatory Drug, Cyclooxygenase Inhibitor Start: 09-19-19 take 1 tablet by mouth three times daily as needed for pain ketorolac 10 mg Tab 10 mg = 1 tab(s), Oral, TID, PRN for pain, Refills(s) 0 Start Date: 09/19/23 Status: Ordered lamoTRIgine 100 mg oral tablet (12 sources) Mood Stabilizer, Anti-epileptic Agent Start: 09-19-19 take 1 tablet by mouth once daily lamotrigine 100 mg Tab 100 mg = 1 tab(s), Oral, Daily, Refills(s) 0, Depression Start Date: 09/19/23 Status: Ordered Start: 04-16-2022 take 1 tablet by zach th in the morning lamoTRIgine (LaMICtal) 100 mg [...] day for 7 day(s) Feb, Active omeprazole 20 mg delayed release oral capsule (4 sources) Proton Pump Inhibitor Start: 10-22-2023 take 1 capsule by mouth once daily omeprazole 20 mg Cap-DR 20 mg = 1 cap(s), Oral, Daily, Refills(s) 0 Start Date: 10/22/23 Status: Ordered Start: 03-24-2018 Omeprazole Act kushal 40 MG PO As Directed March 24, 2018 1:00am PriLOSEC Not-Valentin ing Progesterone (3 sources) Progesterone Progesterone Act kushal Trelegy Ellipta 200 mcg-62.5 mcg-25 mcg/inh inhalation powder (3 sources) Start: 09-19-2023 take 1 puff(s) by inhalation once daily Trelegy Ellipta 200 mcg-62.5 mcg-25 mcg/inh inhalation powder 1 puff(s), Inhalation, Daily, Refill(s) 0, Shortness of breath or wheezing Start Date: 09/19/23 Status: Ordered Start: 09-19-2023 take 1 puff(s) by in halation once daily Trelegy Ellipta 200 mcg-62.5 mcg-25 mcg/inh inhalation powder 1 puff(s), Inhalation, Daily, Refill(s) 0 Start Date: 09/19/23 Status: Ordered 24 hr venlafaxine 75 mg extended release oral capsule (14 sources) Serotonin and Norepinephrine Reuptake Inhibitor Start: 09-19-2023 take 1 capsule by mouth once daily venlafaxine 75 mg Cap-ER 75 mg = 1 cap(s), Oral, Daily, Refills(s) 0, Anxiety Start Date: 09/19/23 Status: Ordered Start: 10-21-2021 take 1 capsule by mo [facility] every twenty-four hours in the morning venlafaxine [...] zach th every six hours as needed [place]ahira 5-325 MG 1 tablet as needed Orally every 6 hrs Active benzonatate 200 mg oral capsule (9 sources) Non-narcotic Antitussive Start: 06-28-2022 take 1 capsule by mouth every eight hours Benzonatate 200 MG 1 capsule Orally Three times a day Jun, Not-Taking/PRN Start: 08-29-2021 take 1 capsule by mo uth three times daily as needed benzonatate (TESSALON [...] Date Documented Da te Episodic/Chronic Abdominal pain (14 sources) Abdominal pain; Translations: [Unspecified abdominal pain] Onset: 09-08-2023 Episodic Anal and rectal conditions (1 source) Anorectal disorder; Translations: [Other specified diseases of anus and rectum] Onset: 10-06-2023 Episodic Anxiety disorders (3 sources) Anxiety 09-19-2023 Chronic Asthma (2 sources) Asthma-chronic obstructive pulmonary disease overlap syndrome; Translations: [Asthma-COPD overlap syndrome] Onset: 10-27-2023 04-21-2023 Chronic Chronic obstructive pulmonary disease and bronchiectasis (6 sources) Chronic bronchitis; Translations: [Unspecified chronic bronchitis] Onset: 04-02-2023 04-21-2023 Chronic Chronic obstructive pulmonary disease and bronchiectasis (1 source) Bronchitis, not specified as acute or chronic Episodic Chronic obstructive pulmonary disease and bronchiectasis (1 source) Chronic obstructive pulmonary disease and bronchiectasis; Translations: [Other specified chronic obstructive pulmonary disease] Onset: 10-27-2023 Deficiency and other anemia (3 sources) Anemia 09-19-2023 Episodic Epilepsy; convulsions (7 sources) Seizure 09-02-2013 Episodic Comment on above: Outside Source Comme nt: Comment on above: last at age 19 Headache; including migraine (3 sources) Migraine 09-19-2023 Chronic Immunizations and screening for infectious disease (4 sources) Contact with and (suspected) exposure to other viral communicable diseases; Translations: [Suspected clinical finding] Onset: 03-29-2021 Resolved: 03-29-2021 Episodic Inflammation; infection of eye (except that caused by tuberculosis or sexually transmitteddisease) (2 sources) Unspecified conjunctivitis Onset: 01-26-2021 Resolved: 01-26-2021 Episodic Menopausal disorders (1 source) Menopausal syndrome Onset: 04-22-2023 Chronic Mood disorders (3 sources) Bipolar disorder 09-19-2023 Chronic Nausea and vomiting (5 sources) Nausea; Translations: [Nausea] Episodic Nonspecific chest pain (4 sources) Other chest pain; Translations: [OTHER CHEST PAIN] Onset: 05-02-2022 Episodic Other and unspecified benign neoplasm (1 source) Polyp of colon; Translations: [Polyp of colon] Onset: 10-06-2023 Episodic Other connective tissue disease (5 sources) Bursitis of right shoulder; Translations: [Bursitis of right shoulder] Episodic Other connective tissue disease (1 source) Pain in left leg; Translations: [Pain in left leg] Onset: 08-07-2023 Episodic Other connective tissue disease (1 source) Pain in lower limb Onset: 08-07-2023 Episodic Other female genital disorders (7 sources) Abnormal uterine bleeding; Translations: [Other specified [...] bleeding] Onset: 06-02-2023 Chronic Other gastrointestinal disorders (6 sources) Swollen abdomen; Translations: [Abdominal distension (gaseous)] Onset: 09-25-2023 Episodic Other gastrointestinal disorders (5 sources) Constipation alternates with diarrhea; Translations: [Other specified symptoms and signs involving the digestive system and abdomen] Episodic Other gastrointestinal disorders (4 sources) Altered bowel function; Translations: [Change in bowel habit] Onset: 09-25-2023 Episodic Other gastrointestinal disorders (3 sources) Abdominal bloating 09-25-2023 Episodic Other lower respiratory disease (3 sources) Chronic cough 09-19-2023 Episodic Other nutritional; endocrine; and metabolic disorders (5 sources) Obese class I; Translations: [Body mass index (BMI) 33.0-33.9, adult] Chronic Other nutritional; endocrine; and metabolic disorders (2 sources) Obesity; Translations: [Obesity, unspecified] Onset: 09-25-2023 04-21-2023 Chronic Other nutritional; endocrine; and metabolic disorders (2 sources) Other obesity due to excess calories; Translations: [Other obesity due to excess calories] Onset: 09-01-2023 Chronic Other nutritional; endocrine; and metabolic disorders (2 sources) Body mass index (BMI) 34.0-34.9, adult; Translations: [Body mass index (BMI) 34.0-34.9, adult] Onset: 09-01-2023 Chronic Other nutritional; endocrine; and metabolic disorders (6 sources) Body mass index 30+ - obesity 09-25-2023 Chronic Other nutritional; endocrine; and metabolic disorders (3 sources) Obesity caused by energy imbalance 09-25-2023 Chronic Other nutritional; endocrine; and metabolic disorders (1 source) Weight loss Onset: 09-01-2023 Episodic Other screening for suspected conditions (not mental disorders or infectious disease) (5 sources) Encounter for screening mammogram for malignant neoplasm of breast; Translations: [Abnormal findings diagnostic imaging of liver+biliary tract] Onset: 04-10-2023 Episodic Other upper respiratory disease (3 sources) Seasonal allergy 09-19-2023 Chronic Other upper respiratory infections (1 source) Chronic sinusitis, unspecified; Translations: [Chronic sinusitis, unspecified] Onset: 04-10-2023 Chronic Other upper respiratory infections (2 sources) Acute sinusitis, unspecified; Translations: [Acute recurrent maxillary sinusitis] Episodic Residual codes; unclassified (1 source) Tobacco user; Translations: [Tobacco use] Onset: 09-25-2023 Episodic Residual codes; unclassified (3 sources) Insomnia 09-19-2023 Episodic Screening and history of mental health and substance abuse codes (3 sources) Tobacco use and exposure - finding 09-25-2023 Chronic Spondylosis; intervertebral disc disorders; other back problems (11 sources) Cervicalgia; Translations: [Radiculopathy, lumbar region] Onset: 10-24-2021 Episodic Sprains and strains (6 sources) Sprain of shoulder; Translations: [Unspecified sprain of right shoulder joint, subsequent encounter] Onset: 10-29-2021 Episodic Substance-related disorders (6 sources) Tobacco dependence syndrome; Translations: [Nicotine dependence, unspecified, uncomplicated] Onset: 07-14-2023 04-21-2023 Chronic Comment on above: Added secondary to d ocumentation in Social History. Unclassified (1 source) LOW BACK PAIN, UNSPECIFIED; Translations: [LOW BACK PAIN, UNSPECIFIED] Onset: 01-28-2022 Unclassified (1 source) EMB/Hysteroscopy Onset: 06-03-2023 Varicose veins of lower extremity (8 sources) Varicose veins of lower extremity; Translations: [Varicose veins of bilateral lower extremities with other complications] 09-19-2023 Episodic Past or Other Problems Problem Classification [...] [PAIN IN LEFT KNEE] Onset: 10-01-2021 Episodic Unclassified (1 source) Cough R05.9 Viral infection (1 source) COVID-19 Onset: 03-29-2021 Resolved: 03-29-2021 Results Test Name Value Interpretation Reference Range Facility General Surgery Office/Clini c Noteon 10-31-2023 General Surgery Office/Clinic Note General Surgery Office/Clinic Note Chief Complaint post operative follow up HPI Staff 22 day post operative follow up post EGD and colonoscopy with antral and rectal biopsies and descending and rectal polypectomies. PCP prescribed Omeprazole which has not changed complaint of RUQ pain. History of Present Illness s/p EGD and colonoscopy due to abd pain/bloating; EGD with mild antral gastritis, bx consistent with reactive gastropathy, negative for H pylori; colonoscopy with 2 hyperplastic polyps removed, desc colon and rectum, rectal biopsies without inflammation; patient started on omeprazole 20 mg recently, no improvement. Review of Systems ROS - Provider Constitutional: no fever, no sweats, no weight loss. Eyes: no glasses, no blurred vision, no visual loss. ENMT: no dentures, no hoarseness, no swallowing difficulties, no hearing loss, no ear infection(s), no nose bleeds. Cardiovascular: normal blood pressure, no chest pain, regular heartbeat, no heart murmur. Respiratory: no shortness of breath, no cough, no asthma, no wheezing. Gastrointestinal: no nausea, no vomiting, no diarrhea, no constipation, no blood in stool, no change in bowel habits, no abdominal pain, no hepatitis. Genitourinary: no kidney stones, no urine infection, no dysuria. Musculoskeletal: no pain, no weakness. Skin: no changing moles, no rash, no skin lumps. Neurologic: no seizures, no epilepsy, no headache. Psychiatric: no emotional or psychiatric problem. Heme/Lymph: no bleeding problems, no anemia, no blood clots, no transfusions. Allergy/Immunologic: no swollen lymph nodes/glands, no IV drug abuse. Other: Additional ROS info: Except as noted in the above Review of Systems and in the History of Present Illness, all other systems have been reviewed and are negative or noncontributory. Assessment/Plan 1. Abdominal pain (R10.9: Unspecified abdominal pain) increase omeprazole to 40 mg daily; high fiber diet and daily fibers supplement; call with problems/questions. 2. Abdominal bloating (R14.0: Abdominal distension (gaseous)) see # 1 Follow-up No qualifying data available Problem List/Past Medical History Ongoing Abdominal bloating Abdominal pain Abnormal gallbladder ultrasound Abnormal uterine bleeding. Anemia Anxiety Asthma-chronic obstructive pulmonary disease overlap syndrome Bipolar disorder BMI 36.0-36.9,adult Change in bowel habits Chronic cough Epigastric pain Insomnia Migraine Obesity (BMI 30-39.9) Obesity due to excess calories Seasonal allergy Seizure Smoker Tobacco use Varicose veins of lower extremity Historical Seizures Procedure/Surgical History Colonoscopy (10/06/2023), EGD - esophagogastroduodenosco py (10/06/2023), Hysteroscopy, surgical; with endometrial ablation (eg, endometrial resection, electrosurgical ablation, thermoablation) (08/04/2023), section, section, EGD - esophagogastroduodenosco py, Nasal septoplasty. Medications acetaminophen/butalbital /caffeine/codeine 300 mg-50 mg-40 mg-30 mg oral capsule, 1 cap(s), Oral, q6hr, PRN, Self Directed albuterol 0.083% Inh Lois 3 mL, 2.5 mg= 3 mL, NEB, q6hr, PRN, Self Directed albuterol HFA 90 mcg/inh MDI, 2 puff(s), Inhalation, q4hr, PRN, Self Directed busPIRone 10 mg Tab, 10 mg= 1 tab(s), Oral, Daily ketorolac 10 mg Tab, 10 mg= 1 tab(s), Oral, TID, PRN, Not taking lamotrigine 100 mg Tab, 100 mg= 1 tab(s), Oral, Daily Lasix 20 mg Tab, 20 mg= 1 tab(s), Oral, Daily, PRN, Self Directed omeprazole 20 mg Cap-DR, 20 mg= 1 cap(s), Oral, Daily Trelegy Ellipta 200 mcg-62.5 mcg-25 mcg/inh inhalation powder, 1 puff(s), Inhalation, Daily venlafaxine 75 mg Cap-ER, 75 mg= 1 cap(s), Oral, Daily Allergies No Known Allergies Social History Alcohol - Low Risk, 10/09/2011 Current, 05/29/2020 Current, Alcohol use interferes with work or home: No. Drinks more than intended: No. Others hurt by drinking: No. Ready to change: No. Household alcohol concerns: No., 12/01/2017 Substance Abuse - Denies Substance Abuse, 10/09/2011 Tobacco - High Risk, 12/01/2017 10 or more cigarettes (1/2 pack or more)/day in last 30 days Tobacco Use:. Never Smokeless Tobacco Use:. Cigarettes, 0.5 per day. Started age 11.0 Years. Yes, 09/25/2023 Family History COPD: Mother. Multiple myeloma: Mother. Parkinson disease: Father. Immunizations Vaccine Date Status tetanus-diphtheria toxoids 12/13/2019 Given patient seen 10/28/23 [facility] Comment on above: Result Comment: Elec tronically Signed By: LEIDA LINDSEY, Yadiel Hughes\.br\Date and Time Signed: 10/31/23 11:28 EDT Ambulatory Visit Summaryon 0 10-28-2023 Ambulatory Visit Summary Ambulatory Visit Summary MERE ESTEBAN :1980 Visit Date:10/28/2023 Ambulatory Visit Instructions Your Care Team Attending Physician - LEIDA LINDSEY, Yadiel Hughes Primary Care Physician - ZENAIDA PAZ This Is Your Medications List Contact prescribing physician if questions or concerns APAP/butalbital/caffeine /codeine (acetaminophen/butalbita l/caffeine/codeine 300 mg-50 mg-40 mg-30 mg oral capsule) albuterol (albuterol 0.083% Inh Lois 3 mL) albuterol (albuterol HFA 90 mcg/inh MDI) busPIRone (busPIRone 10 mg Tab) fluticasone/umeclidinium /vilanterol (Trelegy Ellipta 200 mcg-62.5 mcg-25 mcg/inh inhalation powder) furosemide (Lasix 20 mg Tab) ketorolac (ketorolac 10 mg Tab) lamotrigine (lamotrigine 100 mg Tab) omeprazole (omeprazole 20 mg Cap-DR) venlafaxine (venlafaxine 75 mg Cap-ER) Procedures Performed Colonoscopy (10/06/2023), EGD - esophagogastroduodenosco py (10/06/2023), Hysteroscopy, surgical; with endometrial ablation (eg, endometrial resection, electrosurgical ablation, thermoablation) (08/04/2023), section, section, EGD - esophagogastroduodenosco py, Nasal septoplasty. Medications What How Much When Instructions Unchanged albuterol (albuterol 0.083% Inh Lois 3 mL) 3 Milliliter Nebulized inhalation (aerosol) Every 6 hours as needed for Shortness of breath or wheezing Contact prescribing physician if questions or concerns Unchanged albuterol (albuterol HFA 90 mcg/ inh MDI) 2 Puffs Inhalation Every 4 hours as needed for for wheezing Contact prescribing physician if questions or concerns Unchanged APAP/ butalbital/ caffeine/ codeine (acetaminophen/ butalbital/ caffeine/ codeine 300 mg-50 mg-40 mg-30 mg oral capsule) 1 Capsules By Mouth Every 6 hours as needed for Headache Contact prescribing physician if questions or concerns Unchanged busPIRone (busPIRone 10 mg Tab) 1 Tablets By Mouth Every day Contact prescribing physician if questions or concerns Unchanged fluticasone/ umeclidinium/ vilanterol (Trelegy Ellipta 200 mcg-62.5 mcg-25 mcg/ inh inhalation powder) 1 Puffs Inhalation Every day Contact prescribing physician if questions or concerns Unchanged furosemide (Lasix 20 mg Tab) 1 Tablets By Mouth Every day as needed for Edema Contact prescribing physician if questions or concerns Unchanged ketorolac (ketorolac 10 mg Tab) 1 Tablets By Mouth 3 times a day as needed for for pain Contact prescribing physician if questions or concerns Unchanged lamotrigine (lamotrigine 100 mg Tab) 1 Tablets By Mouth Every day Contact prescribing physician if questions or concerns Unchanged omeprazole (omeprazole 20 mg Cap-DR) 1 Capsules By Mouth Every day Contact prescribing physician if questions or concerns Unchanged venlafaxine (venlafaxine 75 mg Cap-ER) 1 Capsules By Mouth Every day Contact prescribing physician if questions or concerns Allergies No Known Allergies Problems Ongoing - Any problem that you are currently receiving treatment for. Abdominal bloating Abdominal pain Abnormal gallbladder ultrasound Abnormal uterine bleeding. Anemia Anxiety Asthma-chronic obstructive pulmonary disease overlap syndrome Bipolar disorder BMI 36.0-36.9,adult Change in bowel habits Chronic cough Epigastric pain Insomnia Migraine Obesity (BMI 30-39.9) Obesity due to excess calories Seasonal allergy Seizure Smoker Tobacco use Varicose veins of lower extremity Historical - Any problem that you are no longer receiving treatment for. Seizures Patient Survey You may receive a survey via text or e-mail asking about your office visit. Please share your experience with us by completing your survey. We appreciate your feedback and thank you for choosing us for your care. Marcela [facility] Reminderson 10-22-2023 Reminders Reminders From: Palma Gloria LPN To: N - Clinical; Sent: 10/22/2023 11:40:26 EDT Show up: 09/05/2033 07:00:00 EDT Subject: colonoscopy recall Due Date/Time: 10/05/2033 07:00:00 EDT Reminder/Recall Patient due for screening colonoscopy 10/05/2033 [facility] EGDon 10-20-2023 Esophagogastroduodenosc opy EGD Patient: MERE ESTEBAN Age: 43 years Sex: Female : 1980 Associated Diagnoses: None Author: Yadiel CASAREZ MD Pre-Procedure Procedure Date 10/06/2023 09:15:00 . Procedure Type: Esophagogastroduodenosco py with biopsy. Procedure provider Performed by Yadiel CASAREZ MD. Pre-procedure diagnosis: Epigastric pain. ASA Classification: Class II. . Monitoring: See anesthesia record. . Procedure The procedure was performed in the hospital. See anesthesia record for sedation given during procedure. The patient was positioned starting in the left lateral decubitus position. Endoscope type used was an adult-size, introduced orally, advanced to the 2nd portion of the duodenum. No difficulty was encountered during the procedure. Views were excellent. Gastric biopsies were taken of the antrum. The patient tolerated the procedure well. Findings Examination of the esophagus revealed a normal esophagus. The squamocolumnar junction appeared regular. Gastritis was identified at the greater curvature of the antrum. The affected area was erythematous. The gastritis is mildly severe. A single biopsy was collected. Examination of the duodenum revealed a normal duodenum. Images Procedure images: hiatus antrum GE junction . Post-Procedure Complications: none. Estimated blood loss: 1 milliliters. Specimens: sent to pathology. Devices/ implants: none left in place. Impression and Plan EGD: Diagnosis: Antral gastritis ([id number]-KH K29.50, Working, Medical). Course: Progressing as expected. Education and Follow-up: Counseled: Family. [facility] Comment on above: Other Comment: Lucille acosta Attachment - attachment storage system not supported [id number] Can be viewed in source system Missing Attachment - attachment storage system not supported [id number] Can be viewed in source system Missing Attachment - attachment storage system not supported [id number] Can be viewed in source system Surgical Pathology Reporton 10-16-2023 Surgical Pathology Report [facility] [address] [place] [address]- Surgical Pathology Report Collected Date/Time: 10/06/2023 08:45 EDT Pathologist: Freddy Knight MD Received Date/Time: 10/06/2023 10:07 EDT LEIDA LINDSEY, Yadiel CASAREZ MD, Yadiel Gardner Surgical Pathology Report - 10/16/2023 13:55 EDT - Auth (Verified) Final Diagnosis A: STOMACH, ANTRUM, BIOPSY: - Antral-type gastric mucosa with reactive gastropathy. - No Helicobacter pylori microorganisms identified with immunohistochemical stain. . B: COLON, DESCENDING, POLYPECTOMY: - Fragments of hyperplastic polyp. C: RECTUM, POLYPECTOMY: - Fragments of hyperplastic polyp. D: RECTUM, BIOPSY: - Benign colonic mucosa with no significant histopathology. - No evidence of chronic, active or microscopic colitis identified. (Electronic Signature) Yan. Antonia MD 10/16/2023 13:55 Clinical Information Right upper quadrant pain, abdominal pain Pre-Op Diagnosis: Right upper quadrant pain, abdominal pain Procedure: EGD, colonoscopy Post-Op Diagnosis: 1.Colon polyps 2.Rectal inflammation Specimen(s) Received A: Antral biopsy B: Descending colon polyp C: Rectal polyp D: Rectal biopsy Gross Description A: Received in formalin labeled with patient name, number, and antral biopsy are two fragments of adler/pink tissue measuring 0.1to 0.2 cm in greatest dimension. The specimen is entirely submitted in one cassette. B: Received in formalin labeled with patient name, number, and descending colon polyp are four fragments of adler/pink tissue ranging from 0.1 to 0.4 cm in greatest dimension, measuring in aggregate 0.9 x 0.8 x 0.1 cm. Specimen is entirely submitted in one cassette. C: Received in formalin labeled with patient name, number, and rectal polyp is a adler/pink polypoid tissue measuring 0.5 x 0.4 x 0.1 cm. Specimen is entirely submitted in one cassette. D: Received in formalin labeled with patient name, number, and rectal biopsy is a single fragment of adler/pink tissue measuring 0.2 x 0.2 x 0.1 cm. Specimen is entirely submitted in one cassette. (DC) DC:[facility] Microscopic Description A-D: Microscopic examination performed unless gross only specified. Surgical Pathology Report Collected Date/Time: 10/06/2023 08:45 EDT Pathologist: Freddy Knight MD Received Date/Time: 10/06/2023 10:07 EDT LEIDA LINDSEY, Yadiel CASAREZ MD, Yadiel Hughes Microscopic Description The use of one or more reagents in the above tests is regulated as an analyte specific reagent (ASR). The test or tests are ordered following initial H&E microscopic examination. The performance characteristics were determined by the Laboratory of [facility]. They have not been cleared or approved by the US Food and Drug Administration. The FDA has determined that such clearance or approval is not necessary. These tests are used for clinical purposes. They should not be regarded as investigational or for research. Appropriate positive and negative controls are performed and are acceptable. Normal [facility] Comment on above: Performed By: #### [id number] #### [facility] [address] [place] [address] CT ABDOMEN PELVIS W WO CONTR Lanette 10-07-2023 CT ABDOMEN PELVIS W WO CONTRAST EXAMINATION: CT OF THE ABDOMEN AND PELVIS WITH AND WITHOUT CONTRAST 10/02/2023 4:16 pm TECHNIQUE: CT of the abdomen and pelvis was performed with and without the administration of intravenous contrast. Multiplanar reformatted images are provided for review. Automated exposure control, iterative reconstruction, and/or weight based adjustment of the mA/kV was utilized to reduce the radiation dose to as low as reasonably achievable. COMPARISON: None. HISTORY: ORDERING SYSTEM PROVIDED HISTORY: Upper abdominal pain TECHNOLOGIST PROVIDED HISTORY: STAT Creatinine as needed:->Yes FINDINGS: CARDIOVASCULAR: The visualized heart and pericardium demonstrate no acute abnormality. The aorta and branch vessels are patent and normal in caliber. LUNG BASES: There are no focal consolidations or pleural effusions. HEPATOBILIARY: Tiny hypodensity noted which is too small to characterize.. There is no biliary ductal dilatation. The gallbladder is unremarkable. SPLEEN: Unremarkable. PANCREAS: Unremarkable ADRENAL GLANDS: Unremarkable. KIDNEYS: Kidneys are normal in size and contour and demonstrate symmetric enhancement. There is no hydronephrosis. ABDOMINAL NODES: No adenopathy is appreciated. PELVIC ORGANS: The urinary bladder is unremarkable. The uterus is unremarkable. PERITONEUM/MESENTERY/BOW EL: The stomach is unremarkable. There is no bowel obstruction. There is no bowel wall thickening. The appendix is normal. BONES/SOFT TISSUES: There is no acute osseous or soft tissue abnormality. IMPRESSION: No acute intra-abdominal or pelvic process. Interpreted by: Micheal Wheeler MD Signed by: Micheal Wheeler MD 10/07/23 Final result Normal [facility] Main OR Intraoperative Recor don 10-07-2023 Main OR Intraoperative Record Main OR Intraoperative Record IntraOp Document Type FT Summary Primary Physician: Yadiel CASAREZ MD Finalized Date/Time: 10/07/23 11:23:45 Pt. Name: ROSARIO ESTEBANDARYL Eden/Sex: 1980 Female Med Rec #: [id number] Physician: Yadiel CASAREZ MD Financial #: [id number] Pt. Type: O Room/Bed: / Admit/Disch: 10/06/23 07:40:17 - 10/06/23 23:59:59 Institution: Case Times FT Entry 1 Patient Times In Room 10/06/23 08:35:00 Out Room 10/06/23 09:11:00 Procedure Times Start 10/06/23 08:40:00 Stop 10/06/23 09:09:00 Anesthesia Times Start 10/06/23 08:35:00 Stop 10/06/23 09:11:00 Time at [place] 10/06/23 08:52:00 Last Modified By: Suad Matthews RN 10/06/23 09:11:16 General Comments: 0845-EGD completed/AW RN 0848-Colonoscopy started/AW RN 10/07/23 Chart opened to review and send charges LRoth CSFA Case Attendance FT Entry 1 Entry 2 Entry 3 Case Attendee Alonso MCCABE, Anthony CASAREZ MD, Yadiel Matthews RN, Suad Role Performed ELIOT Surgeon - Primary Setter Induction Heating Equipment - Primary Time In 10/06/23 08:35:00 10/06/23 08:35:00 10/06/23 08:35:00 Time Out 10/06/23 09:11:00 10/06/23 09:11:00 10/06/23 09:11:00 Procedure EGD AND COLONOSCOPY(.) EGD AND COLONOSCOPY(.) EGD AND COLONOSCOPY(.) Comments Dr. Brothers supervising Last Modified By: Byron PENA, Suad Matthews RN, Suad Jay RN 10/06/23 09:11:16 10/06/23 09:11:16 10/06/23 09:11:16 Entry 4 Case Attendee Donna French Role Performed Scrub - Primary Time In 10/06/23 08:35:00 Time Out 10/06/23 09:11:00 Procedure EGD AND COLONOSCOPY(.) Comments Last Modified By: Suad Matthews RN 10/06/23 09:11:16 Perioperative Protocols FT Pre-Care Text: Implements protective measures prior to operative or invasive procedure, confirms identity before the operative or invasive procedure, verifies operative procedure, surgical site, and laterality Entry 1 Procedure(s) EGD AND COLONOSCOPY(.) Patient Identity Birthday, ID Band Verified (select at Check, Patient least 2): Participation Consents / H and P Anesthesia Consent, Operative Site N/A Verified H&P, Surgery/Procedure Marking Verified Consent Surgical Site No Laterality Verified n/a Verified Procedure Verified Yes Correct Patient Yes Position Verified Availability Equipment, Medication Prep Dry n/a Verified (If Applicable) Time Out Anthony Sanchez CRNA, Time Out Complete 10/06/23 08:38:00 Participants Yadiel CASAREZ MD, Workman RN, Manolo Borjas Micala E Outcomes Met? Yes Last Modified By: Suad Matthews RN 10/06/23 08:44:14 Post-Care Text: The patient is free from signs and symptoms of injury caused by extraneous objects Allergy Information FT Pre-Care Text: Verifies allergies Entry 1 Allergies Reviewed? Yes Allergies Reviewed Self/Patient With Outcomes Met? Yes Last Modified By: Suad Matthews RN 10/06/23 08:44:21 Post-Care Text: The patient received appropriate medication(s) safely administered during the perioperative period Surgical Procedures FT Entry 1 Procedure Description Procedure EGD AND COLONOSCOPY Modifiers . Surgeon Description EGD with antral biopsy . COLONOSCOPY with descending colon polypectomy, rectal biopsy and rectal polypectomy Primary Procedure Yes Primary Surgeon Yadiel CASAREZ MD 10/06/23 08:40:00 Stop 10/06/23 09:09:00 Anesthesia Type General Surgical Service General Wound Class 2 - Clean-Contaminated Last Modified By: Suad Matthews RN 10/06/23 09:09:10 General Case Data FT Pre-Care Text: Classifies surgical wound, implements aseptic technique, initiates traffic control Entry 1 Case Information OR ENDO 2 FT Case Level Level 2 Wound Class 2 - Clean-Contaminated Specialty General ASA Class 3 Preop Diagnosis RIGHT UPPER QUAD PAIN, Postop Same As Preop No ABDOMINAL PAIN Postop Diagnosis EGD-antral gastritis. Outcomes Met? Yes Colonoscopy-descending colon polyp, rectal polyp and rectal inflammation Last Modified By: Suad Matthews RN 10/06/23 09:09:16 Post-Care Text: The patient is free from signs and symptoms of infection Skin Assessment (Pre Procedure) FT Pre-Care Text: Implements protective measures to prevent skin/ tissue injury due to thermal or mechanical sources Evaluates for signs and symptoms of physical injury to skin and tissue Entry 1 Skin Integrity Intact, [place], Warm, & Skin Abnormality No Dry Outcomes Met? Yes Last Modified By: Suad Matthews RN 10/06/23 08:45:04 Post-Care Text: The patient is free from signs and symptoms of injury caused by extraneous objects Patient Positioning FT Pre-Care Text: Identifies physical alterations that require additional precautions for procedure-specific positioning, verifies presence of prosthetics or corrective devices, positions the patient, evaluates the patient for signs and symptoms of injury as a result of positioning Entry 1 Procedure EGD AND COLONOSC (more content not included)... Normal [facility] Discharge Instructionson Discharge Instructions Discharge Instruc tions MERE ESTEBAN :1980 Visit Date:10/06/2023 Inpatient Discharge Instructions Your Care Team Admitting Physician - Yadiel CASAREZ MD Referring Physician - Yadiel CASAREZ MD Reason for Your Visit RIGHT UPPER QUAD PAIN, ABDOMINAL PAIN Your Diagnosis Colon polyps Rectal inflammation Tests Performed Pathology Tissue Exam -- Results Pending -- Please visit your patient portal for your results or contact your primary care physician. This Is Your Medications List APAP/butalbital/caffeine /codeine (acetaminophen/butalbita l/caffeine/codeine 300 mg-50 mg-40 mg-30 mg oral capsule) albuterol (albuterol 0.083% Inh Lois 3 mL) albuterol (albuterol HFA 90 mcg/inh MDI) busPIRone (busPIRone 10 mg Tab) fluticasone/umeclidinium /vilanterol (Trelegy Ellipta 200 mcg-62.5 mcg-25 mcg/inh inhalation powder) furosemide (Lasix 20 mg Tab) ketorolac (ketorolac 10 mg Tab) lamotrigine (lamotrigine 100 mg Tab) venlafaxine (venlafaxine 75 mg Cap-ER) Procedure History Colonoscopy (10/06/2023), EGD - esophagogastroduodenosco py (10/06/2023), Hysteroscopy, surgical; with endometrial ablation (eg, endometrial resection, electrosurgical ablation, thermoablation) (08/04/2023), section, section, EGD - esophagogastroduodenosco py, Nasal septoplasty. Discharge Vitals Temperature (Temporal Artery) 36.8 ?C Heart Rate (Monitored) 93 Respiratory Rate 25 Blood Pressure 133/79 Height 167 cm Weight 101.6 kg BMI 36.43 What to do next Instructions From Your Doctor Event Name Event Result Discharge Activity Resume normal activities in 24 hours, Arrange for a responsible adult supervision for 24 hours Discharge Restrictions No driving for 24 hrs, Do not operate machinery or tools, Do not make important decisions for 24 hours, Do not drink alcoholic beverages for 24 hours Discharge Diet(s) Regular Call Your Doctor For Persistent or heavy bleeding, Temperature above 101.5 degrees, Redness, swelling, or pus at operative site, Severe pain at the operative site, Persistent vomiting Discharge Instructions Discharge Instructions New Follow Up Appointments after Discharge Follow Up with Yadiel CASAREZ When: Within 7 to 10 days Where: [place], [facility] [address] [address]- Business (1) Medications What How Much When Instructions Next Dose Unchanged albuterol (albuterol 0.083% Inh Lois 3 mL) 3 Milliliter Nebulized inhalation (aerosol) Every 6 hours as needed for Shortness of breath or wheezing Unchanged albuterol (albuterol HFA 90 mcg/ inh MDI) 2 Puffs Inhalation Every 4 hours as needed for for wheezing Unchanged APAP/ butalbital/ caffeine/ codeine (acetaminophen/ butalbital/ caffeine/ codeine 300 mg-50 mg-40 mg-30 mg oral capsule) 1 Capsules By Mouth Every 6 hours as needed for Headache Unchanged busPIRone (busPIRone 10 mg Tab) 1 Tablets By Mouth Every day Unchanged fluticasone/ umeclidinium/ vilanterol (Trelegy Ellipta 200 mcg-62.5 mcg-25 mcg/ inh inhalation powder) 1 Puffs Inhalation Every day Unchanged furosemide (Lasix 20 mg Tab) 1 Tablets By Mouth Every day as needed for Edema Unchanged ketorolac (ketorolac 10 mg Tab) 1 Tablets By Mouth 3 times a day as needed for for pain Unchanged lamotrigine (lamotrigine 100 mg Tab) 1 Tablets By Mouth Every day Unchanged venlafaxine (venlafaxine 75 mg Cap-ER) 1 Capsules By Mouth Every day Allergies No Known Allergies Problems Ongoing - Any problem that you are currently receiving treatment for. Abdominal bloating Abdominal pain Abnormal gallbladder ultrasound Abnormal uterine bleeding. Anemia Anxiety Asthma-chronic obstructive pulmonary disease overlap syndrome Bipolar disorder BMI 36.0-36.9,adult Change in bowel habits Chronic cough Epigastric pain Insomnia Migraine Obesity (BMI 30-39.9) Obesity due to excess calories Seasonal allergy Seizure Smoker Tobacco use Varicose veins of lower extremity Historical - Any problem that you are no longer receiving treatment for. Seizures Education Materials Colonoscopy Care After Surgery Please read the instructions outlined below and refer to this sheet in the next few weeks. These discharge instructions provide you with general information on caring for yourself after you leave the hospital. Your doctor may also give you specific instructions. While your treatment has been planned according to the most current medical practices available, unavoidable complications occasionally occur. If you have any problems or questions after discharge, please call your doctor. ACTIVITY You may resume your regular activity, but move at a slower pace for the next 24 hours. Take frequent rest periods for the next 24 hours. Walking will help get rid of the air and reduce the bloated feeling in your abdomen (belly). No driving for 24 hours (because of the (more content not included)... Normal [facility] Comment on above: Result Comment: Elec tronically Signed By: Ori PENA, Valeria\.br\Date and Time Signed: 10/06/23 09:28 EDT Inpatient Patient Summaryon 10-06-2023 Inpatient Patient Summary Inpatient Patient Summary [address] [address] [facility] Clinical Discharge Instructions PERSON INFORMATION Name: MERE ESTEBAN PHYSICIANS Admitting Physician: Yadiel CASAREZ MD Attending Physician: Yadiel CASAREZ MD PCP: ZENAIDA PAZ Discharge Diagnosis: Colon polyps; Rectal inflammation Comment: PATIENT EDUCATION INFORMATION Instructions: Medication Leaflets: Follow up: With: Address: When: Yadiel CASAREZ [address] [place] [address], [address], [address] [address] [facility] (1) Within 7 to 10 days MEDICATION LIST Medications to Continue with No Changes Other Medications albuterol (albuterol 0.083% Inh Lois 3 mL) 3 Milliliter Nebulized inhalation (aerosol) every 6 hours as needed Shortness of breath or wheezing. albuterol (albuterol HFA 90 mcg/inh MDI) 2 Puffs Inhalation every 4 hours as needed for wheezing. Refills: 0. APAP/butalbital/caffeine /codeine (acetaminophen/butalbita l/caffeine/codeine 300 mg-50 mg-40 mg-30 mg oral capsule) 1 Capsules By Mouth every 6 hours as needed Headache. busPIRone (busPIRone 10 mg Tab) 1 Tablets By Mouth every day. fluticasone/umeclidinium /vilanterol (Trelegy Ellipta 200 mcg-62.5 mcg-25 mcg/inh inhalation powder) 1 Puffs Inhalation every day. furosemide (Lasix 20 mg Tab) 1 Tablets By Mouth every day as needed Edema. ketorolac (ketorolac 10 mg Tab) 1 Tablets By Mouth 3 times a day as needed for pain. lamotrigine (lamotrigine 100 mg Tab) 1 Tablets By Mouth every day. venlafaxine (venlafaxine 75 mg Cap-ER) 1 Capsules By Mouth every day. Comment: Normal [facility] Main OR PACU I Recordon 09-15 Main OR PACU I Record Main OR PACU I Rec ord PACU Phase I Document Type FT Summary Primary Physician: Yadiel CASAREZ MD Finalized Date/Time: 10/06/23 09:53:44 Pt. Name: MERE ESTEBAN Mandy Eden/Sex: 1980 Female Med Rec #: [id number] Physician: Yadiel CASAREZ MD Financial #: [id number] Pt. Type: O Room/Bed: / Admit/Disch: 10/06/23 07:40:17 - Institution: Case Times PACU I FT Pre-Care Text: Identifies barriers to communication and implements measures to provide psychological support Develops individualized plan of care, and ensures continuity of care Maintains patient's dignity and privacy, and maintains patient confidentiality Identifies and reports philosophical, cultural, and spiritual beliefs and values Identifies individual values and wishes concerning care Implements aseptic technique, and administers prescribed antibiotic therapy and immunizing agents as ordered Evaluates postoperative tissue perfusion Implements thermoregulation measures, and monitors body temperature Evaluates postoperative respiratory status Evaluates postoperative cardiac status Evaluates postoperative neurological status Assesses pain control, collaborated in initiating patient-controlled analgesia and implements alternative methods of pain control Verifies allergies, administers prescribed medications and solutions, evaluates response to medications Entry 1 In PACU I 10/06/23 09:13:00 Discharge from PACU 10/06/23 09:33:00 I Outcomes Met? Yes Last Modified By: Valeria Rehman RN 10/06/23 09:53:34 Post-Care Text: The patient demonstrates knowledge of the expected response to the operative or invasive procedure The patient's care is consistent with the individualized perioperative plan of care The patient's right to privacy is maintained The patient's value system, lifestyle, ethnicity, and culture are considered, respected, and incorporated into the perioperative plan of care The patient participates in decisions affecting his or her perioperative plan of care The patient is free from signs and symptoms of infection The patient has wound/tissue perfusion consistent with or improved from baseline levels established preoperatively The patient is at or returning to normothermia at the conclusion of the immediate postoperative period The patient's respiratory function is consistent with or improved from baseline levels established preoperatively The patient's cardiovascular status is consistent with or improved from baseline levels established preoperatively The patient's cardiovascular status is consistent with or improved from baseline levels established preoperatively The patient demonstrates and/or reports adequate pain control throughout the perioperative period The patient received appropriate medication(s), safely administered during the perioperative period Acuity Level PACU I FT Entry 1 Start Time 10/06/23 09:13:00 Stop Time 10/06/23 09:33:00 Acuity Level Acuity Level I Last Modified By: Valeria Rehman RN 10/06/23 09:53:30 Finalized By: Valeria Rehman RN Document Signatures Signed By: Valeria Rehman RN 10/06/23 09:53 Normal [facility] Main OR Preoperative Recordo n 10-06-2023 Main OR Preoperative Record Main OR Preoperative Record Holding Area Document Type FT Summary Primary Physician: Yadiel CASAREZ MD Finalized Date/Time: 10/06/23 08:15:54 Pt. Name: MERE ESTEBAN Mandy Eden/Sex: 1980 Female Med Rec #: [id number] Physician: Yadiel CASAREZ MD Financial #: [id number] Pt. Type: O Room/Bed: / Admit/Disch: 10/06/23 07:40:17 - Institution: Case Times Holding FT Pre-Care Text: Verifies consent for planned procedure, identifies individual values and wishes concerning care, includes family members in perioperative teaching Secures patient's records' belongings, and valuables, maintains patient's dignity and privacy, and maintains patient confidentiality Entry 1 In Holding 10/06/23 08:06:00 Outcomes Met? Yes Last Modified By: Carrington Quiles RN 10/06/23 08:14:48 Post-Care Text: The patient participates in decisions affecting his or her perioperative plan of care The patient's right to privacy is maintained Surgery Checklist FT Entry 1 Patient Birthday, ID Band Procedure History and Physical, Identification: Check, Patient Verification: Surgical Consent, With Participation Patient NPO after Midnight: No Date/Time: 10/06/23 03:30:00 Results Reviewed yellow liquid bowel Personal Items: Jewelry Comments: results Personal Items clothing, shoes, ring Limitations: none Comment: x1, watch Complaints of Pain: Yes Pain Comment: abdominal pain 09/23 Operative Site n/a Marked By: n/a Marking: Location: n/a Availability Equipment Verified: Does Patient Smoke Yes If Yes to Smoking. 1 pack per day Cigars or Cigarettes. How much per day? Patient states Yes Comment - Adult tiffany postop adult Supervision supervision available Case Cancelled in No Holding Area see comments below for reason Last Modified By: Carrington Quiles RN 10/06/23 08:15:53 Finalized By: Carrington Quiles RN Document Signatures Signed By: Carrington Quiles RN 10/06/23 08:15 Normal [facility] Outpatient Surgery Discharge Instructionon 10-06-2023 Outpatient Surgery Discharge Instruction Outpatient Surgery Discharge Instruction [place] [id number] Patient Discharge Instructions PERSON INFORMATION Name: MERE ESTEBAN Date of : 1980 Current Date: 10/06/2023 09:14:57 PHYSICIANS Admitting Physician: Yadiel CASAREZ MD Discharge Diagnosis: Colon polyps; Rectal inflammation MERE ESTEBAN has been given the following list of follow-up instructions, prescriptions, and patient education materials: PATIENT FOLLOW-UP INFORMATION Diet: Regular Discharge Activity: Resume normal activities in 24 hours, Arrange for a responsible adult supervision for 24 hours Discharge Restrictions: No driving for 24 hrs, Do not operate machinery or tools, Do not make important decisions for 24 hours, Do not drink alcoholic beverages for 24 hours Call Your Doctor For: Persistent or heavy bleeding, Temperature above 101.5 degrees, Redness, swelling, or pus at operative site, Severe pain at the operative site, Persistent vomiting IF UNABLE TO CONTACT YOUR PHYSICIAN AND YOU FEEL IT IS AN EMERGENCY, GO TO THE NEAREST EMERGENCY ROOM OR CALL 911 I, MERE ESTEBAN, have received the attached patient education materials/instructions and have verbalized understanding: May we do a follow up call? Yes No I was present when discharge instructions were given Patient Signature Date Clinican/Nurse Signature Date Follow up: With: Address: When: Yadiel LEIDA [address], [address], [facility] [address] [place] [address] Business (1) Within 7 to 10 days Pharmacy Information: You may receive a survey from Marely Shepard asking you to rate your care experience. Your feedback is important and will help us understand what we do well and how we can improve the quality of care we provide to you, your loved ones and our community. It?s an honor to serve you. Thank you for choosing [facility] HERE ARE THE MEDICATION CHANGES THAT OCCURRED DURING YOUR HOSPITAL STAY Medications to Continue with No Changes Other Medications albuterol (albuterol 0.083% Inh Lois 3 mL) 3 Milliliter Nebulized inhalation (aerosol) every 6 hours as needed Shortness of breath or wheezing. albuterol (albuterol HFA 90 mcg/inh MDI) 2 Puffs Inhalation every 4 hours as needed for wheezing. Refills: 0. APAP/butalbital/caffeine /codeine (acetaminophen/butalbita l/caffeine/codeine 300 mg-50 mg-40 mg-30 mg oral capsule) 1 Capsules By Mouth every 6 hours as needed Headache. busPIRone (busPIRone 10 mg Tab) 1 Tablets By Mouth every day. fluticasone/umeclidinium /vilanterol (Trelegy Ellipta 200 mcg-62.5 mcg-25 mcg/inh inhalation powder) 1 Puffs Inhalation every day. furosemide (Lasix 20 mg Tab) 1 Tablets By Mouth every day as needed Edema. ketorolac (ketorolac 10 mg Tab) 1 Tablets By Mouth 3 times a day as needed for pain. lamotrigine (lamotrigine 100 mg Tab) 1 Tablets By Mouth every day. venlafaxine (venlafaxine 75 mg Cap-ER) 1 Capsules By Mouth every day. PATIENT EDUCATION INFORMATION Instructions: Medication Leaflets: Normal [facility] ED Note-Physicianon 09-10-19 ED Note-Physician [id number]#1.00TIF F [facility] RAD - Ultrasound Reporton RAD - Ultrasound Report [id number]#1.00TIFF [facility] COMPLETE BLOOD COUNTon 09-02 Erythrocyte distribution width (RBC) [Ratio] 15.0 % Normal 11.5-15.0 [facility] Comment on above: Performed By: #### C RAYMUNDO [facility], 38467-5, 3024-7, [facility], 97703-4 ####[facility] ([id number])[address] [address] Hematocrit (Bld) [Volume fraction] 41.6 % Normal 35-47 [facility] Comment on above: Performed By: #### Leila FONSECA CMP, 19665-1, 3024-7, [facility], 81303-2 ####[facility] ([id number])[address] [address] Hemoglobin (Bld) [Mass/Vol] 14.0 g/dL Normal 11.7-15.5 [facility] Comment on above: Performed By: #### Leila FONSECA [facility], 26520-8, 3024-7, [facility], 49377-9 ####[facility] ([id number])[address] [address] MCH (RBC) [Entitic mass] 31.6 pg Normal 27-34 [facility] Comment on above: Performed By: #### C BC, CMP, 70904-2, 3024-7, HA1C, 18939-8 ####[facility] ([id number])[address] [address] [place] [address] MCHC (RBC) [Mass/Vol] 33.7 g/dL Normal 32-36 [facility] Comment on above: Performed By: #### C BC, CMP, 83918-3, 3024-7, 1C, 23526-9 ####[facility] ([id number])[address] [address] [place] [address] MCV (RBC) [Entitic vol] 94 fL Normal 80-100 [facility] Comment on above: Performed By: #### Leila BC, CMP, 21042-7, 3024-7, HA1C, 00824-8 ####[facility] ([id number])[address] [address] [place] [address] Platelet mean volume (Bld) [Entitic vol] 8.4 fL Normal 7-12 [facility] Comment on above: Performed By: #### C BC, CMP, 11581-7, 3024-7, HA1C, 49318-2 ####[facility] ([id number])[address] [address] Platelets (Bld) [#/Vol] 319 10*3/uL Normal 150-450 [facility] Comment on above: Performed By: #### C BC, CMP, 30677-7, 3024-7, HA1C, 08193-2 ####[facility] ([id number])[address] [address] RBC COUNT 4.43 X10E12/L Normal 3.80-5.20 [facility] Comment on above: Performed By: #### C BC, CMP, 17232-9, 3024-7, HA1C, 82195-5 ####[facility] ([id number])[address], [address] [address] WBC (Bld) [#/Vol] 8.0 10*3/uL Normal 4.0-11.0 [facility] Comment on above: Performed By: #### C BC, CMP, 45919-1, 3024-7, HA1C, 38073-4 ####[facility] ([id number])[address], [address] [address] COMPREHENSIVE METABOLIC PANE Nito 09-03-2023 Albumin [Mass/Vol] 4.0 g/dL Normal 3.2-5.3 [facility] Comment on above: Performed By: #### C BC, CMP, 33717-1, 3024-7, HA1C, 20501-9 ####[facility] ([id number])[address] [address] [address] ALP [Catalytic activity/Vol] 77 U/L Normal 39-130 [facility] Comment on above: Performed By: #### C BC, CMP, 09599-5, 3024-7, HA1C, 77321-0 ####[facility] ([id number])[address] [address] [address] ALT [Catalytic activity/Vol] 19 U/L Normal 0-31 [facility] Comment on above: Performed By: #### C BC, CMP, 66946-4, 3024-7, HA1C, 29189-8 ####[facility] ([id number])[address], [address], [place] [address] Anion gap [Moles/Vol] 10 mmol/L Normal 5-15 [facility] Comment on above: Performed By: #### C BC, CMP, 84387-0, 3024-7, HA1C, 87395-5 ####[facility] ([id number])[address], [address], [place] [address] AST [Catalytic activity/Vol] 19 U/L Normal 0-41 [facility] Comment on above: Performed By: #### C BC, CMP, 66726-9, 3024-7, HA1C, 53590-3 ####[facility] ([id number])[address], [address], [place] [address] Bilirubin [Mass/Vol] 0.7 mg/dL Normal 0.3-1.2 [facility] Comment on above: Performed By: #### C BC, CMP, 32235-5, 3024-7, HA1C, 41234-1 ####[facility] ([id number])[address], [address], [place] [address] Calcium [Mass/Vol] 9.0 mg/dL Normal 8.5-10.5 [facility] Comment on above: Performed By: #### Leila BC, CMP, 54271-5, 3024-7, [facility], 71665-0 ####[facility] ([id number])[address] [address], [place] [address] Chloride [Moles/Vol] 101 mmol/L Normal 98-109 [facility] Comment on above: Performed By: #### Leila BC, CMP, 05577-5, 3024-7, HA1C, 32721-8 ####[facility] ([id number])[address], [address], [place] [address] CO2 [Moles/Vol] 27 mmol/L Normal 22-32 [facility] Comment on above: Performed By: #### C BC, CMP, 57850-2, 3024-7, HA1C, 63687-6 ####[facility] ([id number])[address], [address], [place] [address] Creatinine [Mass/Vol] 0.71 mg/dL Normal 0.40-1.00 [facility] Comment on above: Result Comment: METH OD TRACEABLE TO IDMS STANDARD Performed By: #### C BC, CMP, 86466-0, 3024-7, HA1C, 46273-6 ####[facility] ([id number])[address] [address], [place] [address] eGFR (CKD-EPI) NON-RACE DEPENDENT >90 Normal >59 [facility] Comment on above: Result Comment: Reported eGFR is based on the CKD-EPI 2020 equation that does not use a race coefficient. Performed By: #### C BC, CMP, 46500-1, 3024-7, HA1C, 22559-5 ####[facility] ([id number])[address] [address] [place] [address] Glucose [Mass/Vol] 88 mg/dL Normal 65-99 [facility] Comment on above: Performed By: #### C BC, CMP, 37716-9, 3024-7, HA1C, 04833-5 ####[facility] ([id number])[address] [address] [address] Potassium [Moles/Vol] 3.7 mmol/L Normal 3.5-5.0 [facility] Comment on above: Performed By: #### C BC, CMP, 75875-3, 3024-7, HA1C, 51228-1 ####[facility] ([id number])[address] [address], [place] [address] Protein [Mass/Vol] 6.9 g/dL Normal 6.0-8.0 [facility] Comment on above: Performed By: #### C BC, CMP, 91583-9, 3024-7, HA1C, 10769-9 ####[facility] ([id number])[address] [address] [address] Sodium [Moles/Vol] 138 mmol/L Normal 134-146 [facility] Comment on above: Performed By: #### C BC, CMP, 30509-6, 3024-7, HA1C, 52845-1 ####[facility] ([id number])[address] [address] Urea nitrogen [Mass/Vol] 8 mg/dL Normal 5- [facility] Comment on above: Performed By: #### Leila BC, CMP, 02292-1, 3024-7, HA1C, 67725-9 ####[facility] ([id number])[address] [address] FREE T4on 09-03-2023 Free T4 [Mass/Vol] 0.81 ng/dL Normal 0.61-1.60 [facility] Comment on above: Performed By: #### Leila BC, [facility], 61519-1, 4-7, HA1C, 50346-2 ####[facility] ([id number])[address] [address] HGB A1C (GLYCO-HGB)on 2023 Glucose [Mass/Vol] 103 mg/dL Normal [facility] Comment on above: Performed By: #### [place], 45954-8, 3015-3, 4-7, 2842-3, 74932-2, 10462-9 #### [facility] ([id number]) [address] [address] [place] [address] HbA1c (Bld) [Mass fraction] 5.2 % Normal 4.4-5.6 [facility] Comment on above: Result Comment: NOTE ADA Guidelines Result HgbA1c Normal : less than 5.7 % Prediabetes : 5.7 % to 6.4 % Diabetes : > 6.4 % Use with caution in patients with abnormal hemoglobin variants as the half-life of red blood cells and in vivo glycation rates are affected. Performed By: #### Leila BC, 86934-9, 6-3, 4-7, 2842-3, 82780-9, 51255-8 #### [facility] ([id number]) [address], [address] [place] [address] Lipid 1996 panelon 4 Cholesterol [Mass/Vol] 171 mg/dL Normal 150-200 [facility] Comment on above: Performed By: #### Leila BC, CMP, 65735-1, 3024-7, HA1C, 39381-8 ####[facility] ([id number])[address], [address] [place] [address] Cholesterol in HDL [Mass/Vol] 67 mg/dL Normal >39 [facility] Comment on above: Result Comment: HDL <40 mg/dL - High Risk HDL > or = 40mg/dL- Desirable HDL >60 mg/dL - Negative Risk Performed By: #### Leila BC, CMP, 03356-5, 3024-7, HA1C, 09270-6 ####[facility] ([id number])[address], [address] [place] [address] Cholesterol in LDL [Mass/Vol] 55 mg/dL Normal <130 [facility] Comment on above: Result Comment: LDL <100 mg/dL - Desirable LDL >160 mg/dL - High Risk Performed By: #### C BC, CMP, 71098-0, 3024-7, HA1C, 65614-5 ####[facility] ([id number])[address], [address] [place] [address] Cholesterol in VLDL [Mass/Vol] 49 mg/dL High 0-30 [facility] Comment on above: Performed By: #### C BC, CMP, 54789-6, 3024-7, HA1C, 00604-5 ####[facility] ([id number])[address] [address], [place] [address] CHOLESTEROL:HDL 2.6 Normal 1.0-5.0 [facility] Comment on above: Performed By: #### C BC, [facility], 27103-0, 3024-7, HA1C, 50971-5 ####[facility] ([id number])[address], [facility] [address], [place] [address] Triglyceride [Mass/Vol] 243 mg/dL High 27-150 P [facility] Comment on above: Performed By: #### C BC, [facility], 03091-4, 3024-7, HA1C, 62876-0 ####[facility] ([id number])[address] [address], [place] [address] Vitamin D+Metabolites [Mass/ Vol]on 09-03-2023 VITAMIN D 25 HYD TOT 13.9 ng/mL Low 30-100 [facility] Comment on above: Result Comment: Vitamin D status 25 [place] Vitamin D Deficiency <20 ng/mL Insufficiency 20-29 ng/mL Sufficiency 30-100 ng/mL Toxicity >100 ng/mL NOTE: A pediatric reference range has not been established by the regional service manager of this kit. The [employer] recommends a Vitamin D level of = or >20ng/mL in infants and children. Performed By: #### C BC, 56184-7, 3016-3, 3024-7, 2842-3, 39439-7, 82633-6 #### [facility] ([id number]) [address], [facility] [address] [place] [address] Nito 08-12-2023 L Specimen: [id number] Received: 08/13/23 Status: MARCELL Szymanski Num: [id number] Spec Type: Surgical Subm Dr: JANA MELVIN MD Tissues: A Turbinates (RT INFERIOR TURB) B Turbinates (LT INF TURB) C Sinus Contents/Biopsy (RT SINUS CONTENT) D Sinus Contents/Biopsy (LT SINUS CONTENT) E Nasal Septum (SEPTUM) Procedures: HE/2, Gross/Micro L4/2, Level 1 Gross/3 Age/ Patient Sex Location Account Attending Physician EulaliaMere 42/F LABELL [id number] JANA MELVIN MD SPEC NUM: [id number] RECD: 08/13/23 STATUS: MARCELL SZYMANSKI NUM: [id number] SHRUTHI: 08/12/[address]: JANA MELVIN MD ENTERED: 08/13/23 [facility] DR: Amrita Villegas SPEC TYPE: Surgical DEPT: [...] nasal septal cartilage. Gross only examination Specimen: [id number] Received: 08/13/23 Status: VASQUEZIain Req Num: [id number] Spec Type: Surgical Subm Dr: JANA MELVIN MD Tissues: A Turbinates (RT INFERIOR TURB) B Turbinates (LT INF TURB) C Sinus Contents/Biopsy (RT SINUS CONTENT) D Sinus Contents/Biopsy (LT SINUS CONTENT) E Nasal Septum (SEPTUM) Procedures: HE/2, Gross/Micro L4/2, Level 1 Gross/3 Patient: Mere Esteban [id number] (Continued) Specimen: [id number] Received: 08/13/23 (Continued) Signed (signature on file) Neil Johns MD 08/18/232036 Specimen: [id number] Received: 08/13/23 Status: MARCELL Szymanski Num: [id number] Spec Type: Surgical Subm Dr: TIMMIS,JANA H MD Tissues: A Turbinates (RT INFERIOR TURB) B Turbinates (LT INF TURB) C Sinus Contents/Biopsy (RT SINUS CONTENT) D Sinus Contents/Biopsy (LT SINUS CONTENT) E Nasal Septum (SEPTUM) Procedures: HE/2, Gross/Micro L4/2, Level 1 Gross/3 Patient: EulaliaMere J [id number] (Continued) Specimen: [id number] Received: 08/13/23 (Continued) Clinical Information Chronic sinusitis, [...] cm aggregate of adler and cartilaginous tissue. Info Print Press Operator sections following decalcification are submitted in [...] gross photo is included. TW CPT Codes 22885A1 31474 X.3 Specimen: [id number] Received: 08/13/23 Status: MARCELL Szymanski Num: [id number] Spec Type: Surgical Subm Dr: JANA MELVIN MD Tissues: A Turbinat (more content not included)... Normal [facility] Fibrin D-dimer DDU (PPP) [Ma ss/Vol]on 08-07-2023 D DIMER <150 Normal <255 [facility] Comment on above: Result Comment: Results <255 ng/mL DDU: The presence of a VTE can safely be excluded with a negative D-Dimer result and Wells score. A negative result doesn't exclude the possibility of DIC. The test be repeated along with other diagnostic tests if the patient's symptoms persist or worsen. [email or web address] Performed By: #### 4 8066-5 ####[facility] ([id number])[address] [place] [address] HCG ( test) IAmatthew d Ql (S)on 08-04-2023 SERUM Negative Normal NEG [facility] Comment on above: Performed By: #### 8 0385-8 ####[facility] ([id number])[address] [place] [address] Surgical Pathologyon 024 Surgical Pathology Normal [facility] Comment on above: Result Comment: [facility] [address] [place] [address] Surgical Pathology Consultation Patient Name:MERE ESTEBAN:1980 (Age: 42)Gender:FTaken:4Reported:4Physician(s):Belén Goodwin M.D. ([phone])Copy To: Rec. #:[id number]: #[id number] Final Pathologic Diagnosis 1. Endocervical curettings: Fragments of endocervix, negative for dysplasia 2. Endometrial curettings: Fragments of secretory endometrium with breakdown Report Electronically Signed Out nsk/08/12/2023Jacque Martin MD Interpretation performed at [facility], [address] [place] [address], License number: [id number]. Clinical History Dysfunctional uterine bleeding. Gross Description [...] submitted in a single cassette. (1, ns, [id number], m1) MG 2. Received in formalin labeled WHITE, #2: Endometrial curettings are 2 Telfa pads with multiple adherent adler fragments/feathery bits of soft tissue, embedded in adler cloudy mucoid debris and hemorrhagic material. The Telfa pads are scraped and the rest of the specimen is filtered, aggregating to 7.5 x 1.2 x 0.3 cm, and submitted in cassettes A-C. (3, ns, [id number], m1) MG mjg/08/05/2023NSK Intraoperative Consultation Specimen(s) Received 1: Endocervical curettings 2: Endometrial curettings Fee Codes(s): 1; 83888 2; 55953 CBC AND AUTO DIFFon 07-14-19 24 ABSOLUTE BASOPHIL 0.1 X10E9/L Normal 0.0-0.2 [facility] Comment on above: Performed By: #### C BCA ####[facility] ([id number])[address] [address] ABSOLUTE NEUTROPHIL 4.4 X10E9/L Normal 1.5-6.6 [facility] Comment on above: Performed By: #### C BCA ####[facility] ([id number])[address] [address], [place] [address] Basophils/100 WBC (Bld) 1.2 % Normal [facility] Comment on above: Performed By: #### C BCA ####[facility] ([id number])[address] [address], [place] [address] Eosinophils (Bld) [#/Vol] 0.4 10*3/uL Normal 0.0-0.4 [facility] Comment on above: Performed By: #### C BCA ####[facility] ([id number])[address] [address], [place] [address] Eosinophils/100 WBC (Bld) 4.7 % Normal [facility] Comment on above: Performed By: #### C BCA ####[facility] ([id number])[address] [address] [address] Erythrocyte distribution width (RBC) [Ratio] 14.8 % Normal 11.5-15.0 [facility] Comment on above: Performed By: #### C BCA ####[facility] ([id number])[address] [address] [address] Hematocrit (Bld) [Volume fraction] 41.2 % Normal 35-47 [facility] Comment on above: Performed By: #### C BCA ####[facility] ([id number])[address] [address], [place] [address] Hemoglobin (Bld) [Mass/Vol] 13.6 g/dL Normal 11.7-15.5 [facility] Comment on above: Performed By: #### C BCA ####[facility] ([id number])[address] [address], [place] [address] Lymphocytes (Bld) [#/Vol] 2.8 10*3/uL Normal 1.0-3.5 [facility] Comment on above: Performed By: #### C BCA ####[facility] ([id number])[address] [address] Lymphocytes/100 WBC (Bld) 32.8 % Normal [facility] Comment on above: Performed By: #### C BCA ####[facility] ([id number])[address] [address], [place] [address] MCH (RBC) [Entitic mass] 31.3 pg Normal 27-34 [facility] Comment on above: Performed By: #### C BCA ####[facility] ([id number])[address] [address], [place] [address] MCHC (RBC) [Mass/Vol] 33.1 g/dL Normal 32-36 [facility] Comment on above: Performed By: #### C BCA ####[facility] ([id number])[address] [address], [place] [address] MCV (RBC) [Entitic vol] 95 fL Normal 80-100 [facility] Comment on above: Performed By: #### C BCA ####[facility] ([id number])[address] [address], [place] [address] Monocytes (Bld) [#/Vol] 0.8 10*3/uL Normal 0-0.9 [facility] Comment on above: Performed By: #### C BCA ####[facility] ([id number])[address] [address] [address] Monocytes/100 WBC (Bld) 9.2 % Normal P [facility] Comment on above: Performed By: #### C BCA ####[facility] ([id number])[address] [address] [address] Neutrophils/100 WBC (Bld) 52.1 % Normal [facility] Comment on above: Performed By: #### C BCA ####[facility] ([id number])[address] [address] [address] Platelet mean volume (Bld) [Entitic vol] 8.1 fL Normal 7-12 [facility] Comment on above: Performed By: #### C BCA ####[facility] ([id number])[address] [address] [address] Platelets (Bld) [#/Vol] 321 10*3/uL Normal 150-450 [facility] Comment on above: Performed By: #### C BCA ####[facility] ([id number])[address] [address], [place] [address] RBC COUNT 4.35 X10E12/L Normal 3.80-5.20 [facility] Comment on above: Performed By: #### C BCA ####[facility] ([id number])[address] [address], [place] [address] WBC (Bld) [#/Vol] 8.4 10*3/uL Normal 4.0-11.0 [facility] Comment on above: Performed By: #### C BCA ####[facility] ([id number])[address] [address], [place] [address] XR CHEST 2 VWSon 07-14-2023 XR CHEST 2 VWS XR CHEST 2 VWS XR CHEST 2 VWS INDICATION: Bronchitis, preoperative clearance COMPARISON: X-ray 01/29/2023 FINDINGS: Cardiomediastinal silhouette and pulmonary vasculature are within normal limits. Lungs and pleural space are clear. There is no pleural effusion or pneumothorax. IMPRESSION: No acute cardiopulmonary process. Finalized by Daniel Rosas on 07/14/2023 5:35 PM Normal [facility] POCT , urineon 05-15 Beta HCG ( test) Ql (U) Negative [facility] Surgical Pathologyon 024 Surgical Pathology Normal [facility] Comment on above: Result Comment: [facility] [address] [place] [address] Surgical Pathology Consultation Patient Name:MERE ESTEBAN:1980 (Age: 42)Gender:FTaken:4Reported:4Physician(s):Belén Goodwin M.D. ([phone])Copy To: Rec. #:[id number]: #[id number] Final Pathologic Diagnosis 1. Endocervix, curettage: Benign endocervical epithelium. 2. Endometrium, biopsy: Benign endometrium. Report Electronically Signed Out cjb/4Cjaylin Gayle MD Interpretation performed at [facility], [address] [place] [address], License number: [id number]. Clinical History Dysfunctional uterine bleeding (DUB) N93.8. Gross Description 1. Received in formalin labeled, WHITE, ECC is a plastic metal brush with a pale-adler mucoid material admixed with adler friable soft tissue fragments and brown hemorrhagic material, 2 x 0.8 x 0.1 cm in aggregate. The specimens are filtered and submitted in a single cassette. (1, ns, [id number], m2) TB 2. Received in formalin labeled, WHITE, EMB are 4 pale-adler delicate to friable soft tissue chips admixed with adler to brown hemorrhagic material, 2.5 x 1.5 x 0.1 cm in aggregate. The specimens are filtered and submitted in a single cassette. (1, ns, [id number], m2) [facility]06/04/2023WAK Specimen(s) Received 1: Endocervical curettings 2: Endometrial biopsy Fee Codes(s): 1; 99210 2; 11498 COMPLETE BLOOD COUNTon 06-01 Erythrocyte distribution width (RBC) [Ratio] 14.6 % Normal 11.5-15.0 [facility] Comment on above: Performed By: #### C BC, 94946-2, 3016-3, 3024-7, 2842-3, 83531-6, 73242-5 #### [facility] ([id number]) [address], [facility] [address] [place] [address] Hematocrit (Bld) [Volume fraction] 44.6 % Normal 35-47 [facility] Comment on above: Performed By: #### C BC, 00282-3, 3016-3, 3024-7, 2842-3, 80241-9, 30421-5 #### [facility] ([id number]) [address] [place] [address] Hemoglobin (Bld) [Mass/Vol] 14.6 g/dL Normal 11.7-15.5 [facility] Comment on above: Performed By: #### [place], 44936-3, 3016-3, 3024-7, 2842-3, 05104-9, 06069-6 #### [facility] ([id number]) [address] [place] [address] MCH (RBC) [Entitic mass] 31.1 pg Normal 27-34 [facility] Comment on above: Performed By: #### [place], 24218-1, 3016-3, 3024-7, 2842-3, 38745-6, 68611-1 #### [facility] ([id number]) [address] [place] [address] MCHC (RBC) [Mass/Vol] 32.6 g/dL Normal 32-36 [facility] Comment on above: Performed By: #### Leila FONSECA, 53397-8, 3016-3, 3024-7, 2842-3, 00089-0, 52926-5 #### [facility] ([id number]) [address], [address] [place] [address] MCV (RBC) [Entitic vol] 95 fL Normal 80-100 [facility] Comment on above: Performed By: #### Leila FONSECA, 55576-0, 3016-3, 3024-7, 2842-3, 41620-7, 84805-2 #### [facility] ([id number]) [address], [facility] [address] [place] [address] Platelet mean volume (Bld) [Entitic vol] 8.9 fL Normal 7-12 [facility] Comment on above: Performed By: #### Leila FONSECA, 67133-0, 3016-3, 3024-7, 2842-3, 91553-5, 55072-3 #### [facility] ([id number]) [address] [place] [address] Platelets (Bld) [#/Vol] 290 10*3/uL Normal 150-450 [facility] Comment on above: Performed By: #### Leila FOSNECA, 04766-9, 3016-3, 3024-7, 2842-3, 03026-2, 15837-9 #### [facility] ([id number]) [address] [place] [address] RBC COUNT 4.68 X10E12/L Normal 3.80-5.20 [facility] Comment on above: Performed By: #### Leila FONSECA, 18855-0, 3016-3, 3024-7, 2842-3, 62707-7, 76361-5 #### [facility] ([id number]) [address], [address] [place] [address] WBC (Bld) [#/Vol] 9.4 10*3/uL Normal 4.0-11.0 [facility] Comment on above: Performed By: #### Leila FONSECA, 42049-5, 3016-3, 3024-7, 2842-3, 22398-9, 48622-9 #### [facility] ([id number]) [address], [address] [place] [address] FREE T4on 06-02-2023 Free T4 [Mass/Vol] 0.79 ng/dL Normal 0.61-1.60 [facility] Comment on above: Performed By: #### Leila FONSECA, 49339-3, 3016-3, 3024-7, 2842-3, 31378-5, 15013-9 #### [facility] ([id number]) [address], [address] [place] [address] Follitropin Qnon 06-02-2023 FOLLICLE STIM HORMONE 4.2 mIU/mL Normal [facility] Comment on above: Result Comment: NORMAL FEMALE Luteal 1.8-5.1 mIU/mL Follicular 3.8-8.8 mIU/mL Mid Cycle 4.5-22.5 mIU/mL Post Mandi 16.7-113.6 mIU/mL Performed By: #### Leila FONSECA, 06083-2, 3016-3, 3024-7, 2842-3, 58057-8, 45926-0 #### [facility] ([id number]) [address], [address] [place] [address] HCG.beta subunit IA 3rd IS Q non 06-02-2023 SERUM B HCG,3RD I.S. <5 Normal [facility] Comment on above: Result Comment: NEW REFERENCE [...] or nontrophoblastic neoplasms. Performed By: ###Alcira FONSECA, 39107-7, 3016-3, 3024-7, 2842-3, 25781-2, 09193-8 #### [facility] ([id number]) [address] [place] [address], [address] [place] [address] Lutropin Qnon 06-02-2023 LUTEINIZING HORMONE 5.9 mIU/mL Normal [facility] Comment on above: Result Comment: NORMAL FEMALE Follicular 2.1-10.9 mIU/mL Mid Cycle 19.2-103 mIU/mL Luteal 1.2-12.9 mIU/mL Post Miranda 10.9-58.6 mIU/mL Performed By: ###Alcira FONSECA, 76354-5, 6-3, 3024-7, 2842-3, 59405-0, 28882-0 #### [facility] ([id number]) [address] [place] [address], [address] [place] [address] Prolactin [Mass/Vol]on 06-01 PROLACTIN 21.1 ng/mL Normal 3.3-26.7 [facility] Comment on above: Performed By: ###Alcira FONSECA, 84100-4, 3016-3, 3024-7, 2842-3, 83770-1, 18934-1 #### [facility] ([id number]) [address], [address] [place] [address] TSH Qnon 06-02-2023 TSH 2.98 uIU/mL Normal 0.49-4.67 [facility] Comment on above: Performed By: #### C , 63538-2, 3016-3, 3024-7, 2842-3, 06791-0, 84219-0 #### [facility] ([id number]) [address] [place] [address] US PELVIC WITH TRANSVAGINALo n 06-02-2023 US [...] Billy MD on 06/02/2023 2:55 PM Normal [facility] US Pelvis transabdominal and transvaginalon 06-02-2023 [...] Erick Billy MD on 06/02/2023 2:55 PM [facility] Erick Billy MD - 06/02/2023 PELVIC [...] Erick Billy MD on 06/02/2023 2:55 PM [facility] observation (narrative) [employer] [facility] US Pelvis transabdominal and transvaginalOrdered By: Erick Billy on 06-02-2023 [facility] Work Phone: CT Maxillofacial w/o Contras ton [...] MD, V. Transcribed by: MALORIE Technologist: DELISA [facility] Consent for Treatmenton 05-15 Consent for Treatment [id number] F [facility] Physician Orderon 04-21-2023 Physician Order [id number]#[id number] F [facility] Physician Orderon 04-16-2023 Physician Order [id number]#[id number] F Normal [facility] CT SINUSES WO CONTon 024 CT [...] Kathryn Londono MD on 04/11/2023 1:22 PM [facility] MAMM SCREENING BILATERAL W C food sampler 04-10-2023 MAMM SCREENING BILATERAL W CAD MAMM [...] AM 1 c MAMM 1 YR Normal [facility] COVID + FLU Quick Testingon 06-28-2022 SARS-CoV-2 (COVID-19) RNA SADE+probe Ql (Unsp spec) Negative [employer] Other COVID + FLU Quick Testing Negative [employer] Other XR CSPINE MIN 4 VIEWSon 10-15 XR CSPINE MIN 4 VIEWS EXAMINATION: XR CS PINE MIN 4 VIEWS HISTORY: Brachial (cervical) neuritis COMPARISON: No relevant comparison available. FINDINGS: BONES: Reversal of normal cervical lordosis. No significant degenerative changes DISC SPACES: Normal. No significant disc height narrowing, subluxation, or endplate abnormality. PARASPINOUS: Negative. No paraspinous abnormality is seen. OTHER: Negative. IMPRESSION: Reversal of cervical lordosis Electronically authenticated by: LOUIE ROTHMAN Date: 2021-10-24 15:10 Normal [facility] XR LSPINE W_OBLS AND FLEX_EX Ton [...] by: LOUIE ROTHMAN Date: 2021-10-24 15:11 Normal [facility] COVID Quick Testingon 2021 Result Positive [facility] Other Vital Signs Date Time Vital Sign Value Performing Clinician Facility 10-06-2023 09:30-0400 Blood Pressure Location Yadiel CASAREZ [facility] 10-06-2023 09:30-0400 Diastolic blood pressure 78 mm[Hg] Yadiel CASAREZ [facility] 10-06-2023 09:30-0400 Heart rate 75 /min Yadiel NILL [facility] 10-06-2023 09:30-0400 Respiratory rate 17 /min Yadiel NILL [facility] 10-06-2023 09:30-0400 SaO2% (BldA) [Mass fraction] 98 % Yadiel NILL [facility] 10-06-2023 09:30-0400 Systolic blood pressure 131 mm[Hg] Yadiel NILL [facility] 10-06-2023 09:25-0400 Blood Pressure Location Yadiel NILL [facility] 10-06-2023 09:25-0400 Diastolic blood pressure 73 mm[Hg] Yadiel NILL [facility] 10-06-2023 09:25-0400 Heart rate 78 /min Yadiel NILL [facility] 10-06-2023 09:25-0400 Respiratory rate 22 /min Yadiel NILL [facility] 10-06-2023 09:25-0400 SaO2% (BldA) [Mass fraction] 99 % Yadiel NILL [facility] 10-06-2023 09:25-0400 Systolic blood pressure 124 mm[Hg] Yadiel NILL [facility] 10-06-2023 09:20-0400 Blood Pressure Location Yadiel NILL [facility] 10-06-2023 09:20-0400 Diastolic blood pressure 99 mm[Hg] Yadiel NILL [facility] 10-06-2023 09:20-0400 Heart rate 78 /min Yadiel NILL [facility] 10-06-2023 09:20-0400 Respiratory rate 17 /min Yadiel NILL [facility] 10-06-2023 09:20-0400 SaO2% (BldA) [Mass fraction] 98 % Yadiel NILL [facility] 10-06-2023 09:20-0400 Systolic blood pressure 121 mm[Hg] Yaidel NILL [facility] 10-06-2023 09:13-0400 Body temperature 97.88 [degF] Yadiel NILL [facility] 10-06-2023 09:05-0400 Respiratory rate 25 /min Yadiel NILL [facility] 10-06-2023 09:00-0400 Respiratory rate 27 /min Yadiel NILL [facility] 10-06-2023 08:55-0400 Respiratory rate 28 /min Yadiel NILL [facility] 10-06-2023 08:13-0400 Body temperature 98.24 [degF] Yadiel NILL [facility] 09-25-2023 08:53-0400 Blood Pressure Location Yadiel NILL [facility] [place] 09-25-2023 08:53-0400 Diastolic blood pressure 84 mm[Hg] Yadiel NILL [facility] [place] 09-25-2023 08:53-0400 Heart rate 85 /min Yadiel NILL [facility] [place] 09-25-2023 08:53-0400 Respiratory rate 16 /min Yadiel NILL [facility] [place] 09-25-2023 08:53-0400 Systolic blood pressure 125 mm[Hg] Yadiel NILL [facility] [place] 06-17-2023 08:21-0400 Body mass index (BMI) [Ratio] 36.22 kg/m2 Belén Goodwin MD Work Phone: [facility] 06-17-2023 08:21-0400 Body weight 101.79 kg Belén Goodwin MD Work Phone: [facility] [employer] [facility] 06-17-2023 08:21-0400 Diastolic blood pressure 66 mm[Hg] Belén Goodwin MD Work Phone: [facility] 06-17-2023 08:21-0400 Systolic blood pressure 128 mm[Hg] Belén Goodwin MD Work Phone: [facility] 06-03-2023 10:53-0400 Body height 167.6 cm Belén Goodwin MD Work Phone: [facility] 06-03-2023 10:53-0400 Body mass index (BMI) [Ratio] 36.32 kg/m2 Belén Goodwin MD Work Phone: [facility] [employer] [facility] 06-03-2023 10:53-0400 Body weight 102.06 kg Belén Goodwin MD Work Phone: [facility] [employer] [facility] 06-03-2023 10:53-0400 Diastolic blood pressure 78 mm[Hg] Belén Goodwin MD Work Phone: [facility] 06-03-2023 10:53-0400 Systolic blood pressure 116 mm[Hg] Belén Goodwin MD Work Phone: [facility] 04-22-2023 09:07-0500 Body mass index (BMI) [Ratio] 35.99 kg/m2 Belén Goodwin MD Work Phone: [facility] 04-22-2023 09:07-0500 Body weight 101.15 kg Belén Goodwin MD Work Phone: [facility] 04-22-2023 09:07-0500 Diastolic blood pressure 58 mm[Hg] Belén Goodwin MD Work Phone: [employer] 04-22-2023 09:07-0500 Systolic blood pressure 110 mm[Hg] Belén Goodwin MD [facility] Phone: [facility] 04-02-2023 10:06-0500 Body height 167.6 cm Shanthi Lugo [employer] Work Phone: [facility] 04-02-2023 10:06-0500 Body mass index (BMI) [Ratio] 34.48 kg/m2 Shanthiasmita Lugo [employer] Work Phone: [employer] 04-02-2023 10:06-0500 Body weight 96.89 kg Shanthi Lugo [employer] Work Phone: [employer] 04-02-2023 10:06-0500 Diastolic blood pressure 76 mm[Hg] Shanthiasmita Lugo [employer] Work Phone: [facility] 04-02-2023 10:06-0500 Heart rate 96 /min Shanthi Lugo [employer] Work Phone: [employer] 04-02-2023 10:06-0500 SaO2% (BldA) [Mass fraction] 98 % Shanthi Lugo [employer] Work Phone: [employer] 04-02-2023 10:06-0500 Systolic blood pressure 142 mm[Hg] Shanthi Lugo [employer] Work Phone: [employer] 03-03-2023 10:05-0500 Body height 167.64 cm [employer] Other [employer] Other 03-03-2023 10:05-0500 Body mass index (BMI) [Ratio] 34.21 kg/m2 [employer] Other [employer] Other 03-03-2023 10:05-0500 Body temperature 99.1 [degF] Neyda Garland Other [employer] Other 03-03-2023 10:05-0500 Body weight 96.16 kg Neyda Garland Other [employer] Other 03-03-2023 10:05-0500 Diastolic blood pressure 60 mm[Hg] Neyda Garland Other [employer] Other 03-03-2023 10:05-0500 Respiratory rate 18 /min Neyda Garland Other [employer] Other 03-03-2023 10:05-0500 SaO2% (BldA) [Mass fraction] 98 % Neyda Garland Other [employer] Other 03-03-2023 10:05-0500 Systolic blood pressure 125 mm[Hg] Neyda Garland Other [employer] Other 08-26-2022 17:15-0400 Body height 167.64 cm Ilana Gallegos Other [employer] Other 08-26-2022 17:15-0400 Body mass index (BMI) [Ratio] 33.08 kg/m2 Ilana Gallegos Other [employer] Other 08-26-2022 17:15-0400 Body temperature 98.2 [degF] Ilana Gallegos Other [employer] Other 08-26-2022 17:15-0400 Body weight 92.99 kg Ilana Gallegos Other [employer] Other 08-26-2022 17:15-0400 Respiratory rate 18 /min Ilana Gallegos Other [employer] Other 08-26-2022 17:15-0400 SaO2% (BldA) [Mass fraction] 97 % Ilana Gallegos Other [employer] Other 06-28-2022 18:35-0400 Body height 167.64 cm Yohana Kitchen Other [employer] Other 06-28-2022 18:35-0400 Body mass index (BMI) [Ratio] 34.38 kg/m2 Yohana Reamond Other [employer] Other 06-28-2022 18:35-0400 Body temperature 96.9 [degF] Yohana Kitchen Other [employer] Other 06-28-2022 18:35-0400 Body weight 96.62 kg Yohana Kitchen Other [employer] Other 06-28-2022 18:35-0400 Respiratory rate 18 /min Yohana Kitchen Other [employer] Other 06-28-2022 18:35-0400 SaO2% (BldA) [Mass fraction] 96 % Yohana Kitchen Other [employer] Other 03-29-2021 10:15-0500 Body height 167.64 cm Chela Kumar Other [employer] Other 03-29-2021 10:15-0500 Body mass index (BMI) [Ratio] 30.66 kg/m2 Chela Kumar Other [employer] Other 03-29-2021 10:15-0500 Body temperature 97.5 [degF] Chela Kumar Other [employer] Other 03-29-2021 10:15-0500 Body weight 86.18 kg Chela Kumar Other [employer] Other 03-29-2021 10:15-0500 Respiratory rate 18 /min Chela Kumar Other [employer] Other 03-29-2021 10:15-0500 SaO2% (BldA) [Mass fraction] 98 % Chela Kumar Other [employer] Other 01-26-2021 11:35-0500 Body height Yohana Kitchen Other [employer] [facility] Other 01-26-2021 11:35-0500 Body mass index (BMI) [Ratio] 30.73 kg/m2 Yohana Reamond Other [employer] [facility] Other 01-26-2021 11:35-0500 Body temperature 97.7 [degF] Yohana Reamond Other [employer] Other 01-26-2021 11:35-0500 Body weight 86.37 kg Yohana Reamond Other [employer] Other 01-26-2021 11:35-0500 Diastolic blood pressure 49 mm[Hg] Yohana Reamond Other [employer] Other 01-26-2021 11:35-0500 Respiratory rate 18 /min Yohana Reamond Other [employer] Other 01-26-2021 11:35-0500 SaO2% (BldA) [Mass fraction] 100 % Yohana Kitchen Other [employer] Other 01-26-2021 11:35-0500 Systolic blood pressure 11 mm[Hg] Yohana Kitchen Other [employer] Other Encounters Encounter Date Encounter Type Care Provider Facility Start: 11-04-2023 End: 11-04-2023 ambulatory BELÉN L [facility] Start: 10-28-2023 End: 10-28-2023 ambulatory Yadiel R NILL Facility: [facility] Start: 10-28-2023 End: 10-28-2023 Patient encounter procedure Yadiel R NILL [facility] Start: 10-27-2023 End: 10-27-2023 ambulatory LUH SANCHEZ [facility] Start: 10-14-2023 End: 10-14-2023 ambulatory JANA MELVIN Not Available Start: 10-06-2023 End: 10-06-2023 ambulatory Yadiel R NILL Facility:[facility] [place] [place] Start: 10-06-2023 End: 10-06-2023 Patient encounter procedure Yadiel R NILL [facility] Start: 10-02-2023 End: 10-04-2023 ambulatory ZENAIDA JACKSON [facility] Start: 09-25-2023 End: 09-25-2023 ambulatory Yadiel R NILL Facility: [facility] Start: 09-25-2023 End: 09-25-2023 Patient encounter procedure Yadiel R NILL [facility] [place] Start: 09-10-2023 ambulatory Yadiel NILL Facility:[facility] Start: 09-09-2023 End: 09-09-2023 ambulatory [facility] Start: 09-08-2023 End: 09-08-2023 Emergency department patient visit [facility] Start: 09-03-2023 End: 09-03-2023 ambulatory [facility] Start: 09-02-2023 End: 09-02-2023 ambulatory JANA H TIMMIS Not Available Start: 09-01-2023 End: 09-01-2023 ambulatory [facility] Start: 08-20-2023 End: 08-20-2023 ambulatory JANA H TIMMIS Not Available Start: 08-12-2023 End: 08-12-2023 ambulatory Jaan Melvin [facility] Work Phone: Start: 08-12-2023 End: 08-12-2023 Departed Referred MD Jana Melvin [facility] Start: 08-07-2023 End: 08-07-2023 Emergency department patient visit [facility] Start: 08-04-2023 End: 08-04-2023 Evaluation and management of inpatient REGGIE [facility] Start: 08-04-2023 End: 08-04-2023 Evaluation and management of inpatient [facility] Start: 07-14-2023 End: 07-14-2023 ambulatory LOUIE HEREDIA [facility] Start: 07-14-2023 Encounter for other preprocedural examination [facility] Start: 06-18-2023 Telephone encounter [facility] Start: 06-17-2023 End: 06-17-2023 ambulatory [facility] Start: 06-17-2023 End: 06-17-2023 Office outpatient visit 15 minutes Belén Goodwin MD Work Phone: [facility] Comment on above: DUB (dysfunctional u terine bleeding) (Primary Dx) Start: 06-04-2023 End: 06-04-2023 ambulatory JANA H TIMMIS Not Available Start: 06-03-2023 End: 06-03-2023 ambulatory [facility] Start: 06-03-2023 End: 06-03-2023 Office outpatient visit 15 minutes Belén Goodwin MD Work Phone: [facility] Comment on above: DUB (dysfunctional u terine bleeding) (Primary Dx) Start: 06-03-2023 End: 06-03-2023 ambulatory [facility] Start: 06-02-2023 End: 06-02-2023 Orders Only Cori Montilla RN [facility] Comment on above: Abnormal uterine ble eding (AUB) (Primary Dx) Start: 05-31-2023 End: 05-31-2023 ambulatory Jana H Timmis Facility:[facility] [place] Start: 04-22-2023 End: 04-22-2023 Office outpatient visit 25 minutes Belén Goodwin MD Work Phone: [facility] Comment on above: DUB (dysfunctional u terine bleeding) (Primary Dx) Start: 04-22-2023 End: 04-22-2023 ambulatory [facility] Start: 04-16-2023 End: 05-24-2023 Pre-admission assessment Jana H Timmis [facility] Start: 04-16-2023 End: 04-16-2023 ambulatory JANA H TIMMIS Not Available Start: 04-10-2023 End: 04-10-2023 ambulatory [facility] Start: 04-02-2023 End: 04-02-2023 Office outpatient visit 25 minutes Shanthi Lugo [employer] Work Phone: [facility] Comment on above: Chronic bronchitis, unspecified chronic bronchitis type (CMS- HCC) (Primary Dx); Asthma-COPD overlap syndrome; Tobacco dependence; Class 1 obesity with body mass index (BMI) of 34.0 to 34.9 in adult, unspecified obesity type, unspecified whether serious comorbidity present Start: 04-02-2023 End: 04-02-2023 ambulatory [facility] Start: 03-03-2023 End: 03-03-2023 ambulatory Neyda Garland Other [employer] [facility] Other Start: 03-03-2023 Office outpatient vi sit 15 minutes Neyda Garland [facility] Start: 08-26-2022 End: 08-26-2022 ambulatory Ilana Gallegos Other [employer] Other Start: 08-26-2022 Office outpatient vi sit 25 minutes Ilana Gallegos [facility] Start: 08-01-2022 ambulatory PAIGE COVARRUBIAS . Facili ty:[facility] Start: 06-28-2022 End: 06-28-2022 ambulatory Yohana Kitchen Other [employer] Other Start: 06-28-2022 Office outpatient vi sit [...] 03-29-2021 End: 03-29-2021 ambulatory Chela Kumar Other [employer] Other Start: 03-29-2021 Office outpatient vi sit 15 minutes Chela Kumar [facility] Start: 01-26-2021 End: 01-26-2021 ambulatory Yohana Kitchen Other [facility] Other Start: 01-26-2021 Office outpatient vi sit 15 minutes Yohana Kitchen [facility] Procedures Date Procedure Procedure Detail Performing Clinician Start: 10-06-2023 Colonoscopy Yadiel LEIDA Start: 10-06-2023 Esophagogastroduodenoscopy Yadiel CASAREZ Start: 08-04-2023 Hysteroscopy endometrial ablation Briancamron [facility]is LEIDA Start: 06-17-2023 Follow-up visit Follow-up BELÉN GOODWIN Start: 06-03-2023 Urine test visual color cmprsn meths Belén Goodwin MD Work Phone: section Jana alvarado section Yadiel MARIAMA L section Yadiel MARIAMA [facility] Esophagogastroduodenoscopy M eh LESLIEL H/O: section Jana Melvin Nasal septoplasty Yadiel MEL WANG Plan of Treatment Date Care Activity Detail Author Start: 06-14-2032 DTaP,Tdap and Td Vaccines (3 - Td or Tdap) DTaP,Tdap and Td Vaccines (3 - Td or Tdap) [facility] Start: 06-16-2024 Adult BMI Screening Adult BMI Screen ing [facility] Start: 06-16-2024 Tobacco Screening Tobacco Screening [facility] Start: 06-02-2024 Adult BMI Screening Adult BMI Screen ing [facility] Start: 06-02-2024 Tobacco Screening Tobacco Screening [facility] Start: 04-22-2024 Adult BMI Screening Adult BMI Screen ing [facility] Start: 04-22-2024 Tobacco Screening Tobacco Screening [facility] Start: 04-10-2024 Adult BMI Screening Adult BMI Screen ing [facility] Start: 04-02-2024 Tobacco Screening Tobacco Screening [facility] Start: 11-16-2023 Influenza vaccination Influenza Vacc ine [facility] Start: 10-27-2023 End: 10-27-2023 Patient encounter procedure 10/27/2023 9:45 AM EDT Office Visit [facility] [address] [place] [address] Luh Sanchez MD [address] [facility] [facility] [facility] [address] [place] [address] [facility] Start: 08-04-2023 End: 08-04-2023 Admission to same day surgery center 08/04/2023 12:30 PM EDT - 08/04/2023 1:30 PM EDT Surgery [facility] [address] [place] [id number] Belén Goodwin MD [address] [address] HYSTEROSCOPY DILATION CURETTAGE ABLATION ENDOMETRIAL NOVASURE [29938 (CPT )] [facility] Comment on above: HYSTEROSCOPY DILATIO N CURETTAGE ABLATION ENDOMETRIAL NOVASURE [29595 (CPT )] Start: 08-04-2023 End: 08-04-2023 Hysteroscopy endometrial ablation HYSTEROSCOPY DILATION CURETTAGE ABLATION ENDOMETRIAL NOVASURE dysfunctional uterine bleeding 08/04/2023 12:30 PM EDT [facility] Start: 08-04-2023 Subsequent hospital visit by physician 08/04/2023 12:30 PM EDT Hospital Encounter [facility] [address] [place] [id number] Belén Goodwin MD [address] [place] [address] [facility] Start: 07-14-2023 End: 07-14-2023 Patient encounter procedure 07/14/2023 9:45 AM EDT Procedure visit [facility] - Pre Admit [address] [place] [address] [facility] Pre [facility] Start: 06-17-2023 End: 06-17-2023 Patient encounter procedure 06/17/2023 8:15 AM EDT Office Visit [facility] [place] [id number] Belén Goodwin MD [address] [place], [place] [id number] [facility] Start: 06-03-2023 End: 06-02-2024 Surgical Pathology Surgical Pathology Pathology and Cytology Routine DUB (dysfunctional uterine bleeding) Expected: 06/03/2023 (Approximate), Expires: 06/02/2024 [facility] Work Phone: Comment on above: Expected: 06/03/2023 (Approximate), Expires: 06/02/2024 Start: 06-03-2023 End: 06-03-2023 Patient encounter procedure 06/03/2023 10:30 AM EDT Procedure visit [facility] [place] [phone] Belén Goodwin MD [address] [facility] [address] [facility] Start: 04-22-2023 End: 04-21-2024 US Pelvis transvaginal Ultrasound transvaginal non OB Imaging Routine DUB (dysfunctional uterine bleeding) Expected: 04/22/2023, Expires: 04/21/2024 [facility] Work Phone: Comment on above: Expected: 04/22/2023 , Expires: 04/21/2024 Start: 04-22-2023 End: 04-22-2023 Patient encounter procedure 04/22/2023 9:00 AM EST Office Visit [facility]ne[facility] [address] [place] [address] Belén Goodwin MD [address] [place] [address] [facility] Obstetric[facility]necolog y Start: 11-15-2022 Influenza vaccination Influenza Vacc ine [facility] Start: 09-15-2000 Screening for malign ant neoplasm of cervix Pap Smear [facility] Start: 09-15-1997 Adult BMI Follow Up Plan Adult BMI Follow Up Plan [facility] Start: 1991 Depression Screening Depression Scre ening [facility] Start: 1979 Tobacco Counseling Tobacco Counselin g [facility] End: 04-22-2024 CBC panel - Blood by Automated count CBC without diff Lab Routine DUB (dysfunctional uterine bleeding) 1 Occurrences starting 04/22/2023 until 04/22/2024 [facility] Comment on above: 1 Occurrences starti ng 04/22/2023 until 04/22/2024 End: 04-22-2024 Follicle stimulating hormone Follicle stimulating hormone Lab Routine DUB (dysfunctional uterine bleeding) 1 Occurrences starting 04/22/2023 until 04/22/2024 [facility] Comment on above: 1 Occurrences starti ng 04/22/2023 until 04/22/2024 End: 04-22-2024 HCG, Quantitative, HCG, Quantitative, Lab Routine DUB (dysfunctional uterine bleeding) 1 Occurrences starting 04/22/2023 until 04/22/2024 [facility] Comment on above: 1 Occurrences starti ng 04/22/2023 until 04/22/2024 End: 04-22-2024 Luteinizing hormone Luteinizing hormone Lab Routine DUB (dysfunctional uterine bleeding) 1 Occurrences starting 04/22/2023 until 04/22/2024 [facility] Comment on above: 1 Occurrences starti ng 04/22/2023 until 04/22/2024 End: 04-22-2024 Prolactin Prolactin Lab Routine DUB (dysfunctional uterine bleeding) 1 Occurrences starting 04/22/2023 until 04/22/2024 [facility] Comment on above: 1 Occurrences starti ng 04/22/2023 until 04/22/2024 End: 04-22-2024 Thyrotropin [Units/volume] in Serum or Plasma TSH Lab Routine DUB (dysfunctional uterine bleeding) 1 Occurrences starting 04/22/2023 until 04/22/2024 [facility] Comment on above: 1 Occurrences starti ng 04/22/2023 until 04/22/2024 End: 04-22-2024 Thyroxine (T4) free [Mass/volume] in Serum or Plasma T4, free Lab Routine DUB (dysfunctional uterine bleeding) 1 Occurrences starting 04/22/2023 until 04/22/2024 [facility] Comment on above: 1 Occurrences starti ng 04/22/2023 until 04/22/2024 Immunizations Immunization Date Immunization Notes Care Provider Vishal mejia 12-13-2019 tetanus and diphther ia toxoids, adsorbed, preservative free, for adult use (2 Lf of tetanus toxoid and 2 Lf of diphtheria toxoid) Jana Melvin [facility] Payers Date Payer Category Payer Self-pay [id number] 2021 Private Health Insurance [facility] [id number] 2021-Present [phone] [address] [place] [address] [id number] .[id number] 1979 Unknown [id number] 2.16.840.1.553934.3.579.2 .593 1979 Unknown [id number] 2.16.840.1.294126.3.579.2 .593 1979 Unknown [id number] 2.16.840.1.863856.3.579.2 .593 1979 Unknown [id number] 2.16.840.1.584661.3.579.2 .593 1979 Unknown [id number] 2.16.840.1.710454.3.579.2 .593 1979 Unknown [id number] 2.16.840.1.065542.3.579.2 .1979 Unknown [id number] 2.16.840.1.430667.3.579.2 .1285 1979 Unknown [id number] 2.840.1.492105.3.579.2 .1285 1979 Unknown [id number] 2.16.840.1.668896.3.579.2 .1285 1979 Unknown [id number] 2.840.1.545700.3.579.2 .1285 1979 Unknown [id number] 2.840.1.472687.3.579.2 .1285 1979 Unknown [id number] 2.840.1.075839.3.579.2 .1285 1979 Unknown [id number] 2.840.1.573917.3.579.2 .1285 1979 Unknown [id number] 2.840.1.163260.3.579.2 .1285 1979 Unknown [id number] 2.840.1.539149.3.579.2 .1285 1979 Unknown [id number] 840.1.166757.3.579.2 .1285 1979 Unknown [id number] 2.840.1.966580.3.579.2 .1285 1979 Unknown [id number] 2.840.1.714697.3.579.2 .1285 1979 Unknown [id number] 2.16840.1.488287.3.579.2 .1285 1979 Unknown [id number] 2.840.1.211413.3.579.2 .1285 1979 Unknown [id number] 2.16.840.1.876155.3.579.2 .173 1979 Unknown [id number] 2.16.840.1.078866.3.579.2 .1258 1979 Unknown [id number] 2.16.840.1.533206.3.579.2 .1258 1979 Unknown [id number] 2.16.840.1.731581.3.579.2 .1258 1979 Unknown [id number] 2.16.840.1.838789.3.579.2 .1258 1979 Unknown [id number] 2.16.840.1.230122.3.579.2 .1258 1979 Unknown [id number] 2.16.840.1.706534.3.579.2 .1979 Unknown [id number] 2.16.840.1.644378.3.579.2 .1979 Unknown [id number] 2.16.840.1.256333.3.579.2 .1979 Unknown [id number] 2.16.840.1.383060.3.579.2 .1979 Unknown [id number] 2.16.840.1.121262.3.579.2 .1979 Unknown [id number] 2.16.840.1.934032.3.579.2 .1285 1979 Unknown [id number] 2.16.840.1.102088.3.579.2 .1285 1979 Unknown [id number] 2.16.840.1.134785.3.579.2 .1285 1979 Unknown [id number] 2.16.840.1.307766.3.579.2 .1285 1979 Unknown [id number] 2.16.840.1.129496.3.579.2 .1285 1979 Unknown [id number] 2.16.840.1.796728.3.579.2 .1286 1979 Unknown [id number] 2.16.840.1.825836.3.579.2 .1286 1979 Unknown [id number] 2.16.840.1.988325.3.579.2 .1286 1959 Private Health Insurance [id number] 2.16.840.1.800922.19 Medicaid [facility] [id number] Unknown [place] BC/BS [id number] Unknown [id number] 2.16.840.1.998125.3.579.2 .531 Social History Date Type Detail Facility Unknown if ever smoked [facility] Start: 04-02-2023 End: 06-17-2023 Sex Assigned At [facility] Start: 09-09-2022 Tobacco smoking status AZIS Smokes tobacco daily [facility] History of tobacco use Cigarette Smoker [facility] Start: 09-09-2022 End: 06-17-2023 Cigarettes smoked current (pack per day) - Reported 0.5 [facility] Start: 09-09-2022 Tobacco use and exposure Smokeless tobacco non-user [facility] Start: 04-21-2023 End: 06-17-2023 Alcohol intake Current drinker of alcohol (finding) [facility] Within the past 12 months we worried whether our food would run out before we got money to buy more. Never True [facility] Comment on above: PPD smoker Start: 12-03-2021 Alcohol [facility]ally [facility] Start: 1980 Sex Assigned At Not on file P [facility] Start: 05-29-2020 End: 09-25-2023 Tobacco smoking status Heavy tobacco smoker (finding) [facility] Comment on above: PPD smoker Start: 03-23-2018 Tobacco smoking status NHIS Smoker (finding) [facility] Start: 1980 Sex Assigned At Female F [facility] Functional Status Date Assessment Result Facility 10-06-2023 Functional Status N/A [facility] 09-25-2023 Functional Status N/A [facility] [place] Clinical Notes 03-29-2021 to 10-08-2023 Note Date & Type Note Facility 10-08-2023 Note Progress Note-Physic danial Patient: MERE ESTEBAN Age: 43 years Sex: Female : 1980 Associated Diagnoses: None Author: Tashi Brothers Jr, DO Postoperative Information Postoperative disposition: Postoperative disposition: To PACU. Optimetrix number: Optimetrix number [id number]. Anesthetic utilized: General. Health Status Allergies: Allergic Reactions (Selected) No Known Allergies Physical Examination Vital Signs 10/06/2023 9:30 EDT Heart Rate Monitored 75 bpm Respiratory Rate Monitored 17 br/min Systolic Blood Pressure 131 mmHg Diastolic Blood Pressure 78 mmHg Blood Pressure Location Left arm SpO2 98 % 10/06/2023 9:25 EDT Heart Rate Monitored 78 bpm Respiratory Rate Monitored 22 br/min Systolic Blood Pressure 124 mmHg Diastolic Blood Pressure 73 mmHg Blood Pressure Location Left arm SpO2 99 % 10/06/2023 9:20 EDT Heart Rate Monitored 78 bpm Respiratory Rate Monitored 17 br/min Systolic Blood Pressure 121 mmHg Diastolic Blood Pressure 99 mmHg HI Blood Pressure Location Left arm SpO2 98 % 10/06/2023 9:15 EDT Heart Rate Monitored 87 bpm Respiratory Rate Monitored 19 br/min Systolic Blood Pressure 125 mmHg Diastolic Blood Pressure 82 mmHg Blood Pressure Location Left arm SpO2 98 % 10/06/2023 9:13 EDT Temperature Temporal Artery 36.6 DegC Heart Rate Monitored 85 bpm Respiratory Rate Monitored 19 br/min Systolic Blood Pressure 130 mmHg Diastolic Blood Pressure 86 mmHg Blood Pressure Location Left arm SpO2 98 % Pain Assessment: Controlled. General: Awake, Alert, Appropriate. Respiratory: Adequate air exchange. Cardiovascular: Stable, Normal peripheral perfusion. Neurological: Normal sensory function, Normal motor function. Assessment Anesthetic outcome No anesthetic complications noted. Adequate pain relief. able to void without difficulty, able to ambulate with assist, tolerating PO intake, no N/V. Review / Management Condition: Stable. Plan Transfer/Discharge: Transfer/Discharge Discharge when meets criteria ( To home ). [facility] Comment on above: Result Comment: Elec mahsanically Signed By: Tashi Brothers Jr, DO\.br\Date and Time Signed: 10/08/23 07:10 EDT 10-06-2023 Evaluation + Plan note Extrac corby from: Title:ANES Pre-operative Note 2022 Author:Tashi Brothers Jr, DO Date:10/06/23 Plan [employer] of Anesthesiologists (ASA) physical status classification: Class III. Anesthetic Preoperative Plan: Anesthesia General. [facility]07-22-2024 Hospital Discharge instructions Patient Education 10/06/2023 09:24:47 Colonoscopy, Care After Surgery [facility] (CUSTOM) Colonoscopy Care After Surgery Please read the instructions outlined below and refer to this sheet in the next few weeks. These discharge instructions provide you with general information on caring for yourself after you leave thehospital. Your doctor may also give you specific instructions. While your treatment has been planned according to the most current medical practices available, unavoidable complications occasionally occur. If you have any problems or questions after discharge, please call your doctor. ACTIVITY You may resume your regular activity, but move at a slower pace for the next 24 hours. Take frequent rest periods for the next 24 hours. Walking will help get rid of the air and reduce the bloated feeling in your abdomen (belly). No driving for 24 hours (because of the anesthesia (medicine) used during the test). You may shower. Do not sign any important legal documents or operate any machinery for 24 hours (because of the anesthesia used during the test). NUTRITION Drink plenty of fluids. You may resume your normal diet as instructed by your doctor. Begin with a light meal and progress to your normal diet. Heavy or fried foods are harder to digestand may make you feel nauseated (sick to your stomach). Avoid alcoholic beverages for 24 hours or as instructed. MEDICATIONS You may resume your normal medications unless your doctor tells you otherwise. WHAT YOU CAN EXPECT TODAY Some feelings of bloating in the abdomen. Passage of more gas than usual. Spotting of blood in your stool or on the toilet paper. IF YOU HAD POLYPS REMOVED DURING THE COLONOSCOPY: No aspirin products for 7 days or as instructed. No alcohol for 7 days or as instructed. Eat a soft diet for the next 24 hours. FOLLOW-UP Your doctor will discuss the results of your test with you. SEEK IMMEDIATE MEDICAL ATTENTION IF: There is more than a spotting of blood in your stool. There is abdominal distention (your abdomen is swollen). There is vomiting. You have a temperature over 101.5 F. There is abdominal pain or discomfort that is severe or gets worse throughout the day. 10/06/2023 09:24:43 Endoscopy, Care After Procedure [facility] [place] [place] ([facility]) Endoscopy Care After Procedure Please read the instructions outlined below and refer to this sheet in the next few weeks. These discharge instructions provide you with general information on [facility] Your doctor may also give you specific instructions. While your treatment has been planned according to the most current medical practices available, unavoidable complications occasionally occur. If you have any problems or questions after discharge, please call your doctor. ACTIVITY You may resume your regular activity but move at a slower pace for the next 24 hours. Take frequent rest periods for the next 24 hours. Walking will help expel (get rid of) the air and reduce the bloated feeling in your abdomen. No driving for 24 hours (because of the anesthesia (medicine) used during the test). You may shower. Do not sign any important legal documents or operate any machinery for 24 hours (because of the anesthesia used during the test). NUTRITION Drink plenty of fluids. You may resume your normal diet. Begin with a light meal and progress to your normal diet. Avoid alcoholic beverages for 24 hours or as instructed by your caregiver. MEDICATIONS You may resume your normal medications unless your caregiver tells you otherwise. WHAT YOU CAN EXPECT TODAY You may experience abdominal discomfort such as a feeling of fullness or gas pains. FOLLOW-UP Your doctor will discuss the results of your test with you. SEEK IMMEDIATE MEDICAL ATTENTION IF ANY OF THE FOLLOWING OCCUR: Excessive nausea (feeling sick to your stomach) and/or vomiting. Severe abdominal pain and distention (swelling). Trouble swallowing. Temperature over 100 F (37.8 C). Rectal bleeding or vomiting of blood. Document Released: 10/15/2004 Document Re-Released: 08/25/2006 [employer] Patient Information [employer]. 10/06/2023 09:24:38 Gastritis, Adult, Yulc-dg-Ajoe Gastritis, Adult Gastritis is irritation and swelling (inflammation) of the stomach. There are two kinds of gastritis: Acute gastritis. This kind develops quickly. Chronic gastritis. This kind is much more common. It develops slowly and lasts for a long time. It is important to get help for this condition. If you do not get help, your stomach can bleed, andyou can get sores (ulcers) in your stomach. What are the causes? This condition may be caused by: Germs that get to your stomach and cause an infection. Drinking too much alcohol. Medicines you are taking. Having too much acid in the stomach. Having a disease of the stomach. Other causes may include: An allergic reaction. Some cancer treatments (radiation). Smoking cigarettes or using products that contain nicotine or tobacco. In some cases, the cause of this condition is not known. What increases the risk? Having a disease of the intestines. Having Crohn's disease. Using aspirin or ibuprofen and other NSAIDs to treat other conditions. Stress. What are the signs or symptoms? Pain in your stomach. A burning feeling in your stomach. Feeling like you may vomit (nauseous). Vomiting or vomiting blood. Feeling too full after you eat. Weight loss. Bad breath. Blood in your poop (stool). In some cases, there are no symptoms. How is this treated? This condition is treated with medicines. The medicines that are used depend on what caused the condition. You may be given: Antibiotic medicine, if your condition was caused by an infection from germs. H2 blockers and similar medicines, if your condition was caused by too much acid in the stomach. Treatment may also include stopping the use of certain medicines, such as aspirin or ibuprofen. Follow these instructions at home: Medicines Take qnqw-tjq-ujuejrl and prescription medicines only as told by your doctor. If you were prescribed an antibiotic medicine, take it as told by your doctor. Do not stop taking it even if you start to feel better. Alcohol use Do not drink alcohol if: ?Your doctor tells you not to drink. ?You are , may be , or are planning to become . If you drink alcohol: ?Limit your use to: ?0 1 drink a day for women. ?0 2 drinks a day for men. ?Know how much alcohol is in your drink. In the [place] one drink equals one 12 oz bottle of beer (355 mL), one 5 oz glass of wine (148 mL), or one 1 oz glass of hard liquor (44 mL). General instructions Eat small meals often, instead of large meals. Avoid foods and drinks that make you feel worse. Drink enough fluid to keep your pee (urine) pale yellow. Talk with your doctor about ways to manage stress. You can exercise or do deep breathing, meditation, or yoga. Do not smoke or use any products that contain nicotine or tobacco. If you need help quitting, ask your doctor. Keep all follow-up visits. Contact a doctor if: Your symptoms get worse. Your stomach pain gets worse. Your symptoms go away and then come back. You have a fever. Get help right away if: You vomit blood or something that looks like coffee grounds. You have black or dark red poop. You throw up any time you try to drink fluids. These symptoms may be an emergency. Get help right away. Call your local emergency services (911 int [place] Do not wait to see if the symptoms will go away. Do not drive yourself to the hospital. Summary Gastritis is irritation and swelling (inflammation) of the stomach. You must get help for this condition. If you do not get help, your stomach can bleed, and you can get sores (ulcers) in your stomach. You can be treated with medicines for germs or medicines to block too much acid in your stomach. This information is not intended to replace advice given to you by your health care provider. Make sure you discuss any questions you have with your health care provider. Document Revised: 07/07/2021 Document Reviewed: 07/07/2021 [employer] Patient Education 2022 Press. 10/06/2023 09:24:09 Colon Polyps Colon Polyps Colon polyps are tissue growths inside the colon, which is part of the large intestine. They are one of the types of polyps that can grow in the body. A polyp may be a round bump or a mushroom-shapedgrowth. You could have one polyp or more than one. Most colon polyps are noncancerous (benign). However, some colon polyps can become cancerous over time. Finding and removing the polyps early can help prevent this. What are the causes? The exact cause of colon polyps is not known. What increases the risk? The following factors may make you more likely to develop this condition: Having a family history of colorectal cancer or colon polyps. Being older than 45 years of age. Being younger than 45 years of age and having a significant family history of colorectal cancer or colon polyps or a genetic condition that puts you at higher risk of getting colon polyps. Having inflammatory bowel disease, such as ulcerative colitis or Crohn's disease. Having certain conditions passed from parent to child (hereditary conditions), such as: ?Familial adenomatous polyposis (FAP). ?Richardson syndrome. ?Turcot syndrome. ?Peutz Jeghers syndrome. ?MUTYH-associated polyposis (MAP). Being overweight. Certain lifestyle factors. These include smoking cigarettes, drinking too much alcohol, not gettingenough exercise, and eating a diet that is high in fat and red meat and low in fiber. Having had childhood cancer that was treated with radiation of the abdomen. What are the signs or symptoms? Many times, there are no symptoms. If you have symptoms, they may include: Blood coming from the rectum during a bowel movement. Blood in the stool (feces). The blood may be bright red or very dark in color. Pain in the abdomen. A change in bowel habits, such as constipation or diarrhea. How is this diagnosed? This condition is diagnosed with a colonoscopy. This is a procedure in which a lighted, flexible scope is inserted into the opening between the buttocks (anus) and then passed into the colon to examine the area. Polyps are sometimes found when a colonoscopy is done as part of routine cancer screening tests. How is this treated? This condition is treated by removing any polyps that are found. Most polyps can be removed during a colonoscopy. Those polyps will then be tested for cancer. Additional treatment may be needed depending on the results of testing. Follow these instructions at home: Eating and drinking Eat foods that are high in fiber, such as fruits, vegetables, and whole grains. Eat foods that are high in calcium and vitamin D, such as milk, cheese, yogurt, eggs, liver, fish, and broccoli. Limit foods that are high in fat, such as fried foods and desserts. Limit the amount of red meat, precooked or cured meat, or other processed meat that you eat, such as hot dogs, sausages, lanier, or meat loaves. Limit sugary drinks. Lifestyle Maintain a healthy weight, or lose weight if recommended by your health care provider. Exercise every day or as told by your health care provider. Do not use any products that contain nicotine or tobacco, such as cigarettes, e- cigarettes, and chewing tobacco. If you need help quitting, ask your health care provider. Do not drink alcohol if: ?Your health care provider tells you not to drink. ?You are , may be , or are planning to become . If you drink alcohol: ?Limit how much you use to: ?0 1 drink a day for women. ?0 2 drinks a day for men. ?Know how much alcohol is in your drink. In the [place] one drink equals one 12 oz bottle of beer (355 mL), one 5 oz glass of wine (148 mL), or one 1 oz glass of hard liquor (44 mL). General instructions Take eqgi-vcz-dnrtnio and prescription medicines only as told by your health care provider. Keep all follow-up visits. This is important. This includes having regularly scheduled colonoscopies. Talk to your health care provider about when you need a colonoscopy. Contact a health care provider if: You have new or worsening bleeding during a bowel movement. You have new or increased blood in your stool. You have a change in bowel habits. You lose weight for no known reason. Summary Colon polyps are tissue growths inside the colon, which is part of the large intestine. They are one type of polyp that can grow in the body. Most colon polyps are noncancerous (benign), but some can become cancerous over time. This condition is diagnosed with a colonoscopy. This condition is treated by removing any polyps that are found. Most polyps can be removed during a colonoscopy. This information is not intended to replace advice given to you by your health care provider. Make sure you discuss any questions you have with your health care provider. Document Revised: 06/21/2020 Document Reviewed: 06/21/2020 [employer] Patient Education 2022 Press. Follow Up Care 09/25/2023 09:29:00 With:Yadiel CASAREZ Address: [place]a [place], [facility] [address] [address]- Business (1) When:7 to 10 days [facility]07-22-2024 NoteColonoscopy Procedure Report Patient: MERE ESTEBAN Age: 43 years Sex: Female : 1980 Associated Diagnoses: None Author: Yadiel CASAREZ MD Pre-Procedure Procedure Date 10/06/2023 09:37:00 . Procedure Type: Colonoscopy with removal of tumor(s), polyp(s), or other lesion(s) by cold snare technique. Procedure provider Performed by Yadiel CASAREZ MD. Current history and physical Documented on chart. Colorectal neoplasm risk assessment Average risk. Informed Consent After discussing the rationale, risks and benefits, and alternatives to this procedure, the patient provided signed consent for the procedure. Pre-procedure diagnosis: Unexplained chronic abdominal pain. ASA Classification: Class II. . Monitoring: See anesthesia record. . Procedure The procedure was performed in the hospital. See anesthesia record for sedation given during procedure. Endoscope type used was an adult-size. The endoscope was lubricated then introduced through theanus. The scope was advanced to the cecum verified by photographing the appendiceal orifice, verified by photographing the ileocecal valve. No difficulties encountered during the procedure. The bowel preparation quality was good and was adequate (see polyps greater than or equal to 6 millimeters). The patient tolerated the procedure well. Findings Colitis was identified in the rectum. It is characterized as erythematous, mucosal edema. A single biopsy was collected. Multiple polyps ranging from 5 mm to 7 mm in size were noted. The polyp was located in the rectum and descending colon: 7 mm flat descending colon polyp removed in piece meal fashion, on fold; 5 mm rectal sessile polyp removed with cold snare. The polyp(s) is sessile (0- Is). Intervention(s) included polypectomy with cold snare. Intervention was successful. Images Procedure images: rectal polyp rectal polyp anal canal ileocecal valve appendiceal orifice . Post-Procedure Complications: none. Estimated blood loss: 1 milliliters. Specimens: sent to pathology. Devices/ implants: none left in place. Impression and Plan Diagnosis: Colon polyps (ACN01-AU K63.5, Discharge, Medical), Rectal inflammation ([id number]-NH K62.89,Discharge, Medical). Course: Progressing as expected. Recommendations: Repeat colonoscopy:: In 5 years, Will depend on pathology report . Follow-up:: 1-2 weeks. Diet:: Regular diet. Medication resumption:: Continue current medications. Return to activities:: After 24 hours. Education and Follow-up: Counseled: Patient.Sebast[facility] Thomas B. Finan CenterComment on above:Other Comment: Missing Attachment - attachment storage system not supported [id number] Can be viewed in source system Missing Attachment - attachment storage system not supported [id number] Can be viewed in source systemMissing Attachment - attachment storage system not supported [id number] Can be viewed in source systemMissing Attachment - attachment storage system not supported [id number] Can be viewed in source systemMissing Attachment - attachment storage system not supported [id number] Can be viewed in source [id number] NotePatient Education - Text Colonoscopy Care After Surgery Please read the instructions outlined below and refer to this sheet in the next few weeks. These discharge instructions provide you with general information on caring for yourself after you leave thehospital. Your doctor may also give you specific instructions. While your treatment has been planned according to the most current medical practices available, unavoidable complications occasionally occur. If you have any problems or questions after discharge, please call your doctor. ACTIVITY You may resume your regular activity, but move at a slower pace for the next 24 hours. Take frequent rest periods for the next 24 hours. Walking will help get rid of the air and reduce the bloated feeling in your abdomen (belly). No driving for 24 hours (because of the anesthesia (medicine) used during the test). You may shower. Do not sign any important legal documents or operate any machinery for 24 hours (because of the anesthesia used during the test). NUTRITION Drink plenty of fluids. You may resume your normal diet as instructed by your doctor. Begin with a light meal and progress to your normal diet. Heavy or fried foods are harder to digestand may make you feel nauseated (sick to your stomach). Avoid alcoholic beverages for 24 hours or as instructed. MEDICATIONS You may resume your normal medications unless your doctor tells you otherwise. WHAT YOU CAN EXPECT TODAY Some feelings of bloating in the abdomen. Passage of more gas than usual. Spotting of blood in your stool or on the toilet paper. IF YOU HAD POLYPS REMOVED DURING THE COLONOSCOPY: No aspirin products for 7 days or as instructed. No alcohol for 7 days or as instructed. Eat a soft diet for the next 24 hours. FOLLOW-UP Your doctor will discuss the results of your test with you. SEEK IMMEDIATE MEDICAL ATTENTION IF: There is more than a spotting of blood in your stool. There is abdominal distention (your abdomen is swollen). There is vomiting. You have a temperature over 101.5 F. There is abdominal pain or discomfort that is severe or gets worse throughout the day. Endoscopy Care After Procedure Please read the instructions outlined below and refer to this sheet in the next few weeks. These discharge instructions provide you with general information on [facility] Your doctor may also give you specific instructions. While your treatment has been planned according to the most current medical practices available, unavoidable complications occasionally occur. If you have any problems or questions after discharge, please call your doctor. ACTIVITY ? You may resume your regular activity but move at a slower pace for the next 24 hours. ? Take frequent rest periods for the next 24 hours. ? Walking will help expel (get rid of) the air and reduce the bloated feeling in your abdomen. ? No driving for 24 hours (because of the anesthesia (medicine) used during the test). ? You may shower. ? Do not sign any important legal documents or operate any machinery for 24 hours (because of the anesthesia used during the test). NUTRITION ? Drink plenty of fluids. ? You may resume your normal diet. ? Begin with a light meal and progress to your normal diet. ? Avoid alcoholic beverages for 24 hours or as instructed by your caregiver. MEDICATIONS ? You may resume your normal medications unless your caregiver tells you otherwise. WHAT YOU CAN EXPECT TODAY ? You may experience abdominal discomfort such as a feeling of fullness or ?gas? pains. FOLLOW-UP ? Your doctor will discuss the results of your test with you. seek immediate medical attention if any of the following occur: ? Excessive nausea (feeling sick to your stomach) and/or vomiting. ? Severe abdominal pain and distention (swelling). ? Trouble swallowing. ? Temperature over 100 F (37.8? C). ? Rectal bleeding or vomiting of blood. Document Released: 10/15/2004 Document Re-Released: 08/25/2006 [facility]? Patient Information ?2009 [employer]. Infectious Disease Gastritis, Adult Gastritis is irritation and swelling (inflammation) of the stomach. There are two kinds of gastritis: ? Acute gastritis. This kind develops quickly. ? Chronic gastritis. This kind is much more common. It develops slowly and lasts for a long time. It is important to get help for this condition. If you do not get help, your stomach can bleed, andyou can get sores (ulcers) in your stomach. What are the causes? This condition may be caused by: ? Germs that get to your stomach and cause an infection. ? Drinking too much alcohol. ? Medicines you are taking. ? Having too much acid in the stomach. ? Having a disease of the stomach. Other causes may include: ? An allergic reaction. ? Some cancer treatments (radiation). ? Smoking cigarettes or using products that contain nicoti (more content not included)...[facility]07-22-2024 NoteHistory and Physical Patient: MERE ESTEBAN Age: 43 years Sex: Female : 1980 Associated Diagnoses: None Author: Yadiel CASAREZ MD Subjective no changes to H & PFMercy Health Springfield Regional Medical CenterComment on above:Result Comment: Electronically Signed By: Yadiel CASAREZ MD\.br\Date and Time Signed: 10/06/23 08:03 [id number] NoteProgress Note-Physician Patient: MERE ESTEBAN Age: 43 years Sex: Female : 1980 Associated Diagnoses: None Author: Tashi Brothers Jr, DO Preoperative Information Anesthesia Preop Info: Time patient last ate or drank 10/06/2023 00:00:00. Anesthesia history: Patient history: None. Family history+: None. Informed consent: Signed by patient. Re-evaluation prior to induction: Initial evaluation reviewed: No significant change. Review of Systems Eye: Negative except as documented in history of present illness. Ear/Nose/Mouth/Throat: Negative except as documented in history of present illness. Respiratory: Negative except as documented in history of present illness. Cardiovascular: Negative except as documented in history of present illness. Musculoskeletal: Negative except as documented in history of present illness. Neurologic: Negative except as documented in history of present illness. Health Status Allergies: Allergic Reactions (Selected) No Known Allergies Problem list: All Problems Varicose veins of lower extremity / SNOMED CT 369599293 / Confirmed Abnormal gallbladder ultrasound / SNOMED CT 4143083043 / Confirmed Smoker / IMO [id number] / Confirmed Added secondary to documentation in Social History. Seizure / SNOMED CT 943018055 / Confirmed Outside Source Comment: Comment on above:[facility] HospitalComment on above:Result Comment: Electronically Signed By: Tashi Brothers Jr, DO\Date and Time Signed: 10/06/23 16:38 [id number] NoteGeneral Surgery Office/Clinic Note Chief Complaint consultation for abdominal pain HPI Staff 43 year old female presents on consultation from [facility] [place] [facility] for abdominal pain. Presented to ED 09/07 with complaint constant upper abdominal pain x 5 days. Abdominal US with small gallbladder stones and/or polyps. Reports pain is changed. She continues to experience constant sharp upper abdominal pain. Denies alleviating factors. Reports eating and positional changes intensify pain. Reports some daily intermittent nausea, denies vomiting. Denies heartburn, indigestion or bloating. Verbalized she is experiencing one small liquid stool every other day which is unusual for her. History of Present Illness 43 yo female with h/o asthma, migraine headaches, bipolar disorder referred from [facility] ED for upper abd pain; patient seen in ED 09/08/23 for 5 day h/o constant upper abd pain; normal labs, gallbladder US with 2, 3 mm densities adherent to gallbladder wall in body of gallbladder, no wall thickening orductal dilation. patient reports constant upper abd pain for past 3 weeks, bloating, ache, sharp attimes, worse with bending over, no change with eating or drinking; occasional nausea, no emesis; noimprovement at night when lying down, keeps her up at night; bowel changes with difficulty evacuating bowels, reports looser stools every other day, no blood or mucous; [facility], they ordered abd/pelvic ct scan with contrast and stool studies; they are unable to do endoscopy on her until December; abd operations significant for ; had remote EGD, unsure of results, no previous colonoscopy; no asa or NSAID use; smokes daily; no fmhx of GI malignancy or IBD. Review of Systems PHQ Score Initial Depression Screen Score: 0 SCORE ROS - Provider Constitutional: no fever, no sweats, no weight loss. Eyes: yes glasses, no blurred vision, no visual loss. ENMT: no dentures, no hoarseness, no swallowing difficulties, no hearing loss, no ear infection(s),no nose bleeds. Cardiovascular: normal blood pressure, no chest pain, regular heartbeat, no heart murmur. Respiratory: no shortness of breath, no cough, no asthma, no wheezing. Gastrointestinal: yes nausea, no vomiting, no diarrhea, no constipation, no blood in stool, yes change in bowel habits, yes abdominal pain, no hepatitis. Genitourinary: no kidney stones, no urine infection, no dysuria. Musculoskeletal: no pain, no weakness. Skin: no changing moles, no rash, no skin lumps. Neurologic: no seizures, no epilepsy, no headache. Psychiatric: no emotional or psychiatric problem. Heme/Lymph: no bleeding problems, no anemia, no blood clots, no transfusions. Allergy/Immunologic: no swollen lymph nodes/glands, no IV drug abuse. Other: Additional ROS info: Except as noted in the above Review of Systems and in the History of Present Illness, all other systems have been reviewed and are negative or noncontributory. Physical Exam Vitals & Measurements HR: 85(Peripheral) RR: 16 BP: 125/84 HT: 66 in HT: 167 cm WT: 101.6 kg WT: 223.52 lb BMI: 36.43 HEENT: normal conjunctiva, sclera clear, no scleral icterus, EOM intact, PERRLA, oral mucosa moist without lesions. Neck: trachea midline, no mass, symmetric, no thyromegaly or nodules, no adenopathy Respiratory: lungs CTA, respirations non labored. Cardiovascular: regular rate and rhythm, no murmur, no pedal edema or varicosities. Gastrointestinal: soft, non distended, moderate tenderness, epigastrium no masses, no palpable hernias, diastasis recti no, no hepatosplenomegaly; normal bs Lymphatic: no cervical adenopathy, no supraclavicular adenopathy. Musculoskeletal: normal gait, digits and nails without infection, nodes, cyanosis, clubbing. Skin: no rashes, no lesions, no ulcers, no subcutaneous nodules, induration. Psychiatric/Neuro: oriented to time, place, person, judgement normal, affect appropriate for age, insight intact, no focal deficits. Tests: labs reviewed, x-rays reviewed, review of old records completed , Discussed surgical options, risks, and possible complications with patient. Assessment/Plan 1. Epigastric pain (R10.13: Epigastric pain) plan EGD and colonoscopy under anesthesia for further evaluation, informed consent obtained. will review abd/pelvic ct scan images when completed; call sooner if problems/questions. 2. Abdominal bloating (R14.0: Abdominal distension (gaseous)) see # 1 3. Change in bowel habits (R19.4: Change in bowel habit) see # 1 4. Abnormal gallbladder ultrasound (R93.2: Abnormal findings on diagnostic imaging of liver and biliary tract) likely cholesterol deposits, possible small polyps; no obstruction or inflammation; recommend repeat GB US in 6 months to document stability of lesions. 5. Tobacco use (Z72.0: Tobacco use) We strongly recommend to quit tobacco use. Cigarette smoking harms nearly every organ of the body, causes many diseases, and reduces th (more content not included)...[facility] HospitalComment on above:Result Comment: Electronically Signed By: LEIDA LINDSEY, Yadiel Jenkins\Date and Time Signed: 09/25/23 10:21 [id number] Miscellaneous Notes* Telephone Encounter - Shantel Fan - 06/18/2023 10:50 AM EDT Patient has sinus surgery scheduled on 08/12/23. Patient is requesting her surgery with Dr. Goodwin be prior to that. Patient scheduled for surgery with Dr. Goodwin on 08/04/23 at 12:30pm with hospital arrival at 10:30am. PAT 07/09/23 at 9:45am. LVM for patient to return my call to discuss dates & times and schedule surgery f/u. * Telephone Encounter - Shantel Fan - 06/18/2023 10:50 AM EDT Patient returned my call while I was out of the office at lunch. I returned patient's call. Patient notified of all dates & times. Patient voiced understanding. Surgery information letter mailed to the patient. [facility] Telephone encounter Note* Telephone Encounter - Shantel Fan - 06/18/2023 10:50 AM EDT Patient has sinus surgery scheduled on 08/12/23. Patient is requesting her surgery with Dr. Goodwin be prior to that. Patient scheduled for surgery with Dr. Goodwin on 08/04/23 at 12:30pm with hospital arrival at 10:30am. PAT 07/09/23 at 9:45am. LVM for patient to return my call to discuss dates & times and schedule surgery f/u. [facility]04-03-[facility] Telephone encounter Note* Telephone Encounter - Shantel Fan - 06/18/2023 10:50 AM EDT Patient returned my call while I was out of the office at lunch. I returned patient's call. Patient notified of all dates & times. Patient voiced understanding. Surgery information letter mailed to the patient. [facility]04-02-20[facility] History of Present illness Narrative* Belén Goodwin MD - 06/17/2023 8:15 AM EDT Mere Esteban is a 42 y.o.female. No LMP recorded (lmp unknown).. She presents today for follow upfrom EMB. Current contraception:no method Final Pathologic Diagnosis 1. [...] inhaler Inhale 2 puffs every 4 (four) hoursas needed. albuterol (PROVENTIL,VENTOLIN) 2.5 mg /3 mL [...] (100 mg total) by mouth 3 (three) timesa day as needed. busPIRone (BUSPAR) 10 mg tablet Take 1 tablet (10 mg total) by mouth in the morning and 1 tablet (10 mg total) before bedtime. hvkmmrurgtq-btlttcenw-xthoikrb (TRELEGY ELLIPTA) 200-62.5-25 mcg blister with device [...] MD Cori TELLEZ RN documented in this encounterAdena [facility] System03-19-2024 History of Present illness Narrative* Belén Goodwin MD - 06/03/2023 10:30 AM EDT ALL RESULTS DW PT AT LENGTH FOLLOWS AND ALL ?S ANSWERED ALL LABS WNL PELVIC SONO FINDINGS: The uterus measures 8.5 x 5.1 x 6.4 cm. The endometrium measures 1.1 cm in thickness. Small cystic focus within the endometrium. The right ovary measures 1.9 x 1.1 x 1.6 cm and left ovary measures 2.4 x 2.0 x 2.1 cm. The ovariesare normal. No free fluid in the pelvis. [...] biopsy. BELÉN GOODWIN MD documented in this encounterAdena [facility] System03-19-2024 Miscellaneous Notes* Addendum Note - Angelica Zhang CMA - 06/03/2023 10:30 AM EDTAddended by: ANGELICA ZHANG on: 06/03/2023 12:04 PM Modules accepted: Orders documented in this encounterAdena Health System03-19-2024 Note* Addendum Note - Angelica Zhang CMA - 06/03/2023 10:30 AM EDTAddended by: ANGELICA ZHANG on: 06/03/2023 12:04 PM Modules accepted: Orders [facility]02-06-2024 History of Present illness Narrative* Belén Goodwin MD - 04/22/2023 9:00 AM EST Mere Esteban is a 42 y.o.female. Patient's last menstrual period was 04/08/2023.. She presents today for concerns with heavy period bleeding and cramping. She relates being on HRT and would like todiscuss a pertial hysterectomy. REPORTS SEVERAL YEAR HO DUB REC DUB EVAL STARTED ON HRT FOR SX FROM [facility] IN [place] BUT DID NOT HELP SX OR BLEEDING [...] inhaler Inhale 2 puffs every 4 (four) hoursas needed. albuterol (PROVENTIL,VENTOLIN) 2.5 mg /3 mL (0.083 %) nebulizer solution Inhale 3 mL by nebulization every 6 (six) hours as needed. amoxicillin-pot clavulanate (AUGMENTIN) 875-125 mg per tablet Take 1 tablet by mouth in the morningand 1 tablet before bedtime. ARIPiprazole (ABILIFY) 5 mg tablet Take 1 tablet (5 mg total) by mouth nightly. baclofen (LIORESAL) 10 mg tablet Take 1 tablet (10 mg total) by mouth nightly. benzonatate (TESSALON PERLES) 100 mg capsule Take 1 capsule (100 mg total) by mouth 3 (three) timesa day as needed. busPIRone (BUSPAR) 10 mg tablet Take 1 tablet (10 mg total) by mouth in the morning and 1 tablet (10 mg total) before bedtime. estradioL (ESTRACE) 0.5 mg tablet yhldruhynok-bgfwifctr-iqhwugzn (TRELEGY ELLIPTA) 200-62.5-25 mcg blister with device [...] RTO EMB/HYST TAKING ?HRT FROM DOC IN [place] WITHOUT EVAL OF AUB/DUB HEAVY TOBACCO USE ANXIETY OBESITY SP BTL LACK OF PREVENTATIVE CARE MD Cori TELLEZ RN documented in this encounterCopley HospitalRise Robotics [facility] [id number] History of Present illness Narrative* Shanthi Lugo, BUZZLE BUFFER-ZIPPER SETTER - 04/02/2023 9:45 AM EST Images from the original note were not included. Chief Complaint: Mere Esteban is a 42 y.o. 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 Follows with Dr. Sanchez with last visit in our office 09/09/22. HPI: Patient is accompanied by: Self The patient reports that she feels since August she has issues when the weather changes. She will useAlbuterol 1 time per night if needed or [...] or hospitalizations since she last visit in ouroffice. Patient has a nebulizer that they are [...] Medical History: Diagnosis Date Anxiety Chronic bronchitis ([facility]) PERTINENT HISTORY: Her pertinent medical history includes Past Medical History: Diagnosis Date Anxiety Chronic bronchitis ([facility]) CURRENT MEDICATIONS: Reviewed with patient. [...] 0.5 mg tablet, , Disp: , Rfl: quezrtfsuzl-ccpkghfhg-riqnektm (TRELEGY ELLIPTA) 200-62.5-25 mcg blister with device, INHALE 1 PUFFBY MOUTH IN THE MORNING, Disp: 60 each, [...] recess regions appear patent. Frontal sinuses hypoplastic. Thereis some mucosal thickening within right ethmoid air [...] reduce radiation dose to as low as reasonablyachievable. Finalized by Kathryn Londono MD on 04/11/2023 1:22 PM Mammography screening bilateral with CAD Result Date: 04/10/2023 EXAM: MAMM SCREENING BILATERAL W CAD, 04/10/2023 8:10 AM CLINICAL INDICATIONS: Screening, Encounter for screening mammogram for malignant neoplasm of breast COMPARISON: 01/09/2022 TECHNIQUE: Bilateraldigital tomosynthesis MLO and CC views of the breasts were obtained, with creation of synthetic 2D views. Computer aided detection was utilized. FINDINGS: The breasts are heterogeneously dense, whichmay obscure small masses. There are no suspicious masses, calcifications, or areas of architecturaldistortions. IMPRESSION: No mammographic evidence of malignancy. BI-RADS: BI-RADS 1 - Negative Recom mendation: Routine screening mammogram in 1 year. Finalized [...] multiple small polyps and/or mucous retention cysts inthe maxillary sinuses. 2. Moderate rightward nasal septal [...] our office a call. CC: Sridhar Bird, BUZZLE BUFFER-DIANA Lugo [facility] Office: [phone] 8:26 AM on 04/21/2023 This note is dictated with the use of M*Modal.Please note that this dictation was completed with computer voice recognition software. Quite often unanticipated grammatical, syntax, homophones, and other interpretive errors are inadvertently transcribed by the computer software. Please disregard these errors. Please excuse any errors that have escaped final proofreading. SUSIE Bellamy 04/21/23 0840 documented in this [facility]01-17-2024 Instructions* Patient Instructions* SUSIE Bellamy - 04/02/2023 9:45 AM EST If you re looking for general health and wellness resources, please visit [email or web address]. documented in this [facility]12-18-2023 Evaluation note* Encounter Date Diagnosis Assessment Notes Treatment Notes Treatment Clinical Notes Feb, Left conjunctivitis (ICD-10 - H10.9) ATB eye drop rx sent, use as directed. Continue warm compresses with clean wasthcloths as directed. Throw away all reusuable products that has been used on affected eye. Immediate eval if warning s/s including worsening eye pain, light sensitivity or change in vision. Otherwise f/u c PCP in 24-28 hours if s/s persists or worsens. [facility] Other 06-12-2023 Evaluation note* Encounter Date Diagnosis [...] understanding and is agreeable to treatment plan. [facility] Other 04-14-2023 Evaluation note* Encounter Date Diagnosis [...] fever. May return to work on Friday [employer] Other 02-16-2023 NoteCONSULTATION CONSULTATION DATE: 05/02/2022 HISTORY [...] Medications include diclofenac 50 mg b.i.d., Abilify, Hahira 5/325 daily p.r.n., Lyrica 50 mg b.i.d. [...] 50 mg b.i.d. and will refill her Hahira today 5/325 daily p.r.n. 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 Our clinic has prescribed her Hahira 5/325 daily p.r.n. in the past. Patient was unaware she could call for refills. She has been out of Hahira since early November and has increased the [...] will start diclofenac 50 mg b.i.d. Her Hahira will be restarted at 5/325 daily p.r.n. Vitamin importance was discussed as was continuing with her workout therapy. She will be seen in the clinic in three months' time, unless otherwise indicated. Patient is in agreement with this plan.[id number] NoteCONSULTATION PROCEDURE DATE: 10/25/2021 PRE AND POSTOPERATIVE [...] be followed up in the clinic. [id number] NoteCONSULTATION CONSULTATION DATE: 10/25/2021 This is a [...] standing, walking and bending. Her medications include Hahira 5/325 q. day, Baclofen 10 mg q.h.s. and Motrin 600 mg daily. The patient did have oral surgery last week for removal of a broken tooth. The patient was given Tylenol 3 and a course of amoxicillin. The patient did not take the Tylenol 3 but continued with the Hahira that was prescribed from our clinic. REVIEW [...] in three months' time unless otherwise indicated.[id number] NoteCONSULTATION CONSULTATION DATE: 09/13/2021 This is a [...] to Baclofen 10 mg q.h.s. and add Hahira 5/325 one q. day p.r.n. The patient was educated on the excessive use of her NSAIDs and appropriate doses were discussed. The intent is that the Hahira will help with her pain relief and decrease the need for the ibuprofen as frequently. The patient agrees with the plan of care. She will be brought back to the clinic in two weeks' time for x-ray review. [facility] Signed and Approved by: FABIOLA BARTLETT . 10/05/2021 14:14:00[facility]01-13-2022 Evaluation note* Encounter Date Diagnosis Assessment Notes Treatment Notes Treatment Clinical Notes Mar, Contact with and (suspected) exposure to other viral communicable diseases (ICD-10 - Z20.828) Mar, COVID-19 (ICD-10 - U07.1) Today you tested positive for the COVID virus. This mean you need to follow all CDC quarantine guidelines [facility] at [email or web address] It is important to rest, increase [...] Patient care instructions given in writting by [facility] Care At Home document. [employer] [facility] Other Evaluation + Plan note No data available for this section [facility] Future Appointments Appointment Date:10/06/2023 08:30:00 AM Scheduled Provider: Location:[facility] Surgical Services Appointment Type:Surgery FT [facility] General Surgery [place] Evaluation noteNort [employer] Other Evaluation note* Diagnosis Chronic bronchitis, unspecified chronic bronchitis type ([facility])- Primary Asthma-COPD overlap syndrome Tobacco dependence Tobacco use disorder Class 1 obesity with body mass index (BMI) of 34.0 to 34.9 in adult, unspecified obesity type, unspecified whether serious comorbidity present documented in this encounter [facility] Diagnosis DUB (dysfunctional uterine bleeding)- Primary Other disorder of menstruation and other abnormal bleeding from female genital tract documented in this encounter [facility] [employer] System[facility] note* Diagnosis Abnormal uterine bleeding (AUB) Abnormal uterine bleeding (AUB)- Primary documented in this encounter [facility] [employer] [facility] note* Diagnosis DUB (dysfunctional uterine bleeding)- Primary Other disorder of menstruation and other abnormal bleeding from female genital tract documented in this encounter [facility]* Diagnosis DUB (dysfunctional uterine bleeding)- Primary Other disorder of menstruation and other abnormal bleeding from female genital tract documented in this encounter [facility] System[facility] noteNo assessment information available [facility] Work Phone: Hisohpd general Narrative - ReportedNort [employer] Other Hishqjf general Narrative - Reported* Type Description Date 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 Surgical History C section (two) [employer] Other Hiszucu general Narrative - Reported* Type Description Date 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 Medical History Edema leg Medical History Depression Surgical History C section (two) [facility] Other Hospital Discharge instructions No data available for this section [facility]ructions[facility] on filedocumented in this encounter [facility] SystemInstructionsNot on filedocumented in this encounter [facility] SystemInstructionsNot on filedocumented in this encounter [facility] SystemProgress note No data available for this section [facility] Summary Purpose Family History No Family [...] and content) DATE CREATED AUTHOR 07/27/2022 [facility] DATE CREATED AUTHOR AUTHOR'S ORGANIZ ATION 08/19/2023 [facility] DATE CREATED AUTHOR AUTHOR'S ORGANIZ ATION 09/09/2023 [facility] DATE CREATED AUTHOR AUTHOR'S ORGANIZ ATION 10/10/2023 [facility] DATE CREATED AUTHOR AUTHOR'S ORGANIZ ATION 10/16/2023 [facility] dical [facility] DATE CREATED AUTHOR AUTHOR'S ORGANIZ ATION 10/19/2023 [facility] DATE CREATED AUTHOR AUTHOR'S ORGANIZ ATION 10/22/2023 [facility] DATE CREATED AUTHOR AUTHOR'S ORGANIZ ATION 11/02/2023 [facility] DATE CREATED AUTHOR AUTHOR'S ORGANIZ ATION 11/05/2023 [facility] Care Teams (unrecognized sec tion and content) Data Conversion Analyst Relationship Specialty Start Date End Date Sridhar Bird APRN-CNP [address] [place] [address] PCP - General Primary Care 09/09/22 Data Conversion Analyst Relationship Specialty Start Date End Date Sridhar Bird APRN-CNP [address] [place] [address] PCP - General Primary Care 09/09/22 Data Conversion Analyst Relationship Specialty Start Date End Date Sridhar Bird, BUZZLE BUFFER-ZIPPER SETTER [address] [place] [address] PCP - General Primary Care 09/09/22 Data Conversion Analyst Relationship Specialty Start Date End Date Shamfloridalma, Sridhar, BUZZLE BUFFER-ZIPPER SETTER [address] [place] [address] PCP - General Primary Care 09/09/22 Data Conversion Analyst Relationship Specialty Start Date End Date Sridhar Bird, BUZZLE BUFFER-ZIPPER SETTER [address] [place] [address] PCP - General Primary Care 09/09/22 Data Conversion Analyst Relationship Specialty Start Date End Date Sridhar Bird, BUZZLE BUFFER-ZIPPER SETTER [address] [place] [address] PCP - General Primary Care 09/09/22 Team [...] BE BASED ON THE PRIMARY CLINICAL RECORDS. [facility] [employer] [facility]. provides no warranty or guarantee of the accuracy or completeness of information in this document.
--- NOTE | 2023-11-17 15:43 | ED.LOWEXI1 ---
HPI HPI - Extremity Injury (Lower) General Chief Complaint: Extremity Injury, Lower Stated Complaint: lower extremity injury Time Seen by Provider: 11/17/23 15:30 Source: patient Mode of arrival: walk-in Limitations: no limitations History of Present Illness HPI Narrative: Patient is a 43-year-old female presents to the emergency department for the evaluation of an injury to the right foot that occurred last night when she twisted her ankle. She complains of pain over the dorsum of the foot distally. No other associated injuries. She has no concerns for . No medications prior to arrival. Related Data Home Medications ?Medication ?Instructions ?Recorded ?Confirmed albuterol sulfate 2.5 mg/3 mL 2.5 mg inhalation Q6H PRN 07/30/23 08/12/23 (0.083 %) solution for nebulization shortness of breath or wheezing albuterol sulfate 90 mcg/actuation 2 inh inhalation Q4H PRN shortness 07/30/23 08/12/23 aerosol inhaler of breath or wheezing aripiprazole 5 mg tablet 5 mg PO DAILY 07/30/23 08/12/23 buspirone 10 mg tablet 10 mg PO DAILY 07/30/23 08/12/23 fluticasone fur. 200 mcg-umeclid 1 inh inhalation Q24H 07/30/23 08/12/23 62.5 mcg-vilant 25 mcg inhalat.powder (Trelegy Ellipta) furosemide 20 mg tablet 20 mg PO DAILY PRN edema 07/30/23 08/12/23 lamotrigine 100 mg tablet 100 mg PO QAM 07/30/23 08/12/23 venlafaxine 75 mg capsule,extended 75 mg PO QAM 07/30/23 08/12/23 release 24 hr Previous Rx's ?Medication ?Instructions ?Recorded oipbmxskmg-tcsyxmlwqvpdf-qeimvfuc 1 cap PO Q6H PRN headache #12 caps 09/03/23 50 mg-300 mg-40 mg capsule (Fioricet) ketorolac 10 mg tablet 10 mg PO TID PRN pain #10 tabs 09/03/23 ondansetron 4 mg disintegrating 4 mg PO Q6H PRN nausea and 09/03/23 tablet vomiting #12 tabs hydrocodone 5 mg-acetaminophen 325 1 tab PO Q6H PRN pain 5 days #20 09/08/23 mg tablet tabs ondansetron 4 mg disintegrating 4 mg PO Q6H PRN nausea and 09/08/23 tablet vomiting #20 tabs hydrocodone 5 mg-acetaminophen 325 1 tab PO Q6H PRN pain 3 days #12 11/17/23 mg tablet tabs ketorolac 10 mg tablet 10 mg PO TID PRN pain #10 tabs 11/17/23 Allergies Allergy/AdvReac Type Severity Reaction Status Date / Time No Known Drug Allergies Allergy Verified 07/30/23 11:17 Opioid HPI Opioid Management Most Recent Pain and Opioid Data: Last Pain Scale 7 09/08/23 15:12 Review of Systems ROS Constitutional Denies: fever or chills Ears, nose, mouth, and throat Denies: throat pain or nasal congestion Respiratory Denies: shortness of breath Gastrointestinal Denies: nausea or vomiting Musculoskeletal Reports: extremity pain and extremity swelling; Denies: back pain or neck pain Endocrine Denies: excessive urination Hematologic/Lymphatic Denies: easy bruising or easy bleeding [facility] Medical History (Updated 11/17/23 @ 15:48 by KEVIN Camara) Chronic cough ?R05.3 - Chronic cough (ICD-10) Anemia ?D64.9 - Anemia, unspecified (ICD-10) Extremity edema ?R60.0 - Localized edema (ICD-10) Insomnia ?G47.00 - Insomnia, unspecified (ICD-10) Depression ?F32.A - Depression, unspecified (ICD-10) Anxiety ?F41.9 - Anxiety disorder, unspecified (ICD-10) Bipolar disorder ?F31.9 - Bipolar disorder, unspecified (ICD-10) COVID-19 ?U07.1 - COVID-19 (ICD-10) Bronchitis ?J40 - Bronchitis, not specified as acute or chronic (ICD-10) Reactive airway disease ?J45.909 - Unspecified asthma, uncomplicated (ICD-10) Migraine ?G43.909 - Migraine, unspecified, not intractable, without status migrainosus (ICD-10) Seizures ?R56.9 - Unspecified convulsions (ICD-10) Dysmenorrhea ?N94.6 - Dysmenorrhea, unspecified (ICD-10) Menorrhagia ?N92.0 - Excessive and frequent menstruation with regular cycle (ICD-10) Seasonal allergies ?J30.2 - Other seasonal allergic rhinitis (ICD-10) Hypertrophy, nasal, turbinate ?J34.3 - Hypertrophy of nasal turbinates (ICD-10) Deviated septum ?J34.2 - Deviated nasal septum (ICD-10) Chronic sinusitis ?J32.9 - Chronic sinusitis, unspecified (ICD-10) Surgical History (Updated 07/30/23 @ 11:30 by Suad Guthrie NP) History of esophagogastroduodenoscopy (EGD) ?Z98.890 - Other specified postprocedural states (ICD-10) History of section ?Z98.891 - History of uterine scar from previous surgery (ICD-10) History of section ?Z98.891 - History of uterine scar from previous surgery (ICD-10) Family History (Updated 07/30/23 @ 11:30 by Suad Guthrie NP) Other Family history of DVT Family history of Parkinson disease Family history of aneurysm Family history of cancer Family history of diabetes mellitus Social History Within the past year, how often did you have a drink containing alcohol: monthly or less Smoking status: Current every day smoker What tobacco products do you use: cigarettes Packs per day: 1 Years smoked: 30 Smoking pack-years: 30.00 Non-prescribed substance use: denies use 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 Minimal ecchymosis and faint edema noted to the base of the right great toe with 2+ right DP pulse. No bony tenderness of the proximal foot or ankle. Psych: Normal mood and affect Neuro: No focal neuro deficit Skin: Warm, dry, intact Constitutional Vital Signs, click to edit/add: Last Vital Signs Temp 98.2 F 11/17/23 15:15 Pulse 91 H 11/17/23 15:15 Resp 18 11/17/23 15:15 BP 149/108 H 11/17/23 15:15 Pulse Ox 98 11/17/23 15:15 O2 Del Method Room Air 11/17/23 15:15 Course Vital Signs Vital signs: Vital Signs Temperature 98.2 F 11/17/23 15:15 Pulse Rate 91 H 11/17/23 15:15 Respiratory Rate 18 11/17/23 15:15 Blood Pressure 149/108 H 11/17/23 15:15 Pulse Oximetry 98 11/17/23 15:15 Oxygen Delivery Method Room Air 11/17/23 15:15 Temperature 98.2 F 11/17/23 15:15 Pulse Rate 91 H 11/17/23 15:15 Respiratory Rate 18 11/17/23 15:15 Blood Pressure 149/108 H 11/17/23 15:15 Pulse Oximetry 98 11/17/23 15:15 Oxygen Delivery Method Room Air 11/17/23 15:15 MDM - Extremity Injury (Lower) MDM Narrative Medical decision making narrative: X-rays of the foot and ankle were obtained from triage showing that the patient has a fracture at the base of the proximal phalanx of the right great toe. No other abnormalities appreciated. Patient discharged home in a postop shoe with crutches, she is neurovascularly intact at discharge. Percocet given in the ER for pain and she is given a short course of analgesics and NSAIDs for home. Follow-up podiatry and return to the ER if symptoms change or worsen. Work note provided. Rest, ice, elevate. SUPERVISED APC VISIT, PHYSICIAN ATTESTATION: Based on the medical record the care appears appropriate. ? Medical Records Attestation: I reviewed the patient's medical records. Imaging Data XR foot/ankle: Attestation: I have reviewed the pertinent imaging results. Discharge Plan Discharge Stand Alone Forms: Work/School Release, Portal Instructions Chief Complaint: Extremity Injury, Lower Clinical Impression: Closed fracture of right great toe Patient Disposition: Home, Self-Care Time of Disposition Decision: 15:47 Condition: Good Prescriptions / Home Meds: New hydrocodone-acetaminophen 5-325 mg tablet 1 tab PO Q6H PRN (Reason: pain) 3 Days Qty: 12 0RF Rx Instructions: DX: M79.671 ketorolac 10 mg tablet 10 mg PO TID PRN (Reason: pain) Qty: 10 0RF No Action ketorolac 10 mg tablet 10 mg PO TID PRN (Reason: pain) Qty: 10 0RF ondansetron 4 mg tablet,disintegrating 4 mg PO Q6H PRN (Reason: nausea and vomiting) Qty: 12 0RF obladiigkb-ncicwehwpmsgf-pdsp [Fioricet] 50-300-40 mg capsule 1 cap PO Q6H PRN (Reason: headache) Qty: 12 0RF Rx Instructions: DX: R51.9 albuterol sulfate 2.5 mg /3 mL (0.083 %) solution for nebulization 2.5 mg inhalation Q6H PRN (Reason: shortness of breath or wheezing) albuterol sulfate 90 mcg/actuation HFA aerosol inhaler 2 inh INHALATION Q4H PRN (Reason: shortness of breath or wheezing) aripiprazole 5 mg tablet 5 mg PO DAILY buspirone 10 mg tablet 10 mg PO DAILY Trelegy Ellipta 200-62.5-25 mcg blister with device 1 inh INHALATION Q24H furosemide 20 mg tablet 20 mg PO DAILY PRN (Reason: edema) lamotrigine 100 mg tablet 100 mg PO QAM venlafaxine 75 mg capsule,extended release 24hr 75 mg PO QAM hydrocodone-acetaminophen 5-325 mg tablet 1 tab PO Q6H PRN (Reason: pain) 5 Days Qty: 20 0RF ondansetron 4 mg tablet,disintegrating 4 mg PO Q6H PRN (Reason: nausea and vomiting) Qty: 20 0RF Print Language: Slovak Instructions: Toe Fracture (ED) Referrals: Kelli Willingham, EMBROIDERY FINISHER [Primary Care Provider] - 1 week Denilson Gallardo DPM [Physician] - As soon as possible
[2023-11-17] MEDS: OXYCODONE HCL/ACETAMINOPHEN 5MG/325MG 1 TAB PO (16:08)
== END 2023-11-17 16:21 | disposition home or self-care (01) ==
PROVIDERS: Emergency Provider Emergency Medicine; PCP Nurse Practitioner
DX: S92.411A Displaced fracture of proximal phalanx of right great toe, initial encounter for closed fracture (principal); X50.1XXA Overexertion from prolonged static or awkward postures, initial encounter; F17.210 Nicotine dependence, cigarettes, uncomplicated
CPT/HCPCS: 73610; 73630; 99284

== ENCOUNTER 2023-12-11 09:34 | Outpatient (OUT) | payer OTHER, SELFPAY ==
--- NOTE | 2023-11-19 15:59 | V.VEINS.HP ---
Varicose Veins Patient is a 43 year old female in this day with c/o PFSH PFS Medical History (Updated 11/17/23 @ 15:48 by KEVIN Camara) Chronic cough ?R05.3 - Chronic cough (ICD-10) Anemia ?D64.9 - Anemia, unspecified (ICD-10) Extremity edema ?R60.0 - Localized edema (ICD-10) Insomnia ?G47.00 - Insomnia, unspecified (ICD-10) Depression ?F32.A - Depression, unspecified (ICD-10) Anxiety ?F41.9 - Anxiety disorder, unspecified (ICD-10) Bipolar disorder ?F31.9 - Bipolar disorder, unspecified (ICD-10) COVID-19 ?U07.1 - COVID-19 (ICD-10) Bronchitis ?J40 - Bronchitis, not specified as acute or chronic (ICD-10) Reactive airway disease ?J45.909 - Unspecified asthma, uncomplicated (ICD-10) Migraine ?G43.909 - Migraine, unspecified, not intractable, without status migrainosus (ICD-10) Seizures ?R56.9 - Unspecified convulsions (ICD-10) Dysmenorrhea ?N94.6 - Dysmenorrhea, unspecified (ICD-10) Menorrhagia ?N92.0 - Excessive and frequent menstruation with regular cycle (ICD-10) Seasonal allergies ?J30.2 - Other seasonal allergic rhinitis (ICD-10) Hypertrophy, nasal, turbinate ?J34.3 - Hypertrophy of nasal turbinates (ICD-10) Deviated septum ?J34.2 - Deviated nasal septum (ICD-10) Chronic sinusitis ?J32.9 - Chronic sinusitis, unspecified (ICD-10) Surgical History (Updated 07/30/23 @ 11:30 by Suad Guthrie NP) History of esophagogastroduodenoscopy (EGD) ?Z98.890 - Other specified postprocedural states (ICD-10) History of section ?Z98.891 - History of uterine scar from previous surgery (ICD-10) History of section ?Z98.891 - History of uterine scar from previous surgery (ICD-10) Family History (Updated 07/30/23 @ 11:30 by Suad Guthrie NP) Other Family history of DVT Family history of Parkinson disease Family history of aneurysm Family history of cancer Family history of diabetes mellitus Social History Within the past year, how often did you have a drink containing alcohol: monthly or less Smoking status: Current every day smoker What tobacco products do you use: cigarettes Packs per day: 1 Years smoked: 30 Smoking pack-years: 30.00 Non-prescribed substance use: denies use 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[employer] Highest level of school completed/degree received: Bachelor's degree Meds Home Medications and Allergies Home Medications ?Medication ?Instructions ?Recorded ?Confirmed ?Type albuterol sulfate 2.5 mg/3 mL 2.5 mg inhalation Q6H PRN 07/30/23 08/12/23 History (0.083 %) solution for nebulization shortness of breath or wheezing albuterol sulfate 90 mcg/actuation 2 inh inhalation Q4H PRN shortness 07/30/23 08/12/23 History aerosol inhaler of breath or wheezing aripiprazole 5 mg tablet 5 mg PO DAILY 07/30/23 08/12/23 History buspirone 10 mg tablet 10 mg PO DAILY 07/30/23 08/12/23 History fluticasone fur. 200 mcg-umeclid 1 inh inhalation Q24H 07/30/23 08/12/23 History 62.5 mcg-vilant 25 mcg inhalat.powder (Trelegy Ellipta) furosemide 20 mg tablet 20 mg PO DAILY PRN edema 07/30/23 08/12/23 History lamotrigine 100 mg tablet 100 mg PO QAM 07/30/23 08/12/23 History venlafaxine 75 mg capsule,extended 75 mg PO QAM 07/30/23 08/12/23 History release 24 hr ckrsayxqce-mhrlslchhbveg-rqlejmyj 1 cap PO Q6H PRN headache #12 caps 09/03/23 Rx 50 mg-300 mg-40 mg capsule (Fioricet) ketorolac 10 mg tablet 10 mg PO TID PRN pain #10 tabs 09/03/23 Rx ondansetron 4 mg disintegrating 4 mg PO Q6H PRN nausea and 09/03/23 Rx tablet vomiting #12 tabs hydrocodone 5 mg-acetaminophen 325 1 tab PO Q6H PRN pain 5 days #20 09/08/23 Rx mg tablet tabs ondansetron 4 mg disintegrating 4 mg PO Q6H PRN nausea and 09/08/23 Rx tablet vomiting #20 tabs hydrocodone 5 mg-acetaminophen 325 1 tab PO Q6H PRN pain 3 days #12 11/17/23 Rx mg tablet tabs ketorolac 10 mg tablet 10 mg PO TID PRN pain #10 tabs 11/17/23 Rx Allergies Allergy/AdvReac Type Severity Reaction Status Date / Time No Known Drug Allergies Allergy Verified 07/30/23 11:17
--- NOTE | 2023-11-19 16:00 | W.VEIN ---
Discharge Plan Discharge Disposition: Home, Self-Care Discharge Medications: No Action ketorolac 10 mg tablet 10 mg PO TID PRN (Reason: pain) Qty: 10 0RF ondansetron 4 mg tablet,disintegrating 4 mg PO Q6H PRN (Reason: nausea and vomiting) Qty: 12 0RF mmysdtbrmk-ptiepqmagphaf-pbck [Fioricet] 50-300-40 mg capsule 1 cap PO Q6H PRN (Reason: headache) Qty: 12 0RF Rx Instructions: DX: R51.9 hydrocodone-acetaminophen 5-325 mg tablet 1 tab PO Q6H PRN (Reason: pain) 3 Days Qty: 12 0RF Rx Instructions: DX: M79.671 ketorolac 10 mg tablet 10 mg PO TID PRN (Reason: pain) Qty: 10 0RF albuterol sulfate 2.5 mg /3 mL (0.083 %) solution for nebulization 2.5 mg inhalation Q6H PRN (Reason: shortness of breath or wheezing) albuterol sulfate 90 mcg/actuation HFA aerosol inhaler 2 inh INHALATION Q4H PRN (Reason: shortness of breath or wheezing) aripiprazole 5 mg tablet 5 mg PO DAILY buspirone 10 mg tablet 10 mg PO DAILY Trelegy Ellipta 200-62.5-25 mcg blister with device 1 inh INHALATION Q24H furosemide 20 mg tablet 20 mg PO DAILY PRN (Reason: edema) lamotrigine 100 mg tablet 100 mg PO QAM venlafaxine 75 mg capsule,extended release 24hr 75 mg PO QAM hydrocodone-acetaminophen 5-325 mg tablet 1 tab PO Q6H PRN (Reason: pain) 5 Days Qty: 20 0RF ondansetron 4 mg tablet,disintegrating 4 mg PO Q6H PRN (Reason: nausea and vomiting) Qty: 20 0RF Print Language: Honduran
--- NOTE | 2023-12-11 | XR_ITS ---
The [address] [address] Patient Name: MARIELENA ENGLAND MRN: [id number] date: 1980 Sex: F Assigned Patient Location: Current Patient Location: Accession/Order Number: [id number] Exam Date: 12/11/2023 09:36 Report Date: 12/12/2023 07:00 At the request of: JUAN JOSÉ CHAMBERS Procedure: XR foot RT min 3V PROCEDURE: XR foot RT min 3V HISTORY: RIGHT FOOT PAIN ; follow-up first toe fracture COMPARISON: XR foot right 11/17/2023 FINDINGS: BONES:Subacute fracture involving proximal medial corner of the first proximal phalanx with intra-articular extension and increased widening of the fracture line, now 2.3 mm. SOFT TISSUES:Dorsal soft tissue swelling. EFFUSION:None visible. OTHER: Negative. XR/XR foot RT min 3V IMPRESSION: Subacute fracture of first proximal phalanx with intra-articular extension and slightly greater displacement than seen on prior study. Electronically authenticated by: TIMOTEO PINK Date: 12/12/2023 07:00
--- OUTSIDE RECORDS SUMMARY | 2023-12-11 09:49 | XMS_ITS | CCD ---
Author Organization [facility] Care Team Providers Care Care Mgr Name Role Phone Yohana Kitchen Unavailable Chela Kumar Unavailable NITO ., DR JOSÉ MIGUEL Potts Admitting Unavailable BEAUCHAMP ., DR JOSÉ MIGUEL oPtts Attending Unavailable MISC, DR THOMSON Primary Care Unavailable HOY ., DR CORREA Consulting Unavailable BARTLETT ., FABIOLA Consulting Unavailable HALKER ., PAIGE Admitting Unavailable HALKER ., PAIGE Attending Unavailable ELIOT CHO Primary Care Unavailable BARTLETT ., FABIOLA Admitting Unavailable BARTLETT ., FABIOLA Attending [facility]available [facility], DR THOMSON Primary Care Unavailable NATCHEZ, DR LOUIE Carrillo Consulting Unavailable BARTLETT ., [...] ., DR JOSÉ MIGUEL Potts Attending Unavailable [facility], DR THOMSON Primary Care Unavailable BARTLETT ., FABIOLA Consulting Unavailable Ilana Gallegos Unavailable Neyda Garland Unavailable Shammo FRANK-DIANA, Sridhar Primary Care Provider ARIANA RENDON Primary Care Physician [phone] MD Jana Melvin Jr Attending Provider Jana [...] Care Unavailable JACKSON, ZENAIDA Primary Care Physician JACKSON, ZENAIDA Primary Care Unavailable BERNIE SANCHEZ [...] Start: 10-21-2021 take 1 capsule by mo [facility] every twenty-four hours in the morning venlafaxine [...] zach th every six hours as needed [place] 5-325 MG 1 tablet as needed Orally [...] tetanus-diphtheria toxoids 12/13/2019 Given patient seen 10/28/23 [facility] Comment on above: Result Comment: Elec tronically [...] for choosing us for your care. Marcela [facility] Reminderson 10-22-2023 Reminders Reminders From: Palma Gloria LPN To: N - Clinical; Sent: 10/22/2023 11:40:26 EDT Show up: 09/05/2033 07:00:00 EDT Subject: colonoscopy recall Due Date/Time: 10/05/2033 07:00:00 EDT Reminder/Recall Patient due for screening colonoscopy 10/05/2033 [facility] EGDon 10-20-2023 Esophagogastroduodenosc opy EGD Patient: MERE [...] Impression and Plan EGD: Diagnosis: Antral gastritis (PKC37-FJ K29.50, Working, Medical). Course: Progressing as expected. Education and Follow-up: Counseled: Family. [facility] Comment on above: Other Comment: Lucille acosta Attachment - attachment storage system not supported [id number] Can be viewed in source system Missing Attachment - attachment storage system not supported [id number] Can be viewed in source system Missing Attachment - attachment storage system not supported [id number] Can be viewed in source system Surgical Pathology Reporton 10-16-2023 Surgical Pathology Report [facility] [address] [place] [address]- Surgical Pathology Report Collected Date/Time: 10/06/2023 08:45 EDT Pathologist: Freddy Knight MD Received Date/Time: 10/06/2023 10:07 EDT LEIDA LINDSEY, Yadiel CASAREZ MD, Yadeil Gardner Surgical Pathology Report - 10/16/2023 13:55 [...] is entirely submitted in one cassette. (DC) DC:[facility] Microscopic Description A-D: Microscopic examination performed unless [...] characteristics were determined by the [facility]. They have not been cleared or approved by the US Food and Drug Administration. The FDA has determined that such clearance or approval is not necessary. These tests are used for clinical purposes. They should not be regarded as investigational or for research. Appropriate positive and negative controls are performed and are acceptable. Normal [facility] Comment on above: Performed By: #### 4 [id number] #### [facility] [address] [place] [address] CT ABDOMEN PELVIS W WO CONTR Lanette [...] Micheal Wheeler MD 10/07/23 Final result Normal [facility] Main OR Intraoperative Recor don 10-07-2023 Main OR Intraoperative Record Main OR Intraoperative Record IntraOp Document Type FT Summary Primary Physician: Yadiel CASAREZ MD Finalized Date/Time: 10/07/23 11:23:45 Pt. Name: ROSARIO ESTEBANDARYL Eden/Sex: 1980 Female Med Rec #: [id number] Physician: Yadiel CASAREZ MD Financial #: [id number] Pt. Type: O Room/Bed: / Admit/Disch: 10/06/23 [...] Suad Role Performed ELIOT Surgeon - Primary Supervisor Partial Denture Department - Primary Time In 10/06/23 08:35:00 10/06/23 [...] and tissue Entry 1 Skin Integrity Intact, [place], Warm, & Skin Abnormality No Dry Outcomes [...] AND COLONOSC (more content not included)... Normal [facility] Discharge Instructionson Discharge Instructions Discharge Instruc [...] to 10 days Where: [place], [facility] [address] [address]- Business (1) Medications What How [...] of the (more content not included)... Normal [facility] Comment on above: Result Comment: Elec tronically Signed By: Ori PENA, Valeria\.br\Date and Time Signed: 10/06/23 09:28 EDT Inpatient Patient Summaryon 10-06-2023 Inpatient Patient Summary Inpatient Patient Summary [address] [address] [facility] Clinical Discharge Instructions PERSON INFORMATION Name: MERE ESTEBAN PHYSICIANS Admitting Physician: Yadiel CASAREZ MD Attending Physician: Yadiel CSAAREZ MD PCP: ZENAIDA PAZ Discharge Diagnosis: Colon polyps; Rectal inflammation Comment: PATIENT EDUCATION INFORMATION Instructions: Medication Leaflets: Follow up: With: Address: When: Yadiel CASAREZ [address] [place] [address], [address], [address] [address] [facility] (1) Within 7 to 10 days MEDICATION [...] Capsules By Mouth every day. Comment: Normal [facility] Main OR PACU I Recordon 09-15 Main OR PACU I Record Main OR PACU I Rec ord PACU Phase I Document Type FT Summary Primary Physician: Yadiel CASAREZ MD Finalized Date/Time: 10/06/23 09:53:44 Pt. Name: MERE ESTEBAN Mandy Eden/Sex: 1980 Female Med Rec #: [id number] Physician: Yadiel CASAREZ MD Financial #: [id number] Pt. Type: O Room/Bed: / Admit/Disch: 10/06/23 [...] By: Valeria Rehman RN 10/06/23 09:53 Normal [facility] Main OR Preoperative Recordo n 10-06-2023 Main OR Preoperative Record Main OR Preoperative Record Holding Area Document Type FT Summary Primary Physician: Yadiel CASAREZ MD Finalized Date/Time: 10/06/23 08:15:54 Pt. Name: MERE ESTEBAN Mandy Eden/Sex: 1980 Female Med Rec #: [id number] Physician: Yadiel CASAREZ MD Financial #: [id number] Pt. Type: O Room/Bed: / Admit/Disch: 10/06/23 [...] By: Carrington Quiles RN 10/06/23 08:15 Normal [facility] Outpatient Surgery Discharge Instructionon 10-06-2023 Outpatient Surgery Discharge Instruction Outpatient Surgery Discharge Instruction [place] [id number] Patient Discharge Instructions PERSON INFORMATION Name: MERE [...] Address: When: Yadiel LEIDA [address], [address], [facility] [address] [place] [address] Business (1) Within 7 to 10 days [...] to serve you. Thank you for choosing [facility] HERE ARE THE MEDICATION CHANGES THAT [...] PATIENT EDUCATION INFORMATION Instructions: Medication Leaflets: Normal [facility] ED Note-Physicianon 09-10-19 ED Note-Physician [id number]#1.00TIF F [facility] RAD - Ultrasound Reporton RAD - Ultrasound Report [id number]#1.00TIFF [facility] COMPLETE BLOOD COUNTon 09-02 Erythrocyte distribution width (RBC) [Ratio] 15.0 % Normal 11.5-15.0 [facility] Comment on above: Performed By: #### C RAYMUNDO [facility], 59330-5, 3024-7, [facility], 75798-1 ####[facility] ([id number])[address] [address] Hematocrit (Bld) [Volume fraction] 41.6 % Normal 35-47 [facility] Comment on above: Performed By: #### Leila FONSECA CMP, 96556-4, 3024-7, [facility], 65965-2 ####[facility] ([id number])[address] [address] Hemoglobin (Bld) [Mass/Vol] 14.0 g/dL Normal 11.7-15.5 [facility] Comment on above: Performed By: #### Leila FONSECA [facility], 96698-4, 3024-7, [facility], 77310-4 ####[facility] ([id number])[address] [address] MCH (RBC) [Entitic mass] 31.6 pg Normal 27-34 [facility] Comment on above: Performed By: #### C BC, CMP, 43461-5, 3024-7, HA1C, 54228-8 ####[facility] ([id number])[address] [address] [place] [address] MCHC (RBC) [Mass/Vol] 33.7 g/dL Normal 32-36 [facility] Comment on above: Performed By: #### C BC, CMP, 28037-6, 3024-7, 1C, 61204-3 ####[facility] ([id number])[address] [address] [place] [address] MCV (RBC) [Entitic vol] 94 fL Normal 80-100 [facility] Comment on above: Performed By: #### Leila BC, CMP, 68860-0, 3024-7, HA1C, 44645-3 ####[facility] ([id number])[address] [address] [place] [address] Platelet mean volume (Bld) [Entitic vol] 8.4 fL Normal 7-12 [facility] Comment on above: Performed By: #### C BC, CMP, 82872-6, 3024-7, HA1C, 41039-4 ####[facility] ([id number])[address] [address] Platelets (Bld) [#/Vol] 319 10*3/uL Normal 150-450 [facility] Comment on above: Performed By: #### C BC, CMP, 82927-9, 3024-7, HA1C, 05830-8 ####[facility] ([id number])[address] [address] RBC COUNT 4.43 X10E12/L Normal 3.80-5.20 [facility] Comment on above: Performed By: #### C BC, CMP, 31194-2, 3024-7, HA1C, 85685-3 ####[facility] ([id number])[address], [address] [place] [address] WBC (Bld) [#/Vol] 8.0 10*3/uL Normal 4.0-11.0 [facility] Comment on above: Performed By: #### C BC, CMP, 29431-2, 3024-7, HA1C, 16304-3 ####[facility] ([id number])[address], [address] [place] [address] COMPREHENSIVE METABOLIC PANE Nito 09-03-2023 Albumin [Mass/Vol] 4.0 g/dL Normal 3.2-5.3 [facility] Comment on above: Performed By: #### C BC, CMP, 25698-6, 3024-7, HA1C, 03053-7 ####[facility] ([id number])[address] [address] [place] [address] ALP [Catalytic activity/Vol] 77 U/L Normal 39-130 [facility] Comment on above: Performed By: #### C BC, CMP, 41944-5, 3024-7, HA1C, 05766-7 ####[facility] ([id number])[address] [address] [place] [address] ALT [Catalytic activity/Vol] 19 U/L Normal 0-31 [facility] Comment on above: Performed By: #### C BC, CMP, 29092-2, 3024-7, HA1C, 48235-8 ####[facility] ([id number])[address], [address], [place] [address] Anion gap [Moles/Vol] 10 mmol/L Normal 5-15 [facility] Comment on above: Performed By: #### C BC, CMP, 36838-5, 3024-7, HA1C, 63278-5 ####[facility] ([id number])[address], [address], [place] [address] AST [Catalytic activity/Vol] 19 U/L Normal 0-41 [facility] Comment on above: Performed By: #### C BC, CMP, 49911-2, 3024-7, HA1C, 97949-1 ####[facility] ([id number])[address], [address], [place] [address] Bilirubin [Mass/Vol] 0.7 mg/dL Normal 0.3-1.2 [facility] Comment on above: Performed By: #### C BC, CMP, 03554-7, 3024-7, HA1C, 74749-3 ####[facility] ([id number])[address], [address], [place] [address] Calcium [Mass/Vol] 9.0 mg/dL Normal 8.5-10.5 [facility] Comment on above: Performed By: #### Leila BC, CMP, 11557-3, 3024-7, [facility], 00174-2 ####[facility] ([id number])[address] [address], [place] [address] Chloride [Moles/Vol] 101 mmol/L Normal 98-109 [facility] Comment on above: Performed By: #### Leila BC, CMP, 35723-3, 3024-7, HA1C, 76157-6 ####[facility] ([id number])[address], [address], [place] [address] CO2 [Moles/Vol] 27 mmol/L Normal 22-32 [facility] Comment on above: Performed By: #### C BC, CMP, 35852-7, 3024-7, HA1C, 29016-5 ####[facility] ([id number])[address], [address], [place] [address] Creatinine [Mass/Vol] 0.71 mg/dL Normal 0.40-1.00 [facility] Comment on above: Result Comment: METH OD TRACEABLE TO IDMS STANDARD Performed By: #### C BC, CMP, 00393-2, 3024-7, HA1C, 46282-5 ####[facility] ([id number])[address] [address], [place] [address] eGFR (CKD-EPI) NON-RACE DEPENDENT >90 Normal >59 [facility] Comment on above: Result Comment: Reported eGFR is based on the CKD-EPI 2020 equation that does not use a race coefficient. Performed By: #### C BC, CMP, 79607-8, 3024-7, HA1C, 78191-5 ####[facility] ([id number])[address] [address] [address] Glucose [Mass/Vol] 88 mg/dL Normal 65-99 [facility] Comment on above: Performed By: #### C BC, CMP, 18669-5, 3024-7, HA1C, 18030-0 ####[facility] ([id number])[address] [address] [place] [address] Potassium [Moles/Vol] 3.7 mmol/L Normal 3.5-5.0 [facility] Comment on above: Performed By: #### C BC, CMP, 00182-4, 3024-7, HA1C, 99248-8 ####[facility] ([id number])[address] [address], [place] [address] Protein [Mass/Vol] 6.9 g/dL Normal 6.0-8.0 [facility] Comment on above: Performed By: #### C BC, CMP, 35085-7, 3024-7, HA1C, 66773-3 ####[facility] ([id number])[address] [place] [address] Sodium [Moles/Vol] 138 mmol/L Normal 134-146 [facility] Comment on above: Performed By: #### C BC, CMP, 12289-9, 3024-7, HA1C, 29785-4 ####[facility] ([id number])[address] [address] Urea nitrogen [Mass/Vol] 8 mg/dL Normal 5- [facility] Comment on above: Performed By: #### Leila BC, CMP, 41368-3, 3024-7, HA1C, 18149-0 ####[facility] ([id number])[address] [address] FREE T4on 09-03-2023 Free T4 [Mass/Vol] 0.81 ng/dL Normal 0.61-1.60 [facility] Comment on above: Performed By: #### Leila BC, [facility], 54400-2, 4-7, HA1C, 33201-9 ####[facility] ([id number])[address] [address] HGB A1C (GLYCO-HGB)on 2023 Glucose [Mass/Vol] 103 mg/dL Normal [facility] Comment on above: Performed By: #### Le[place] BC, 02744-2, 3015-3, 4-7, 2842-3, 00935-8, 80515-2 #### [facility] ([id number]) [address] [address] [place] [address] HbA1c (Bld) [Mass fraction] 5.2 % Normal 4.4-5.6 [facility] Comment on above: Result Comment: NOTE ADA Guidelines Result HgbA1c Normal : less than 5.7 % Prediabetes : 5.7 % to 6.4 % Diabetes : > 6.4 % Use with caution in patients with abnormal hemoglobin variants as the half-life of red blood cells and in vivo glycation rates are affected. Performed By: #### [place], 55026-1, 6-3, 4-7, 2842-3, 84294-6, 48649-3 #### [facility] ([id number]) [address], [address] [place] [address] Lipid 1996 panelon 4 Cholesterol [Mass/Vol] 171 mg/dL Normal 150-[address] [facility] Comment on above: Performed By: #### Leila BC, CMP, 03813-4, 3024-7, HA1C, 32646-9 ####[facility] ([id number])[address], [address] [place] [address] Cholesterol in HDL [Mass/Vol] 67 mg/dL Normal >39 [facility] Comment on above: Result Comment: HDL <40 mg/dL - High Risk HDL > or = 40mg/dL- Desirable HDL >60 mg/dL - Negative Risk Performed By: #### Leila BC, CMP, 50677-8, 3024-7, HA1C, 26678-5 ####[facility] ([id number])[address], [address] [place] [address] Cholesterol in LDL [Mass/Vol] 55 mg/dL Normal <130 [facility] Comment on above: Result Comment: LDL <100 mg/dL - Desirable LDL >160 mg/dL - High Risk Performed By: #### C BC, CMP, 11728-4, 3024-7, HA1C, 21981-0 ####[facility] ([id number])[address], [address] [place] [address] Cholesterol in VLDL [Mass/Vol] 49 mg/dL High 0-30 [facility] Comment on above: Performed By: #### C BC, CMP, 47775-4, 3024-7, HA1C, 37792-5 ####[facility] ([id number])[address] [address] [address] CHOLESTEROL:HDL 2.6 Normal 1.0-5.0 [facility] Comment on above: Performed By: #### C BC, [facility], 81881-6, 3024-7, HA1C, 71976-4 ####[facility] ([id number])[address], [facility] [address] [address] Triglyceride [Mass/Vol] 243 mg/dL High 27-150 P [facility] Comment on above: Performed By: #### C BC, [facility], 81423-3, 3024-7, HA1C, 53579-4 ####[facility] ([id number])[address] [address] [address] Vitamin D+Metabolites [Mass/ Vol]on 09-03-2023 VITAMIN D 25 HYD TOT 13.9 ng/mL Low 30-100 [facility] Comment on above: Result Comment: Vitamin D status 25 [place] Vitamin D Deficiency <20 ng/mL Insufficiency 20-29 ng/mL Sufficiency 30-100 ng/mL Toxicity >100 ng/mL NOTE: A pediatric reference range has not been established by the bowling floor desk clerk of this kit. The [place] [employer] recommends a Vitamin D level of = or >20ng/mL in infants and children. Performed By: #### C BC, 18092-1, 3016-3, 3024-7, 2842-3, 39619-7, 92640-4 #### [facility] ([id number]) [address], [facility] [address] [place] [address] Nito 08-12-2023 L Specimen: [id number] Received: 08/13/23 Status: MARCELL Szymanski Num: [id number] Spec Type: Surgical Subm Dr: JANA MELVIN MD Tissues: A Turbinates (RT INFERIOR TURB) B Turbinates (LT INF TURB) C Sinus Contents/Biopsy (RT SINUS CONTENT) D Sinus Contents/Biopsy (LT SINUS CONTENT) E Nasal Septum (SEPTUM) Procedures: HE/2, Gross/Micro L4/2, Level 1 Gross/3 Age/ Patient Sex Location Account Attending Physician EulaliaMere 42/F LABELL [id number] JANA MELVIN MD SPEC NUM: [id number] RECD: 08/13/23 STATUS: MARCELL SZYMANSIK NUM: [id number] SHRUTHI: 08/12/[address]: JANA MELVIN MD ENTERED: 08/13/23 [facility] DR: Amrita Villegas SPEC TYPE: Surgical DEPT: [...] nasal septal cartilage. Gross only examination Specimen: [id number] Received: 08/13/23 Status: VASQUEZIain Req Num: [id number] Spec Type: Surgical Subm Dr: JANA MELVIN MD Tissues: A Turbinates (RT INFERIOR TURB) B Turbinates (LT INF TURB) C Sinus Contents/Biopsy (RT SINUS CONTENT) D Sinus Contents/Biopsy (LT SINUS CONTENT) E Nasal Septum (SEPTUM) Procedures: HE/2, Gross/Micro L4/2, Level 1 Gross/3 Patient: Mere Esteban [id number] (Continued) Specimen: [id number] Received: 08/13/23 (Continued) Signed (signature on file) Neil Johns MD 08/18/232036 Specimen: [id number] Received: 08/13/23 Status: MARCELL Szymanski Num: [id number] Spec Type: Surgical Subm Dr: TIMMIS,JANA H MD Tissues: A Turbinates (RT INFERIOR TURB) B Turbinates (LT INF TURB) C Sinus Contents/Biopsy (RT SINUS CONTENT) D Sinus Contents/Biopsy (LT SINUS CONTENT) E Nasal Septum (SEPTUM) Procedures: HE/2, Gross/Micro L4/2, Level 1 Gross/3 Patient: EulaliaMere J [id number] (Continued) Specimen: [id number] Received: 08/13/23 (Continued) Clinical Information Chronic sinusitis, [...] cm aggregate of adler and cartilaginous tissue. Boat Driver sections following decalcification are submitted in C1. [...] gross photo is included. TW CPT Codes 63415G4 74335 X.3 Specimen: [id number] Received: 08/13/23 Status: MARCELL Szymanski Num: [id number] Spec Type: Surgical Subm Dr: JANA MELVIN MD Tissues: A Turbinat (more content not included)... Normal [facility] Fibrin D-dimer DDU (PPP) [Ma ss/Vol]on 08-07-2023 D DIMER <150 Normal <255 [facility] Comment on above: Result Comment: Results <255 ng/mL DDU: The presence of a VTE can safely be excluded with a negative D-Dimer result and Wells score. A negative result doesn't exclude the possibility of DIC. The test be repeated along with other diagnostic tests if the patient's symptoms persist or worsen. [email or web address] Performed By: #### 4 8066-5 ####[facility] ([id number])[address] [place] [address] HCG ( test) IAmatthew d Ql (S)on 08-04-2023 SERUM Negative Normal NEG [facility] Comment on above: Performed By: #### 8 0385-8 ####[facility] ([id number])[address] [place] [address] Surgical Pathologyon 024 Surgical Pathology Normal [facility] Comment on above: Result Comment: [facility] [address] [place] [address] Surgical Pathology Consultation Patient Name:MERE ESTEBAN:1980 (Age: 42)Gender:FTaken:4Reported:4Physician(s):Belén Goodwin M.D. ([phone])Copy To: Rec. #:[id number]: #[id number] Final Pathologic Diagnosis 1. Endocervical curettings: Fragments of endocervix, negative for dysplasia 2. Endometrial curettings: Fragments of secretory endometrium with breakdown Report Electronically Signed Out nsk/08/12/2023Jacque Martin MD Interpretation performed at [email or web address], [address] [place] [address], License number: [id number]. Clinical History Dysfunctional uterine bleeding. Gross Description [...] submitted in a single cassette. (1, ns, [id number], m1) MG 2. Received in formalin labeled WHITE, #2: Endometrial curettings are 2 Telfa pads with multiple adherent adler fragments/feathery bits of soft tissue, embedded in adler cloudy mucoid debris and hemorrhagic material. The Telfa pads are scraped and the rest of the specimen is filtered, aggregating to 7.5 x 1.2 x 0.3 cm, and submitted in cassettes A-C. (3, ns, [id number], m1) MG mjg/08/05/2023NSK Intraoperative Consultation Specimen(s) Received 1: Endocervical curettings 2: Endometrial curettings Fee Codes(s): 1; 18776 2; 51826 CBC AND AUTO DIFFon 07-14-19 24 ABSOLUTE BASOPHIL 0.1 X10E9/L Normal 0.0-0.2 [facility] Comment on above: Performed By: #### C BCA ####[facility] ([id number])[address] [place] [address] ABSOLUTE NEUTROPHIL 4.4 X10E9/L Normal 1.5-6.6 [facility] Comment on above: Performed By: #### C BCA ####[facility] ([id number])[address] [address] [address] Basophils/100 WBC (Bld) 1.2 % Normal [facility] Comment on above: Performed By: #### C BCA ####[facility] ([id number])[address] [address] [address] Eosinophils (Bld) [#/Vol] 0.4 10*3/uL Normal 0.0-0.4 [facility] Comment on above: Performed By: #### C BCA ####[facility] ([id number])[address] [address] [address] Eosinophils/100 WBC (Bld) 4.7 % Normal [facility] Comment on above: Performed By: #### C BCA ####[facility] ([id number])[address] [address] [place] [address] Erythrocyte distribution width (RBC) [Ratio] 14.8 % Normal 11.5-15.0 [facility] Comment on above: Performed By: #### C BCA ####[facility] ([id number])[address] [address] [place] [address] Hematocrit (Bld) [Volume fraction] 41.2 % Normal 35-47 [facility] Comment on above: Performed By: #### C BCA ####[facility] ([id number])[address] [address] [address] Hemoglobin (Bld) [Mass/Vol] 13.6 g/dL Normal 11.7-15.5 [facility] Comment on above: Performed By: #### C BCA ####[facility] ([id number])0 [address] [address] [address] Lymphocytes (Bld) [#/Vol] 2.8 10*3/uL Normal 1.0-3.5 [facility] Comment on above: Performed By: #### C BCA ####[facility] ([id number])[address] [address] Lymphocytes/100 WBC (Bld) 32.8 % Normal [facility] Comment on above: Performed By: #### C BCA ####[facility] ([id number])0 [address] [address] [address] MCH (RBC) [Entitic mass] 31.3 pg Normal 27-34 [facility] Comment on above: Performed By: #### C BCA ####[facility] ([id number])0 [address] [address] [address] MCHC (RBC) [Mass/Vol] 33.1 g/dL Normal 32-36 [facility] Comment on above: Performed By: #### C BCA ####[facility] ([id number])[address] [address] [address] MCV (RBC) [Entitic vol] 95 fL Normal 80-100 [facility] Comment on above: Performed By: #### C BCA ####[facility] ([id number])[address] [address] [address] Monocytes (Bld) [#/Vol] 0.8 10*3/uL Normal 0-0.9 [facility] Comment on above: Performed By: #### C BCA ####[facility] ([id number])[address] [address] [place] [address] Monocytes/100 WBC (Bld) 9.2 % Normal P [facility] Comment on above: Performed By: #### C BCA ####[facility] ([id number])[address] [address] [place] [address] Neutrophils/100 WBC (Bld) 52.1 % Normal [facility] Comment on above: Performed By: #### C BCA ####[facility] ([id number])0 [address] [address] [place] [address] Platelet mean volume (Bld) [Entitic vol] 8.1 fL Normal 7-12 [facility] Comment on above: Performed By: #### C BCA ####[facility] ([id number])0 [address] [address] [place] [address] Platelets (Bld) [#/Vol] 321 10*3/uL Normal 150-450 [facility] Comment on above: Performed By: #### C BCA ####[facility] ([id number])0 [address] [address], [place] [address] RBC COUNT 4.35 X10E12/L Normal 3.80-5.20 [facility] Comment on above: Performed By: #### C BCA ####[facility] ([id number])0 [address] [address] [address] WBC (Bld) [#/Vol] 8.4 10*3/uL Normal 4.0-11.0 [facility] Comment on above: Performed By: #### C BCA ####[facility] ([id number])[address] [address], [place] [address] XR CHEST 2 VWSon 07-14-2023 XR CHEST 2 VWS XR CHEST 2 VWS XR CHEST 2 VWS INDICATION: Bronchitis, preoperative clearance COMPARISON: X-ray 01/29/2023 FINDINGS: Cardiomediastinal silhouette and pulmonary vasculature are within normal limits. Lungs and pleural space are clear. There is no pleural effusion or pneumothorax. IMPRESSION: No acute cardiopulmonary process. Finalized by Daniel Rosas on 07/14/2023 5:35 PM Normal [facility] POCT , urineon 05-15 Beta HCG ( test) Ql (U) Negative [facility] Surgical Pathologyon 024 Surgical Pathology Normal [facility] Comment on above: Result Comment: [facility] [address] [place] [address] Surgical Pathology Consultation Patient Name:MERE ESTEBAN:1980 (Age: 42)Gender:FTaken:4Reported:4Physician(s):Belén Goodwin M.D. ([phone])Copy To: Rec. #:[id number]: #[id number] Final Pathologic Diagnosis 1. Endocervix, curettage: Benign endocervical epithelium. 2. Endometrium, biopsy: Benign endometrium. Report Electronically Signed Out cjb/4Cjaylin Gayle MD Interpretation performed at [facility], [address] [place] [address], License number: [id number]. Clinical History Dysfunctional uterine bleeding (DUB) N93.8. Gross Description 1. Received in formalin labeled, WHITE, ECC is a plastic metal brush with a pale-adler mucoid material admixed with adler friable soft tissue fragments and brown hemorrhagic material, 2 x 0.8 x 0.1 cm in aggregate. The specimens are filtered and submitted in a single cassette. (1, ns, [id number], m2) TB 2. Received in formalin labeled, WHITE, EMB are 4 pale-adler delicate to friable soft tissue chips admixed with adler to brown hemorrhagic material, 2.5 x 1.5 x 0.1 cm in aggregate. The specimens are filtered and submitted in a single cassette. (1, ns, [id number], m2) [facility] [place]06/04/2023WAK Specimen(s) Received 1: Endocervical curettings 2: Endometrial biopsy Fee Codes(s): 1; 93683 2; 76171 COMPLETE BLOOD COUNTon 06-01 Erythrocyte distribution width (RBC) [Ratio] 14.6 % Normal 11.5-15.0 [facility] Comment on above: Performed By: #### C BC, 27745-8, 3016-3, 3024-7, 2842-3, 73684-2, 17940-1 #### [facility] ([id number]) [address] [facility] [address] [place] [address] Hematocrit (Bld) [Volume fraction] 44.6 % Normal 35-47 [facility] Comment on above: Performed By: #### C BC, 61657-1, 3016-3, 3024-7, 2842-3, 60742-1, 30287-6 #### [facility] ([id number]) [address] [address] [place] [address] Hemoglobin (Bld) [Mass/Vol] 14.6 g/dL Normal 11.7-15.5 [facility] Comment on above: Performed By: #### [place], 06379-9, 3016-3, 3024-7, 2842-3, 30756-6, 90036-1 #### [facility] ([id number]) [address] [address] [place] [address] MCH (RBC) [Entitic mass] 31.1 pg Normal 27-34 [facility] Comment on above: Performed By: #### C BC, 73478-2, 3016-3, 3024-7, 2842-3, 85625-9, 80048-0 #### [facility] ([id number]) [address] [address] [place] [address] MCHC (RBC) [Mass/Vol] 32.6 g/dL Normal 32-36 [facility] Comment on above: Performed By: #### Leila FONSECA, 78860-2, 3016-3, 3024-7, 2842-3, 22872-6, 11553-1 #### [facility] ([id number]) [address], [address] [place] [address] MCV (RBC) [Entitic vol] 95 fL Normal 80-100 [facility] Comment on above: Performed By: #### Leila FONSECA, 84566-9, 3016-3, 3024-7, 2842-3, 76302-1, 40795-6 #### [facility] ([id number]) [address] [facility] [address] [place] [address] Platelet mean volume (Bld) [Entitic vol] 8.9 fL Normal 7-12 [facility] Comment on above: Performed By: #### Leila FONSECA, 17538-8, 3016-3, 3024-7, 2842-3, 13166-6, 85667-3 #### [facility] ([id number]) [address] [address] [place] [address] Platelets (Bld) [#/Vol] 290 10*3/uL Normal 150-450 [facility] Comment on above: Performed By: #### Leila FONSECA, 81468-2, 3016-3, 3024-7, 2842-3, 71103-8, 83160-6 #### [facility] ([id number]) [address] [address] [place] [address] RBC COUNT 4.68 X10E12/L Normal 3.80-5.20 [facility] Comment on above: Performed By: #### Leila FONSECA, 90739-4, 3016-3, 3024-7, 2842-3, 64437-3, 40192-3 #### [facility] ([id number]) [address], [address] [place] [address] WBC (Bld) [#/Vol] 9.4 10*3/uL Normal 4.0-11.0 [facility] Comment on above: Performed By: #### Leila FONSECA, 80218-4, 3016-3, 3024-7, 2842-3, 81457-6, 25450-0 #### [facility] ([id number]) [address], [address] [place] [address] FREE T4on 06-02-2023 Free T4 [Mass/Vol] 0.79 ng/dL Normal 0.61-1.60 [facility] Comment on above: Performed By: #### Leila FONSECA, 83470-2, 3016-3, 3024-7, 2842-3, 66589-9, 42431-2 #### [facility] ([id number]) [address], [address] [place] [address] Follitropin Qnon 06-02-2023 FOLLICLE STIM HORMONE 4.2 mIU/mL Normal [facility] Comment on above: Result Comment: NORMAL FEMALE Luteal 1.8-5.1 mIU/mL Follicular 3.8-8.8 mIU/mL Mid Cycle 4.5-22.5 mIU/mL Post Mandi 16.7-113.6 mIU/mL Performed By: #### Leila FONSECA, 04930-8, 3016-3, 3024-7, 2842-3, 68121-7, 30121-0 #### [facility] ([id number]) [address], [address] [place] [address] HCG.beta subunit IA 3rd IS Q non 06-02-2023 SERUM B HCG,3RD I.S. <5 Normal [facility] Comment on above: Result Comment: NEW REFERENCE [...] or nontrophoblastic neoplasms. Performed By: ###Alcira FONSECA, 43244-8, 3016-3, 3024-7, 2842-3, 17226-6, 32669-0 #### [facility] ([id number]) [address] [place] [address], [address] [place] [address] Lutropin Qnon 06-02-2023 LUTEINIZING HORMONE 5.9 mIU/mL Normal [facility] Comment on above: Result Comment: NORMAL FEMALE Follicular 2.1-10.9 mIU/mL Mid Cycle 19.2-103 mIU/mL Luteal 1.2-12.9 mIU/mL Post Olive 10.9-58.6 mIU/mL Performed By: ###Alcira FONSECA, 46954-2, 6-3, 3024-7, 2842-3, 95979-9, 51396-8 #### [facility] ([id number]) [address] [place] [address], [address] [place] [address] Prolactin [Mass/Vol]on 06-01 PROLACTIN 21.1 ng/mL Normal 3.3-26.7 [facility] Comment on above: Performed By: ###Alcira FONSECA, 41479-1, 3016-3, 3024-7, 2842-3, 22563-5, 26974-1 #### [facility] ([id number]) [address] [place] [address] TSH Qnon 06-02-2023 TSH 2.98 uIU/mL Normal 0.49-4.67 [facility] Comment on above: Performed By: #### C , 69771-7, 3016-3, 3024-7, 2842-3, 28567-6, 45490-6 #### [facility] ([id number]) [address] [place] [address] US PELVIC WITH TRANSVAGINALo n 06-02-2023 US [...] Billy MD on 06/02/2023 2:55 PM Normal [facility] US Pelvis transabdominal and transvaginalon 06-02-2023 [...] Erick Billy MD on 06/02/2023 2:55 PM [facility] Erick Billy MD - 06/02/2023 PELVIC ULTRASOUND [...] Erick Billy MD on 06/02/2023 2:55 PM [facility] (narrative[facility] Proxio [facility] US Pelvis transabdominal and transvaginalOrdered By: Erick Billy on 06-02-2023 [facility] Work Phone: CT Maxillofacial w/o Contras ton [...] MD, V. 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 MAMM SCREENING BILATERAL W CAD MAMM [...] AM 1 c MAMM 1 YR Normal [facility] COVID + FLU Quick Testingon 06-28-2022 SARS-CoV-2 (COVID-19) RNA SADE+probe Ql (Unsp spec) Negative [employer] [facility] Other COVID + FLU Quick Testing Negative [employer] [facility] Other XR CSPINE MIN 4 VIEWSon 10-15 [...] by: LOUIE ROTHMAN Date: 2021-10-24 15:10 Normal [facility] XR LSPINE W_OBLS AND FLEX_EX Ton [...] by: LOUIE ROTHMAN Date: 2021-10-24 15:11 Normal [facility] COVID Quick Testingon 2021 Result Positive [employer] [facility] Other Vital Signs Date Time Vital Sign Value Performing Clinician Facility 10-06-2023 09:30-0400 Blood Pressure Location Yadiel CASAREZ [facility] 10-06-2023 09:30-0400 Diastolic blood pressure 78 mm[Hg] Yadiel CASAREZ [facility] 10-06-2023 09:30-0400 Heart rate 75 /min Yadiel NILL [facility] 10-06-2023 09:30-0400 Respiratory rate 17 /min Yadiel NILL [facility] 10-06-2023 09:30-0400 SaO2% (BldA) [Mass fraction] 98 % Yadiel NILL [facility] 10-06-2023 09:30-0400 Systolic blood pressure 131 mm[Hg] Yadiel NILL [facility] 10-06-2023 09:25-0400 Blood Pressure Location Yadiel NILL [facility] 10-06-2023 09:25-0400 Diastolic blood pressure 73 mm[Hg] Yadiel NILL [facility] 10-06-2023 09:25-0400 Heart rate 78 /min Yadiel NILL [facility] 10-06-2023 09:25-0400 Respiratory rate 22 /min Yadiel NILL [facility] 10-06-2023 09:25-0400 SaO2% (BldA) [Mass fraction] 99 % Yadiel NILL [facility] 10-06-2023 09:25-0400 Systolic blood pressure 124 mm[Hg] Yadiel NILL [facility] 10-06-2023 09:20-0400 Blood Pressure Location Yadiel NILL [facility] 10-06-2023 09:20-0400 Diastolic blood pressure 99 mm[Hg] Yadiel NILL [facility] 10-06-2023 09:20-0400 Heart rate 78 /min Yadiel NILL [facility] 10-06-2023 09:20-0400 Respiratory rate 17 /min Yadiel NILL [facility] 10-06-2023 09:20-0400 SaO2% (BldA) [Mass fraction] 98 % Yadiel NILL [facility] 10-06-2023 09:20-0400 Systolic blood pressure 121 mm[Hg] Yadiel NILL [facility] 10-06-2023 09:13-0400 Body temperature 97.88 [degF] Yadiel NILL [facility] 10-06-2023 09:05-0400 Respiratory rate 25 /min Yadiel NILL [facility] 10-06-2023 09:00-0400 Respiratory rate 27 /min Yadiel NILL [facility] 10-06-2023 08:55-0400 Respiratory rate 28 /min Yadiel NILL [facility] 10-06-2023 08:13-0400 Body temperature 98.24 [degF] Yadiel NILL [facility] 09-25-2023 08:53-0400 Blood Pressure Location Yadiel NILL [facility] 09-25-2023 08:53-0400 Diastolic blood pressure 84 mm[Hg] Yadiel NILL [facility] 09-25-2023 08:53-0400 Heart rate 85 /min Yadiel NILL [facility] 09-25-2023 08:53-0400 Respiratory rate 16 /min Yadiel NILL [facility] 09-25-2023 08:53-0400 Systolic blood pressure 125 mm[Hg] Yadiel NILL [facility] 06-17-2023 08:21-0400 Body mass index (BMI) [Ratio] 36.22 kg/m2 Belén Goodwin MD Work Phone: [facility] 06-17-2023 08:21-0400 Body weight 101.79 kg Belén Goodwin MD Work Phone: [facility] [facility] 06-17-2023 08:21-0400 Diastolic blood pressure 66 mm[Hg] Belén Goodwin MD Work Phone: [facility] 06-17-2023 08:21-0400 Systolic blood pressure 128 mm[Hg] Belén Goodwin MD Work Phone: [facility] 06-03-2023 10:53-0400 Body height 167.6 cm Belén Goodwin MD Work Phone: [facility] 06-03-2023 10:53-0400 Body mass index (BMI) [Ratio] 36.32 kg/m2 Belén Goodwin MD Work Phone: [facility] [employer] [facility] 06-03-2023 10:53-0400 Body weight 102.06 kg Belén Goodwin MD Work Phone: [facility] [employer] [facility] 06-03-2023 10:53-0400 Diastolic blood pressure 78 mm[Hg] Belén Goodwin MD Work Phone: [facility] 06-03-2023 10:53-0400 Systolic blood pressure 116 mm[Hg] Belén Goodwin MD Work Phone: [facility] 04-22-2023 09:07-0500 Body mass index (BMI) [Ratio] 35.99 kg/m2 Belén Goodwin MD Work Phone: [facility] 04-22-2023 09:07-0500 Body weight 101.15 kg Belén Goodwin MD Work Phone: [facility] 04-22-2023 09:07-0500 Diastolic blood pressure 58 mm[Hg] Belén Goodwin MD Work Phone: [employer] 04-22-2023 09:07-0500 Systolic blood pressure 110 mm[Hg] Belén Goodwin MD [facility]: [facility] 04-02-2023 10:06-0500 Body height 167.6 cm Shanthi Lugo ENVIRONMENTAL HEALTH SANITARIAN-NEEDLE FELT MAKING MACHINE OPERATOR Work Phone: [facility] 04-02-2023 10:06-0500 Body mass index (BMI) [Ratio] 34.48 kg/m2 Shanthiasmita Lugo ENVIRONMENTAL HEALTH SANITARIAN-NEEDLE FELT MAKING MACHINE OPERATOR Work Phone: [employer] 04-02-2023 10:06-0500 Body weight 96.89 kg Shanthi Lugo ENVIRONMENTAL HEALTH SANITARIAN-NEEDLE FELT MAKING MACHINE OPERATOR Work Phone: [employer] 04-02-2023 10:06-0500 Diastolic blood pressure 76 mm[Hg] Shanthiasmita Lugo ENVIRONMENTAL HEALTH SANITARIAN-NEEDLE FELT MAKING MACHINE OPERATOR Work Phone: [facility] 04-02-2023 10:06-0500 Heart rate 96 /min Shanthi Lugo ENVIRONMENTAL HEALTH SANITARIAN-NEEDLE FELT MAKING MACHINE OPERATOR Work Phone: [employer] 04-02-2023 10:06-0500 SaO2% (BldA) [Mass fraction] 98 % Shanthi Lugo ENVIRONMENTAL HEALTH SANITARIAN-NEEDLE FELT MAKING MACHINE OPERATOR Work Phone: [employer] 04-02-2023 10:06-0500 Systolic blood pressure 142 mm[Hg] Shanthi Lugo ENVIRONMENTAL HEALTH SANITARIAN-NEEDLE FELT MAKING MACHINE OPERATOR Work Phone: [employer] 03-03-2023 10:05-0500 Body height 167.64 cm [employer] Other [employer] Other 03-03-2023 10:05-0500 Body mass index (BMI) [Ratio] 34.21 kg/m2 [employer] Other [employer] Other 03-03-2023 10:05-0500 Body temperature 99.1 [degF] Neyda Garland Other [employer] Other 03-03-2023 10:05-0500 Body weight 96.16 kg Neyda Garland Other [employer] Other 03-03-2023 10:05-0500 Diastolic blood pressure 60 mm[Hg] Neyda Garland Other [employer] Other 03-03-2023 10:05-0500 Respiratory rate 18 /min Neyda Garland Other [employer] Other 03-03-2023 10:05-0500 SaO2% (BldA) [Mass fraction] 98 % Neyda Garland Other [employer] Other 03-03-2023 10:05-0500 Systolic blood pressure 125 mm[Hg] Neyda Garland Other [employer] Other 08-26-2022 17:15-0400 Body height 167.64 cm Ilana Gallegos Other [employer] Other 08-26-2022 17:15-0400 Body mass index (BMI) [Ratio] 33.08 kg/m2 Ilana Gallegos Other [employer] Other 08-26-2022 17:15-0400 Body temperature 98.2 [degF] Ilana Gallegos Other [employer] Other 08-26-2022 17:15-0400 Body weight 92.99 kg Ilana Gallegos Other [employer] Other 08-26-2022 17:15-0400 Respiratory rate 18 /min Ilana Gallegos Other [employer] Other 08-26-2022 17:15-0400 SaO2% (BldA) [Mass fraction] 97 % Ilana Gallegos Other [employer] Other 06-28-2022 18:35-0400 Body height 167.64 cm Yohana Kitchen Other [employer] Other 06-28-2022 18:35-0400 Body mass index (BMI) [Ratio] 34.38 kg/m2 Yohana Reamond Other [employer] Other 06-28-2022 18:35-0400 Body temperature 96.9 [degF] Yohana Kitchen Other [employer] Other 06-28-2022 18:35-0400 Body weight 96.62 kg Yohana Kitchen Other [employer] Other 06-28-2022 18:35-0400 Respiratory rate 18 /min Yohana Kitchen Other [employer] Other 06-28-2022 18:35-0400 SaO2% (BldA) [Mass fraction] 96 % Yohana Kitchen Other [employer] Other 03-29-2021 10:15-0500 Body height 167.64 cm Chela Kumar Other [employer] Other 03-29-2021 10:15-0500 Body mass index (BMI) [Ratio] 30.66 kg/m2 Chela Kumar Other [employer] Other 03-29-2021 10:15-0500 Body temperature 97.5 [degF] Chela Kumar Other [employer] Other 03-29-2021 10:15-0500 Body weight 86.18 kg Chela Kumar Other [employer] Other 03-29-2021 10:15-0500 Respiratory rate 18 /min Chela Kumar Other [employer] Other 03-29-2021 10:15-0500 SaO2% (BldA) [Mass fraction] 98 % Chela Kumar Other [employer] Other 01-26-2021 11:35-0500 Body height Yohana Kitchen Other [employer] Other 01-26-2021 11:35-0500 Body mass index (BMI) [Ratio] 30.73 kg/m2 Yohana Reamond Other [employer] Other 01-26-2021 11:35-0500 Body temperature 97.7 [degF] Yohana Reamond Other [employer] Other 01-26-2021 11:35-0500 Body weight 86.37 kg Yohana Reamond Other [employer] Other 01-26-2021 11:35-0500 Diastolic blood pressure 49 mm[Hg] oYhana Reamond Other [employer] Other 01-26-2021 11:35-0500 Respiratory rate 18 /min Yohana Reamond Other [employer] Other 01-26-2021 11:35-0500 SaO2% (BldA) [Mass fraction] 100 % Yohana Kitchen Other [employer] Other 01-26-2021 11:35-0500 Systolic blood pressure 11 mm[Hg] Yohana Kitchen Other [employer] Other Encounters Encounter Date Encounter Type Care Provider Facility Start: 11-04-2023 End: 11-04-[address] [facility] Start: 10-28-2023 End: 10-28-2023 ambulatory Yadiel R NILL Facility: [facility] Start: 10-28-2023 End: 10-28-2023 Patient encounter procedure Yadiel R NILL [facility] Start: 10-27-2023 End: 10-27-2023 ambulatory LUH SANCHEZ [facility] Start: 10-14-2023 End: 10-14-2023 ambulatory JANA MELVIN Not Available Start: 10-06-2023 End: 10-06-2023 ambulatory Yadiel R NILL Facility:[facility] Start: 10-06-2023 End: 10-06-2023 Patient encounter procedure Yadiel R NILL [facility] Start: 10-02-2023 End: 10-04-2023 ambulatory [facility] Start: 09-25-2023 End: 09-25-2023 ambulatory Yadiel R NILL Facility: [facility] Start: 09-25-2023 End: 09-25-2023 Patient encounter procedure Yadiel R NILL [facility] [place] Start: 09-10-2023 ambulatory Yadiel NILL Facility:[facility] Start: 09-09-2023 End: 09-09-2023 ambulatory [facility] Start: 09-08-2023 End: 09-08-2023 Emergency department patient visit [facility] Start: 09-03-2023 End: 09-03-2023 ambulatory [facility] Start: 09-02-2023 End: 09-02-2023 ambulatory JANA H TIMMIS Not Available Start: 09-01-2023 End: 09-01-2023 ambulatory [facility] Start: 08-20-2023 End: 08-20-2023 ambulatory JANA H TIMMIS Not Available Start: 08-12-2023 End: 08-12-2023 ambulatory Jana Melvin [facility] Work Phone: Start: 08-12-2023 End: 08-12-2023 Departed Referred MD Jana Melvin [facility] Start: 08-07-2023 End: 08-07-2023 Emergency department patient visit [facility] Start: 08-04-2023 End: 08-04-2023 Evaluation and management of inpatient REGGIE [facility] Start: 08-04-2023 End: 08-04-2023 Evaluation and management of inpatient [facility] Start: 07-14-2023 End: 07-14-2023 ambulatory LOUIE HEREDIA [facility] Start: 07-14-2023 Encounter for other preprocedural examination [facility] Start: 06-18-2023 [facility]phone encounter [facility] Start: 06-17-2023 End: 06-17-2023 ambulatory [facility] Start: 06-17-2023 End: 06-17-2023 Office outpatient visit 15 minutes Belén Goodwin MD Work Phone: [facility] Comment on above: DUB (dysfunctional u terine bleeding) (Primary Dx) Start: 06-04-2023 End: 06-04-2023 ambulatory JANA H TIMMIS Not Available Start: 06-03-2023 End: 06-03-2023 ambulatory [facility] Start: 06-03-2023 End: 06-03-2023 Office outpatient visit 15 minutes Belén Goodwin MD Work Phone: [facility] Comment on above: DUB (dysfunctional u terine bleeding) (Primary Dx) Start: 06-03-2023 End: 06-03-2023 ambulatory [facility] Start: 06-02-2023 End: 06-02-2023 Orders Only Cori Montilla RN [facility] Comment on above: Abnormal uterine ble eding (AUB) (Primary Dx) Start: 05-31-2023 End: 05-31-2023 ambulatory Jana H Timmis Facility:[facility] Start: 04-22-2023 End: 04-22-2023 Office outpatient visit 25 minutes Belén Goodwin MD Work Phone: [facility] Comment on above: DUB (dysfunctional u terine bleeding) (Primary Dx) Start: 04-22-2023 End: 04-22-2023 ambulatory [facility] Start: 04-16-2023 End: 05-24-2023 Pre-admission assessment Jana H Timmis [facility] Start: 04-16-2023 End: 04-16-2023 ambulatory JANA H TIMMIS Not Available Start: 04-10-2023 End: 04-10-2023 ambulatory [facility] Start: 04-02-2023 End: 04-02-2023 Office outpatient visit 25 minutes Shanthi Lugo ENVIRONMENTAL HEALTH SANITARIAN-NEEDLE FELT MAKING MACHINE OPERATOR Work Phone: [facility] Comment on above: Chronic bronchitis, unspecified chronic bronchitis type (CMS- HCC) (Primary Dx); Asthma-COPD overlap syndrome; Tobacco dependence; Class 1 obesity with body mass index (BMI) of 34.0 to 34.9 in adult, unspecified obesity type, unspecified whether serious comorbidity present Start: 04-02-2023 End: 04-02-2023 ambulatory [facility] Start: 03-03-2023 End: 03-03-2023 ambulatory Neyda Garland Other [employer] Other Start: 03-03-2023 Office outpatient vi sit 15 minutes Neyda Garland [facility] Start: 08-26-2022 End: 08-26-2022 ambulatory Ilana Gallegos Other [employer] Other Start: 08-26-2022 Office outpatient vi sit 25 minutes Ilana Gallegos [facility] Start: 08-01-2022 ambulatory PAIGE COVARRUBIAS . Facili ty:[facility] Start: 06-28-2022 End: 06-28-2022 ambulatory Yohana Kitchen Other [employer] [facility] Other Start: 06-28-2022 Office outpatient vi sit [...] 03-29-2021 End: 03-29-2021 ambulatory Chela Kumar Other [employer] Other Start: 03-29-2021 Office outpatient vi sit 15 minutes Chela Kumar [facility] Start: 01-26-2021 End: 01-26-2021 ambulatory Yohana Kitchen Other [employer] [facility] Other Start: 01-26-2021 Office outpatient vi sit [...] Td Vaccines (3 - Td or Tdap) [facility] Start: 06-16-2024 Adult BMI Screening Adult BMI Screen ing [facility] Start: 06-16-2024 Tobacco Screening Tobacco Screening [facility] Start: 06-02-2024 Adult BMI Screening Adult BMI Screen ing [facility] Start: 06-02-2024 Tobacco Screening Tobacco Screening [facility] Start: 04-22-2024 Adult BMI Screening Adult BMI Screen ing [facility] Start: 04-22-2024 Tobacco Screening Tobacco Screening [facility] Start: 04-10-2024 Adult BMI Screening Adult BMI Screen ing [facility] Start: 04-02-2024 Tobacco Screening Tobacco Screening [facility] Start: 11-16-2023 Influenza vaccination Influenza Vacc ine [facility] Start: 10-27-2023 End: 10-27-2023 Patient encounter procedure 10/27/2023 9:45 AM EDT Office Visit [facility] [address] [place] [address] Luh Sanchez MD [address] [facility] [place] [address] [facility] Start: 08-04-2023 End: 08-04-2023 Admission to same day surgery center 08/04/2023 12:30 PM EDT - 08/04/2023 1:30 PM EDT Surgery [facility] [address] [place] [id number] Belén Goodwin MD [address] [place] [address] HYSTEROSCOPY DILATION CURETTAGE ABLATION ENDOMETRIAL NOVASURE [73423 (CPT )] [facility] Comment on above: HYSTEROSCOPY DILATIO N CURETTAGE ABLATION ENDOMETRIAL NOVASURE [08550 (CPT )] Start: 08-04-2023 End: 08-04-2023 Hysteroscopy endometrial ablation HYSTEROSCOPY DILATION CURETTAGE ABLATION ENDOMETRIAL NOVASURE dysfunctional uterine bleeding 08/04/2023 12:30 PM EDT [facility] Start: 08-04-2023 Subsequent hospital visit by physician 08/04/2023 12:30 PM EDT Hospital Encounter [facility] [address] [place] [id number] Belén Goodwin MD [address] [place] [address] [facility] Start: 07-14-2023 End: 07-14-2023 Patient encounter procedure 07/14/2023 9:45 AM EDT Procedure visit [facility] - Pre Admit [address] [place] [address] [facility] - Pre Admit Start: 06-17-2023 End: 06-17-2023 Patient encounter procedure 06/17/2023 8:15 AM EDT Office Visit [facility] [place] [place] [phone] Belén Goodwin MD [address] [place], [place] [id number] [facility] Start: 06-03-2023 End: 06-02-2024 Surgical Pathology Surgical Pathology Pathology and Cytology Routine DUB (dysfunctional uterine bleeding) Expected: 06/03/2023 (Approximate), Expires: 06/02/2024 [facility] Work Phone: Comment on above: Expected: 06/03/2023 (Approximate), Expires: 06/02/2024 Start: 06-03-2023 End: 06-03-2023 Patient encounter procedure 06/03/2023 10:30 AM EDT Procedure visit [facility] [place] [phone] Belén Goodwin MD [address] [place] [address] [facility] Start: 04-22-2023 End: 04-21-2024 US Pelvis transvaginal Ultrasound transvaginal non OB Imaging Routine DUB (dysfunctional uterine bleeding) Expected: 04/22/2023, Expires: 04/21/2024 [facility] Work Phone: Comment on above: Expected: 04/22/2023 , Expires: 04/21/2024 Start: 04-22-2023 End: 04-22-2023 Patient encounter procedure 04/22/2023 9:00 AM EST Office Visit [facility] [address] [place] [address] Belén Goodwin MD [address] [place] [address] [facility] Start: 11-15-2022 Influenza vaccination Influenza Vacc ine [facility] Start: 09-15-2000 Screening for malign ant neoplasm of cervix Pap Smear [facility] Start: 09-15-1997 Adult BMI Follow Up Plan Adult BMI Follow Up Plan [facility] Start: 1991 Depression Screening Depression Scre ening [facility] Start: 1979 Tobacco Counseling Tobacco Counselin g [facility] End: 04-22-2024 CBC panel - Blood by Automated count CBC without diff Lab Routine DUB (dysfunctional uterine bleeding) 1 Occurrences starting 04/22/2023 until 04/22/2024 [facility] Comment on above: 1 Occurrences starti ng 04/22/2023 until 04/22/2024 End: 04-22-2024 Follicle stimulating hormone Follicle stimulating hormone Lab Routine DUB (dysfunctional uterine bleeding) 1 Occurrences starting 04/22/2023 until 04/22/2024 [facility] Comment on above: 1 Occurrences starti ng 04/22/2023 until 04/22/2024 End: 04-22-2024 HCG, Quantitative, HCG, Quantitative, Lab Routine DUB (dysfunctional uterine bleeding) 1 Occurrences starting 04/22/2023 until 04/22/2024 [facility] Comment on above: 1 Occurrences starti ng 04/22/2023 until 04/22/2024 End: 04-22-2024 Luteinizing hormone Luteinizing hormone Lab Routine DUB (dysfunctional uterine bleeding) 1 Occurrences starting 04/22/2023 until 04/22/2024 [facility] Comment on above: 1 Occurrences starti ng 04/22/2023 until 04/22/2024 End: 04-22-2024 Prolactin Prolactin Lab Routine DUB (dysfunctional uterine bleeding) 1 Occurrences starting 04/22/2023 until 04/22/2024 [facility] Comment on above: 1 Occurrences starti ng 04/22/2023 until 04/22/2024 End: 04-22-2024 Thyrotropin [Units/volume] in Serum or Plasma TSH Lab Routine DUB (dysfunctional uterine bleeding) 1 Occurrences starting 04/22/2023 until 04/22/2024 [facility] Comment on above: 1 Occurrences starti ng 04/22/2023 until 04/22/2024 End: 04-22-2024 Thyroxine (T4) free [Mass/volume] in Serum or Plasma T4, free Lab Routine DUB (dysfunctional uterine bleeding) 1 Occurrences starting 04/22/2023 until 04/22/2024 [facility] Comment on above: 1 Occurrences starti ng 04/22/2023 until 04/22/2024 Immunizations Immunization Date Immunization Notes Care Provider Vishal mejia 12-13-2019 tetanus and diphther ia toxoids, adsorbed, preservative free, for adult use (2 Lf of tetanus toxoid and 2 Lf of diphtheria toxoid) Jana Melvin [facility] Payers Date Payer Category Payer Self-pay [id number] 2021 Private Health Insurance [facility] [id number] 2021-Present [phone] [address] [place] [address] [id number] .7.3.310510.315 1979 Unknown [id number] 2.16.840.1.159813.3.579.2 .593 1979 Unknown [id number] 2.16.840.1.581934.3.579.2 .593 1979 Unknown [id number] 2.16.840.1.871658.3.579.2 .593 1979 Unknown [id number] 2.16.840.1.788669.3.579.2 .593 1979 Unknown [id number] 2.16.840.1.605996.3.579.2 .593 1979 Unknown [id number] 2.16.840.1.728248.3.579.2 .1979 Unknown [id number] 2.16.840.1.651387.3.579.2 .1285 1979 Unknown [id number] 2.840.1.420852.3.579.2 .1285 1979 Unknown [id number] 2.16.840.1.876575.3.579.2 .1285 1979 Unknown [id number] 2.840.1.409081.3.579.2 .1285 1979 Unknown [id number] 2.840.1.188627.3.579.2 .1285 1979 Unknown [id number] 2.840.1.846607.3.579.2 .1285 1979 Unknown [id number] 2.840.1.265635.3.579.2 .1285 1979 Unknown [id number] 2.840.1.516812.3.579.2 .1285 1979 Unknown [id number] 2.840.1.670954.3.579.2 .1285 1979 Unknown [id number] 840.1.698841.3.579.2 .1285 1979 Unknown [id number] 2.840.1.516307.3.579.2 .1285 1979 Unknown [id number] 2.840.1.337003.3.579.2 .1285 1979 Unknown [id number] 2.16840.1.739874.3.579.2 .1285 1979 Unknown [id number] 2.840.1.800892.3.579.2 .1285 1979 Unknown [id number] 2.16.840.1.452041.3.579.2 .173 1979 Unknown [id number] 2.16.840.1.172522.3.579.2 .1258 1979 Unknown [id number] 2.16.840.1.612065.3.579.2 .1258 1979 Unknown [id number] 2.16.840.1.331293.3.579.2 .1258 1979 Unknown [id number] 2.16.840.1.143129.3.579.2 .1258 1979 Unknown [id number] 2.16.840.1.857271.3.579.2 .1258 1979 Unknown [id number] 2.16.840.1.776894.3.579.2 .1979 Unknown [id number] 2.16.840.1.995159.3.579.2 .1979 Unknown [id number] 2.16.840.1.027114.3.579.2 .1979 Unknown [id number] 2.16.840.1.741041.3.579.2 .1979 Unknown [id number] 2.16.840.1.066916.3.579.2 .1979 Unknown [id number] 2.16.840.1.061657.3.579.2 .1285 1979 Unknown [id number] 2.16.840.1.376802.3.579.2 .1285 1979 Unknown [id number] 2.16.840.1.119012.3.579.2 .1285 1979 Unknown [id number] 2.16.840.1.116151.3.579.2 .1285 1979 Unknown [id number] 2.16.840.1.046132.3.579.2 .1285 1979 Unknown [id number] 2.16.840.1.735195.3.579.2 .1286 1979 Unknown [id number] 2.16.840.1.802803.3.579.2 .1286 1979 Unknown [id number] 2.16.840.1.542885.3.579.2 .1286 1959 Private Health Insurance [id number] 2.16.840.1.968611.19 Medicaid [facility] [id number] Unknown Kennan BC/BS [id number] Unknown [id number] 2.16.840.1.647183.3.579.2 .531 Social History Date Type Detail Facility Unknown if ever smoked [employer] [facility] Other Start: 04-02-2023 End: 06-17-2023 Sex Assigned At [employer] [facility] Other Start: 09-09-2022 Tobacco smoking status UTIS Smokes tobacco daily [facility] History of tobacco use Cigarette Smoker [facility] Start: 09-09-2022 End: 06-17-2023 Cigarettes smoked current (pack per day) - Reported 0.5 [facility] Start: 09-09-2022 Tobacco use and exposure Smokeless tobacco non-user [facility] Start: 04-21-2023 End: 06-17-2023 Alcohol intake Current drinker of alcohol (finding) [facility] Within the past 12 months we worried whether our food would run out before we got money to buy more. Never True [facility] Comment on above: PPD smoker Start: 12-03-2021 [facility] Start: 1980 Sex Assigned At Not on file P [facility] Start: 05-29-2020 End: 09-25-2023 Tobacco smoking status Heavy tobacco smoker (finding) [facility] Comment on above: PPD smoker Start: 03-23-2018 Tobacco smoking status NHIS Smoker (finding) [facility] Start: 1980 Sex Assigned At Female F [facility] Functional Status Date Assessment Result Facility 10-06-2023 Functional Status N/A [facility] 09-25-2023 Functional Status N/A [facility] General Surgery [place] Clinical Notes 03-29-2021 to 10-08-2023 Note Date [...] when meets criteria ( To home ). [facility] Comment on above: Result Comment: Elec mahsanically Signed By: Tashi Brothers Jr, DO\.br\Date and Time Signed: 10/08/23 07:10 EDT 10-06-2023 Evaluation + Plan note Extrac corby from: Title:ANES Pre-operative Note 2022 Author:Tashi Brothers Jr, DO Date:10/06/23 Plan [place] [employer] Anesthesiologists (ASA) physical status classification: Class III. Anesthetic Preoperative Plan: Anesthesia General. [facility]07-22-2024 Hospital Discharge instructions Patient Education 10/06/2023 [...] day. 10/06/2023 09:24:43 Endoscopy, Care After Procedure [facility] ([facility] Endoscopy Care After Procedure Please read the instructions outlined below and refer to this sheet in the next few weeks. These discharge instructions provide you with general information on caring for [facility]. Your doctor may also give you specific [...] blood. Document Released: 10/15/2004 Document Re-Released: 08/25/2006 [employer] Patient Information [facility]. 10/06/2023 09:24:38 Gastritis, Adult, Asjk-ab-Amqo Gastritis, Adult Gastritis is irritation and swelling [...] Follow these instructions at home: Medicines Take ivln-ldu-ezgkoqq and prescription medicines only as told by [...] provider. Document Revised: 07/07/2021 Document Reviewed: 07/07/2021 [employer] Patient Education 2022 Decision Pace. 10/06/2023 09:24:09 Colon Polyps Colon Polyps Colon [...] hard liquor (44 mL). General instructions Take qgzo-dej-mxdkfsd and prescription medicines only as told by [...] provider. Document Revised: 06/21/2020 Document Reviewed: 06/21/2020 [employer] Patient Education 2022 Decision Pace. Follow Up Care 09/25/2023 09:29:00 With:Yadiel CASAREZ Address: Micha [place], [facility] [address] [address]- Business (1) When:7 to 10 days [facility]07-22-2024 NoteColonoscopy Procedure Report Patient: MERE ESTEBAN [...] place. Impression and Plan Diagnosis: Colon polyps (BCZ29-FE K63.5, Discharge, Medical), Rectal inflammation (GUV70-LF K62.89,Discharge, Medical). Course: Progressing as expected. Recommendations: Repeat colonoscopy:: In 5 years, Will depend on pathology report . Follow-up:: 1-2 weeks. Diet:: Regular diet. Medication resumption:: Continue current medications. Return to activities:: After 24 hours. Education and Follow-up: Counseled: [facility]:Other Comment: Missing Attachment - attachment storage system not supported [id number] Can be viewed in source system Missing Attachment - attachment storage system not supported [id number] Can be viewed in source systemMissing Attachment - attachment storage system not supported [id number] Can be viewed in source systemMissing Attachment - attachment storage system not supported [id number] Can be viewed in source systemMissing Attachment - attachment storage system not supported [id number] Can be viewed in source [phone] NotePatient Education - Text Colonoscopy Care After [...] on [facility] Your doctor may also give you [...] blood. Document Released: 10/15/2004 Document Re-Released: 08/25/2006 [facility]? Patient Information ?2009 anywayanyday. Infectious Disease Gastritis, Adult Gastritis is irritation [...] products that contain nicoti (more content not included)...[facility]07-22-2024 NoteHistory and Physical Patient: MERE ESTEBAN Age: 43 years Sex: Female : 1980 Associated Diagnoses: None Author: Yadiel CASAREZ MD Subjective no changes to H & PFOhioHealth Van Wert HospitalComment on above:Result Comment: Electronically Signed By: Yadiel CASAREZ MD\.br\Date and Time Signed: 10/06/23 08:03 [id number] NoteProgress Note-Physician Patient: MERE ESTEBAN Age: 43 [...] veins of lower extremity / SNOMED CT 940003487 / Confirmed Abnormal gallbladder ultrasound / SNOMED CT 1358227381 / Confirmed Smoker / IMO [id number] / Confirmed Added secondary to documentation in Social History. Seizure / SNOMED CT 326906108 / Confirmed Outside Source Comment: Comment on above:[facility]:Result Comment: Electronically Signed By: Tashi Brothers Jr, DO\Date and Time Signed: 10/06/23 16:38 [id number] NoteGeneral Surgery Office/Clinic Note Chief Complaint consultation for abdominal pain HPI Staff 43 year old female presents on consultation from [facility] for abdominal pain. Presented to ED [...] asthma, migraine headaches, bipolar disorder referred from [facility] ED for upper abd pain; patient seen [...] blood or mucous; [facility], they ordered abd/pelvic ct scan with contrast [...] diseases, and reduces th (more content not included)...[facility] Hospital[facility] on above:Result Comment: Electronically Signed By: LEIDA LINDSEY, Yadiel Jenkins\Date and Time Signed: 09/25/23 10:21 [id number] Miscellaneous Notes* Telephone Encounter - Shantel Fan [...] mailed to the patient. [facility] Telephone encounter Note* Telephone Encounter - Shantel [...] dates & times and schedule surgery f/u. [facility]04-03-2024 Telephone encounter Note* Telephone Encounter - Shantel Fan - 06/18/2023 10:50 AM EDT Patient returned my call while I was out of the office at lunch. I returned patient's call. Patient notified of all dates & times. Patient voiced understanding. Surgery information letter mailed to the patient. [facility]04-02-2024 History of Present illness Narrative* Belén Goodwin [...] 1 tablet (10 mg total) before bedtime. sixwnlquxzz-gyutiissc-irtuyqok (TRELEGY ELLIPTA) 200-62.5-25 mcg blister with device [...] MD Cori TELLEZ RN documented in this encounterWVUMedicine [facility]03-19-2024 History of Present illness Narrative* Belén Goodwin [...] biopsy. BELÉN GOODWIN MD documented in this encounterWVUMedicine [facility]03-19-2024 Miscellaneous Notes* Addendum Note - Angelica Zhang CMA - 06/03/2023 10:30 AM EDTAddended by: ANGELICA ZHANG on: 06/03/2023 12:04 PM Modules accepted: Orders documented in this encounterWVUMedicine [facility]03-19-2024 Note* Addendum Note - Angelica Zhang CMA - 06/03/2023 10:30 AM EDTAddended by: ANGELICA ZHANG on: 06/03/2023 12:04 PM Modules accepted: Orders [facility]02-06-2024 History of Present illness Narrative* Belén Goodwin MD - 04/22/2023 9:00 AM EST Mere Esteban is a 42 y.o.female. Patient's last menstrual period was 04/08/2023.. She presents today for concerns with heavy period bleeding and cramping. She relates being on HRT and would like todiscuss a pertial hysterectomy. REPORTS SEVERAL YEAR HO DUB REC DUB EVAL STARTED ON HRT FOR SX FROM [facility] [place] BUT DID NOT HELP SX OR BLEEDING [...] before bedtime. estradioL (ESTRACE) 0.5 mg tablet delorsptezw-ofjtnzdpr-yoxogvzh (TRELEGY ELLIPTA) 200-62.5-25 mcg blister with device [...] RTO EMB/HYST TAKING ?HRT FROM [place] WITHOUT EVAL OF AUB/DUB HEAVY TOBACCO USE ANXIETY OBESITY SP BTL LACK OF PREVENTATIVE CARE MD Cori TELLEZ RN documented in this encounterSt Johnsbury HospitalDial a Dealer [facility] [id number] History of Present illness Narrative* Shanthi Lugo, ENVIRONMENTAL HEALTH SANITARIAN-NEEDLE FELT MAKING MACHINE OPERATOR - 04/02/2023 9:45 AM EST Images from [...] Medical History: Diagnosis Date Anxiety Chronic bronchitis ([facility]) PERTINENT HISTORY: Her pertinent medical history includes Past Medical History: Diagnosis Date Anxiety Chronic bronchitis ([facility]) CURRENT MEDICATIONS: Reviewed with patient. [...] 0.5 mg tablet, , Disp: , Rfl: kqnzkoorhit-dntkzssmf-qweyoxrc (TRELEGY ELLIPTA) 200-62.5-25 mcg blister with device, [...] our office a call. CC: Sridhar Bird, ENVIRONMENTAL HEALTH SANITARIAN-DIANA Lugo [facility] Office: [phone] 8:26 AM on 04/21/2023 This note is dictated with the use of M*Modal.Please note that this dictation was completed with computer voice recognition software. Quite often unanticipated grammatical, syntax, homophones, and other interpretive errors are inadvertently transcribed by the computer software. Please disregard these errors. Please excuse any errors that have escaped final proofreading. SUSIE Bellamy 04/21/23 0840 documented in this [facility]01-17-2024 Instructions* Patient Instructions* SUSIE Bellamy - 04/02/2023 9:45 AM EST If you re looking for general health and wellness resources, please visit [email or web address]. documented in this [facility]12-18-2023 Evaluation note* Encounter Date Diagnosis [...] 24-28 hours if s/s persists or worsens. [employer] Other 06-12-2023 Evaluation note* Encounter Date Diagnosis [...] understanding and is agreeable to treatment plan. [employer] [facility] Other 04-14-2023 Evaluation note* Encounter Date Diagnosis [...] fever. May return to work on Friday [employer] Other 02-16-2023 NoteCONSULTATION CONSULTATION DATE: 05/02/2022 HISTORY [...] Medications include diclofenac 50 mg b.i.d., Abilify, [place] 5/325 daily p.r.n., Lyrica 50 mg b.i.d. [...] 50 mg b.i.d. and will refill her [place] today 5/325 daily p.r.n. 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 Our clinic has prescribed her [place] 5/325 daily p.r.n. in the past. Patient was unaware she could call for refills. She has been out of An[place]ia since early November and has increased the [...] will start diclofenac 50 mg b.i.d. Her [place] will be restarted at 5/325 daily p.r.n. Vitamin importance was discussed as was continuing with her workout therapy. She will be seen in the clinic in three months' time, unless otherwise indicated. Patient is in agreement with this plan.[id number] NoteCONSULTATION PROCEDURE DATE: 10/25/2021 PRE AND POSTOPERATIVE [...] be followed up in the clinic. [facility] [id number] NoteCONSULTATION CONSULTATION DATE: 10/25/2021 This is a [...] standing, walking and bending. Her medications include Ansonia 5/325 q. day, Baclofen 10 mg q.h.s. and Motrin 600 mg daily. The patient did have oral surgery last week for removal of a broken tooth. The patient was given Tylenol 3 and a course of amoxicillin. The patient did not take the Tylenol 3 but continued with the An[place]ia that was prescribed from our clinic. REVIEW [...] in three months' time unless otherwise indicated.[facility] [id number] NoteCONSULTATION CONSULTATION DATE: 09/13/2021 This is a [...] to Baclofen 10 mg q.h.s. and add Ansonia 5/325 one q. day p.r.n. The patient was educated on the excessive use of her NSAIDs and appropriate doses were discussed. The intent is that the Ansonia will help with her pain relief and decrease the need for the ibuprofen as frequently. The patient agrees with the plan of care. She will be brought back to the clinic in two weeks' time for x-ray review. [facility] Signed and Approved by: FABIOLA BARTLETT . 10/05/2021 14:14:00[facility]01-13-2022 Evaluation note* Encounter Date Diagnosis Assessment Notes Treatment Notes Treatment Clinical Notes Mar, Contact with and (suspected) exposure to other viral communicable diseases (ICD-10 - Z20.828) Mar, COVID-19 (ICD-10 - U07.1) Today you tested positive for the COVID virus. This mean you need to follow all CDC quarantine guidelines [facility] [email or web address] [place]. It is important to rest, increase [...] care instructions given in writting by [facility] Care At Home document. [employer] Other Evaluation + Plan note No data available for this section [facility] Future Appointments Appointment Date:10/06/2023 08:30:00 AM Scheduled Provider: Location:[facility] Surgical Services Appointment Type:Surgery [facility] [place] Evaluation noteNort [employer] Other Evaluation note* Diagnosis Chronic bronchitis, unspecified chronic bronchitis type ([facility])- Primary Asthma-COPD overlap syndrome Tobacco dependence Tobacco use disorder Class 1 obesity with body mass index (BMI) of 34.0 to 34.9 in adult, unspecified obesity type, unspecified whether serious comorbidity present documented in this encounter [facility] SystemEvaluation note* Diagnosis DUB (dysfunctional uterine bleeding)- Primary Other disorder of menstruation and other abnormal bleeding from female genital tract documented in this encounter [facility]* Diagnosis Abnormal uterine bleeding (AUB) Abnormal uterine bleeding (AUB)- Primary documented in this encounter [facility]* Diagnosis DUB (dysfunctional uterine bleeding)- Primary Other disorder of menstruation and other abnormal bleeding from female genital tract documented in this encounter [facility] SystemEvaluation note* Diagnosis DUB (dysfunctional uterine bleeding)- Primary Other disorder of menstruation and other abnormal bleeding from female genital tract documented in this encounter [facility] SystemEvaluation noteNo assessment information available [facility] Work Phone: Hisvllb general Narrative - ReportedNort [employer] Other Hispyyi general Narrative - Reported* Type Description Date 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 Surgical History C section (two) [employer] Other Hismepu general Narrative - Reported* Type Description Date 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 Medical History Edema leg Medical History Depression Surgical History C section (two) [employer] Other Hospital Discharge instructions No data available for this section [facility]InstructionsNot on filedocumented in this encounter [facility] SystemInstructionsNot on filedocumented in this encounter [facility] SystemInstructionsNot on filedocumented in this encounter [facility] SystemProgress note No data available for this section [facility] Summary Purpose Family History No Family [...] and content) DATE CREATED AUTHOR 07/27/2022 [facility] DATE CREATED AUTHOR AUTHOR'S ORGANIZ ATION 08/19/2023 [facility] DATE CREATED AUTHOR AUTHOR'S ORGANIZ ATION 09/09/2023 [facility] DATE CREATED AUTHOR AUTHOR'S ORGANIZ ATION 10/10/[address] [facility] pital DATE CREATED AUTHOR AUTHOR'S ORGANIZ ATION 10/16/2023 [facility] dical [facility] DATE CREATED AUTHOR AUTHOR'S ORGANIZ ATION 10/19/2023 [facility] Bienville [facility] DATE CREATED AUTHOR AUTHOR'S ORGANIZ ATION 10/22/2023 Orlando Milton [facility] DATE CREATED AUTHOR AUTHOR'S ORGANIZ ATION 11/02/2023 Orlando Milton [facility] DATE CREATED AUTHOR AUTHOR'S ORGANIZ ATION 11/05/2023 [facility] Care Teams (unrecognized sec tion and content) Care Mgr Relationship Specialty Start Date End Date Sridhar Bird APRN-CNP [address] [place] [address] PCP - General Primary Care 09/09/22 Care Mgr Relationship Specialty Start Date End Date Sridhar Bird APRN-CNP [address] [place] [address] PCP - General Primary Care 09/09/22 Care Mgr Relationship Specialty Start Date End Date Sridhar Bird, ENVIRONMENTAL HEALTH SANITARIAN-NEEDLE FELT MAKING MACHINE OPERATOR [address] [place] [address] PCP - General Primary Care 09/09/22 Care Mgr Relationship Specialty Start Date End Date Shamfloridalma, Sridhar, ENVIRONMENTAL HEALTH SANITARIAN-NEEDLE FELT MAKING MACHINE OPERATOR [address] [place] [address] PCP - General Primary Care 09/09/22 Care Mgr Relationship Specialty Start Date End Date Sridhar Bird, ENVIRONMENTAL HEALTH SANITARIAN-NEEDLE FELT MAKING MACHINE OPERATOR [address] [place] [address] PCP - General Primary Care 09/09/22 Care Mgr Relationship Specialty Start Date End Date Sridhar Bird, ENVIRONMENTAL HEALTH SANITARIAN-NEEDLE FELT MAKING MACHINE OPERATOR [address] [place] [address] PCP - General Primary Care 09/09/22 Team [...] BE BASED ON THE PRIMARY CLINICAL RECORDS. [facility]. provides no warranty or guarantee of the accuracy or completeness of information in this document.
== END 2023-12-11 09:35 | disposition home or self-care (01) ==
LOC: EC 09:34
PROVIDERS: PCP Nurse Practitioner; Visit Provider Physician Assistant
DX: M79.671 Pain in right foot (principal); S92.421A Displaced fracture of distal phalanx of right great toe, initial encounter for closed fracture
CPT/HCPCS: 73630

== ENCOUNTER 2023-12-24 09:26 | Outpatient (OUT) | payer OTHER, SELFPAY ==
--- NOTE | 2023-12-24 | XR_ITS ---
The [address] [address] Patient Name: MARIELENA ENGLAND MRN: [id number] date: 1980 Sex: F Assigned Patient Location: [facility] Current Patient Location: Accession/Order Number: [id number] Exam Date: 12/24/2023 09:47 Report Date: 12/25/2023 08:01 At the request of: ROMEL NELSON Procedure: XR foot RT min 3V PROCEDURE: XR foot RT min 3V HISTORY: RIGHT FOOT PAIN ; follow-up first toe fracture COMPARISON: XR foot right 12/11/2023 FINDINGS: BONES:Small fracture fragments from the proximal medial corner of the first proximal phalanx. SOFT TISSUES:No visible soft tissue swelling. EFFUSION:None visible. OTHER: Negative. XR/XR foot RT min 3V IMPRESSION: 1. Stable proximal medial corner fracture the first proximal phalanx with mild displacement and intra-articular extension. No appreciable change. Electronically authenticated by: TIMOTEO PINK Date: 12/25/2023 08:01
--- OUTSIDE RECORDS SUMMARY | 2023-12-24 09:37 | XMS_ITS | CCD ---
Author Organization [facility] Care Team Providers Care Guest Experience Specialist Name Role Phone Yohana Kitchen Unavailable [...] Admitting Unavailable BARTLETT ., FABIOLA Attending Unavailable [facility] [place], DR THOMSON Primary Care Unavailable [place], DR LOUIE Carrillo Consulting Unavailable BARTLETT ., [...] ., DR JOSÉ MIGUEL Potts Attending Unavailable [facility] [place] Primary Care Unavailable BARTLETT ., FABIOLA Consulting Unavailable Ilana Gallegos Unavailable Neyda Garland Unavailable Sridhar Brown Primary Care Provider ARIANA RENDON Primary Care Physician [phone] MD Jana Melvin Jr Attending Provider Jana Cabral Jr Attending Unavailable Jana Melvin Jr Admitting Unavailable ZENAIDA PAZ Primary Care Physician ZENAIDA PAZ Primary Care Unavailable DANIEL, BERNIE R Referring Unavailable TIMMIS, JANA H Attending Unavailable SHAMMO, [...] Referring Unavailable JACKSON, ZENAIDA Primary Care Unavailable SHANTHI LUGO Attending Unavailable [...] Attending Unavailable JACKSON, ZENAIDA Primary Care Unavailable [facility] [place] Primary Care Unavailable BRUNO WALL Attending Unavailable BELÉN GOODWIN Referring Unavailable [facility] [place] Primary Care Unavailable [place], [place] Primary Care Unavailable KATHLEEN HERNANDEZ Attending Unavailable BELÉN GOODWIN Referring Unavailable [place], [place] Primary Care Unavailable SHAMMO, SRIDHAR Referring Unavailable SHAMMO, SRDIHAR Primary Care Unavailable Medications Current Medications Medication [...] Start: 03-24-2018 take 1 tablet by zach th once daily as needed furosemide (LASIX) 20 [...] Ordered Start: 10-21-2021 take 1 capsule by [facility] every twenty-four hours in the morning venlafaxine [...] 24, 2018 1:00am take 1 tablet by [facility] every six hours as needed [place] 5-325 MG 1 tablet as needed Orally every 6 hrs Active benzonatate 200 mg oral capsule (9 sources) Non-narcotic Antitussive Start: 06-28-2022 take 1 capsule by mouth every eight hours Benzonatate 200 MG 1 capsule Orally Three times a day Jun, Not-Taking/PRN Start: 08-29-2021 take 1 capsule by [facility] three times daily [...] Classification Problem Date Documented Da te Episodic/Chronic Anal and rectal conditions (1 source) Anorectal [...] Translations: [Bursitis of right shoulder] Episodic Other female genital disorders (7 sources) [...] unspecified] Onset: 06-02-2023 Chronic Other gastrointestinal disorders (6 [...] loss Onset: 09-01-2023 Episodic Other upper respiratory disease (3 sources) [...] Translations: [Unspecified abdominal pain] Onset: 09-08-2023 Episodic Other connective tissue disease (4 sources) Bicipital tendinitis, right shoulder; Translations: [BICIPITAL TENDINITIS RIGHT SHOULDER] Onset: 10-25-2021 Episodic Other connective tissue disease (1 source) Pain in left leg; Translations: [Pain in left leg] Onset: 08-07-2023 Episodic Other connective tissue disease (1 source) Pain in lower limb Onset: 08-07-2023 Episodic Other lower respiratory disease (1 source) Cough Onset: 04-02-2023 Episodic Other non-traumatic joint disorders (4 sources) Pain in right shoulder; Translations: [PAIN IN RIGHT SHOULDER] Onset: 09-13-2021 Episodic Other non-traumatic joint disorders (1 source) Pain in left knee; Translations: [PAIN IN LEFT KNEE] Onset: 10-01-2021 Episodic Other screening for suspected conditions (not mental disorders or infectious disease) (5 sources) Abnormal findings diagnostic imaging of liver+biliary tract; Translations: [Abnormal findings on diagnostic imaging of liver and biliary tract] Onset: 04-10-2023 Episodic Unclassified (1 source) Cough [...] tetanus-diphtheria toxoids 12/13/2019 Given patient seen 10/28/23 [facility] Comment on above: Result Comment: Elec [...] you for choosing us for your care. Normal [facility] Reminderson 10-22-2023 Reminders Reminders From: Palma Gloria LPN To: N - Clinical; Sent: 10/22/2023 11:40:26 EDT Show up: 09/05/2033 07:00:00 EDT Subject: colonoscopy recall Due Date/Time: 10/05/2033 07:00:00 EDT Reminder/Recall Patient due for screening colonoscopy 10/05/2033 Normal [facility] EGDon 10-20-2023 Esophagogastroduodenosc opy EGD Patient: MERE [...] Impression and Plan EGD: Diagnosis: Antral gastritis (UWK57-EI K29.50, Working, Medical). Course: Progressing as expected. Education and Follow-up: Counseled: Family. Normal [facility] Comment on above: Other Comment: Lucille acosta Attachment - attachment storage system not supported [id number] Can be viewed in source system Missing Attachment - attachment storage system not supported [id number] Can be viewed in source system Missing Attachment - attachment storage system not supported [id number] Can be viewed in source system Surgical Pathology Reporton 10-16-2023 Surgical Pathology Report [facility] [address] [place] [address]- Surgical Pathology Report Collected Date/Time: 10/06/2023 08:45 [...] is entirely submitted in one cassette. (DC) DC:[facility] Microscopic Description A-D: Microscopic examination performed [...] characteristics were determined by the [facility] of [facility]. They have not been cleared or approved by the US Food and Drug Administration. The FDA has determined that such clearance or approval is not necessary. These tests are used for clinical purposes. They should not be regarded as investigational or for research. Appropriate positive and negative controls are performed and are acceptable. Normal [facility] Comment on above: Performed By: #### [id number] #### [facility] [address] [place] [address] CT ABDOMEN PELVIS W WO CONTR Lanette [...] Interpreted by: Micheal Wheeler MD Signed by: iMcheal Wheeler MD 10/07/23 Final result Normal [facility] Main OR Intraoperative Recor don 10-07-2023 Main OR Intraoperative Record Main OR Intraoperative Record IntraOp Document Type FT Summary Primary Physician: Yadiel CASAREZ MD Finalized Date/Time: 10/07/23 11:23:45 Pt. Name: MERE ESTEBAN./Sex: 1980 Female Med Rec #: [id number] Physician: Yadiel CASAREZ MD Financial #: [id number] Pt. Type: O Room/Bed: / Admit/Disch: 10/06/23 07:40:17 - 10/06/23 23:59:59 Institution: Case Times FT Entry 1 Patient Times In Room 10/06/23 08:35:00 Out Room 10/06/23 09:11:00 Procedure Times Start 10/06/23 08:40:00 Stop 10/06/23 09:09:00 Anesthesia Times Start 10/06/23 08:35:00 Stop 10/06/23 09:11:00 Time at [place] 10/06/23 08:52:00 Last Modified By: Suad Mtathews RN 10/06/23 09:11:16 General Comments: 0845-EGD completed/AW RN 0848-Colonoscopy started/AW RN 10/07/23 Chart opened to review and send charges LRoth CSFA Case Attendance FT Entry 1 Entry 2 Entry 3 Case Attendee Anthony Sanchez CRNA, MD, Suad Kemp RN Role Performed PREMIUM SERVICE REPRESENTATIVE Surgeon - Primary Soils Technician - Primary Time In 10/06/23 08:35:00 10/06/23 08:35:00 10/06/23 08:35:00 Time Out 10/06/23 09:11:00 10/06/23 09:11:00 10/06/23 09:11:00 Procedure EGD AND COLONOSCOPY(.) EGD AND COLONOSCOPY(.) EGD AND COLONOSCOPY(.) Comments Dr. Brothers supervising Last Modified By: Byron PENA, Suad Matthews RN, Suad Matthews RN, Suad 10/06/23 09:11:16 10/06/23 09:11:16 10/06/23 09:11:16 Entry [...] CRNA, Time Out Complete 10/06/23 08:38:00 Participants LEIDA LINDSEY, Byron Olivas RN, Manolo Borjas Micala E Outcomes Met? [...] Procedure Yes Primary Surgeon Yadiel CASAREZ MD Start 10/06/23 08:40:00 Stop 10/06/23 09:09:00 Anesthesia Type [...] and tissue Entry 1 Skin Integrity Intact, [place], Warm, & Skin Abnormality No Dry Outcomes [...] AND COLONOSC (more content not included)... Normal [facility] Discharge Instructionson Discharge Instructions Discharge Instruc tions MERE ESTEBAN :1980 Visit Date:10/06/2023 Inpatient Discharge Instructions Your Care Team Admitting Physician - Yadiel CASAERZ MD Referring Physician - Yadiel CASAREZ MD [...] Within 7 to 10 days Where: [address]a [place], [address] [address]- Business (1) Medications What How Much When [...] of the (more content not included)... Normal [facility] Comment on above: Result Comment: Elec tronically Signed By: Ori PENA, Valeria\.evangelista\Date and Time Signed: 10/06/23 09:28 EDT Inpatient Patient Summaryon 10-06-2023 Inpatient Patient Summary Inpatient Patient Summary [address] [address] [facility] Clinical Discharge Instructions PERSON INFORMATION Name: MERE ESTEBAN [facility]#:[id number] PHYSICIANS Admitting Physician: aYdiel CASAREZ MD Attending Physician: Yadiel CASAREZ MD PCP: ZENAIDA PAZ Discharge Diagnosis: Colon polyps; Rectal inflammation Comment: PATIENT EDUCATION INFORMATION Instructions: Medication Leaflets: Follow up: With: Address: When: Yadiel CASAREZ [address] [facility], [address], [employer] [address] [address] Business (1) Within 7 to 10 days MEDICATION [...] Capsules By Mouth every day. Comment: Normal [facility] Main OR PACU I Recordon 09-15 Main OR PACU I Record Main OR PACU I Rec ord PACU Phase I Document Type FT Summary Primary Physician: Yadiel CASAREZ MD Finalized Date/Time: 10/06/23 09:53:44 Pt. Name: MERE ESTEBAN /Sex: 1980 Female Med Rec #: [id number] Physician: Yadiel CASAREZ MD Financial #: [id number] Pt. Type: O Room/Bed: / Admit/Disch: 10/06/23 [...] By: Valeria Rehman RN 10/06/23 09:53 Normal [facility] Main OR Preoperative Recordo n 10-06-2023 Main OR Preoperative Record Main OR Preoperative Record Holding Area Document Type FT Summary Primary Physician: Yadiel CASAREZ MD Finalized Date/Time: 10/06/23 08:15:54 Pt. Name: MERE ESTEBAN/Sex: 1980 Female Med Rec #: [id number] Physician: Yadiel CASAREZ MD Financial #: [id number] Pt. Type: O Room/Bed: / Admit/Disch: 10/06/23 [...] By: Carrington Quiles RN 10/06/23 08:15 Normal [facility] Outpatient Surgery Discharge Instructionon 10-06-2023 Outpatient Surgery Discharge Instruction Outpatient Surgery Discharge Instruction [place] [id number] Patient Discharge Instructions PERSON INFORMATION Name: MERE [...] THE NEAREST EMERGENCY ROOM OR CALL 911 ITOMÁS PAMALA J, have received the attached patient education materials/instructions and have verbalized understanding: May we do a follow up call? Yes No I was present when discharge instructions were given Patient Signature Date Clinican/Nurse Signature Date Follow up: With: Address: When: Yadiel LEIDA [address], [address], [facility] [address] [phone] [facility] (1) Within 7 to 10 days Pharmacy Information: You may receive a survey from [employer] asking you to rate your care experience. Your feedback is important and will help us understand what we do well and how we can improve the quality of care we provide to you, your loved ones and our community. It?s an honor to serve you. Thank you for choosing [facility] HERE ARE THE MEDICATION CHANGES THAT [...] PATIENT EDUCATION INFORMATION Instructions: Medication Leaflets: Normal [facility] ED Note-Physicianon 09-10-19 ED Note-Physician [id number]#[id number] F [facility] RAD - Ultrasound Reporton RAD - Ultrasound Report [id number]#1.00TIFF Normal [facility] COMPLETE BLOOD COUNTon 09-02 Erythrocyte distribution width (RBC) [Ratio] 15.0 % Normal 11.5-15.0 [facility] Comment on above: Performed By: #### Leila FONSECA CMP, 03160-8, 3024-7, [facility], 68692-0 ####[facility] ([id number])[address] [address] Hematocrit (Bld) [Volume fraction] 41.6 % Normal 35-47 [facility] Comment on above: Performed By: #### Leila FONSECA CMP, 83412-4, 3024-7, [facility], 87016-7 ####[facility] ([id number])[address] [address] Hemoglobin (Bld) [Mass/Vol] 14.0 g/dL Normal 11.7-15.5 [facility] Comment on above: Performed By: #### Leila FONSECA CMP, 37036-5, 3024-7, [place], 45864-0 ####[facility] ([id number])[address] [address] MCH (RBC) [Entitic mass] 31.6 pg Normal 27-34 [facility] Comment on above: Performed By: #### C BC, CMP, 91168-0, 3024-7, HA1C, 51948-9 ####[facility] ([id number])[address] [address] MCHC (RBC) [Mass/Vol] 33.7 g/dL Normal 32-36 [facility] Comment on above: Performed By: #### C BC, CMP, 36882-8, 3024-7, HA1C, 48792-7 ####[facility] ([id number])[address] [address] MCV (RBC) [Entitic vol] 94 fL Normal 80-100 [facility] Comment on above: Performed By: #### C BC, CMP, 19545-9, 3024-7, HA1C, 12107-1 ####[facility] ([id number])[address] [address] [address] Platelet mean volume (Bld) [Entitic vol] 8.4 fL Normal 7-12 [facility] Comment on above: Performed By: #### C BC, CMP, 68050-1, 3024-7, HA1C, 36159-0 ####[facility] ([id number])[address] [address] [place] [address] Platelets (Bld) [#/Vol] 319 10*3/uL Normal 150-450 [facility] Comment on above: Performed By: #### C BC, CMP, 69909-2, 3024-7, HA1C, 95501-2 ####[facility] ([id number])[address] [address], [place] [address] RBC COUNT 4.43 X10E12/L Normal 3.80-5.20 [facility] Comment on above: Performed By: #### C BC, CMP, 76089-9, 3024-7, HA1C, 78835-7 ####[facility] ([id number])[address] [address] [address] WBC (Bld) [#/Vol] 8.0 10*3/uL Normal 4.0-11.0 [facility] Comment on above: Performed By: #### C BC, CMP, 79728-8, 3024-7, HA1C, 53875-8 ####[facility] ([id number])[address] [address] COMPREHENSIVE METABOLIC PANE Nito 09-03-2023 Albumin [Mass/Vol] 4.0 g/dL Normal 3.2-5.3 [facility] Comment on above: Performed By: #### C BC, CMP, 26593-2, 3024-7, HA1C, 61160-6 ####[facility] ([id number])[address], [address], [place] [address] ALP [Catalytic activity/Vol] 77 U/L Normal 39-130 [facility] Comment on above: Performed By: #### C BC, CMP, 61860-3, 3024-7, HA1C, 27039-3 ####[facility] ([id number])[address] [address] [address] ALT [Catalytic activity/Vol] 19 U/L Normal 0-31 [facility] Comment on above: Performed By: #### C BC, CMP, 47964-5, 3024-7, HA1C, 52861-9 ####[facility] ([id number])[address] [address], [place] [address] Anion gap [Moles/Vol] 10 mmol/L Normal 5-15 [facility] Comment on above: Performed By: #### C BC, CMP, 45412-3, 3024-7, HA1C, 40465-7 ####[facility] ([id number])[address], [address], [place] [address] AST [Catalytic activity/Vol] 19 U/L Normal 0-41 [facility] Comment on above: Performed By: #### C BC, CMP, 92430-2, 3024-7, HA1C, 23296-0 ####[facility] ([id number])[address], [address], [place] [address] Bilirubin [Mass/Vol] 0.7 mg/dL Normal 0.3-1.2 [facility] Comment on above: Performed By: #### C BC, CMP, 85778-7, 3024-7, HA1C, 30288-4 ####[facility] ([id number])[address], [address], [place] [address] Calcium [Mass/Vol] 9.0 mg/dL Normal 8.5-10.5 [facility] Comment on above: Performed By: #### C BC, CMP, 96543-1, 3024-7, HA1C, 02198-6 ####[facility] ([id number])[address], [address], [place] [address] Chloride [Moles/Vol] 101 mmol/L Normal 98-109 [facility] Comment on above: Performed By: #### C BC, CMP, 43551-3, 3024-7, HA1C, 67516-5 ####[facility] ([id number])[address], [address], [place] [address] CO2 [Moles/Vol] 27 mmol/L Normal 22-32 [facility] Comment on above: Performed By: #### C BC, CMP, 71602-2, 3024-7, HA1C, 43012-8 ####[facility] ([id number])[address], [place] [address] Creatinine [Mass/Vol] 0.71 mg/dL Normal 0.40-1.00 [facility] Comment on above: Result Comment: METH OD TRACEABLE TO IDMS STANDARD Performed By: #### C DIANE FONSECA, 39268-1, 3024-7, HA1C, 07018-1 ####[facility] ([id number])[address], [place] [address] eGFR (CKD-EPI) NON-RACE DEPENDENT >90 Normal >59 [facility] Comment on above: Result Comment: Reported eGFR is based on the CKD-EPI 2020 equation that does not use a race coefficient. Performed By: #### C DIANE FONSECA, 31251-7, 3024-7, HA1C, 55912-3 ####[facility] ([id number])[address] [address], [place] [address] Glucose [Mass/Vol] 88 mg/dL Normal 65-99 [facility] Comment on above: Performed By: #### C DIANE FONSECA, 50863-4, 4-7, HA1C, 28319-3 ####[facility] ([id number])[address] [address], [place] [address] Potassium [Moles/Vol] 3.7 mmol/L Normal 3.5-5.0 [facility] Comment on above: Performed By: #### Leila FONSECA CMP, 70469-9, 3024-7, HA1C, 40832-1 ####[facility] ([id number])[address] [address], [place] [address] Protein [Mass/Vol] 6.9 g/dL Normal 6.0-8.0 [facility] Comment on above: Performed By: #### Leila FONSECA, CMP, 42899-1, 3024-7, HA1C, 95172-0 ####[facility] ([id number])[address] [address], [place] [address] Sodium [Moles/Vol] 138 mmol/L Normal 134-146 [facility] Comment on above: Performed By: #### C BC, CMP, 61932-7, 3024-7, HA1C, 54112-7 ####[facility] ([id number])[address] [address] [address] Urea nitrogen [Mass/Vol] 8 mg/dL Normal 5-23 [facility] Comment on above: Performed By: #### C BC, CMP, 95752-9, 3024-7, HA1C, 07144-1 ####[facility] ([id number])[address] [address] FREE T4on 09-03-2023 Free T4 [Mass/Vol] 0.81 ng/dL Normal 0.61-1.60 [facility] Comment on above: Performed By: #### Leial BC, [facility], 95100-9, 3024-7, HA1C, 37190-7 ####[facility] ([id number])[address], [place] [address] HGB A1C (GLYCO-HGB)on 2023 Glucose [Mass/Vol] 103 mg/dL Normal [facility] Comment on above: Performed By: #### C BC, 06581-6, 82180-2, 33828-1, 3016-3, 3024-7, 2842-3 #### [facility] ([id number]) [address] [place] [address] HbA1c (Bld) [Mass fraction] 5.2 % Normal 4.4-5.6 [facility] Comment on above: Result Comment: NOTE ADA Guidelines Result HgbA1c Normal : less than 5.7 % Prediabetes : 5.7 % to 6.4 % Diabetes : > 6.4 % Use with caution in patients with abnormal hemoglobin variants as the half-life of red blood cells and in vivo glycation rates are affected. Performed By: #### C BC, 64564-3, 64698-5, 92579-6, 3016-3, 3024-7, 2842-3 #### [facility] ([id number]) [address] [place] [address] Lipid 1996 panelon 4 Cholesterol [Mass/Vol] 171 mg/dL Normal 150-200 [facility] Comment on above: Performed By: #### Leila BC, CMP, 21147-3, 4-7, HA1C, 70880-1 ####[facility] ([id number])[address] [address] Cholesterol in HDL [Mass/Vol] 67 mg/dL Normal >39 [facility] Comment on above: Result Comment: HDL <40 mg/dL - High Risk HDL > or = 40mg/dL- Desirable HDL >60 mg/dL - Negative Risk Performed By: #### Leila BC, CMP, 11649-3, 3024-7, HA1C, 61807-8 ####[facility] ([id number])[address] [address] Cholesterol in LDL [Mass/Vol] 55 mg/dL Normal <130 [facility] Comment on above: Result Comment: LDL <100 mg/dL - Desirable LDL >160 mg/dL - High Risk Performed By: #### C BC, CMP, 92056-4, 3024-7, HA1C, 16618-2 ####[facility] ([id number])[address] [address] Cholesterol in VLDL [Mass/Vol] 49 mg/dL High 0-30 [facility] Comment on above: Performed By: #### C BC, [facility], 72055-6, 3024-7, HA1C, 14193-4 ####[facility] ([id number])[address] [facility] [address], [place] [address] CHOLESTEROL:HDL 2.6 Normal 1.0-5.0 [facility] Comment on above: Performed By: #### C BC, [facility], 95802-7, 3024-7, HA1C, 99882-5 ####[facility] ([id number])[address] [facility] [address] Triglyceride [Mass/Vol] 243 mg/dL High 27-150 P [facility] Comment on above: Performed By: #### Leila FONSECA, [facility], 20027-8, 3024-7, HA1C, 28066-1 ####[facility] ([id number])[address] [place] [address] Vitamin D+Metabolites [Mass/ Vol]on 09-03-2023 VITAMIN D 25 HYD TOT 13.9 ng/mL Low 30-100 [facility] Comment on above: Result Comment: Vitamin D status 25 [place] Vitamin D Deficiency <20 ng/mL Insufficiency 20-29 ng/mL Sufficiency 30-100 ng/mL Toxicity >100 ng/mL NOTE: A pediatric reference range has not been established by the manager retirement of this kit. The [place] [employer] recommends a Vitamin D level of = or >20ng/mL in infants and children. Performed By: #### C BC, 34311-0, 06511-8, 71545-1, 3016-3, 3024-7, 2842-3 #### [facility] ([id number]) [address] [facility] [address] [place] [address] Nito 08-12-2023 L Specimen: [id number] Received: 08/13/23 Status: MARCELL Szymanski Num: [id number] Spec Type: Surgical Subm Dr: JANA MELVIN MD Tissues: A Turbinates (RT INFERIOR TURB) B Turbinates (LT INF TURB) C Sinus Contents/Biopsy (RT SINUS CONTENT) D Sinus Contents/Biopsy (LT SINUS CONTENT) E Nasal Septum (SEPTUM) Procedures: HE/2, Gross/Micro L4/2, Level 1 Gross/3 Age/ Patient Sex Location Account Attending Physician Mere Esteban 42/F [facility] [id number] JANA MELVIN MD SPEC NUM: [id number] RECD: 08/13/23 STATUS: MARCELL SZYMANSKI NUM: [id number] SHRUTHI: 08/12/[address]: JANA MELVIN MD ENTERED: 08/13/[address] [facility] DR: Bakari,Lab SPEC TYPE: Surgical DEPT: [...] nasal septal cartilage. Gross only examination Specimen: [id number] Received: 08/13/23 Status: MARCELL Szymanski Num: [id number] Spec Type: Surgical Subm Dr: JANA MELVIN MD Tissues: A Turbinates (RT INFERIOR TURB) B Turbinates (LT INF TURB) C Sinus Contents/Biopsy (RT SINUS CONTENT) D Sinus Contents/Biopsy (LT SINUS CONTENT) E Nasal Septum (SEPTUM) Procedures: HE/2, Gross/Micro L4/2, Level 1 Gross/3 Patient: Mere Esteban [id number] (Continued) Specimen: [id number] Received: 08/13/23 (Continued) Signed (signature on file) Neil Johns MD 08/18/23 2037 Specimen: [id number] Received: 08/13/23 Status: MARCELL Burger: [id number] Spec Type: Surgical Subm Dr: JANA MELVIN MD Tissues: A Turbinates (RT INFERIOR TURB) B Turbinates (LT INF TURB) C Sinus Contents/Biopsy (RT SINUS CONTENT) D Sinus Contents/Biopsy (LT SINUS CONTENT) E Nasal Septum (SEPTUM) Procedures: HE/2, Gross/Micro L4/2, Level 1 Gross/3 Patient: Mere Esteban [id number] (Continued) Specimen: [id number] Received: 08/13/23 (Continued) Clinical Information Chronic sinusitis, [...] cm aggregate of adler and cartilaginous tissue. Central Service Technician sections following decalcification are submitted in C1. [...] gross photo is included. TW CPT Codes 07464I1 72056 X.3 Specimen: [id number] Received: 08/13/23 Status: MARCELL Szymanski Num: [id number] Spec Type: Surgical Subm Dr: JANA MELVIN MD Tissues: A Turbinat (more content not included)... Normal [facility] Fibrin D-dimer DDU (PPP) [Ma ss/Vol]on 08-07-2023 D DIMER <150 Normal <255 [facility] Comment on above: Result Comment: Results <255 ng/mL DDU: The presence of a VTE can safely be excluded with a negative D-Dimer result and Wells score. A negative result doesn't exclude the possibility of DIC. The test be repeated along with other diagnostic tests if the patient's symptoms persist or worsen. [email or web address] Performed By: #### 4 8066-5 ####[facility] ([id number])[address] [place] [address] HCG ( test) Bryanna Morales (S)on 08-04-2023 SERUM Negative Normal NEG [facility] Comment on above: Performed By: #### 8 0385-8 ####[facility] ([id number])[address] [place] [address] Surgical Pathologyon 024 Surgical Pathology Normal [facility] Comment on above: Result Comment: [facility] [address] [place] [address] Surgical Pathology Consultation Patient Name:MERE ESTEBAN:1980 (Age: 42)Gender:FTaken:4Reported:4Physician(s):Belén Goodwin M.D. ([phone])Copy To: Rec. #:[id number]: #[id number] Final Pathologic Diagnosis 1. Endocervical curettings: Fragments of endocervix, negative for dysplasia 2. Endometrial curettings: Fragments of secretory endometrium with breakdown Report Electronically Signed Out nsk/08/12/2023Jacque Martin MD Interpretation performed at [facility], [address] [place] [address], License number: [id number]. Clinical History Dysfunctional uterine bleeding. Gross Description [...] submitted in a single cassette. (1, ns, [id number], m1) MG 2. Received in formalin labeled WHITE, #2: Endometrial curettings are 2 Telfa pads with multiple adherent adler fragments/feathery bits of soft tissue, embedded in adler cloudy mucoid debris and hemorrhagic material. The Telfa pads are scraped and the rest of the specimen is filtered, aggregating to 7.5 x 1.2 x 0.3 cm, and submitted in cassettes A-C. (3, ns, [id number], m1) MG mjg/08/05/2023NSK Intraoperative Consultation Specimen(s) Received 1: Endocervical curettings 2: Endometrial curettings Fee Codes(s): 1; 43990 2; 32112 CBC AND AUTO DIFFon 07-14-19 24 ABSOLUTE BASOPHIL 0.1 X10E9/L Normal 0.0-0.2 [facility] Comment on above: Performed By: #### C BCA ####[facility] ([id number])[address] [place] [address] ABSOLUTE NEUTROPHIL 4.4 X10E9/L Normal 1.5-6.6 [facility] Comment on above: Performed By: #### C BCA ####[facility] ([id number])[address] [address], [place] [address] Basophils/100 WBC (Bld) 1.2 % Normal [facility] Comment on above: Performed By: #### C BCA ####[facility] ([id number])[address] [address], [place] [address] Eosinophils (Bld) [#/Vol] 0.4 10*3/uL Normal 0.0-0.4 [facility] Comment on above: Performed By: #### C BCA ####[facility] ([id number])[address] [place] [address] Eosinophils/100 WBC (Bld) 4.7 % Normal [facility] Comment on above: Performed By: #### C BCA ####[facility] ([id number])[address] [address] [place] [address] Erythrocyte distribution width (RBC) [Ratio] 14.8 % Normal 11.5-15.0 [facility] Comment on above: Performed By: #### C BCA ####[facility] ([id number])[address] [address] [place] [address] Hematocrit (Bld) [Volume fraction] 41.2 % Normal 35-47 [facility] Comment on above: Performed By: #### C BCA ####[facility] ([id number])[address] [place] [address] Hemoglobin (Bld) [Mass/Vol] 13.6 g/dL Normal 11.7-15.5 [facility] Comment on above: Performed By: #### C BCA ####[facility] ([id number])[address] [address] [place] [address] Lymphocytes (Bld) [#/Vol] 2.8 10*3/uL Normal 1.0-3.5 [facility] Comment on above: Performed By: #### C BCA ####[facility] ([id number])[address] [address] [place] [address] Lymphocytes/100 WBC (Bld) 32.8 % Normal [facility] Comment on above: Performed By: #### C BCA ####[facility] ([id number])[address] [address] [place] [address] MCH (RBC) [Entitic mass] 31.3 pg Normal 27-34 [facility] Comment on above: Performed By: #### C BCA ####[facility] ([id number])[address] [address] [place] [address] MCHC (RBC) [Mass/Vol] 33.1 g/dL Normal 32-36 [facility] Comment on above: Performed By: #### C BCA ####[facility] ([id number])[address] [address] [place] [address] MCV (RBC) [Entitic vol] 95 fL Normal 80-100 [facility] Comment on above: Performed By: #### C BCA ####[facility] ([id number])[address] [address] [place] [address] Monocytes (Bld) [#/Vol] 0.8 10*3/uL Normal 0-0.9 [facility] Comment on above: Performed By: #### C BCA ####[facility] ([id number])[address], [place] [address] Monocytes/100 WBC (Bld) 9.2 % Normal P [facility] Comment on above: Performed By: #### C BCA ####[facility] ([id number])[address], [place] [address] Neutrophils/100 WBC (Bld) 52.1 % Normal [facility] Comment on above: Performed By: #### C BCA ####[facility] ([id number])[address] [address], [place] [address] Platelet mean volume (Bld) [Entitic vol] 8.1 fL Normal 7-12 [facility] Comment on above: Performed By: #### C BCA ####[facility] ([id number])[address] [address] [place] [address] Platelets (Bld) [#/Vol] 321 10*3/uL Normal 150-450 [facility] Comment on above: Performed By: #### C BCA ####[facility] ([id number])[address] [address], [place] [address] RBC COUNT 4.35 X10E12/L Normal 3.80-5.20 [facility] Comment on above: Performed By: #### C BCA ####[facility] ([id number])[address] [address], [place] [address] WBC (Bld) [#/Vol] 8.4 10*3/uL Normal 4.0-11.0 [facility] Comment on above: Performed By: #### C BCA ####[facility] ([id number])[address] [address], [place] [address] XR CHEST 2 VWSon 04-29-2024 XR CHEST 2 VWS XR CHEST 2 VWS XR CHEST 2 VWS INDICATION: Bronchitis, preoperative clearance COMPARISON: X-ray 01/29/2023 FINDINGS: Cardiomediastinal silhouette and pulmonary vasculature are within normal limits. Lungs and pleural space are clear. There is no pleural effusion or pneumothorax. IMPRESSION: No acute cardiopulmonary process. Finalized by Daniel Rosas on 07/14/2023 5:35 PM Normal [facility] POCT , urineon 05-15 Beta HCG ( test) Ql (U) Negative [facility] Surgical Pathologyon 024 Surgical Pathology Normal [facility] Comment on above: Result Comment: [facility] [address] [place] [address] Surgical Pathology Consultation Patient Name:MERE ESTEBAN:1980 (Age: 42)Gender:FTaken:4Reported:4Physician(s):Belén Goodwin M.D. ([phone])Copy To: Rec. #:[id number]: #[id number] Final Pathologic Diagnosis 1. Endocervix, curettage: Benign endocervical epithelium. 2. Endometrium, biopsy: Benign endometrium. Report Electronically Signed Out cjb/4Cjaylin Gayle MD Interpretation performed at [facility], [address] [place] [address], License number: [id number]. Clinical History Dysfunctional uterine bleeding (DUB) N93.8. Gross Description 1. Received in formalin labeled, WHITE, ECC is a plastic metal brush with a pale-adler mucoid material admixed with adler friable soft tissue fragments and brown hemorrhagic material, 2 x 0.8 x 0.1 cm in aggregate. The specimens are filtered and submitted in a single cassette. (1, ns, [id number], m2) TB 2. Received in formalin labeled, WHITE, EMB are 4 pale-adler delicate to friable soft tissue chips admixed with adler to brown hemorrhagic material, 2.5 x 1.5 x 0.1 cm in aggregate. The specimens are filtered and submitted in a single cassette. (1, ns, [id number], m2) TB tgb/06/04/2023WAK Specimen(s) Received 1: Endocervical curettings 2: Endometrial biopsy Fee Codes(s): 1; 12444 2; 75795 COMPLETE BLOOD COUNTon 06-01 Erythrocyte distribution width (RBC) [Ratio] 14.6 % Normal 11.5-15.0 [facility] Comment on above: Performed By: #### C RAYMUNDO, 28240-0, 40476-4, 94955-3, 3016-3, 3024-7, 2842-3 #### [facility] ([id number]) [address], [address] [place] [address] Hematocrit (Bld) [Volume fraction] 44.6 % Normal 35-47 [facility] Comment on above: Performed By: #### C RAYMUNDO, 88073-7, 64726-4, 72993-7, 3016-3, 3024-7, 2842-3 #### [facility] ([id number]) [address], [address] [place] [address] Hemoglobin (Bld) [Mass/Vol] 14.6 g/dL Normal 11.7-15.5 [facility] Comment on above: Performed By: #### [place], 79160-3, 93987-1, 04500-1, 3016-3, 3024-7, 2842-3 #### [facility] ([id number]) [address], [address] [place] [address] MCH (RBC) [Entitic mass] 31.1 pg Normal 27-34 [facility] Comment on above: Performed By: #### C BC, 97877-0, 04368-7, 67460-6, 3016-3, 3024-7, 2842-3 #### [facility] ([id number]) [address], [address] [place] [address] MCHC (RBC) [Mass/Vol] 32.6 g/dL Normal 32-36 [facility] Comment on above: Performed By: #### Leila FONSECA, 34049-1, 30003-5, 34421-1, 3016-3, 3024-7, 2842-3 #### [facility] ([id number]) [address], [address] [place] [address] MCV (RBC) [Entitic vol] 95 fL Normal 80-100 [facility] Comment on above: Performed By: #### Leila FONSECA, 13140-0, 36906-2, 96969-9, 3016-3, 3024-7, 2842-3 #### [facility] ([id number]) [address], [address] [place] [address] Platelet mean volume (Bld) [Entitic vol] 8.9 fL Normal 7-12 [facility] Comment on above: Performed By: #### Leila FONSECA, 17622-3, 62147-3, 86689-3, 3016-3, 3024-7, 2842-3 #### [facility] ([id number]) [address] [place] [address] Platelets (Bld) [#/Vol] 290 10*3/uL Normal 150-450 [facility] Comment on above: Performed By: #### Leila FONSECA, 32532-5, 93663-0, 95073-4, 3016-3, 3024-7, 2842-3 #### [facility] ([id number]) [address], [address] [place] [address] RBC COUNT 4.68 X10E12/L Normal 3.80-5.20 [facility] Comment on above: Performed By: #### Leila FONSECA, 76899-9, 63693-4, 43186-1, 6-3, 3024-7, 2842-3 #### [facility] ([id number]) [address], [address] [place] [address] WBC (Bld) [#/Vol] 9.4 10*3/uL Normal 4.0-11.0 [facility] Comment on above: Performed By: #### Leila FONSECA, 08854-5, 50381-5, 25172-6, 6-3, 3024-7, 2842-3 #### [facility] ([id number]) [address] [place] [address] FREE T4on 06-02-2023 Free T4 [Mass/Vol] 0.79 ng/dL Normal 0.61-1.60 [facility] Comment on above: Performed By: #### Leila FONSECA, 23271-9, 17174-1, 36687-0, 3015-3, 4-7, 2842-3 #### [facility] ([id number]) [address] [place] [address] Follitropin Qnon 06-02-2023 FOLLICLE STIM HORMONE 4.2 mIU/mL Normal Pro [facility] Comment on above: Result Comment: NORMAL FEMALE Luteal 1.8-5.1 mIU/mL Follicular 3.8-8.8 mIU/mL Mid Cycle 4.5-22.5 mIU/mL [place] 16.7-113.6 mIU/mL Performed By: #### Leila FONSECA, 13266-0, 08512-7, 06788-7, 6-3, 4-7, 2842-3 #### [facility] ([id number]) [address] [place] [address] HCG.beta subunit IA 3rd IS Q non 06-02-2023 SERUM B HCG,3RD I.S. <5 Normal [facility] Comment on above: Result Comment: NEW [...] nontrophoblastic neoplasms. Performed By: #### Leila FONSECA, 90795-3, 22453-3, 98636-8, 3016-3, 3024-7, 2842-3 #### [facility] ([id number]) [address] [place] [address] Lutropin Qnon 06-02-2023 LUTEINIZING HORMONE 5.9 mIU/mL Normal [facility] Comment on above: Result Comment: NORMAL FEMALE Follicular 2.1-10.9 mIU/mL Mid Cycle 19.2-103 mIU/mL Luteal 1.2-12.9 mIU/mL [place] 10.9-58.6 mIU/mL Performed By: #### Leila FONSECA, 96119-6, 59449-1, 04920-5, 3016-3, 3024-7, 2842-3 #### [facility] ([id number]) [address], [address] [place] [address] Prolactin [Mass/Vol]on 06-01 PROLACTIN 21.1 ng/mL Normal 3.3-26.7 [facility] Comment on above: Performed By: #### C , 42599-8, 17240-4, 68486-7, 3016-3, 3024-7, 2842-3 #### [facility] ([id number]) [address] [place] [address] TSH Qnon 06-02-2023 TSH 2.98 uIU/mL Normal 0.49-4.67 [facility] Comment on above: Performed By: #### C , 32361-0, 78860-4, 27359-0, 3016-3, 3024-7, 2842-3 #### [facility] ([id number]) [address] [place] [address] US PELVIC WITH TRANSVAGINALo n 06-02-2023 US [...] Billy MD on 06/02/2023 2:55 PM Normal [facility] US Pelvis transabdominal and transvaginalon 06-02-2023 [...] Erick Billy MD on 06/02/2023 2:55 PM [facility] Erick Billy MD - 06/02/2023 PELVIC [...] Erick Billy MD on 06/02/2023 2:55 PM [facility] Radiology Study observation (narrative) [facility] US Pelvis transabdominal and transvaginalOrdered By: Erick Billy on 06-02-2023 [facility] Work Phone: CT Maxillofacial w/o Contras ton [...] MD, V. 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 MAMM SCREENING BILATERAL W CAD MAMM [...] AM 1 c MAMM 1 YR Normal [facility] COVID + FLU Quick Testingon 06-28-2022 SARS-CoV-2 (COVID-19) RNA SADE+probe Ql (Unsp spec) Negative [facility] Other COVID + FLU Quick Testing Negative [facility] Other XR CSPINE MIN 4 VIEWSon 10-15 [...] by: LOUIE ROTHMAN Date: 2021-10-24 15:10 Normal [facility] XR LSPINE W_OBLS AND FLEX_EX Ton [...] by: LOUIE ROTHMAN Date: 2021-10-24 15:11 Normal [facility] COVID Quick Testingon 2021 Result Positive [facility] Other Vital Signs Date Time Vital Sign Value Performing Clinician Facility 10-06-2023 09:30-0400 Blood Pressure Location Yadiel CASAREZ [facility] 10-06-2023 09:30-0400 Diastolic blood pressure 78 mm[Hg] Yadiel CASAREZ [facility] 10-06-2023 09:30-0400 Heart rate 75 /min Yadiel NILL [facility] 10-06-2023 09:30-0400 Respiratory rate 17 /min Yadiel NILL [facility] 10-06-2023 09:30-0400 SaO2% (BldA) [Mass fraction] 98 % Yadiel NILL [facility] 10-06-2023 09:30-0400 Systolic blood pressure 131 mm[Hg] Yadiel NILL [facility] 10-06-2023 09:25-0400 Blood Pressure Location Yadiel NILL [facility] 10-06-2023 09:25-0400 Diastolic blood pressure 73 mm[Hg] Yadiel NILL [facility] 10-06-2023 09:25-0400 Heart rate 78 /min Yadiel NILL [facility] 10-06-2023 09:25-0400 Respiratory rate 22 /min Yadiel NILL [facility] 10-06-2023 09:25-0400 SaO2% (BldA) [Mass fraction] 99 % Yadiel NILL [facility] 10-06-2023 09:25-0400 Systolic blood pressure 124 mm[Hg] Yadiel NILL [facility] 10-06-2023 09:20-0400 Blood Pressure Location Yadiel NILL [facility] 10-06-2023 09:20-0400 Diastolic blood pressure 99 mm[Hg] Yadiel NILL [facility] 10-06-2023 09:20-0400 Heart rate 78 /min Yadiel NILL [facility] 10-06-2023 09:20-0400 Respiratory rate 17 /min Yadiel NILL [facility] 10-06-2023 09:20-0400 SaO2% (BldA) [Mass fraction] 98 % Yadiel NILL [facility] 10-06-2023 09:20-0400 Systolic blood pressure 121 mm[Hg] Yadiel NILL [facility] 10-06-2023 09:13-0400 Body temperature 97.88 [degF] Yadiel NILL [facility] 10-06-2023 09:05-0400 Respiratory rate 25 /min Yadiel NILL [facility] 10-06-2023 09:00-0400 Respiratory rate 27 /min Yadiel NILL [facility] 10-06-2023 08:55-0400 Respiratory rate 28 /min Yaidel NILL [facility] 10-06-2023 08:13-0400 Body temperature 98.24 [degF] Yadiel NILL [facility] 09-25-2023 08:53-0400 Blood Pressure Location Yadiel NILL [facility] [place] 09-25-2023 08:53-0400 Diastolic blood pressure 84 mm[Hg] Yadiel NILL [facility] [place] 09-25-2023 08:53-0400 Heart rate 85 /min Yadiel NILL [facility] [place] 09-25-2023 08:53-0400 Respiratory rate 16 /min Yadiel NILL [facility] [place] 09-25-2023 08:53-0400 Systolic blood pressure 125 mm[Hg] Yadiel LESLIEBelle [facility] [place] 06-17-2023 08:21-0400 Body mass index (BMI) [Ratio] 36.22 kg/m2 Belén Goodwin MD Work Phone: [facility] 06-17-2023 08:21-0400 Body weight 101.79 kg Belén Goodwin MD Work Phone: [facility] 06-17-2023 08:21-0400 Diastolic blood pressure 66 mm[Hg] Belén Goodwin MD Work Phone: [facility] 06-17-2023 08:21-0400 Systolic blood pressure 128 mm[Hg] Belén Goodwin MD Work Phone: [facility] 06-03-2023 10:53-0400 Body height 167.6 cm Belén Goodwin MD Work Phone: [facility] 06-03-2023 10:53-0400 Body mass index (BMI) [Ratio] 36.32 kg/m2 Belén Goodwin MD Work Phone: [facility] 06-03-2023 10:53-0400 Body weight 102.06 kg Belén Goodwin MD Work Phone: [facility] 06-03-2023 10:53-0400 Diastolic blood pressure 78 mm[Hg] Belén Goodwin MD Work Phone: [facility] 06-03-2023 10:53-0400 Systolic blood pressure 116 mm[Hg] Belén Goodwin MD Work Phone: [facility] 04-22-2023 09:07-0500 Body mass index (BMI) [Ratio] 35.99 kg/m2 Belén Goodwin MD Work Phone: [facility] 04-22-2023 09:07-0500 Body weight 101.15 kg Belén Goodwin MD Work Phone: [facility] 04-22-2023 09:07-0500 Diastolic blood pressure 58 mm[Hg] Belén Goodwin MD Work Phone: [facility] 04-22-2023 09:07-0500 Systolic blood pressure 110 mm[Hg] Belén Goodwin MD Work Phone: [facility] 04-02-2023 10:06-0500 Body height 167.6 cm Shanthi Lugo [employer] ASSISTANT Work Phone: [facility] 04-02-2023 10:06-0500 Body mass index (BMI) [Ratio] 34.48 kg/m2 Shanthiasmita Lugo [employer] ASSISTANT Work Phone: [facility] 04-02-2023 10:06-0500 Body weight 96.89 kg Shanthi Lugo [employer] ASSISTANT Work Phone: [facility] 04-02-2023 10:06-0500 Diastolic blood pressure 76 mm[Hg] Shanthi Lugo [employer] ASSISTANT [facility] Phone: [facility] 04-02-2023 10:06-0500 Heart rate 96 /min Shanthi Lugo [employer] ASSISTANT Work Phone: [facility] 04-02-2023 10:06-0500 SaO2% (BldA) [Mass fraction] 98 % Shanthi Lugo [employer] ASSISTANT Work Phone: [facility] 04-02-2023 10:06-0500 Systolic blood pressure 142 mm[Hg] Shanthi Lugo [employer] ASSISTANT Work Phone: [facility] 03-03-2023 10:05-0500 Body height 167.64 cm Neyda Garland Other [facility] Other 03-03-2023 10:05-0500 Body mass index (BMI) [Ratio] 34.21 kg/m2 Neyda Garland Other [facility] Other 03-03-2023 10:05-0500 Body temperature 99.1 [degF] Neyda Garland Other [facility] Other 03-03-2023 10:05-0500 Body weight 96.16 kg Neyda Garland Other [facility] Other 03-03-2023 10:05-0500 Diastolic blood pressure 60 mm[Hg] Neyda Garland Other [facility] Other 03-03-2023 10:05-0500 Respiratory rate 18 /min Neyda Garland Other [facility] Other 03-03-2023 10:05-0500 SaO2% (BldA) [Mass fraction] 98 % Neyda Garland Other [facility] Other 03-03-2023 10:05-0500 Systolic blood pressure 125 mm[Hg] Neyda Garland Other [facility] Other 08-26-2022 17:15-0400 Body height 167.64 cm Ilana Gallegos Other [facility] Other 08-26-2022 17:15-0400 Body mass index (BMI) [Ratio] 33.08 kg/m2 Ilana Gallegos Other [facility] Other 08-26-2022 17:15-0400 Body temperature 98.2 [degF] Ilana Gallegos Other [facility] Other 08-26-2022 17:15-0400 Body weight 92.99 kg Ilana El Other [facility] Other 08-26-2022 17:15-0400 Respiratory rate 18 /min Ilana Gallegos Other [facility] Other 08-26-2022 17:15-0400 SaO2% (BldA) [Mass fraction] 97 % Ilana Gallegos Other [facility] Other 06-28-2022 18:35-0400 Body height 167.64 cm Yohana Reamond Other [facility] Other 06-28-2022 18:35-0400 Body mass index (BMI) [Ratio] 34.38 kg/m2 Yohana Fidleina Other [facility] Other 06-28-2022 18:35-0400 Body temperature 96.9 [degF] Yohana Fidelina Other [facility] Other 06-28-2022 18:35-0400 Body weight 96.62 kg Yohana Fidelina Other [facility] Other 06-28-2022 18:35-0400 Respiratory rate 18 /min Yohana Fidelina Other [facility] Other 06-28-2022 18:35-0400 SaO2% (BldA) [Mass fraction] 96 % Yohana Fidelina Other [facility] Other 03-29-2021 10:15-0500 Body height 167.64 cm Chela Kumar Other [facility] Other 03-29-2021 10:15-0500 Body mass index (BMI) [Ratio] 30.66 kg/m2 Chela Kumar Other [facility] Other 03-29-2021 10:15-0500 Body temperature 97.5 [degF] Chela Kumar Other [facility] Other 03-29-2021 10:15-0500 Body weight 86.18 kg Chela Kumar Other [facility] Other 03-29-2021 10:15-0500 Respiratory rate 18 /min Chela Kumar Other [facility] Other 03-29-2021 10:15-0500 SaO2% (BldA) [Mass fraction] 98 % Chela Kumar Other [facility] Other 01-26-2021 11:35-0500 Body height Yohana Kitchen Other [facility] Other 01-26-2021 11:35-0500 Body mass index (BMI) [Ratio] 30.73 kg/m2 Yohana Kitchen Other [facility] Other 01-26-2021 11:35-0500 Body temperature 97.7 [degF] Yohana Kitchen Other [facility] Other 01-26-2021 11:35-0500 Body weight 86.37 kg Yohana Kitchen Other [facility] Other 01-26-2021 11:35-0500 Diastolic blood pressure 49 mm[Hg] Yohana Reamond Other [facility] Other 01-26-2021 11:35-0500 Respiratory rate 18 /min Yohana Kitchen Other [facility] Other 01-26-2021 11:35-0500 SaO2% (BldA) [Mass fraction] 100 % Yohana Kitchen Other [facility] Other 01-26-2021 11:35-0500 Systolic blood pressure 11 mm[Hg] Yohana Kitchen Other [employer] Other Encounters Encounter Date Encounter Type Care Provider Facility Start: 12-12-2023 End: 12-12-2023 ambulatory [facility] Start: 11-04-2023 End: 11-04-2023 ambulatory BELÉN L [facility] Start: 10-28-2023 End: 10-28-2023 ambulatory Yadiel CASAREZ Facility: [place] Start: 10-28-2023 End: 10-28-2023 Patient encounter procedure Yadiel CASAREZ [facility] Start: 10-27-2023 End: 10-27-2023 ambulatory LUH SANCHEZ [facility] Start: 10-14-2023 End: 10-14-2023 ambulatory JANA Marin OLEGARIO Not Available Start: 10-06-2023 End: 10-06-2023 ambulatory Yadiel LESLIEL Facility:[facility] Start: 10-06-2023 End: 10-06-2023 Patient encounter procedure Yadiel LESLIEL [facility] Start: 10-02-2023 End: 10-04-2023 ambulatory [facility] Start: 09-25-2023 End: 09-25-2023 ambulatory Yadiel R NILL Facility: [facility] Start: 09-25-2023 End: 09-25-2023 Patient encounter procedure Yadiel R NILL [facility] [place] Start: 09-10-2023 ambulatory Yadiel NILL Facility:[facility] [place] Start: 09-09-2023 End: 09-09-2023 ambulatory [facility] Start: 09-08-2023 End: 09-08-2023 Emergency department patient visit [facility] Start: 09-03-2023 End: 09-03-2023 ambulatory [facility] Start: 09-02-2023 End: 09-02-2023 ambulatory JANA Tania TIMMIS Not Available Start: 09-01-2023 End: 09-01-2023 ambulatory [facility] Start: 08-20-2023 End: 08-20-2023 ambulatory JANA Marin TIMMIS Not Available Start: 08-12-2023 End: 08-12-2023 ambulatory [facility] Work Phone: Start: 08-12-2023 End: 08-12-2023 Departed Referred MD Jana [facility] Start: 08-07-2023 End: 08-07-2023 Emergency department patient visit [facility] Start: 08-04-2023 End: 08-04-2023 Evaluation and management of inpatient REGGIE WEBB [facility] Start: 08-04-2023 End: 08-04-2023 Evaluation and management of inpatient [facility] Start: 07-14-2023 End: 07-14-2023 ambulatory LOUIE HEREDIA [facility] Start: 07-14-2023 Encounter for other preprocedural examination [facility] Start: 06-18-2023 Telephone encounter Shantel ferrell [facility] Start: 06-17-2023 End: 06-17-2023 ambulatory [facility] Start: 06-17-2023 End: 06-17-2023 Office outpatient visit 15 minutes Belén Goodwin MD Work Phone: [facility] Comment on above: DUB (dysfunctional u terine bleeding) (Primary Dx) Start: 06-04-2023 End: 06-04-2023 ambulatory JANA H TIMMIS Not Available Start: 06-03-2023 End: 06-03-2023 ambulatory [facility] Start: 06-03-2023 End: 06-03-2023 Office outpatient visit 15 minutes Belén Goodwin MD Work Phone: [facility] Comment on above: DUB (dysfunctional u terine bleeding) (Primary Dx) Start: 06-03-2023 End: 06-03-2023 ambulatory [facility] Start: 06-02-2023 End: 06-02-2023 Orders Only Cori Montilla RN [facility] Comment on above: Abnormal uterine ble eding (AUB) (Primary Dx) Start: 05-31-2023 End: 05-31-2023 ambulatory Jana H Timmis Facility:[facility] Start: 04-22-2023 End: 04-22-2023 Office outpatient visit 25 minutes Belén Goodwin MD Work Phone: [facility] Comment on above: DUB (dysfunctional u terine bleeding) (Primary Dx) Start: 04-22-2023 End: 04-22-2023 ambulatory [facility] Start: 04-16-2023 End: 05-24-2023 Pre-admission assessment Jana H Timmis [facility] Start: 04-16-2023 End: 04-16-2023 ambulatory JANA H TIMMIS Not Available Start: 04-10-2023 End: 04-10-2023 ambulatory [facility] Start: 04-02-2023 End: 04-02-2023 Office outpatient visit 25 minutes [facility] [employer] Work Phone: [facility] Pulmonary[facility]Sleep Medicine Comment on above: Chronic bronchitis, unspecified chronic bronchitis type (CMS- HCC) (Primary Dx); Asthma-COPD overlap syndrome; Tobacco dependence; Class 1 obesity with body mass index (BMI) of 34.0 to 34.9 in adult, unspecified obesity type, unspecified whether serious comorbidity present Start: 04-02-2023 End: 04-02-2023 ambulatory [facility] Start: 03-03-2023 End: 03-03-2023 ambulatory Neyda Garland Other [facility] Other Start: 03-03-2023 Office outpatient vi sit 15 minutes Neyda Garland [facility] Start: 08-26-2022 End: 08-26-2022 ambulatory Ilana Gallegos Other [facility] Other Start: 08-26-2022 Office outpatient vi sit 25 minutes Ilana Gallegos [facility] Start: 08-01-2022 ambulatory PAIGE COVARRUBIAS . Facili ty:[facility] Start: 06-28-2022 End: 06-28-2022 ambulatory Yohana Kitchen Other [facility] Other Start: 06-28-2022 Office outpatient vi sit [...] 03-29-2021 End: 03-29-2021 ambulatory Chela Kumar Other [facility] Other Start: 03-29-2021 Office outpatient vi sit 15 minutes Chela Moyerault [facility] Start: 01-26-2021 End: 01-26-2021 ambulatory Yohana Kitchen Other [facility] Other Start: 01-26-2021 Office outpatient vi sit 15 minutes Yohananydia Kitchen [facility] Procedures Date Procedure Procedure Detail Performing Clinician Start: 10-06-2023 Colonoscopy Yadiel CASAREZ Start: 10-06-2023 Esophagogastroduodenoscopy Yadiel CASAREZ Start: 08-04-2023 Hysteroscopy endometrial ablation Angel CASAREZ Start: 06-17-2023 Follow-up visit Follow-up BELÉN GOODWIN Start: 06-03-2023 Urine test visual color cmprsn meths Belén Goodwin MD Work Phone: section Jana alvarado section Yadiel Odonnell section Yadiel Odonnell Esophagogastroduodenoscopy M eh LEIDA H/O: section Jana Melvin Nasal septoplasty Yadiel WANG Plan of Treatment Date Care Activity Detail Author Start: 06-14-2032 DTaP,Tdap and Td Vaccines (3 - Td or Tdap) DTaP,Tdap and Td Vaccines (3 - Td or Tdap) [facility] Start: 06-16-2024 Adult BMI Screening Adult BMI Screen ing [facility] Start: 06-16-2024 Tobacco Screening Tobacco Screening [facility] Start: 06-02-2024 Adult BMI Screening Adult BMI Screen ing [facility] Start: 06-02-2024 Tobacco Screening Tobacco Screening [facility] Start: 04-22-2024 Adult BMI Screening Adult BMI Screen ing [facility] Start: 04-22-2024 Tobacco Screening Tobacco Screening [facility] Start: 04-10-2024 Adult BMI Screening Adult BMI Screen ing [facility] Start: 04-02-2024 Tobacco Screening Tobacco Screening [facility] Start: 11-16-2023 Influenza vaccination Influenza Vacc ine [facility] Start: 10-27-2023 End: 10-27-2023 Patient encounter procedure 10/27/2023 9:45 AM EDT Office Visit [facility] [address] [place] [address] Luh Sanchez MD [address] [place] [address] [facility] Start: 08-04-2023 End: 08-04-2023 Admission to same day surgery center 08/04/2023 12:30 PM EDT - 08/04/2023 1:30 PM EDT Surgery [facility] [address] [place] [phone] Belén Goodwin MD [address] [place] [address] HYSTEROSCOPY DILATION CURETTAGE ABLATION ENDOMETRIAL NOVASURE [80022 (CPT )] [facility] Comment on above: HYSTEROSCOPY DILATIO N CURETTAGE ABLATION ENDOMETRIAL NOVASURE [91654 (CPT )] Start: 08-04-2023 End: 08-04-2023 Hysteroscopy endometrial ablation HYSTEROSCOPY DILATION CURETTAGE ABLATION ENDOMETRIAL NOVASURE dysfunctional uterine bleeding 08/04/2023 12:30 PM EDT [facility] Start: 08-04-2023 Subsequent hospital visit by physician 08/04/2023 12:30 PM EDT Hospital Encounter [facility] [address] [place] [id number] Belén Goodwin MD [address] [place] [address] [facility] - Surgery Start: 07-14-2023 End: 07-14-2023 Patient encounter procedure 07/14/2023 9:45 AM EDT Procedure visit [facility] - Pre Admit [address] [place] [address] [facility] Pre Ad[facility] Start: 06-17-2023 End: 06-17-2023 Patient encounter procedure 06/17/2023 8:15 AM EDT Office Visit [facility] [place] [phone] Belén Goodwin MD [address] [place] [address] [facility] Start: 06-03-2023 End: 06-02-2024 Surgical Pathology Surgical Pathology Pathology and Cytology Routine DUB (dysfunctional uterine bleeding) Expected: 06/03/2023 (Approximate), Expires: 06/02/2024 [facility] Work Phone: Comment on above: Expected: 06/03/2023 (Approximate), Expires: 06/02/2024 Start: 06-03-2023 End: 06-03-2023 Patient encounter procedure 06/03/2023 10:30 AM EDT Procedure visit [facility] [place] [phone] Belén Goodwin MD [address] [place], [place] [phone] [facility] Start: 04-22-2023 End: 04-21-2024 US Pelvis transvaginal Ultrasound transvaginal non OB Imaging Routine DUB (dysfunctional uterine bleeding) Expected: 04/22/2023, Expires: 04/21/2024 [facility] Work Phone: Comment on above: Expected: 04/22/2023 , Expires: 04/21/2024 Start: 04-22-2023 End: 04-22-2023 Patient encounter procedure 04/22/2023 9:00 AM EST [facility] [address] [place] [address] Belén Goodwin MD [address] [place] [address] [facility] Start: 11-15-2022 Influenza vaccination Influenza Vacc ine [facility] Start: 09-15-2000 Screening for malign ant neoplasm of cervix Pap Smear [facility] Start: 09-15-1997 Adult BMI Follow Up Plan Adult BMI Follow Up Plan [facility] Start: 1991 Depression Screening Depression Scre ening [facility] Start: 1979 Tobacco Counseling Tobacco Counselin g [facility] End: 04-22-2024 CBC panel - Blood by Automated count CBC without diff Lab Routine DUB (dysfunctional uterine bleeding) 1 Occurrences starting 04/22/2023 until 04/22/2024 [facility] Comment on above: 1 Occurrences starti ng 04/22/2023 until 04/22/2024 End: 04-22-2024 Follicle stimulating hormone Follicle stimulating hormone Lab Routine DUB (dysfunctional uterine bleeding) 1 Occurrences starting 04/22/2023 until 04/22/2024 [facility] Comment on above: 1 Occurrences starti ng 04/22/2023 until 04/22/2024 End: 04-22-2024 HCG, Quantitative, HCG, Quantitative, Lab Routine DUB (dysfunctional uterine bleeding) 1 Occurrences starting 04/22/2023 until 04/22/2024 [facility] Comment on above: 1 Occurrences starti ng 04/22/2023 until 04/22/2024 End: 04-22-2024 Luteinizing hormone Luteinizing hormone Lab Routine DUB (dysfunctional uterine bleeding) 1 Occurrences starting 04/22/2023 until 04/22/2024 [facility] Comment on above: 1 Occurrences starti ng 04/22/2023 until 04/22/2024 End: 04-22-2024 Prolactin Prolactin Lab Routine DUB (dysfunctional uterine bleeding) 1 Occurrences starting 04/22/2023 until 04/22/2024 [facility] Comment on above: 1 Occurrences starti ng 04/22/2023 until 04/22/2024 End: 04-22-2024 Thyrotropin [Units/volume] in Serum or Plasma TSH Lab Routine DUB (dysfunctional uterine bleeding) 1 Occurrences starting 04/22/2023 until 04/22/2024 [facility] Comment on above: 1 Occurrences starti ng 04/22/2023 until 04/22/2024 End: 04-22-2024 Thyroxine (T4) free [Mass/volume] in Serum or Plasma T4, free Lab Routine DUB (dysfunctional uterine bleeding) 1 Occurrences starting 04/22/2023 until 04/22/2024 [facility] Comment on above: 1 Occurrences starti ng 04/22/2023 until 04/22/2024 Immunizations Immunization Date Immunization Notes Care Provider Vishal mejia 12-13-2019 tetanus and diphther ia toxoids, adsorbed, preservative free, for adult use (2 Lf of tetanus toxoid and 2 Lf of diphtheria toxoid) Jana Xavimilo [facility] Payers Date Payer Category Payer Self-pay [id number] 2021 [address] Health Insurance [facility] [id number] 2021-Present [phone] [address] [place] [address] [id number] .7.3.137229.315 1979 Unknown [id number] 2.16.840.1.130853.3.579.2 .593 1979 Unknown [id number] 2.16.840.1.958512.3.579.2 .593 1979 Unknown [id number] 2.16.840.1.295323.3.579.2 .593 1979 Unknown [id number] 2.16.840.1.798923.3.579.2 .593 1979 Unknown [id number] 2.16.840.1.053168.3.579.2 .593 1979 Unknown [id number] 2.16.840.1.898265.3.579.2 .593 1979 Unknown [id number] 2.16.840.1.891259.3.579.2 .173 1979 Unknown [id number] 2.16.840.1.041215.3.579.2 .1259 1979 Unknown [id number] 2.16.840.1.408895.3.579.2 .9 1979 Unknown [id number] 2.16.840.1.150423.3.579.2 .9 1979 Unknown [id number] 2.16.840.1.156949.3.579.2 .1259 1979 Unknown [id number] 2.16.840.1.272622.3.579.2 .1259 1979 Unknown [id number] 2.16.840.1.038263.3.579.2 .727 1979 Unknown [id number] 2.16.840.1.772808.3.579.2 .727 1979 Unknown [id number] 2.16.840.1.935434.3.579.2 .727 1979 Unknown [id number] 2.16.840.1.056908.3.579.2 .727 1979 Unknown [id number] 2.16.840.1.438551.3.579.2 .727 1979 Unknown [id number] 2.16.840.1.321147.3.579.2 .1286 1979 Unknown [id number] 2.16.840.1.652641.3.579.2 .1285 1979 Unknown [id number] 2.16.840.1.287066.3.579.2 .1285 1979 Unknown [id number] 2.16.840.1.270681.3.579.2 .1285 1979 Unknown [id number] 2.840.1.557683.3.579.2 .1285 1979 Unknown [id number] 2.16.840.1.880610.3.579.2 .1285 1979 Unknown [id number] 2.840.1.269530.3.579.2 .1285 1979 Unknown [id number] 2.840.1.781852.3.579.2 .1285 1979 Unknown [id number] 2.0.1.802637.3.579.2 .1285 1979 Unknown [id number] 2.840.1.925431.3.579.2 .1285 1979 Unknown [id number] 2.840.1.460709.3.579.2 .1285 1979 Unknown [id number] 2.840.1.025521.3.579.2 .1285 1979 Unknown [id number] 2.0.1.383561.3.579.2 .1285 1979 Unknown [id number] 2.840.1.954120.3.579.2 .1285 1979 Unknown [id number] 2.840.1.418516.3.579.2 .1285 1979 Unknown [id number] 2.840.1.150558.3.579.2 .1285 1979 Unknown [id number] 2.840.1.514672.3.579.2 .1285 1979 Unknown [id number] 2.16.840.1.891517.3.579.2 .1286 1979 Unknown [id number] 2.16.840.1.267786.3.579.2 .1285 1979 Unknown [id number] 2.16.840.1.878704.3.579.2 .1285 1979 Unknown [id number] 2.16.840.1.454241.3.579.2 .1285 1979 Unknown [id number] 2.16.840.1.721131.3.579.2 .1285 1979 Unknown [id number] 2.16.840.1.595328.3.579.2 .128 1959 Private Health Insurance [id number] 2.16.840.1.923982.19 Medicaid [facility] [id number] Unknown Tosha BC/BS [id number] Unknown [id number] 2.16.840.1.328335.3.579.2 .531 Social History Date Type Detail Facility Unknown if ever smoked [facility] Other Start: 04-02-2023 End: 06-17-2023 Sex Assigned At [facility] Other Start: 09-09-2022 Tobacco smoking status WYIS Smokes tobacco daily [facility] History of tobacco use Cigarette Smoker [facility] Start: 09-09-2022 End: 06-17-2023 Cigarettes smoked current (pack per day) - Reported 0.5 [facility] Start: 09-09-2022 Tobacco use and exposure Smokeless tobacco non-user [facility] Start: 04-21-2023 End: 06-17-2023 Alcohol intake Current drinker of alcohol (finding) [facility] Within the past 12 months we worried whether our food would run out before we got money to buy more. Never True [facility] Comment on above: PPD smoker Start: 12-03-2021 Alcohol Comment [facility] Start: 1980 Sex Assigned At Not on file P [employer] [facility] Start: 05-29-2020 End: 09-25-2023 Tobacco smoking status Heavy tobacco smoker (finding) [facility] Comment on above: PPD smoker Start: 03-23-2018 Tobacco smoking status NHIS Smoker (finding) [facility] Start: 1980 Sex Assigned At Female F [facility] Functional Status Date Assessment Result Facility 10-06-2023 Functional Status N/A [facility] 09-25-2023 Functional Status N/A [facility] General Surgery [place] Clinical Notes 03-29-2021 to 10-08-2023 Note Date [...] when meets criteria ( To home ). [facility] Comment on above: Result Comment: Elec tronically Signed By: Tashi Brothers Jr, DO\.br\Date and Time Signed: 10/08/23 07:10 EDT 10-06-2023 Evaluation + Plan note Extrac corby from: Title:ANES Pre-operative Note 2022 Author:Tashi Brothers Jr, DO Date:10/06/23 Plan [place] [employer] Anesthesiologists (ASA) physical status classification: Class III. Anesthetic Preoperative Plan: Anesthesia General. [facility]07-22-2024 Hospital Discharge instructions Patient Education 10/06/2023 09:24:47 Colonoscopy, Care After Surgery [facility] (CUSTOM) Colonoscopy Care After Surgery Please read the instructions outlined below and refer to this sheet in the next few weeks. These discharge instructions provide you with general information on caring for yourself after you leave [facility]ital. Your doctor may also give you specific [...] day. 10/06/2023 09:24:43 Endoscopy, Care After Procedure [facility] Endoscopy Care After Procedure Please read the instructions outlined below and refer to this sheet in the next few weeks. These discharge instructions provide you with general information on caring [facility] Your doctor may also give you [...] blood. Document Released: 10/15/2004 Document Re-Released: 08/25/2006 [facility] Patient Information [employer]. 10/06/2023 09:24:38 Gastritis, Adult, Yjon-wp-Btev Gastritis, Adult Gastritis is irritation and swelling [...] Follow these instructions at home: Medicines Take nzih-hji-wphqgpq and prescription medicines only as told by [...] provider. Document Revised: 07/07/2021 Document Reviewed: 07/07/2021 [employer] Patient Education 2022 [employer] 10/06/2023 09:24:09 Colon Polyps Colon Polyps Colon [...] hard liquor (44 mL). General instructions Take pgdq-hat-mkbhafn and prescription medicines only as told by [...] provider. Document Revised: 06/21/2020 Document Reviewed: 06/21/2020 [employer] Patient Education 2022 [employer]. Follow Up Care 09/25/2023 09:29:00 With:Yadiel CASAREZ Address: [address], [address] [place] [phone] (1) When:7 to 10 days [facility]07-22-2024 NoteColonoscopy Procedure Report Patient: MERE ESTEBAN [...] place. Impression and Plan Diagnosis: Colon polyps (USL03-OD K63.5, Discharge, Medical), Rectal inflammation ([id number]-SO K62.89,Discharge, Medical). Course: Progressing as expected. Recommendations: Repeat colonoscopy:: In 5 years, Will depend on pathology report . Follow-up:: 1-2 weeks. Diet:: Regular diet. Medication resumption:: Continue current medications. Return to activities:: After 24 hours. Education and Follow-up: Counseled: [facility]Other Comment: Missing Attachment - attachment storage system not supported [id number] Can be viewed in source system Missing Attachment - attachment storage system not supported [id number] Can be viewed in source systemMissing Attachment - attachment storage system not supported [id number] Can be viewed in source systemMissing Attachment - attachment storage system not supported [id number] Can be viewed in source systemMissing Attachment - attachment storage system not supported [id number] Can be viewed in source [phone] NotePatient Education - Text Colonoscopy Care After Surgery Please read the instructions outlined below and refer to this sheet in the next few weeks. These discharge instructions provide you with general information on caring for yourself after you leave [facility]ital. Your doctor may also give you specific [...] on caring for yourself after you leave thespital. Your doctor may also give you specific [...] blood. Document Released: 10/15/2004 Document Re-Released: 08/25/2006 [employer]? Patient Information ?2009 [employer]. Infectious Disease Gastritis, Adult Gastritis is irritation [...] products that contain nicoti (more content not included)...[facility]-22-2024 NoteHistory and Physical Patient: MERE ESTEBAN Age: 43 years Sex: Female : 1980 Associated Diagnoses: None Author: Yadiel CASAREZ MD Subjective no changes to H & PFSelect Medical [facility] - DublinComment on above:Result Comment: Electronically Signed By: Yadiel CASAREZ MD\.br\Date and Time Signed: 10/06/23 08:03 [id number] NoteProgress Note-Physician Patient: MERE ESTEBAN Age: 43 [...] veins of lower extremity / SNOMED CT 210004105 / Confirmed Abnormal gallbladder ultrasound / SNOMED CT 6882458281 / Confirmed Smoker / IMO [id number] / Confirmed Added secondary to documentation in Social History. Seizure / SNOMED CT [id number] / Confirmed Outside Source Comment: Comment on above:[facility]:Result Comment: Electronically Signed By: Tashi Brothers Jr, DO\.br\Date and Time Signed: 10/06/23 16:38 [id number] NoteGeneral Surgery Office/Clinic Note Chief Complaint consultation for abdominal pain HPI Staff 43 year old female presents on consultation from [facility] for abdominal pain. Presented to ED [...] asthma, migraine headaches, bipolar disorder referred from [facility] for upper abd pain; patient [...] blood or mucous; patient [facility], they ordered abd/pelvic ct scan [...] diseases, and reduces th (more content not included)...[facility] HospitalComment on above:Result Comment: Electronically Signed By: LEIDA LINDSEY, Yadiel Jenkins\Date and Time Signed: 09/25/23 10:21 [id number] Miscellaneous Notes* Telephone Encounter - Shantel Fan [...] mailed to the patient. [facility] Telephone encounter Note* Telephone Encounter - [...] dates & times and schedule surgery f/u. [facility] [id number] Telephone encounter Note* Telephone Encounter - Shantel Fan - 06/18/2023 10:50 AM EDT Patient returned my call while I was out of the office at lunch. I returned patient's call. Patient notified of all dates & times. Patient voiced understanding. Surgery information letter mailed to the patient. [facility] [id number] History of Present illness Narrative* Belén Goodwin [...] 1 tablet (10 mg total) before bedtime. glvtkimybmd-yfzxmepsb-kfcqisqh (TRELEGY ELLIPTA) 200-62.5-25 mcg blister with device [...] MD Cori TELLEZ RN documented in this encounterCh[facility]03-[facility] History of Present illness Narrative* Belén [...] biopsy. BELÉN GOODWIN MD documented in this encounterCh[facility]03-19-[facility]24 Miscellaneous Notes* Addendum Note - Angelica Zhang CMA - 06/03/2023 10:30 AM EDTAddended by: ANGELICA ZHANG on: 06/03/2023 12:04 PM Modules accepted: Orders documented in this encounterCh[facility]03-19-2024 Note* Addendum Note - Angelica Zhang CMA - 06/03/2023 10:30 AM EDTAddended by: ANGELICA ZHANG on: 06/03/2023 12:04 PM Modules accepted: Orders [facility] History of Present illness Narrative* Belén Goodwin MD - 04/22/2023 9:00 AM EST Mere Esteban is a 42 y.o.female. Patient's last menstrual period was 04/08/2023.. She presents today for concerns with heavy period bleeding and cramping. She relates being on HRT and would like todiscuss a pertial hysterectomy. REPORTS SEVERAL YEAR HO DUB REC DUB EVAL STARTED ON HRT FOR SX FROM [facility] IN [place] BUT DID NOT HELP SX OR BLEEDING [...] before bedtime. estradioL (ESTRACE) 0.5 mg tablet jphfhdnynsd-zvtlvhohj-hfuzaewt (TRELEGY ELLIPTA) 200-62.5-25 mcg blister with device [...] RTO EMB/HYST TAKING ?HRT FROM [place] WITHOUT EVAL OF AUB/DUB HEAVY TOBACCO USE ANXIETY OBESITY SP BTL LACK OF PREVENTATIVE CARE MD Cori TELLEZ RN documented in this encounterSpringfield HospitaliOpener [facility] [id number] History of Present illness Narrative* Shanthi Belle Colesoskar, [employer] A[employer]TEACHERS ASSISTANT - 04/02/2023 9:45 AM EST Images from [...] Medical History: Diagnosis Date Anxiety Chronic bronchitis ([facility]) PERTINENT HISTORY: Her pertinent medical history includes Past Medical History: Diagnosis Date Anxiety Chronic bronchitis ([facility]) CURRENT MEDICATIONS: Reviewed with patient. [...] 0.5 mg tablet, , Disp: , Rfl: cdnizozifwq-hvamyrdyq-ypvmtzwa (TRELEGY ELLIPTA) 200-62.5-25 mcg blister with device, [...] our office a call. CC: SUSIE Benitez [facility] Office: [phone] 8:26 AM on 04/21/2023 This note is dictated with the use of M*Modal.Please note that this dictation was completed with computer voice recognition software. Quite often unanticipated grammatical, syntax, homophones, and other interpretive errors are inadvertently transcribed by the computer software. Please disregard these errors. Please excuse any errors that have escaped final proofreading. SUSIE Bellamy 04/21/23 0840 documented in this [facility]01-17-2024 Instructions* Patient Instructions* SUSIE Bellamy - 04/02/2023 9:45 AM EST If you re looking for general health and wellness resources, please visit [email or web address]. documented in this [facility]12-18-2023 Evaluation note* Encounter Date Diagnosis Assessment Notes [...] 24-28 hours if s/s persists or worsens. [facility] Other 06-12-2023 Evaluation note* Encounter Date Diagnosis [...] understanding and is agreeable to treatment plan. [facility] Other 04-14-2023 Evaluation note* Encounter Date Diagnosis [...] fever. May return to work on Friday [facility] Other 02-16-2023 NoteCONSULTATION CONSULTATION DATE: 05/02/2022 HISTORY [...] Medications include diclofenac 50 mg b.i.d., Abilify, [place] 5/325 daily p.r.n., Lyrica 50 mg b.i.d. [...] 50 mg b.i.d. and will refill her [place] today 5/325 daily p.r.n. We will have her return to the clinic in three months' time for medication management.[facility] 01-24-2022 NoteCONSULTATION CONSULTATION DATE: 01/24/2022 HISTORY [...] She does take ibuprofen 800 mg b.i.d., Abileonorfjosue, and she is currently working with an compliance reviewer. Our clinic has prescribed her [place] 5/325 daily p.r.n. in the past. Patient was unaware she could call for refills. She has been out of [place]os since early November and has increased the [...] will start diclofenac 50 mg b.i.d. Her [place] will be restarted at 5/325 daily p.r.n. Vitamin importance was discussed as was continuing with her workout therapy. She will be seen in the clinic in three months' time, unless otherwise indicated. Patient is in agreement with this plan.[facility] [id number] NoteCONSULTATION PROCEDURE DATE: 10/25/2021 PRE AND POSTOPERATIVE [...] be followed up in the clinic. [facility] [id number] NoteCONSULTATION CONSULTATION DATE: 10/25/2021 This is a [...] standing, walking and bending. Her medications include [place] 5/325 q. day, Baclofen 10 mg q.h.s. and Motrin 600 mg daily. The patient did have oral surgery last week for removal of a broken tooth. The patient was given Tylenol 3 and a course of amoxicillin. The patient did not take the Tylenol 3 but continued with the [place] that was prescribed from our clinic. REVIEW [...] in three months' time unless otherwise indicated.[facility] [id number] NoteCONSULTATION CONSULTATION DATE: 09/13/2021 This is a [...] to Baclofen 10 mg q.h.s. and add [place] 5/325 one q. day p.r.n. The patient was educated on the excessive use of her NSAIDs and appropriate doses were discussed. The intent is that the [place] will help with her pain relief and decrease the need for the ibuprofen as frequently. The patient agrees with the plan of care. She will be brought back to the clinic in two weeks' time for x-ray review. [facility] Signed and Approved by: FABIOLA BARTLETT . 10/05/2021 14:14:00[facility] Evaluation note* Encounter Date Diagnosis Assessment Notes Treatment Notes Treatment Clinical Notes Mar, Contact with and (suspected) exposure to other viral communicable diseases (ICD-10 - Z20.828) Mar, COVID-19 (ICD-10 - U07.1) Today you tested positive for the COVID virus. This mean you need to follow all CDC quarantine guidelines found at [email or web address] v. It [...] Patient care instructions given in writting by [facility] Care At Home document. [facility] Other Evaluation + Plan note No data available for this section [facility] Future Appointments Appointment Date:10/06/2023 08:30:00 AM Scheduled Provider: Location:[facility] Services Appointment Type:Surgery [facility] General Surgery [place] [facility] Pallettyrcq noteNort [employer] Other Evaluation note* Diagnosis Chronic bronchitis, unspecified chronic bronchitis type (CMS-HCC)- Primary Asthma-COPD overlap syndrome Tobacco dependence Tobacco use disorder Class 1 obesity with body mass index (BMI) of 34.0 to 34.9 in adult, unspecified obesity type, unspecified whether serious comorbidity present documented in this encounter [facility]* Diagnosis DUB (dysfunctional uterine bleeding)- Primary Other disorder of menstruation and other abnormal bleeding from female genital tract documented in this encounter [facility]* Diagnosis Abnormal uterine bleeding (AUB) Abnormal uterine bleeding (AUB)- Primary documented in [facility] encounter [facility]* Diagnosis DUB (dysfunctional uterine bleeding)- Primary Other disorder of menstruation and other abnormal bleeding from female genital tract documented in this encounter [facility]* Diagnosis DUB (dysfunctional uterine bleeding)- Primary Other disorder of menstruation and other abnormal bleeding from female genital tract documented in this encounter [facility] System[facility] noteNo assessment information available [facility] Work Phone: Hisdjmv general Narrative - ReportedNort [employer] Other Hisxpil general Narrative - Reported* Type Description Date 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 Surgical History C section (two) [facility] Other History general Narrative - Reported* Type Description Date 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 Medical History Edema leg Medical History Depression Surgical History C section (two) [facility] Other Hospital Discharge instructions No data available for this section [facility] HospitalInstructionsNot on filedocumented in this encounter [facility] SystemInstructionsNot on filedocumented in this encounter [facility] SystemInstructionsNot on filedocumented in this encounter [facility] No data available for this section [facility] Summary Purpose Family History No Family [...] CREATED AUTHOR AUTHOR'S ORGANIZ ATION 08/19/2023 [facility] DATE CREATED AUTHOR AUTHOR'S ORGANIZ ATION 10/10/[address] [facility] DATE CREATED AUTHOR AUTHOR'S ORGANIZ ATION 10/16/2023 [facility] DATE CREATED AUTHOR AUTHOR'S ORGANIZ ATION 10/19/2023 [facility] DATE CREATED AUTHOR AUTHOR'S ORGANIZ ATION 10/22/2023 [facility] DATE CREATED AUTHOR AUTHOR'S ORGANIZ ATION 11/02/2023 [facility] DATE CREATED AUTHOR AUTHOR'S ORGANIZ ATION 11/05/2023 [facility] DATE CREATED AUTHOR AUTHOR'S ORGANIZ ATION [facility]20[facility] Care Teams (unrecognized sec tion and content) Guest Experience Specialist Relationship Specialty Start Date End Date ShamSridhar hedrick, [employer] A[employer]TEACHERS ASSISTANT [address] [place] [address] PCP - General Primary Care 09/09/22 Guest Experience Specialist Relationship Specialty Start Date End Date ShammoSridhar, [employer]TE[employer] ASSISTANT [address] [place] [address] PCP - General Primary Care 09/09/22 Guest Experience Specialist Relationship Specialty Start Date End Date ShammoSridhar, [employer]TEACH[employer] ASSISTANT [address] [place] [address] PCP - General Primary Care 09/09/22 Guest Experience Specialist Relationship Specialty Start Date End Date ShamSridhar hedrick, [employer]TEACH[employer] ASSISTANT [address] [place] [address] PCP - General Primary Care 09/09/22 Guest Experience Specialist Relationship Specialty Start Date End Date ShamSridahr hedrick, [employer]TE[employer] ASSISTANT [address] [place] [address] PCP - General Primary Care 09/09/22 Guest Experience Specialist Relationship Specialty Start Date End Date ShamSridhar hedrick, [employer]TEACH[employer] ASSISTANT [address] [place] [address] PCP - General Primary Care 09/09/22 Team [...] BE BASED ON THE PRIMARY CLINICAL RECORDS. [employer] provides no warranty or guarantee of the accuracy or completeness of information in this document.
== END 2023-12-24 09:27 | disposition home or self-care (01) ==
LOC: RAD 09:26
PROVIDERS: PCP Nurse Practitioner; Visit Provider Podiatrist Foot & Ankle Surgery
DX: M79.671 Pain in right foot (principal); S92.411D Displaced fracture of proximal phalanx of right great toe, subsequent encounter for fracture with routine healing
CPT/HCPCS: 73630

== ENCOUNTER 2024-01-21 15:10 | Outpatient (OUT) | payer OTHER, SELFPAY ==
--- NOTE | 2024-01-21 15:16 | XR_ITS ---
The [address] [address] Patient Name: MARIELENA ENGLAND MRN: [id number] date: 1980 Sex: F Assigned Patient Location: [facility] Current Patient Location: Accession/Order Number: [id number] Exam Date: 01/21/2024 15:16 Report Date: 01/26/2024 07:43 At the request of: ROMEL NELSON Procedure: XR foot RT min 3V PROCEDURE: XR foot RT min 3V COMPARISON: 12/24/2023 HISTORY: Right Foot Pain FINDINGS: BONES:Stable intra-articular displaced fracture medial base of the first proximal phalanx. No significant interval bone formation or bony bridging Moderate hallux valgus. No new fracture or dislocation. SOFT TISSUES:Negative. No visible soft tissue swelling. EFFUSION:None visible. OTHER: Negative. XR/XR foot RT min 3V IMPRESSION: Stable fracture base of the first proximal phalanx with no interval bone formation Electronically authenticated by: LOUIE ROTHMAN Date: 01/26/2024 07:43
== END 2024-01-21 15:11 | disposition home or self-care (01) ==
LOC: RAD 15:11
PROVIDERS: PCP Nurse Practitioner; Visit Provider Podiatrist Foot & Ankle Surgery
DX: M79.671 Pain in right foot (principal); S92.411D Displaced fracture of proximal phalanx of right great toe, subsequent encounter for fracture with routine healing
CPT/HCPCS: 73630

== ENCOUNTER 2024-12-21 11:09 | Outpatient (OUT) | payer OTHER, SELFPAY ==
--- OUTSIDE RECORDS SUMMARY | 2024-12-21 11:27 | XMS_ITS | CCD ---
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 5.2 % Normal 4.4-5.6 [facility] Comment on above: Result Comment: NOTE ADA Guidelines Result HgbA1c Normal : less than 5.7 % Prediabetes : 5.7 % to 6.4 % Diabetes : > 6.4 % Use with caution in patients with abnormal hemoglobin variants as the half-life of red blood cells and in vivo glycation rates are affected. Performed By: #### T [facility], [address]10-0, 1988-07, CARRILLO1C, CMP #### [facility] ([id number]) [address], [address] [place] [address] [facility] 01-12-2024 INSULIN 11.82 uIU/mL Normal 1.00-23.00 [facility] Comment on above: Result Comment: Ref. range is for FASTING NON-DIABETIC POPULATION. Performed By: #### 2 0448-7 #### [facility] ([id number]) [address], [address] [place] [address] Lipid 1996 panelon Cholesterol [Mass/Vol] 160 mg/dL Normal 150-200 [facility] Comment on above: Performed By: #### T [facility], 03670-4, 1987-07, HA1C, CMP #### [facility] ([id number]) [address], [address] [place] [address] Cholesterol in HDL [Mass/Vol] 57 mg/dL Normal >39 [facility] Comment on above: Result Comment: HDL <40 mg/dL - High Risk HDL > or = 40mg/dL- Desirable HDL >60 mg/dL - Negative Risk Performed By: #### T BRIAN, , 1988-07, HA1C, CMP #### [facility] ([id number]) [address], [facility] [address] [place] [address] Cholesterol in LDL [Mass/Vol] 79 mg/dL Normal <130 [facility] Comment on above: Result Comment: LDL <100 mg/dL - Desirable LDL >160 mg/dL - High Risk Performed By: #### T BRIAN, , 1988-07, HA1C, CMP #### [facility] ([id number]) [address], [facility] [address] [place] [address] Cholesterol in VLDL [Mass/Vol] 24 mg/dL Normal 0-30 [facility] Comment on above: Performed By: #### Iain TORRES, , 1988-07, HA1C, CMP #### [facility] ([id number]) [address], [facility] [address] [place] [address] CHOLESTEROL:HDL 2.8 Normal 1.0-5.0 [facility] Comment on above: Performed By: #### Iain TORRES, , 1988-07, HA1C, CMP #### [facility] ([id number]) [address], [facility] [address] [place] [address] Triglyceride [Mass/Vol] 118 mg/dL Normal 27-150 [facility] Comment on above: Performed By: #### Iain TORRES, , 1988-07, HA1C, CMP #### [facility] ([id number]) [address] [place] [address] TSH WITH REFLEXon 01-12-2024 TSH 2.70 uIU/mL Normal 0.49-4.67 [facility] Comment on above: Performed By: #### T [facility], 43771-4, 1988-, HA1C, [facility] #### [facility] ([id number]) [address] [facility] [place] [address] [facility] [place] 12-12-2023 [facility] General Surgery Office/Clini c Noteon 10-31-2023 General [...] tetanus-diphtheria toxoids 12/13/2019 Given patient seen 10/28/23 [facility] Comment on above: Result Comment: Elec tronically Signed By: LEIDA LINDSEY, Yadiel Hughes\.br\Date and Time Signed: 10/31/23 11:28 EDT Ambulatory Visit Summaryon 0 10-28-2023 Ambulatory Visit Summary Ambulatory Visit Summary MERE ESTEBAN :1980 Visit Date:10/28/2023 Ambulatory Visit Instructions Your Care Team Attending Physician - Yadiel CASAREZ MD Primary Care Physician - ZENAIDA PAZ This [...] for choosing us for your care. Normal [facility] Reminderson 10-22-2023 Reminders Reminders From: Palma Gloria LPN To: N - Clinical; Sent: 10/22/2023 11:40:26 EDT Show up: 09/05/2033 07:00:00 EDT Subject: colonoscopy recall Due Date/Time: 10/05/2033 07:00:00 EDT Reminder/Recall Patient due for screening colonoscopy 10/05/2033 Normal [facility] EGDon 10-20-2023 Esophagogastroduodenosc opy EGD Patient: [...] Impression and Plan EGD: Diagnosis: Antral gastritis (ZUK45-LD K29.50, Working, Medical). Course: Progressing as expected. Education and Follow-up: Counseled: Family. Normal [facility] Comment on above: Other Comment: Lucille acosta Attachment - attachment storage system not supported [id number] Can be viewed in source system Missing Attachment - attachment storage system not supported [id number] Can be viewed in source system Missing Attachment - attachment storage system not supported [id number] Can be viewed in source system Surgical Pathology Reporton 10-16-2023 Surgical Pathology Report [facility] [address] [place] [address]- Surgical Pathology Report Collected Date/Time: 10/06/2023 08:45 [...] is entirely submitted in one cassette. (DC) DC:[facility] Microscopic Description A-D: Microscopic examination performed [...] characteristics were determined by the Laboratory of [facility]. They have not been cleared or approved by the US Food and Drug Administration. The FDA has determined that such clearance or approval is not necessary. These tests are used for clinical purposes. They should not be regarded as investigational or for research. Appropriate positive and negative controls are performed and are acceptable. Normal [facility] Comment on above: Performed By: #### [id number] #### [facility] Laboratory [address] [place] [address] CT ABDOMEN PELVIS W WO CONTR Lanette [...] Micheal Wheeler MD 10/07/23 Final result Normal [facility] Main OR Intraoperative Recor don 10-07-2023 Main OR Intraoperative Record Main OR Intraoperative Record IntraOp Document Type FT Summary Primary Physician: Yadiel CASAREZ MD Finalized Date/Time: 10/07/23 11:23:45 Pt. Name: EULALIA MEREDARYL Eden/Sex: 1980 Female Med Rec #: [id number] Physician: Yadiel CASAREZ MD Financial #: [id number] Pt. Type: O Room/Bed: / Admit/Disch: 10/06/23 [...] 3 Case Attendee Anthony Sanchez CRNA, MD, Yadiel Matthews RN, Suad Role Performed DOCTOR OF RADIOLOGY Surgeon - Primary Choral Teacher - Primary Time In 10/06/23 08:35:00 10/06/23 [...] and tissue Entry 1 Skin Integrity Intact, [place], Warm, & Skin Abnormality No Dry Outcomes [...] AND COLONOSC (more content not included)... Normal [facility] Discharge Instructionson Discharge Instructions Discharge Instruc [...] Within 7 to 10 days Where: [address], [address] [place] [phone] [facility] (1) Medications What How Much When Instructions [...] of the (more content not included)... Normal [facility] Comment on above: Result Comment: Elec tronically Signed By: Ori PENA, Valeria\.br\Date and Time Signed: 10/06/23 09:28 EDT Inpatient Patient Summaryon 10-06-2023 Inpatient Patient Summary Inpatient Patient Summary [address] [address] [facility] Clinical Discharge Instructions PERSON INFORMATION Name: MERE ESTEBAN [facility]#:[id number] PHYSICIANS Admitting Physician: Yadiel CASAREZ MD Attending Physician: Yadiel CASAREZ MD PCP: ZENAIDA PAZ Discharge Diagnosis: Colon polyps; Rectal inflammation Comment: PATIENT EDUCATION INFORMATION Instructions: Medication Leaflets: Follow up: With: Address: When: Yadiel CASAREZ [address] [place] [address], [address], [place] [phone] [facility] (1) Within 7 to 10 days MEDICATION [...] 1 Capsules By Mouth every day. Comment: Marcela [facility] Main OR PACU I Recordon 09-15 Main OR PACU I Record Main OR PACU I Rec ord PACU Phase I Document Type FT Summary Primary Physician: Yadiel CASAREZ MD Finalized Date/Time: 10/06/23 09:53:44 Pt. Name: EULALIAMERE/Sex: 1980 Female Med Rec #: [id number] Physician: Yadiel CASAREZ MD Financial #: [id number] Pt. Type: O Room/Bed: / Admit/Disch: 10/06/23 [...] By: Valeria Rehman RN 10/06/23 09:53 Normal [facility] Main OR Preoperative Recordo n 10-06-2023 Main OR Preoperative Record Main OR Preoperative Record Holding Area Document Type FT Summary Primary Physician: Yadiel CASAREZ MD Finalized Date/Time: 10/06/23 08:15:54 Pt. Name: TETE ESTEBANDARYL Eden/Sex: 1980 Female Med Rec #: [id number] Physician: Yadiel CASAREZ MD Financial #: [id number] Pt. Type: O Room/Bed: / Admit/Disch: 10/06/23 [...] By: Carrington Quiles RN 10/06/23 08:15 Normal [facility] Outpatient Surgery Discharge Instructionon 10-06-2023 Outpatient Surgery Discharge Instruction Outpatient Surgery Discharge Instruction [place] [id number] Patient Discharge Instructions PERSON INFORMATION Name: MERE [...] Date Follow up: With: Address: When: Yadiel [address], [address], [facility] [address] [place] [phone] Business (1) Within 7 to 10 days Pharmacy Information: You may receive a survey from [employer] asking you to rate your care experience. Your feedback is important and will help us understand what we do well and how we can improve the quality of care we provide to you, your loved ones and our community. It?s an honor to serve you. Thank you for choosing [facility] HERE ARE THE MEDICATION CHANGES THAT [...] day. PATIENT EDUCATION INFORMATION Instructions: Medication Leaflets: [facility] ED Note-Physicianon 09-10-19 ED Note-Physician [id number]#[id number] F [facility] RAD - Ultrasound Reporton RAD - Ultrasound Report [id number] [facility] Nito 08-12-2023 L Specimen: [id number] Received: 08/13/23 [facility] Num: [id number] Spec Type: Surgical Subm Dr: JANA MELVIN MD Tissues: A Turbinates (RT INFERIOR TURB) B Turbinates (LT INF TURB) C Sinus Contents/Biopsy (RT SINUS CONTENT) D Sinus Contents/Biopsy (LT SINUS CONTENT) E Nasal Septum (SEPTUM) Procedures: HE/2, Gross/Micro L4/2, Level 1 Gross/3 Age/ Patient Sex Location Account Attending Physician Mere Esteban 42/F [facility] [id number] JANA MELVIN MD SPEC NUM: [id number] RECD: 08/13/23 STATUS: MARCELL SZYMANSKI NUM: [id number] SHRUTHI: 08/12/[address]: JANA MELVIN MD ENTERED: 08/13/23-[address] [facility] [address]: Amrita Villegas SPEC TYPE: Surgical DEPT: [...] nasal septal cartilage. Gross only examination Specimen: [id number] Received: 08/13/23 Status: MARCELL Szymanski Num: [id number] Spec Type: Surgical Subm Dr: JANA MELVIN MD Tissues: A Turbinates (RT INFERIOR TURB) B Turbinates (LT INF TURB) C Sinus Contents/Biopsy (RT SINUS CONTENT) D Sinus Contents/Biopsy (LT SINUS CONTENT) E Nasal Septum (SEPTUM) Procedures: HE/2, Gross/Micro L4/2, Level 1 Gross/3 Patient: Mere Esteban [id number] (Continued) Specimen: [id number] Received: 08/13/23 (Continued) Signed (signature on file) Neil Johns MD 08/18/232036 Specimen: [id number] Received: 08/13/23 Status: MARCELL Pee Num: [id number] Spec Type: Surgical Subm Dr: JANA MELVIN MD Tissues: A Turbinates (RT INFERIOR TURB) B Turbinates (LT INF TURB) C Sinus Contents/Biopsy (RT SINUS CONTENT) D Sinus Contents/Biopsy (LT SINUS CONTENT) E Nasal Septum (SEPTUM) Procedures: HE/2, Gross/Micro L4/2, Level 1 Gross/3 Patient: Mere Esteban [id number] (Continued) Specimen: [id number] Received: 08/13/23 (Continued) Clinical Information Chronic sinusitis, [...] cm aggregate of adler and cartilaginous tissue. Legal Director sections following decalcification are submitted in C1. [...] gross photo is included. TW CPT Codes [id number] 38693 X.3 Specimen: [id number] Received: 08/13/23 Status: MARCELL Szymanski Num: [id number] Spec Type: Surgical Subm Dr: JANA MELVIN MD Tissues: A Turbinat (more content not included)... Normal [facility] CBC auto differentialon 06-16 Basophils (Bld) [#/Vol] 0.1 10*3/uL [facility] Basophils/100 WBC (Bld) 1.2 % P [facility] Eosinophils (Bld) [#/Vol] 0.4 10*3/uL [facility] Eosinophils/100 WBC (Bld) 4.7 % [facility] Erythrocyte distribution width (RBC) [Ratio] 14.8 % 11.5 - 15.0 % [facility] Hematocrit (Bld) [Volume fraction] 41.2 % 35 - 47 % [facility] Hemoglobin (Bld) [Mass/Vol] 13.6 g/dL 11.7 - 15.5 g/dL [facility] Lymphocytes (Bld) [#/Vol] 2.8 10*3/uL [facility] Lymphocytes/100 WBC (Bld) 32.8 % [facility] MCH (RBC) [Entitic mass] 31.3 pg 27 - 34 pg [facility] MCHC (RBC) [Mass/Vol] 33.1 g/dL 32 - 3 6 g/dL [facility] MCV (RBC) [Entitic vol] 95 fL 80 - 100 fL [facility] Monocytes (Bld) [#/Vol] 0.8 10*3/uL [facility] Monocytes/100 WBC (Bld) 9.2 % [facility] Neutrophils (Bld) [#/Vol] 4.4 10*3/uL [facility] Neutrophils/100 WBC (Bld) 52.1 % [facility] Platelet mean volume (Bld) [Entitic vol] 8.1 fL 7 - 12 fL [facility] Platelets (Bld) [#/Vol] 321 10*3/uL [facility] RBC (Bld) [#/Vol] 4.35 10*6/uL [facility] WBC corrected for nucl RBC Auto (Bld) [#/Vol] 8.4 [facility] XR Chest PA and Lateralon XR CHEST 2 VWS INDICATION: Bronchitis, preoperative clearance COMPARISON: X-ray 01/29/2023 FINDINGS: Cardiomediastinal silhouette and pulmonary vasculature are within normal limits. Lungs and pleural space are clear. There is no pleural effusion or pneumothorax. IMPRESSION: No acute cardiopulmonary process. Finalized by Daniel Rosas on 07/14/2023 5:35 PM Daniel Calderon MD - 07/14/2023 XR CHEST 2 VWS INDICATION: Bronchitis, preoperative clearance COMPARISON: X-ray 01/29/2023 FINDINGS: Cardiomediastinal silhouette and pulmonary vasculature are within normal limits. Lungs and pleural space are clear. There is no pleural effusion or pneumothorax. IMPRESSION: No acute cardiopulmonary process. Finalized by Daniel Rosas on 07/14/2023 5:35 PM [facility] Radiology Study observation (narrative) [facility] XR Chest PA and LateralOrder ed By: Daniel Rosas on 07-14-2023 [facility] Work Phone: POCT , urineon 05-15 Beta HCG ( test) Ql (U) Negative [facility] US Pelvis transabdominal and transvaginalon 06-02-2023 PELVIC [...] Erick Billy MD on 06/02/2023 2:55 PM [facility] - 06/02/2023 PELVIC ULTRASOUND HISTORY: Heavy [...] Erick Billy MD on 06/02/2023 2:55 PM [facility] Radiology Study observation (narrative) [facility] US Pelvis transabdominal and transvaginalOrdered By: Erick Billy on 06-02-2023 [facility] Work Phone: CT Maxillofacial w/o Contras ton [...] MD, V. Transcribed by: MALORIE Technologist: DELISA [facility] Consent for Treatmenton 05-15 Consent for Treatment [id number]#[id number] F [facility] Physician Orderon 04-21-2023 Physician Order [id number]#1.00TIF F [facility] Physician Orderon 04-16-2023 Physician Order [id number]#1.00TIF F [facility] COVID + FLU Quick Testingon 06-28-2022 SARS-CoV-2 (COVID-19) RNA SADE+probe Ql (Unsp spec) Negative [facility] Other COVID + FLU Quick Testing Negative [facility] Other XR CSPINE MIN 4 VIEWSon 10-15 [...] by: LOUIE ROTHMAN Date: 2021-10-24 15:10 Normal [facility] XR LSPINE W_OBLS AND FLEX_EX Ton [...] LOUIE ROTHMAN Date: 2021-10-24 15:11 Normal [facility] COVID Quick Testingon 2021 Result Positive [facility] Other Vital Signs Date Time Vital Sign Value Performing Clinician Facility 10-25-2024 11:55-0400 Body height 166.9 cm Luh Sanchez [facility] 10-25-2024 11:55-0400 Body mass index (BMI) [Ratio] 33.04 kg/m2 Luh [facility] 10-25-2024 11:55-0400 Body weight 92.03 kg Luh Sanchez MD [facility] 10-25-2024 11:55-0400 Diastolic blood pressure 89 mm[Hg] Luh Sanchez [facility] 10-25-2024 11:55-0400 Heart rate 84 /min Luh Sanchez MD Work Phone: [facility] 10-25-2024 11:55-0400 SaO2% (BldA) [Mass fraction] 95 % Luh Sanchez MD Work Phone: [facility] 10-25-2024 11:55-0400 Systolic blood pressure 138 mm[Hg] Luh Sanchez MD Work Phone: [facility] 04-26-2024 10:15-0500 Body height 166.9 cm Luh Sanchez MD Work Phone: [facility] 04-26-2024 10:15-0500 Body mass index (BMI) [Ratio] 34.47 kg/m2 Luh Sanchez MD Work Phone: [facility] 04-26-2024 10:15-0500 Body weight 96.03 kg Luh Sanchez MD Work Phone: [facility] 04-26-2024 10:15-0500 Diastolic blood pressure 87 mm[Hg] Luh Sanchez MD Work Phone: [facility] 04-26-2024 10:15-0500 Heart rate 112 /min Luh Sanchez MD Work Phone: [facility] 04-26-2024 10:15-0500 SaO2% (BldA) [Mass fraction] 96 % Luh Sanchez MD Work Phone: [facility] 04-26-2024 10:15-0500 Systolic blood pressure 142 mm[Hg] Luh Sanchez MD Work Phone: [facility] 12-12-2023 14:45-0400 Body height 166.9 cm Kathleen KRAMER Work Phone: [facility] 12-12-2023 14:45-0400 Body mass index (BMI) [Ratio] 36 kg/m2 Kathleen Brown LD Work Phone: [facility] 12-12-2023 14:45-0400 Body weight 100.25 kg Kathleen Hernandez LD Work Phone: [facility] [employer] [facility] 11-04-2023 10:29-0400 Body mass index (BMI) [Ratio] 35.94 kg/m2 Belén Goodwin MD Work Phone: [facility] [employer] [facility] 11-04-2023 10:29-0400 Body weight 100.25 kg Belén Goodwin MD Work Phone: [facility] [employer] [facility] 11-04-2023 10:29-0400 Diastolic blood pressure 70 mm[Hg] Belén Goodwin MD Work Phone: [facility] [employer] [facility] 11-04-2023 10:29-0400 Systolic blood pressure 128 mm[Hg] Belén Goodwin MD Work Phone: [facility] [employer] [facility] 10-27-2023 09:48-0400 Body height 167 cm Luh Sanchez MD Work Phone: [facility] [employer] [facility] 10-27-2023 09:48-0400 Body mass index (BMI) [Ratio] 35.54 kg/m2 Luh Sanchez MD Work Phone: [facility] [employer] [facility] 10-27-2023 09:48-0400 Body weight 99.11 kg Luh Sanchez MD Work Phone: [facility] [employer] [facility] 10-27-2023 09:48-0400 Diastolic blood pressure 88 mm[Hg] Luh Sanchez MD Work Phone: [facility] [employer] [facility] 10-27-2023 09:48-0400 Heart rate 87 /min Luh Sanchez MD Work Phone: [facility] [employer] [facility] 10-27-2023 09:48-0400 SaO2% (BldA) [Mass fraction] 96 % Luh Sanchez MD Work Phone: [facility] [employer] [facility] 10-27-2023 09:48-0400 Systolic blood pressure 152 mm[Hg] Luh Sanchez MD Work Phone: [facility] [employer] [facility] 10-06-2023 09:30-0400 Blood Pressure Location Yadiel NILL [facility] 10-06-2023 09:30-0400 Diastolic blood pressure 78 mm[Hg] Yadiel NILL [facility] 10-06-2023 09:30-0400 Heart rate 75 /min Yadiel NILL [facility] 10-06-2023 09:30-0400 Respiratory rate 17 /min Yadiel NILL [facility] 10-06-2023 09:30-0400 SaO2% (BldA) [Mass fraction] 98 % Yadiel NILL [facility] 10-06-2023 09:30-0400 Systolic blood pressure 131 mm[Hg] Yadiel NILL [facility] 10-06-2023 09:25-0400 Blood Pressure Location Yadiel NILL [facility] 10-06-2023 09:25-0400 Diastolic blood pressure 73 mm[Hg] Yadiel NILL [facility] 10-06-2023 09:25-0400 Heart rate 78 /min Yadiel NILL [facility] 10-06-2023 09:25-0400 Respiratory rate 22 /min Yadiel NILL [facility] 10-06-2023 09:25-0400 SaO2% (BldA) [Mass fraction] 99 % Yadiel NILL [facility] 10-06-2023 09:25-0400 Systolic blood pressure 124 mm[Hg] Yadiel NILL [facility] 10-06-2023 09:20-0400 Blood Pressure Location Yadiel NILL [facility] 10-06-2023 09:20-0400 Diastolic blood pressure 99 mm[Hg] Yadiel NILL [facility] 10-06-2023 09:20-0400 Heart rate 78 /min Yadiel NILL [facility] 10-06-2023 09:20-0400 Respiratory rate 17 /min Yadiel NILL [facility] 10-06-2023 09:20-0400 SaO2% (BldA) [Mass fraction] 98 % Yadiel NILL [facility] 10-06-2023 09:20-0400 Systolic blood pressure 121 mm[Hg] Yadiel NILL [facility] 10-06-2023 09:13-0400 Body temperature 97.88 [degF] Yadiel NILL [facility] 10-06-2023 09:05-0400 Respiratory rate 25 /min Yadiel NILL [facility] 10-06-2023 09:00-0400 Respiratory rate 27 /min Yadiel NILL [facility] 10-06-2023 08:55-0400 Respiratory rate 28 /min Yadiel NILL [facility] 10-06-2023 08:13-0400 Body temperature 98.24 [degF] Yadiel NILL [facility] 09-25-2023 08:53-0400 Blood Pressure Location Yadiel NILL [facility] 09-25-2023 08:53-0400 Diastolic blood pressure 84 mm[Hg] Yadiel NILL [facility] 09-25-2023 08:53-0400 Heart rate 85 /min Yadiel NILL [facility] 09-25-2023 08:53-0400 Respiratory rate 16 /min Yadiel CASAREZ [facility] 09-25-2023 08:53-0400 Systolic blood pressure 125 mm[Hg] Yadiel CASAREZ [facility] 09-09-2023 14:40-0400 Body height 167 cm Belén Goodwin MD Work Phone: [facility] 09-09-2023 14:40-0400 Body mass index (BMI) [Ratio] 36.53 kg/m2 Belén Goodwin MD Work Phone: [facility] 09-09-2023 14:40-0400 Body temperature 98.1 [degF] Belén Goodwin MD Work Phone: [facility] 09-09-2023 14:40-0400 Body weight 101.88 kg Belén Goodwin MD Work Phone: [facility] 09-09-2023 14:40-0400 Diastolic blood pressure 86 mm[Hg] Belén Goodwin MD Work Phone: [facility] 09-09-2023 14:40-0400 Systolic blood pressure 134 mm[Hg] Belén Goodwin MD Work Phone: [facility] 09-01-2023 10:36-0400 Body height 167 cm Belén Goodwin MD Work Phone: [facility] 09-01-2023 10:36-0400 Body mass index (BMI) [Ratio] 36.76 kg/m2 Belén Goodwin MD Work Phone: [facility] 09-01-2023 10:36-0400 Body weight 102.51 kg Belén Goodwin MD Work Phone: [facility] 09-01-2023 10:36-0400 Diastolic blood pressure 84 mm[Hg] Belén Goodwin MD Work Phone: [facility] 09-01-2023 10:36-0400 Systolic blood pressure 132 mm[Hg] Belén Goodwin MD Work Phone: [facility] 07-14-2023 10:10-0400 Body height 167.6 cm Pmh 2 [facility] 07-14-2023 10:10-0400 Body mass index (BMI) [Ratio] 33.89 kg/m2 Pmh 2 [facility] 07-14-2023 10:10-0400 Body weight 95.25 kg Pmh 2 [facility] 06-17-2023 08:21-0400 Body mass index (BMI) [Ratio] 36.22 kg/m2 Belén Goodwin MD Work Phone: [facility] 06-17-2023 08:21-0400 Body weight 101.79 kg Belén Goodwin MD Work Phone: [facility] 06-17-2023 08:21-0400 Diastolic blood pressure 66 mm[Hg] Belén Goodwin MD Work Phone: [facility] 06-17-2023 08:21-0400 Systolic blood pressure 128 mm[Hg] Belén Goodwin MD Work Phone: [facility] 06-03-2023 10:53-0400 Body height 167.6 cm Belén Goodwin MD Work Phone: [facility] 06-03-2023 10:53-0400 Body mass index (BMI) [Ratio] 36.32 kg/m2 Belén Goodwin MD Work Phone: [facility] 06-03-2023 10:53-0400 Body weight 102.06 kg Belén Goodwin MD Work Phone: [facility] 06-03-2023 10:53-0400 Diastolic blood pressure 78 mm[Hg] Belén Goodwin MD Work Phone: [facility] 06-03-2023 10:53-0400 Systolic blood pressure 116 mm[Hg] Belén Goodwin MD Work Phone: [facility] [employer] 04-22-2023 09:07-0500 Body mass index (BMI) [Ratio] 35.99 kg/m2 Belén Goodwin MD Work Phone: [facility] [employer] 04-22-2023 09:07-0500 Body weight 101.15 kg Belén Goodwin MD Work Phone: [facility] [employer] 04-22-2023 09:07-0500 Diastolic blood pressure 58 mm[Hg] Belén Goodwin MD Work Phone: [facility] [employer] 04-22-2023 09:07-0500 Systolic blood pressure 110 mm[Hg] Belén Goodwin MD Work Phone: [facility] [employer] 04-02-2023 10:06-0500 Body height 167.6 cm Shanthiasmita Lugo 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 Work Phone: [facility] 04-02-2023 10:06-0500 Body mass index (BMI) [Ratio] 34.48 kg/m2 Shanthiasmita Colesgel 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 Work Phone: [facility] [employer] 04-02-2023 10:06-0500 Body weight 96.89 kg Shanthi Sanketgel 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 Work Phone: [facility] [employer] 04-02-2023 10:06-0500 Diastolic blood pressure 76 mm[Hg] Shanthi Sanketgel 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 Work Phone: [facility] [employer] 04-02-2023 10:06-0500 Heart rate 96 /min Shanthi Sanketgel 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 Work Phone: [facility] 04-02-2023 10:06-0500 SaO2% (BldA) [Mass fraction] 98 % Shanthi Sanketoskar 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 Work Phone: [facility] [employer] 04-02-2023 10:06-0500 Systolic blood pressure 142 mm[Hg] Shanthi Parish 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 Work Phone: [employer] 03-03-2023 10:05-0500 Body height 167.64 cm Neyda Garland Other [employer] Other 03-03-2023 10:05-0500 Body mass index (BMI) [Ratio] 34.21 kg/m2 Neyda Garland Other [employer] Other 03-03-2023 10:05-0500 Body temperature 99.1 [degF] Neyda Garland Other [employer] Other 03-03-2023 10:05-0500 Body weight 96.16 kg Neyda Garland Other [employer] Other 03-03-2023 10:05-0500 Diastolic blood pressure 60 mm[Hg] Neyda Garland Other [employer] Other 03-03-2023 10:05-0500 Respiratory rate 18 /min Neyda Garland Other [facility] Other 03-03-2023 10:05-0500 SaO2% (BldA) [Mass fraction] 98 % Neyda Garland Other [facility] Other 03-03-2023 10:05-0500 Systolic blood pressure 125 mm[Hg] Neyda Garland Other [employer] Other 08-26-2022 17:15-0400 Body height 167.64 cm Ilana Gallegos Other [employer] Other 08-26-2022 17:15-0400 Body mass index (BMI) [Ratio] 33.08 kg/m2 Ilana Gallegos Other [facility] Other 08-26-2022 17:15-0400 Body temperature 98.2 [degF] Ilana El Other [employer] Other 08-26-2022 17:15-0400 Body weight 92.99 kg Ilana El Other [facility] Other 08-26-2022 17:15-0400 Respiratory rate 18 /min Ilana El Other [employer] Other 08-26-2022 17:15-0400 SaO2% (BldA) [Mass fraction] 97 % Ilana Gallegos Other [facility] Other 06-28-2022 18:35-0400 Body height 167.64 cm Yohana Reamond Other [employer] Other 06-28-2022 18:35-0400 Body mass index (BMI) [Ratio] 34.38 kg/m2 Yohana Fidelina Other [facility] Other 06-28-2022 18:35-0400 Body temperature 96.9 [degF] Yohana Reamond Other [facility] Other 06-28-2022 18:35-0400 Body weight 96.62 kg Yohana Fidelina Other [facility] Other 06-28-2022 18:35-0400 Respiratory rate 18 /min Yohana Fidelina Other [facility] Other 06-28-2022 18:35-0400 SaO2% (BldA) [Mass fraction] 96 % Yohana Fidelina Other [facility] Other 03-29-2021 10:15-0500 Body height 167.64 cm Chela Kumar Other [employer] Other 03-29-2021 10:15-0500 Body mass index (BMI) [Ratio] 30.66 kg/m2 Chela Kumar Other [facility] Other 03-29-2021 10:15-0500 Body temperature 97.5 [degF] Chela Kumar Other [facility] Other 03-29-2021 10:15-0500 Body weight 86.18 kg Chela Kumar Other [facility] Other 03-29-2021 10:15-0500 Respiratory rate 18 /min Chela Kumar Other [facility] Other 03-29-2021 10:15-0500 SaO2% (BldA) [Mass fraction] 98 % Chela Kumar Other [facility] Other 01-26-2021 11:35-0500 Body height Yohana Kitchen Other [employer] Other 01-26-2021 11:35-0500 Body mass index (BMI) [Ratio] 30.73 kg/m2 Yohana Kitchen Other [facility] Other 01-26-2021 11:35-0500 Body temperature 97.7 [degF] Yohana Fidelina Other [facility] Other 01-26-2021 11:35-0500 Body weight 86.37 kg Yohana Kitchen Other [facility] Other 01-26-2021 11:35-0500 Diastolic blood pressure 49 mm[Hg] Yohana Kitchen Other [facility] Other 01-26-2021 11:35-0500 Respiratory rate 18 /min Yohana Kitchen Other [facility] Other 01-26-2021 11:35-0500 SaO2% (BldA) [Mass fraction] 100 % Yohana Kitchen Other [facility] Other 01-26-2021 11:35-0500 Systolic blood pressure 11 mm[Hg] Yohana Kitchen Other [employer] Other Encounters Encounter Date Encounter Type Care Provider Facility Start: 12-14-2024 End: 12-14-2024 Telephone [facility] Start: 12-11-2024 End: 12-13-2024 Refill Luh Sanchez MD Work Phone: [facility] Start: 11-09-2024 ambulatory [facility] Start: 10-25-2024 End: 10-25-2024 ambulatory LUH SANCHEZ [facility] Start: 10-25-2024 End: 10-25-2024 Office outpatient visit 15 minutes Luh Sanchez MD Work Phone: [facility] Comment on above: Asthma-COPD overlap syndrome (CMS-HCC) (Primary Dx); Tobacco dependence Start: 10-19-2024 End: 10-20-2024 Refill Luh Sanchez MD Work Phone: [facility] Start: 05-14-2024 End: 05-15-2024 Refill Brigida Ramirez [facility] Start: 04-26-2024 End: 04-26-2024 ambulatory LUH SANCHEZ [facility] Start: 04-26-2024 End: 04-26-2024 Office outpatient visit 25 minutes Luh Sanchez MD Work Phone: [facility] Comment on above: Asthma-COPD overlap syndrome (CMS-HCC) (Primary Dx); Tobacco dependence; Class 1 obesity with body mass index (BMI) of 34.0 to 34.9 in adult, unspecified obesity type, unspecified whether serious comorbidity present Start: 02-13-2024 End: 02-16-2024 Refill Jana Melvin MD Work Phone: [facility] Comment on above: Chronic pansinusitis Start: 01-12-2024 End: 01-12-2024 ambulatory [facility] Start: 12-15-2023 End: 12-15-2023 Telephone encounter Belén Goodwin MD Work Phone: [facility] Start: 12-12-2023 End: 12-12-2023 ambulatory KATHLEEN HERNANDEZ [facility] Start: 12-12-2023 End: 12-12-2023 Nutrition therapy Belén Goodwin MD Work Phone: [facility] Comment on above: Class 1 obesity due to excess calories with body mass index (BMI) of 34.0 to 34.9 in adult, unspecified whether serious comorbidity present Start: 11-11-2023 End: 11-11-2023 Orders Only Belén Goodwin MD Work Phone: [facility] Comment on above: Class 1 obesity due to excess calories with body mass index (BMI) of 34.0 to 34.9 in adult, unspecified whether serious comorbidity present (Primary Dx) Start: 11-04-2023 End: 11-04-2023 ambulatory BELÉN GOODWIN [facility] Start: 11-04-2023 End: 11-04-2023 Office outpatient visit 15 minutes Belén Goodwin MD Work Phone: [facility] Comment on above: Class 1 obesity due to excess calories with body mass index (BMI) of 34.0 to 34.9 in adult, unspecified whether serious comorbidity present (Primary Dx) Start: 10-28-2023 End: 10-28-2023 ambulatory Yadiel R NILL Facility:[facility] Start: 10-28-2023 End: 10-28-2023 Patient encounter procedure Yadiel CASAREZ [facility] Start: 10-27-2023 End: 10-27-2023 Office outpatient visit 25 minutes Luh Sanchez MD Work Phone: [facility] Comment on above: Asthma-COPD overlap syndrome (CMS-HCC) (Primary Dx) Start: 10-16-2023 End: 10-20-2023 Telephone encounter Belén Goodwin MD Work Phone: [facility] Start: 10-14-2023 End: 10-14-2023 ambulatory JANA MELVIN Not Available Start: 10-06-2023 End: 10-06-2023 ambulatory Yadiel R NILL [place] Start: 10-06-2023 End: 10-06-2023 Patient encounter procedure Yadiel R NILL [facility] Start: 10-02-2023 End: 10-04-2023 ambulatory ZENAIDA JACKSON [facility] Start: 09-25-2023 End: 09-25-2023 ambulatory Yadiel R NILL Facility:[facility] Start: 09-25-2023 End: 09-25-2023 Patient encounter procedure Yadiel R NILL [facility] Start: 09-20-2023 End: 09-22-2023 Refill Luh Sanchez MD Work Phone: [facility] Start: 09-10-2023 ambulatory Yadiel CASAREZ Facility:[facility] Start: 09-09-2023 End: 09-09-2023 Office outpatient visit 15 minutes Belén Goodwin MD Work Phone: [facility] Comment on above: Epigastric pain (Nadege bear Dx) Start: 09-02-2023 End: 09-02-2023 ambulatory JANA MELVIN Not Available Start: 09-01-2023 End: 09-15-2023 Telephone encounter Belén Goodwin MD Work Phone: [facility] [place] [facility] Start: 09-01-2023 End: 09-01-2023 Office outpatient visit 25 minutes Belén Goodwin MD Work Phone: [facility] Comment on above: Class 1 obesity due to excess calories with body mass index (BMI) of 34.0 to 34.9 in adult, unspecified whether serious comorbidity present (Primary Dx); DUB (dysfunctional uterine bleeding) Start: 08-20-2023 End: 08-20-2023 ambulatory JANA MELVIN Not Available Start: 08-12-2023 End: 08-12-2023 ambulatory Jana H Yesenia [facility] Work Phone: Start: 08-12-2023 End: 08-12-2023 Departed Referred MD Jana Melvin [facility] Start: 07-14-2023 End: 07-14-2023 Patient encounter procedure [facility] Pre-Admission Testing 2 [facility] - Pre Admit Comment on above: Preop examination (P rimary Dx); Chronic bronchitis, unspecified chronic bronchitis type (CMS-HCC); Smoker Start: 07-14-2023 End: 07-14-2023 Preprocedural examination done Pm 2 [facility] Start: 06-18-2023 Telephone encounter Shantel ferrell [facility] Start: 06-17-2023 End: 06-17-2023 Office outpatient visit 15 minutes Belén Goodwin MD Work Phone: [facility] Comment on above: DUB (dysfunctional u terine bleeding) (Primary Dx) Start: 06-04-2023 End: 06-04-2023 ambulatory JANA ROBERTSONMIS Not Available Start: 06-03-2023 End: 06-03-2023 Office outpatient visit 15 minutes Belén Goodwin MD Work Phone: [facility] Comment on above: DUB (dysfunctional u terine bleeding) (Primary Dx) Start: 06-02-2023 Orders Only Cori Montilla RN [facility] Comment on above: Abnormal uterine ble eding (AUB) (Primary Dx) Start: 05-31-2023 End: 05-31-2023 ambulatory Jana Robertsonmis [place] [place] Start: 04-22-2023 End: 04-22-2023 Office outpatient visit 25 minutes Belén Goodwin MD Work Phone: [facility] Comment on above: DUB (dysfunctional u terine bleeding) (Primary Dx) Start: 04-16-2023 End: 05-24-2023 Pre-admission assessment Jana Carrillos [facility] Start: 04-16-2023 End: 04-16-2023 ambulatory JANA ROBERTSONMIS Not Available Start: 04-02-2023 End: 04-02-2023 Office outpatient visit 25 minutes Shanthi Lugo 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 Work Phone: [facility] Comment on above: Chronic bronchitis, unspecified chronic bronchitis type (CMS- HCC) (Primary Dx); Asthma-COPD overlap syndrome; Tobacco dependence; Class 1 obesity with body mass index (BMI) of 34.0 to 34.9 in adult, unspecified obesity type, unspecified whether serious comorbidity present Start: 03-03-2023 End: 03-03-2023 ambulatory Neyda Garland Other [facility] Other Start: 03-03-2023 Office outpatient vi sit 15 minutes Neyda Garland [facility] Start: 08-26-2022 End: 08-26-2022 ambulatory Ilana Gallegos Other [facility] Other Start: 08-26-2022 Office outpatient vi sit 25 minutes Ilana Gallegos [facility] Start: 08-01-2022 ambulatory PAIGE SATISH . Facili ty:[facility] Start: 06-28-2022 End: 06-28-2022 ambulatory Yohana Kitchen Other [facility] Other Start: 06-28-2022 Office outpatient vi sit [...] 03-29-2021 End: 03-29-2021 ambulatory Chela Kumar Other [facility] Other Start: 03-29-2021 Office outpatient vi sit 15 minutes Chela Kumar [facility] Start: 01-26-2021 End: 01-26-2021 ambulatory Yohana Kitchen Other [facility] Other Start: 01-26-2021 Office outpatient vi sit 15 minutes Yohana Kitchen [facility] Procedures Date Procedure Procedure Detail Performing Clinician Start: 12-12-2023 AMB REFERRAL TO DIABETIC EDUCATION Belén Goodwin MD Work Phone: Start: 10-06-2023 Colonoscopy Yadiel CASAREZ Start: 10-06-2023 Esophagogastroduodenoscopy Yadiel CASAREZ Start: 08-04-2023 Hysteroscopy endometrial ablation Angel LESLIEL Start: 06-03-2023 Urine test visual color cmprsn néstors Belén Goodwin MD Work Phone: section Jana alvarado section Yadiel LESLIE L section Yadiel Odonnell Esophagogastroduodenoscopy Claudio CASAREZ H/O: section Jana Melvin Nasal septoplasty Yadiel LEAL FELIPE Plan of Treatment Date Care Activity Detail Author Start: 06-14-2032 DTaP,Tdap and Td Vaccines (3 - Td or Tdap) DTaP,Tdap and Td Vaccines (3 - Td or Tdap) [facility] Start: 10-25-2025 Adult BMI Screening Adult BMI Screen ing [facility] Start: 10-25-2025 Tobacco Screening Tobacco Screening [facility] Start: 10-24-2025 End: 10-24-2025 Patient encounter procedure 10/24/2025 11:45 AM EDT Office Visit [facility] [address] [place] [address] Luh Sanchez MD [address] [facility] [place] [address] [facility] Start: 04-26-2025 Adult BMI Screening Adult BMI Screen ing [facility] Start: 04-26-2025 Tobacco Screening Tobacco Screening [facility] Start: 12-11-2024 Adult BMI Screening Adult BMI Screen ing [facility] Start: 11-15-2024 Influenza vaccination Influenza Vacc ine [facility] Start: 11-03-2024 Adult BMI Screening Adult BMI Screen ing [facility] Start: 11-03-2024 Tobacco Screening Tobacco Screening [facility] Start: 10-26-2024 Adult BMI Screening Adult BMI Screen ing [facility] Start: 10-25-2024 End: 10-25-2024 Patient encounter procedure 10/25/2024 11:45 AM EDT Office Visit [facility] [place] [address] [place] [address] [place], [place] [id number] [place] [address] [facility] Start: 09-08-2024 Adult BMI Screening Adult BMI Screen ing [facility] Start: 09-08-2024 Tobacco Screening Tobacco Screening [facility] Start: 09-07-2024 Adult BMI Screening Adult BMI Screen ing [facility] Start: 09-07-2024 Tobacco Screening Tobacco Screening [facility] Start: 08-06-2024 Adult BMI Screening Adult BMI Screen ing [facility] Start: 08-06-2024 Tobacco Screening Tobacco Screening [facility] Start: 07-13-2024 Adult BMI Screening Adult BMI Screen ing [facility] Start: 07-13-2024 Tobacco Screening Tobacco Screening [facility] Start: 06-16-2024 Adult BMI Screening Adult BMI Screen ing [facility] Start: 06-16-2024 Tobacco Screening Tobacco Screening [facility] Start: 06-02-2024 Adult BMI Screening Adult BMI Screen ing [facility] Start: 06-02-2024 Tobacco Screening Tobacco Screening [facility] Start: 05-05-2024 End: 05-05-2024 Patient encounter procedure [facility] Pulmonary Function Start: 04-26-2024 End: 04-26-2024 Patient encounter procedure 04/26/2024 10:00 AM EST Office Visit [facility] [address] [place] [address] Luh Sanchez MD [address] [facility] [place] [address] [facility] Start: 04-22-2024 Adult BMI Screening Adult BMI Screen ing [facility] Start: 04-22-2024 Tobacco Screening Tobacco Screening [facility] Start: 04-10-2024 Adult BMI Screening Adult BMI Screen ing [facility] Start: 04-02-2024 Tobacco Screening Tobacco Screening [facility] Start: 12-16-2023 End: 12-16-2023 Patient encounter procedure 12/16/2023 11:00 AM EDT Office Visit [facility] [place] [id number] Belén Goodwin MD [address] [facility] [place] [address] [facility] Start: 12-02-2023 End: 12-02-2023 Patient encounter procedure 12/02/2023 10:15 AM EDT Office Visit [facility] [place] [id number] Belén Goodwin MD [address] [place] [address] [facility] Start: 11-20-2023 End: 11-20-2023 Nutrition therapy 11/20/2023 10:30 AM EDT Support Visit [facility] Nutrition Education [address] [place] [address] Belén Goodwin MD [address] [place] [address] Kathleen Hernandez LD [facility] Start: 11-16-2023 Influenza vaccination Influenza Vacc ine [facility] Start: 10-27-2023 End: 10-27-2023 Patient encounter procedure 10/27/2023 9:45 AM EDT [facility] [address] [place] [phone] Luh Sanchez MD [address] [facility] [address] [place] [address] [facility] Start: 09-30-2023 End: 09-30-2023 Nutrition therapy 09/30/2023 10:30 AM EDT Support Visit [facility] [address] [place] [phone] Belén Goodwin MD [address] [place] [address] Kathleen Hernandez LD [facility] Start: 08-04-2023 End: 08-04-2023 Admission to same day surgery center 08/04/2023 12:30 PM EDT - 08/04/2023 1:30 PM EDT Surgery [facility] - Surgery [address] [place] [phone] Belén Goodwin MD [address] [place] [address] HYSTEROSCOPY DILATION CURETTAGE ABLATION ENDOMETRIAL NOVASURE [28447 (CPT )] [facility] - Surgery Comment on above: HYSTEROSCOPY DILATIO N CURETTAGE ABLATION ENDOMETRIAL NOVASURE [23106 (CPT )] Start: 08-04-2023 End: 08-04-2023 Hysteroscopy endometrial ablation HYSTEROSCOPY DILATION CURETTAGE ABLATION ENDOMETRIAL NOVASURE dysfunctional uterine bleeding 08/04/2023 12:30 PM EDT [facility] Start: 08-04-2023 Subsequent hospital visit by physician 08/04/2023 12:30 PM EDT Hospital Encounter [facility] - Surgery [address] [place] [address] Belén Goodwin MD [address] [place] [address] [facility] - Surgery Start: 07-14-2023 End: 07-14-2023 Patient encounter procedure 07/14/2023 9:45 AM EDT Procedure visit [facility] - Pre Admit [address] [place] [address] [facility] - Pre Admit Start: 06-17-2023 End: 06-17-2023 Patient encounter procedure 06/17/2023 8:15 AM EDT Office Visit [facility] [address] [phone] Belén Goodwin MD [address] [place] [address] [facility] Start: 06-03-2023 End: 06-02-2024 Surgical Pathology Surgical Pathology Pathology and Cytology Routine DUB (dysfunctional uterine bleeding) Expected: 06/03/2023 (Approximate), Expires: 06/02/2024 [facility] Work Phone: Comment on above: Expected: 06/03/2023 (Approximate), Expires: 06/02/2024 Start: 06-03-2023 End: 06-03-2023 Patient encounter procedure 06/03/2023 10:30 AM EDT Procedure visit [facility] [place] [phone] Belén Goodwin MD [address] [place] [address] [facility] [facility] Obst[facility]Gynecolog [facility] Start: 04-22-2023 End: 04-21-2024 US Pelvis transvaginal Ultrasound transvaginal non OB Imaging Routine DUB (dysfunctional uterine bleeding) Expected: 04/22/2023, Expires: 04/21/2024 [facility] Work Phone: Comment on above: Expected: 04/22/2023 , Expires: 04/21/2024 Start: 04-22-2023 End: 04-22-2023 Patient encounter procedure 04/22/2023 9:00 AM EST [facility] [address] [place] [address] Belén Goodwin MD [address] [place] [address] [facility] Phys[facility] Obstetrics/Gynecolog y Start: 11-15-2022 Influenza vaccination Influenza Vacc ine [facility] Start: 09-15-2000 Screening for malign ant neoplasm of cervix Pap Smear [facility] Start: 09-15-1997 Adult BMI Follow Up Plan Adult BMI F ollow Up Plan [facility] Start: 1991 Depression Screening Depression Scre ening [facility] Start: 1979 Tobacco Counseling Tobacco Counselin g [facility] End: 04-22-2024 CBC panel - Blood by Automated count CBC without diff Lab Routine DUB (dysfunctional uterine bleeding) 1 Occurrences starting 04/22/2023 until 04/22/2024 [facility] Comment on above: 1 Occurrences starti ng 04/22/2023 until 04/22/2024 End: 08-31-2024 CBC panel - Blood by Automated count CBC without diff Lab Routine Class 1 obesity due to excess calories with body mass index (BMI) of 34.0 to 34.9 in adult, unspecified whether serious comorbidity present 1 Occurrences starting 09/01/2023 until 08/31/2024 [facility] Comment on above: 1 Occurrences starti ng 09/01/2023 until 08/31/2024 End: 08-31-2024 Comprehensive metabolic 2000 panel - Serum or Plasma Comprehensive metabolic panel Lab Routine Class 1 obesity due to excess calories with body mass index (BMI) of 34.0 to 34.9 in adult, unspecified whether serious comorbidity present 1 Occurrences starting 09/01/2023 until 08/31/2024 [facility] Comment on above: 1 Occurrences starti ng 09/01/2023 until 08/31/2024 End: 04-22-2024 Follicle stimulating hormone Follicle stimulating hormone Lab Routine DUB (dysfunctional uterine bleeding) 1 Occurrences starting 04/22/2023 until 04/22/2024 [facility] Comment on above: 1 Occurrences starti ng 04/22/2023 until 04/22/2024 End: 04-22-2024 HCG, Quantitative, HCG, Quantitative, Lab Routine DUB (dysfunctional uterine bleeding) 1 Occurrences starting 04/22/2023 until 04/22/2024 [facility] Comment on above: 1 Occurrences starti ng 04/22/2023 until 04/22/2024 End: 08-31-2024 Hemoglobin A1c/Hemoglobin.total in Blood Hemoglobin A1c Lab Routine Class 1 obesity due to excess calories with body mass index (BMI) of 34.0 to 34.9 in adult, unspecified whether serious comorbidity present 1 Occurrences starting 09/01/2023 until 08/31/2024 [facility] Comment on above: 1 Occurrences starti ng 09/01/2023 until 08/31/2024 End: 08-31-2024 Lipid 1996 panel - Serum or Plasma Lipid profile Lab Routine Class 1 obesity due to excess calories with body mass index (BMI) of 34.0 to 34.9 in adult, unspecified whether serious comorbidity present 1 Occurrences starting 09/01/2023 until 08/31/2024 [employer] Work Phone: Comment on above: 1 Occurrences starti ng 09/01/2023 until 08/31/2024 End: 04-22-2024 Luteinizing hormone Luteinizing hormone Lab Routine DUB (dysfunctional uterine bleeding) 1 Occurrences starting 04/22/2023 until 04/22/2024 [facility] Comment on above: 1 Occurrences starti ng 04/22/2023 until 04/22/2024 End: 04-22-2024 Prolactin Prolactin Lab Routine DUB (dysfunctional uterine bleeding) 1 Occurrences starting 04/22/2023 until 04/22/2024 [facility] Comment on above: 1 Occurrences starti ng 04/22/2023 until 04/22/2024 End: 10-26-2024 Pulmonary function test Spirometry (Flow Volume Loop) pre/post short acting bronchodilator w/ DLCO (diffusion study) Pulmonary function test Spirometry (Flow Volume Loop) pre/post short acting bronchodilator w/ DLCO (diffusion study) PFT Routine Asthma-COPD overlap syndrome (CMS-HCC) 1 Occurrences starting 10/27/2023 until 10/26/2024 [employer] Phone: Comment on above: 1 Occurrences starti ng 10/27/2023 until 10/26/2024 End: 04-22-2024 Thyrotropin [Units/volume] in Serum or Plasma TSH Lab Routine DUB (dysfunctional uterine bleeding) 1 Occurrences starting 04/22/2023 until 04/22/2024 [facility] Comment on above: 1 Occurrences starti ng 04/22/2023 until 04/22/2024 End: 04-22-2024 Thyroxine (T4) free [Mass/volume] in Serum or Plasma T4, free Lab Routine DUB (dysfunctional uterine bleeding) 1 Occurrences starting 04/22/2023 until 04/22/2024 [facility] Comment on above: 1 Occurrences starti ng 04/22/2023 until 04/22/2024 End: 08-31-2024 Thyroxine (T4) free [Mass/volume] in Serum or Plasma T4, free Lab Routine Class 1 obesity due to excess calories with body mass index (BMI) of 34.0 to 34.9 in adult, unspecified whether serious comorbidity present 1 Occurrences starting 09/01/2023 until 08/31/2024 [facility] Comment on above: 1 Occurrences starti ng 09/01/2023 until 08/31/2024 End: 08-31-2024 Vitamin D 25 Vitamin D 25 Lab Routine Class 1 obesity due to excess calories with body mass index (BMI) of 34.0 to 34.9 in adult, unspecified whether serious comorbidity present 1 Occurrences starting 09/01/2023 until 08/31/2024 [facility] Comment on above: 1 Occurrences starti ng 09/01/2023 until 08/31/2024 Immunizations Immunization Date Immunization Notes Care Provider Vishal mejia 12-13-2019 tetanus and diphther ia toxoids, adsorbed, preservative free, for adult use (2 Lf of tetanus toxoid and 2 Lf of diphtheria toxoid) Jana Melvin MD Work Phone: [facility] 12-13-2019 tetanus and diphther ia toxoids, adsorbed, preservative free, for adult use (2 Lf of tetanus toxoid and 2 Lf of diphtheria toxoid) Jana Melvin [facility] Payers Date Payer Category Payer Self-pay [id number] 2021 Auto Insurance AUTO INSURANCE emb [id number] 2021 Managed Care Other (unspecified) [facility] [id number] 2021 Private Health Insurance [id number] 1979 Unknown [id number] .1.887513.3.579.2 .593 1979 Unknown [id number] 2.16.840.1.575081.3.579.2 .593 1979 Unknown [id number] 2.16.840.1.114474.3.579.2 .593 1979 Unknown [id number] 2.16.840.1.045829.3.579.2 .593 1979 Unknown [id number] 2.16.840.1.924560.3.579.2 .593 1979 Unknown [id number] 2.16.840.1.820297.3.579.2 .593 1979 Unknown [id number] 2.16.840.1.542753.3.579.2 .173 1979 Unknown [id number] 2.16.840.1.038395.3.579.2 .1259 1979 Unknown [id number] 2.16.840.1.691413.3.579.2 .1258 1979 Unknown [id number] 2.16.840.1.637271.3.579.2 .1259 1979 Unknown [id number] 2.16.840.1.026458.3.579.2 .1258 1979 Unknown [id number] 2.16.840.1.157190.3.579.2 .9 1979 Unknown [id number] 2.16.840.1.680858.3.579.2 .727 1979 Unknown [id number] 2.16.840.1.963880.3.579.2 .727 1979 Unknown [id number] 2.16.840.1.366314.3.579.2 .72 1979 Unknown [id number] 2.16.840.1.525723.3.579.2 .727 1979 Unknown [id number] 2.16.840.1.044370.3.579.2 .727 1979 Unknown [id number] 2.16.840.1.580403.3.579.2 .6 1979 Unknown [id number] 2.16.840.1.290606.3.579.2 .6 1979 Unknown [id number] 2.16.840.1.917586.3.579.2 .1285 1979 Unknown [id number] 2.16.840.1.754383.3.579.2 .1285 1979 Unknown [id number] 2.16.840.1.882023.3.579.2 .1285 1979 Unknown [id number] 2.16.840.1.137785.3.579.2 .1285 1979 Unknown [id number] 2.16840.1.619514.3.579.2 .1285 1979 Unknown [id number] 2.16840.1.278608.3.579.2 .1286 1959 Private Health Insurance [id number] 2..[id number] Medicaid [facility] [id number] Unknown [place] BC/BS [id number] Unknown [id number] 2..840.1.497472.3.579.2 .531 Social History Date Type Detail Facility Unknown if ever smoked [employer] Other Start: 10-14-2023 End: 12-12-2023 Sex Assigned At [facility] Start: 05-29-2020 End: 09-25-2023 Tobacco smoking status Heavy tobacco smoker (finding) [facility] Comment on above: PPD smoker Start: 03-23-2018 Tobacco smoking status NHIS Smoker (finding) [facility] Start: 1980 Sex Assigned At Female [facility] Tobacco smoking status Never [facility] Comment on above: PPD smoker Start: 07-14-2023 End: 10-14-2023 Tobacco smoking status NHIS Smokes tobacco daily [facility] History of tobacco use Cigarette Smoker [facility] Start: 07-14-2023 End: 10-14-2023 Tobacco use and exposure Smokeless tobacco non-user [facility] Start: 01-03-2024 End: 10-25-2024 Alcoholic beverage intake Current drinker of alcohol (finding) [facility] Start: 10-14-2023 End: 12-12-2023 History of Social function [facility] Start: 10-14-2023 Alcohol Comment socially [facility] Start: 1980 Sex assigned at Not on file [facility] Start: 12-03-2021 Alcohol Comment occassionally [facility] Start: 06-07-2021 Sex Female (finding) [facility] Functional Status Date Assessment Result Facility 10-06-2023 Functional Status N/A [facility] 09-25-2023 Functional Status N/A [facility] Clinical Notes 03-29-2021 to 12-14-2024 Telephone Encounter - Florencio Matute - 12/14/2024 2:36 PM EDTTelephone Encounter - Florencio Matute - 12/14/2024 2:36 PM EDTLuh Sanchez MD - 10/25/2024 11:45 AM EDTPatient Instructions Note Date & Type Note Facility 12-14-2024 Miscellaneous Notes PT left message on voice mail requesting a call back, called PT back NO ANSWER left message for her to call back. documented in this encounter [facility] 12-14-2024 Telephone encounter Note PT left message on voice mail requesting a call back, called PT back NO ANSWER left message for her to call back. [facility] 10-25-2024 History of Presen t illness Narrative Images from the original note were not included. [address] [place] [address] Patient: Mere Esteban Date of : 1980 Encounter Date: 10/25/2024 History of Present Illness: The patient is a 44 y.o. female, is here for follow up of asthma. Lost 30 lbs since she has been on Zepbound. She has noted increasing shortness of breath when the weather has been more humid. [] Cough [] Dry [] Productive [] Wheeze [x] Shortness of breath - increased with humidity [] Chest pain [] Lower limb swelling Supplemental oxygen = none Exercise = not in the last few weeks due to humidity ([employer] prior, dogs for walks) Pulmonary regimen: Current = Trelegy 200, 1 puff daily, no missed doeses (took last dose today) Albuterol HFA (seasonal) Nebulizer (albuterol) rare use Past = Trelegy 100 (briefly, Feb 2024-Mar 2024, suboptimal control) Triggers: Cigarette use = 1/2 pack per day Vaping / e-cigarettes = denies Second hand smoke = significant other smokes Exacerbation history = Last hospitalization = none Last ER / urgent care visit = August 2022 Respiratory need for antibiotics steroids = May 2024 (bronchitis, zpak and prednisone) August 2023 (sinus infection, clindamycin) Mar 2023 (sinus infection, aug and prednisone) Physical Exam: BP 138/89 (BP Site: Right Arm, BP Postition: Sitting) Pulse 84 Ht 166.9 cm (5' 5.71 ) Wt 92 kg (202 lb 14.4 oz) SpO2 95% BMI 33.04 kg/m General Appearance - Awake, alert, oriented, in no acute distress Neck - Supple, trachea midline Lungs - Clear Assessment: 1. 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 S/p septo, L MMA , BITSMR 08/12/23 Dr. Melvin 3. Seizure disorder 4. Nicotine dependence Plan: 1. Sample of trelegy 200 2. Continue regular exercise 3. Discussed PFTs, slight improvement from previous. 4. Continue to try to cut down on cigarettes 5. Follow up in 1 year Luh Sanchez MD Pulmonary and Sleep Medicine [facility] Past Medical, Family, and Social History Update: The following portions of the patient's history were reviewed and updated as appropriate: allergies, current medications, past family history, past medical history, past social history, past surgical history and problem list. Past Medical History: Diagnosis Date Anemia 1981 Had seizures, but have grown out of it. Anxiety Atrial fibrillation ([facility]) Chronic bronchitis ([facility]) issues with seasonal allergies COPD (chronic obstructive pulmonary disease) ([facility]) ? Depression ? Eczema 1993 Its not all the time Obesity Seasonal allergies Seizures ([facility]) ? Haven t had any in years Varicella 80 s Visual impairment Past Surgical History: Procedure Laterality Date SECTION x2 HYSTEROSCOPY DILATION CURETTAGE ABLATION ENDOMETRIAL NOVASURE N/A 08/04/2023 Performed by Belén Goodwin MD at [facility] NASAL ENDOSCOPY W/ ARISTIDES SINUPLASTY 08/12/2023 TUBAL LIGATION Family History Problem Relation Age of Onset Cancer Mother multiple myeloma Parkinsonism Father Breast cancer Maternal Aunt Current Outpatient Medications Medication Sig Dispense Refill albuterol (PROVENTIL HFA;VENTOLIN HFA) 90 mcg/actuation inhaler Inhale 2 puffs every 4 (four) hours as needed for wheezing. 18 g 11 albuterol (PROVENTIL,VENTOLIN) 2.5 mg /3 mL (0.083 %) nebulizer solution Inhale 3 mL by nebulization every 6 (six) hours as needed. ejgaiwszxlw-nothajwlt-rdpztwca (TRELEGY ELLIPTA) 200-62.5-25 mcg blister with device INHALE 1 PUFF BY MOUTH IN THE MORNING 60 each 5 furosemide (LASIX) 20 mg tablet Take 1 tablet (20 mg total) by mouth daily as needed. tirzepatide, weight loss, (ZEPBOUND) 2.5 mg/0.5 mL pen injector Inject 2.5 mg under the skin every 7 days Indications: weight loss management for a person with obesity. No current facility-administered medications for this visit. (All medications reviewed and updated by provider since last office visit or hospitalization) Allergies: Patient has no known allergies. Tobacco History: Social History Tobacco Use Smoking Status Every Day Current packs/day: 0.50 Types: Cigarettes Smokeless Tobacco Never (If patient a smoker, smoking cessation counseling offered) Social History: Social History Substance and Sexual Activity Alcohol Use Yes Comment: occassionally documented in this encounter [facility] 10-25-2024 Instructions Luh Sanchez MD - 10/25/2024 11:45 AM EDT 1. Sample of trelegy 200 2. Continue regular exercise 3. Discussed PFTs 4. Continue to try to cut down on cigarettes 5. Follow up in 1 year documented in this encounter [facility] 05-14-2024 Miscellaneous Notes Patient called and stated that she needs a refill of her Trelegy 200 to be sent to [facility] in [place]. documented in this encounter [facility] 05-14-2024 Telephone encounter Note Patient called and stated that she needs a refill of her Trelegy 200 to be sent to [facility] in [place]. [facility] 04-26-2024 History of Presen t illness Narrative Images from the original note were not included. [address] [place] [address] Patient: Mere Esteban Date of : 1980 Encounter Date: 04/26/2024 History of Present Illness: The patient is a 43 y.o. female, is here for follow up of asthma/copd. Currently on Zepbound and intentionally trying to loose weight (17 lbs lost). She is feeling fairly well since her weight loss. This medication has been very effective for her. Denies the following: [] Cough [] Dry [] Productive [] Wheeze [] Shortness of breath [] Chest pain [] Lower limb swelling Supplemental oxygen = none Pulmonary regimen: Current = Trelegy 100, 1 puff daily (last filled 04/13/24), decreased from 200 by PCP February 2024 Albuterol HFA (seasonal) Nebulizer (albuterol) rare use) Past = None Triggers: Cigarette use = /-1/2 ppd (not actively trying to quit) Vaping / e-cigarettes = denies Second hand smoke = significant other smokes Exacerbation history = Last hospitalization = none Last ER / urgent care visit = August 2022 Respiratory need for antibiotics steroids = August 2023 (sinus infection, clindamycin) Mar 2023 (sinus infection, aug and prednisone) Physical Exam: BP 142/87 (BP Site: Right Arm, BP Postition: Sitting) Pulse 112 Ht 166.9 cm (5' 5.71 ) Wt 96 kg (211 lb 11.2 oz) SpO2 96% BMI 34.47 kg/m General Appearance - Awake, alert, oriented, in no acute distress Neck - Supple, trachea midline Lungs - Clear Cardiovascular - Heart sounds are normal. Regular rate and rhythm. Skin - no bruising or bleeding Extremities - no cyanosis, clubbing or edema Assessment: 1. 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 S/p septo, L MMA , BITSMR 08/12/23 Dr. Melvin 3. Seizure disorder 4. Nicotine dependence Plan: 1. PFTs scheduled but not completed 2. Continue trelegy 100. If increasing cough or shortness of breath but increase backup to the 200 dose (dose change completed by PCP in February 2024) 3. Albuterol HFA as needed 4. Discussed LDCT at age 49 5. Discussed cutting down on smoking 6. Follow up in 6 months Luh Sanchez MD Pulmonary and Sleep Medicine [facility] Past Medical, Family, and Social History Update: The following portions of the patient's history were reviewed and updated as appropriate: allergies, current medications, past family history, past medical history, past social history, past surgical history and problem list. Past Medical History: Diagnosis Date Anemia 1981 Had seizures, but have grown out of it. Anxiety Atrial fibrillation (CMS-HCC) Chronic bronchitis (CMS-HCC) issues with seasonal allergies COPD (chronic obstructive pulmonary disease) ([facility]) ? Depression ? Eczema 1993 Its not all the time Obesity Seasonal allergies Seizures ([facility]) ? Haven t had any in years Varicella 80 s Visual impairment Past Surgical History: Procedure Laterality Date SECTION x2 HYSTEROSCOPY DILATION CURETTAGE ABLATION ENDOMETRIAL NOVASURE N/A 08/04/2023 Performed by Belén Goodwin MD at [facility] NASAL ENDOSCOPY W/ ARISTIDES SINUPLASTY 08/12/2023 TUBAL LIGATION Family History Problem Relation Age of Onset Cancer Mother multiple myeloma Parkinsonism Father Breast cancer Maternal Aunt Current Outpatient Medications Medication Sig Dispense Refill albuterol (PROVENTIL HFA;VENTOLIN HFA) 90 mcg/actuation inhaler Inhale 2 puffs every 4 (four) hours as needed for wheezing. 18 g 11 albuterol (PROVENTIL,VENTOLIN) 2.5 mg /3 mL (0.083 %) nebulizer solution Inhale 3 mL by nebulization every 6 (six) hours as needed. ARIPiprazole (ABILIFY) 5 mg tablet Take 1 tablet (5 mg total) by mouth nightly. busPIRone (BUSPAR) 10 mg tablet Take 1 tablet (10 mg total) by mouth in the morning and 1 tablet (10 mg total) before bedtime. euhdxxdyefd-bbspenlon-qzylxsma (TRELEGY ELLIPTA) 200-62.5-25 mcg blister with device [...] mg total) by mouth in the morning. tirzepatide, weight loss, (ZEPBOUND) 2.5 mg/0.5 mL pen injector Inject 2.5 mg under the skin every 7 days Indications: weight loss management for an obese person. venlafaxine XR (EFFEXOR XR) 75 mg 24 hr capsule Take 1 capsule (75 mg total) by mouth in the morning. semaglutide, weight loss, (WEGOVY) 0.25 mg/0.5 mL pen injector Inject 0.5 mL (0.25 mg total) under the skin every 7 days. (Patient not taking: Reported on 04/26/2024) 2 mL 0 No current facility-administered medications for this visit. (All medications reviewed and updated by provider since last office visit or hospitalization) Allergies: Patient has no known allergies. Tobacco History: Social History Tobacco Use Smoking Status Every Day Current packs/day: 0.50 Types: Cigarettes Smokeless Tobacco Never (If patient a smoker, smoking cessation counseling offered) Social History: Social History Substance and Sexual Activity Alcohol Use Yes Comment: occassionally documented in this encounter [employer] 04-26-2024 Instructions Luh Sanchez MD - 04/26/2024 10:00 AM EST 1. PFTs scheduled but not completed 2. Continue trelegy 100 3. Albuterol HFA as needed 4. Discussed LDCT at age 49 5. Discussed cutting down on smoking 6. Follow up in 6 months [facility] 12-15-2023 Miscellaneous Notes Patient states she needs to complete a required program through her insurance company in order to qualify for [employer] coverage. Patient requests the following blood work to be faxed to [phone]: CMP, A1C, TSH, and Lipid panel. Lab results successfully faxed. documented [facility] this encounter [facility] 12-15-2023 Telephone encounter Note Patient states she needs to complete a required program through her insurance company in order to qualify for [employer] coverage. Patient requests the following blood work to be faxed to [phone]: CMP, A1C, TSH, and Lipid panel. [facility] 12-15-2023 Telephone encounter Note Lab results successfully faxed. [facility] 12-12-2023 History of Presen t illness Narrative OUTPATIENT NUTRITION CONSULTATION- ADULT Date: 12/12/23 Time in: 1:00 Time out: 2:00 Patient Mere Esteban Age () 43 y.o. (1980) Sex female Accompanied by alone Reason for Visit: Chief Complaint Patient presents with MNT - Individual Assessment: Height/Weight: Today's BMI Body mass index is 36 kg/m . BMI Category Obese class 2 (35.00- 39.99) Height Height: 166.9 cm (5' 5.7 ) Weight Wt Readings from Last 3 Encounters: 12/12/23 100.2 kg (221 lb) 11/04/23 100.2 kg (221 lb) 10/27/23 99.1 kg (218 lb 8 oz) Bucklin Body Weight Bucklin body weight: 58.6 kg (129 lb 3.4 oz) Adjusted ideal body weight: 75.3 kg (165 lb 14.8 oz) Lab Results: POCT A1c No results found for: AOHLPXO3D A1c Lab Results Component Value Date HGBA1C 5.2 09/03/2023 C-Peptide No results found for: CPEPTIDE Kidney No results found for: ALBCREATRA Lab Results Component Value Date GLU 88 09/03/2023 K 3.7 09/03/2023 BUN 8 09/03/2023 CREATININE 0.71 09/03/2023 Lipid Panel Lab Results Component Value Date CHOL 171 09/03/2023 Lab Results Component Value Date HDL 67 09/03/2023 Lab Results Component Value Date LDLCALC 55 09/03/2023 Lab Results Component Value Date TRIG 243 (H) 09/03/2023 No results found for: CHOLHDL Hgb Hemoglobin Date/Time Value Ref Range Status 09/03/2023 10:58 AM 14.0 11.7 - 15.5 g/dL Final Psychosocial / Economic Comments: Pt reports she works 2 nd shift and only consumes 2 meals per day she states she always skips am breakfast. She does consume some fast food due to hurried schedule. She is unable to exercise due to broken toe. Nutrition/Diet Counseling: Prior Nutrition Counseling Prior nutrition counseling was not provided. Estimated Energy Needs 1600 kcals daily Diet History Revealed Energy Intake: Excessive Total Fat Intake: Excessive Sodium Intake: Excessive Fiber Intake: Inadequate Carbohydrate Intake: Excessive Protein Intake: Adequate Food Recall Diagnosis: Overweight/obesity Related to Excessive energy intake As evidenced by Overconsumption of high fat and/or energy dense food or beverage Intervention: Nutrition Education: Patient was instructed on carbohydrate counting, healthy food selections, weight reduction, sources of fat, and sources of fiber, menu planning, and label reading Carbohydrate distribution provided to patient (if applicable): Breakfast Snack Lunch Snack Dinner Snack Carbohydrate 60 60 60 Total Kcal Recommended: 1600 (weight loss) Monitoring & Evaluation: Goals Eat 3 meals per day, Use resources discussed/given to count carbs, Target 5 servings of fruits/vegetables per day, Avoid sugar sweetened beverages, Exercise for 150 minutes per week, Monitors portions, Label reading, and Track food intake Follow-Up Plan No return appointment scheduled. Department phone number provided for questions after session. Kathleen Hernandez RD., LD. [facility] Diabetes and Nutrition Education documented in this encounter [facility] 11-04-2023 History of Presen t illness Narrative Mere Esteban is a 43 y.o.female. No LMP recorded. Patient has had an ablation.. She presents today for weight loss RISKS BENEFITS ALTERNATIVES INDICATIONS OF ALL WEIGHT LOSS MEDICAL OPTIONS ARE DISCUSSED WITH THE PATIENT AT GREAT LENGTH TO INCLUDE BUT NOT LIMITED TO ADIPEX ORLISTAT WELLBUTRIN CONTRAVE SEMAGLUTIDE ACUPUNCTURE IV FLUID THERAPY NUTRITIONAL THERAPY WELL BARIATRIC SURGICAL THERAPY COMMON SIDE EFFECTS INCLUDE NAUSEA VOMITING DIARRHEA CONSTIPATION AND GI SIDE EFFECTS AND SEROTONIN SYNDROME CONTRAINDICATIONS OF CHRONIC HYPERTENSION WITH ADIPEX ARE DISCUSSED WELL ABSOLUTE CONTRAINDICATIONS OF THYROID CANCER AND MULTIPLE ENDOCRINE NEOPLASIA WITH SEMAGLUTIDE WELL MORE SERIOUS SIDE EFFECTS OF PANCREATITIS PATIENT VOICED UNDERSTANDING AND DESIRES TO PROCEED Current contraception:no method OB History 4 Para 2 Term 1 1 AB 2 Living 2 SAB 1 IAB Ectopic 1 Multiple Live Births 2 MEDICAL HX Past Medical History: Diagnosis Date Anemia 1981 Had seizures, but have grown out of it. Anxiety Atrial fibrillation (CMS-HCC) Chronic bronchitis (CMS-HCC) issues with seasonal allergies COPD (chronic obstructive pulmonary disease) (CMS-HCC) ? Depression ? Eczema 1993 Its not all the time Obesity Seasonal allergies Seizures (CMS-HCC) ? Haven t had any in years Varicella 80 s Visual impairment SURGICAL HX Past Surgical History: Procedure Laterality Date SECTION x2 HYSTEROSCOPY DILATION CURETTAGE ABLATION ENDOMETRIAL NOVASURE N/A 08/04/2023 Performed by Belén Goodwin MD at [facility] NASAL ENDOSCOPY W/ ARISTIDES SINUPLASTY 08/12/2023 TUBAL LIGATION FAMILY HX Family History Problem Relation Age of Onset Cancer Mother multiple myeloma Parkinsonism Father Breast cancer Maternal Aunt MEDS Current Outpatient Medications Medication Sig Dispense Refill albuterol (PROVENTIL HFA;VENTOLIN HFA) 90 mcg/actuation inhaler Inhale 2 puffs every 4 (four) hours as needed for wheezing. 18 g 11 albuterol (PROVENTIL,VENTOLIN) 2.5 mg /3 mL (0.083 %) nebulizer solution Inhale 3 mL by nebulization every 6 (six) hours as needed. ARIPiprazole (ABILIFY) 5 mg tablet Take 1 tablet (5 mg total) by mouth nightly. busPIRone (BUSPAR) 10 mg tablet Take 1 tablet (10 mg total) by mouth in the morning and 1 tablet (10 mg total) before bedtime. ffteotjmjiw-liothiiil-zgivgtkh (TRELEGY ELLIPTA) 200-62.5-25 mcg blister with device [...] mg total) by mouth in the morning. jmvisvxcvy-xmvzeuhawjkdm-ddio (FIORICET, ESGIC) 50-325-40 mg per tablet Take 1 tablet by mouth every 6 (six) hours as needed for headaches. (Patient not taking: Reported on 11/04/2023) ketorolac (TORADOL) 10 mg tablet Take 1 tablet (10 mg total) by mouth every 6 (six) hours as needed for pain. (Patient not taking: Reported on 11/04/2023) No current facility-administered medications for this visit. ALLERGIES No Known Allergies Review of Systems Review of Systems Objective Wt 100.2 kg (221 lb) BMI 35.94 kg/m Physical Exam BP 128/70 Wt 100.2 kg (221 lb) BMI 35.94 kg/m Physical Exam GEN AAOX3, NAD HEENT UNREMARKABLE HEART RRR LUNGS CTAB ABD BENIGN, OBESE, NTND PELVIS: DEFERRED RECTAL DEFERRED EXTREM NO CCE, NO CALF TENDERNESS Assessment/Plan: Mere was seen today for weight loss. 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 [address] [place] [id number] Patient: Mere Esteban Date of : 1980 Encounter Date: 10/27/2023 History of Present Illness: The patient is a 43 y.o. female, is here for follow up of COPD asthma overlap. Since her last visit with me she did see Kathy for ongoing care. She reports she has been doing fairly well as long as she stays on her Trelegy. She is very faithful with taking it every day. Her only issue she has with her breathing is typically in very hot humid weather. [x] Cough [] Dry [x] Productive - minimal post sinus surgery [] Wheeze [x] Shortness of breath - only when humidity [] Chest pain [] Lower limb swelling Supplemental oxygen = none Pulmonary regimen: Current = Trelegy 200, 1 puff daily Albuterol HFA (1-2x a month) Albuterol nebulizer (humidity) Past = none Triggers: Nicotine use = 1/4 - 1/2 ppd, not thinking about quitting at this time Second hand smoke = boyfriend Humidity Exacerbation history = Last hospitalization = none Last ER / urgent care visit = August 2022 Respiratory need for antibiotics steroids = August 2023 (sinus infection, clindamycin) Mar 2023 (sinus infection, aug and prednisone) Physical Exam: BP 152/88 Pulse 87 Ht 167 cm (5' 5.75 ) Wt 99.1 kg (218 lb 8 oz) SpO2 96% BMI 35.54 kg/m General Appearance - Awake, alert, oriented, in no acute distress Neck - Supple, trachea midline Lungs - Clear Cardiovascular - Heart sounds are normal. Regular rate and rhythm. Skin - no bruising or bleeding Extremities - no cyanosis, clubbing or edema Jan 2023 PiMM Assessment: 1. 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 S/p septo, L MMA , BITSMR 08/12/23 Dr. Melvin 3. Seizure disorder 4. Nicotine dependence Plan: 1. Not a candidate for wellbutrin due to seizure history. Discuss this with her. 2. Discussed smoking cessation, not currently interested in quitting. Greater than 5 minutes was spent in consultation for smoking cessation. 3. Continue trelegy 4. Renewed albuterol HFA 5. Complete PFTs 6. Follow up in 6 months Luh Sanchez MD Pulmonary and Sleep Medicine [facility] Past Medical, Family, and Social History Update: The following portions of the patient's history were reviewed and updated as appropriate: allergies, current medications, past family history, past medical history, past social history, past surgical history and problem list. Past Medical History: Diagnosis Date Anxiety Atrial fibrillation (CMS-HCC) Chronic bronchitis (CMS-HCC) issues with seasonal allergies Obesity Seasonal allergies Visual impairment Past Surgical History: Procedure Laterality Date SECTION x2 HYSTEROSCOPY DILATION CURETTAGE ABLATION ENDOMETRIAL NOVASURE N/A 08/04/2023 Performed by Belén Goodwin MD at [facility] TUBAL LIGATION Family History Problem Relation Age of Onset Cancer Mother multiple myeloma Parkinsonism Father Breast cancer Maternal Aunt Current Outpatient Medications Medication Sig Dispense Refill albuterol (PROVENTIL HFA;VENTOLIN HFA) 90 mcg/actuation inhaler Inhale 2 puffs every 4 (four) hours as needed. albuterol (PROVENTIL,VENTOLIN) 2.5 mg /3 mL (0.083 %) nebulizer solution Inhale 3 mL by nebulization every 6 (six) hours as needed. ARIPiprazole (ABILIFY) 5 mg tablet Take 1 tablet (5 mg total) by mouth nightly. busPIRone (BUSPAR) 10 mg tablet Take 1 tablet (10 mg total) by mouth in the morning and 1 tablet (10 mg total) before bedtime. znwolfnciv-ekfllnletowvz-oaqo (FIORICET, ESGIC) 50-325-40 mg per tablet Take 1 tablet by mouth every 6 (six) hours as needed for headaches. ognsuqcurwk-nnhrkwckh-yiebrddm (TRELEGY ELLIPTA) 200-62.5-25 mcg blister with device INHALE 1 PUFF BY MOUTH IN THE MORNING 60 each 5 furosemide (LASIX) 20 mg tablet Take 1 tablet (20 mg total) by mouth daily as needed. hydrOXYzine (VISTARIL) 25 mg capsule Take 1 capsule (25 mg total) by mouth nightly. ketorolac (TORADOL) 10 mg tablet Take 1 tablet (10 mg total) by mouth every 6 (six) hours as needed for pain. lamoTRIgine (LaMICtal) 100 mg tablet Take 1 tablet (100 mg total) by mouth in the morning. venlafaxine XR (EFFEXOR XR) 75 mg 24 hr capsule Take 1 capsule (75 mg total) by mouth in the morning. No current facility-administered medications for this visit. (All medications reviewed and updated by provider since last office visit or hospitalization) Allergies: Patient has no known allergies. Tobacco History: Social History Tobacco Use Smoking Status Every Day Current packs/day: 0.50 Types: Cigarettes Smokeless Tobacco Never (If patient a smoker, smoking cessation counseling offered) Social History: Social History Substance and Sexual Activity Alcohol Use Yes Comment: occassionally documented in this encounter [facility] 10-27-2023 Instructions Luh Sanchez MD - 10/27/2023 9:45 AM EDT 1. Not a candidate for wellbutrin due to seizure history 2. Discussed smoking cessation 3. Continue trelegy 4. Renewed albuterol HFA 5. Complete PFTs 6. Follow up in 6 months documented in this encounter [facility] 10-16-2023 Miscellaneous Notes Referral to Diabetic Education returned with following messages: no show on 09-29, letter sent 10/16/23 A request for Nutrition Education was received. The patient's response to this request includes the following: Patient has not scheduled/responded to our attempt to reach them. Thank you for your referral. If you would like the patient to schedule an appointment please have them call [phone] option 1. Sincerely, [facility] YES PT SHOULD BE ENCOURAGED TO BE COMPLIANT WITH ORIGINAL REFERRAL PLEASE documented in this encounter [facility] 10-16-2023 Telephone encounter Note Referral to Diabetic Education returned with following messages: no show on 09-29, letter sent 10/16/23 A request for Nutrition Education was received. The patient's response to this request includes the following: Patient has not scheduled/responded to our attempt to reach them. Thank you for your referral. If you would like the patient to schedule an appointment please have them call [phone] option 1. Sincerely, [facility] 10-16-2023 Telephone encounter Note YES PT SHOULD BE ENCOURAGED TO BE COMPLIANT WITH ORIGINAL REFERRAL PLEASE [employer] 10-08-2023 Note Progress Note-Physic danial Patient: MERE [...] when meets criteria ( To home ). [facility] Comment on above: Result Comment: Elec tronically Signed By: Tashi Brothers Jr, DO\.br\Date and Time Signed: 10/08/23 07:10 EDT 10-06-2023 Evaluation + Plan note Extrac corby from: Title:ANES Pre-operative Note 2022 Author:Tashi Brothers Jr, DO Date:10/06/23 Plan English Society of Anesthesiologists (ASA) physical status classification: Class III. Anesthetic Preoperative Plan: Anesthesia General. [facility]07-22-2024 Hospital Discharge instructions Patient Education 10/06/2023 09:24:47 [...] day. 10/06/2023 09:24:43 Endoscopy, Care After Procedure [facility] [place] Endoscopy Care After Procedure Please read the instructions outlined below and refer to this sheet in the next few weeks. These discharge instructions provide you with general information on caring [facility] Your doctor may also give you [...] blood. Document Released: 10/15/2004 Document Re-Released: 08/25/2006 [employer] Patient Information [employer]. 10/06/2023 09:24:38 Gastritis, Adult, Nhjg-ro-Huee Gastritis, Adult Gastritis is irritation and swelling [...] Follow these instructions at home: Medicines Take mdiw-owz-xehiuui and prescription medicines only as told by [...] provider. Document Revised: 07/07/2021 Document Reviewed: 07/07/2021 [email or web address] Patient Education 2022 [employer]. 10/06/2023 09:24:09 Colon Polyps Colon Polyps Colon [...] hard liquor (44 mL). General instructions Take tbkx-mzm-cejyfks and prescription medicines only as told by [...] provider. Document Revised: 06/21/2020 Document Reviewed: 06/21/2020 [email or web address] Patient Education 2022 [employer]. Follow Up Care 09/25/2023 09:29:00 With:Yadiel CASAREZ Address: [address] [place], [place] [address] Business (1) When:7 to 10 days [facility]07-22-2024 NoteColonoscopy Procedure Report Patient: MERE ESTEBAN Age: 43 years Sex: Female : 1980 Associated Diagnoses: None Author: Yadiel CASAREZ MD Pre-Procedure Procedure Date 10/06/2023 09:37:00 . Procedure Type: Colonoscopy with removal of tumor(s), polyp(s), or other lesion(s) by cold snare technique. Procedure provider Performed by Yadiel CASAREZ MD Current history and physical Documented on chart. [...] place. Impression and Plan Diagnosis: Colon polyps (LUT97-GI K63.5, Discharge, Medical), Rectal inflammation (HWZ30-OX K62.89,Discharge, Medical). Course: Progressing as expected. Recommendations: Repeat colonoscopy:: In 5 years, Will depend on pathology report . Follow-up:: 1-2 weeks. Diet:: Regular diet. Medication resumption:: Continue current medications. Return to activities:: After 24 hours. Education and Follow-up: Counseled: [facility]:Other Comment: Missing Attachment - attachment storage system not supported [id number] Can be viewed in source system Missing Attachment - attachment storage system not supported [id number] Can be viewed in source systemMissing Attachment - attachment storage system not supported [id number] Can be viewed in source systemMissing Attachment - attachment storage system not supported [id number] Can be viewed in source systemMissing Attachment - attachment storage system not supported [id number] Can be viewed in source [id number] NotePatient Education - Text Colonoscopy Care After [...] on caring [facility]. Your doctor may also give you [...] Document Re-Released: 08/25/2006 [employer]Care? Patient Information ?2009 [employer]. Infectious Disease Gastritis, Adult Gastritis is irritation [...] products that contain nicoti (more content not included)...[facility]07-22-2024 NoteHistory and Physical Patient: MERE ESTEBAN Age: 43 years Sex: Female : 1980 Associated Diagnoses: None Author: Yadiel CASAREZ MD Subjective no changes to & PFMercy HealthComment on above:Result Comment: Electronically Signed By: Yadiel CASAREZ MD\.br\Date and Time Signed: 10/06/23 08:03 [id number] NoteProgress Note-Physician Patient: MERE ESTEBAN Age: 43 [...] veins of lower extremity / SNOMED CT 112449854 / Confirmed Abnormal gallbladder ultrasound / SNOMED CT 1810836566 / Confirmed Smoker / IMO [id number] / Confirmed Added secondary to documentation in Social History. Seizure / SNOMED CT [id number] / Confirmed Outside Source Comment: Comment on above:[facility]Comment on above:Result Comment: Electronically Signed By: Tashi Brothers Jr, DO.evangelista\Date and Time Signed: 10/06/23 16:38 [id number] NoteGeneral Surgery Office/Clinic Note Chief Complaint consultation for abdominal pain HPI Staff 43 year old female presents on consultation from [facility] for abdominal pain. Presented to ED [...] asthma, migraine headaches, bipolar disorder referred from [facility] ED for upper abd pain; patient [...] blood or mucous; [facility], they ordered abd/pelvic ct scan [...] diseases, and reduces th (more content not included)...[facility] HospitalComment on above:Result Comment: Electronically Signed By: LEIDA LINDSEY, Yadiel Jenkins\Date and Time Signed: 09/25/23 10:21 [id number] History of Present illness Narrative* Belén Goodwin MD - 09/09/2023 2:15 PM EDT Mere Esteban is a 42 y.o.female. No LMP recorded.. She presents for ED follow up from 09/08/23. Ptis complaining of upper abdominal pain that has been going on for just shy of a week now. Pt was given Vicodin from ED yesterday and that is helping a little for pain relief. No fevers chills nausea vomiting diarrhea constipation No abnormal vaginal discharge or bleeding Pathology benign reviewed with the patient as below Final Pathologic Diagnosis 1. Endocervical curettings: Fragments of endocervix, negative for dysplasia 2. Endometrial curettings: Fragments of secretory endometrium with breakdown OB History 4 Para 2 Term 1 1 AB 2 Living 2 SAB 1 IAB Ectopic 1 Multiple Live Births 2 MEDICAL HX Past Medical History: Diagnosis Date Anxiety Atrial fibrillation (CMS-HCC) Chronic bronchitis (CMS-HCC) issues with seasonal allergies Obesity Seasonal allergies Visual impairment SURGICAL HX Past Surgical History: Procedure Laterality Date SECTION x2 HYSTEROSCOPY DILATION CURETTAGE ABLATION ENDOMETRIAL NOVASURE N/A 08/04/2023 Performed by Belén Goodwin MD at [facility] TUBAL LIGATION FAMILY HX Family History Problem [...] tablet (10 mg total) by mouth nightly. (Patient not taking:Reported on 08/04/2023) benzonatate (TESSALON PERLES) 100 mg capsule Take 1 capsule (100 mg total) by mouth 3 (three) timesa day as needed. (Patient not taking: Reported on 08/04/2023) busPIRone (BUSPAR) 10 mg tablet Take 1 tablet (10 mg total) by mouth in the morning and 1 tablet (10 mg total) before bedtime. biszrhkobu-fpiucbpvpcbaa-inla (FIORICET, ESGIC) 50-325-40 mg per tablet Take 1 tablet by mouth every 6 (six) hours as needed for headaches. dogxnkoulez-ulimqhzsc-mjwhlscc (TRELEGY ELLIPTA) 200-62.5-25 mcg blister with device INHALE 1 PUFF BY MOUTH IN THE MORNING 60 each 5 furosemide (LASIX) 20 mg tablet Take 1 tablet (20 mg total) by mouth daily as needed. hydrOXYzine (VISTARIL) 25 mg capsule Take 1 capsule (25 mg total) by mouth nightly. ketorolac (TORADOL) 10 mg tablet Take 1 tablet (10 mg total) by mouth every 6 (six) hours as neededfor pain. lamoTRIgine (LaMICtal) 100 mg tablet Take 1 tablet (100 mg total) by mouth in the morning. venlafaxine XR (EFFEXOR XR) 75 mg 24 hr capsule Take 1 capsule (75 mg total) by mouth in the morning. No current facility-administered medications for this visit. ALLERGIES No Known Allergies Review of Systems Review of Systems Objective There were no vitals taken for this visit. Physical Exam BP 134/86 Temp 36.7 C (98.1 F) Ht 167 cm (5' 5.75 ) Wt 101.9 kg (224 lb 9.6 oz) BMI 36.53 kg/m Physical Exam GEN AAOX3, NAD HEENT UNREMARKABLE HEART RRR LUNGS CTAB ABD BENIGN, OBESE, NTND Back no cvat PELVIS: defered RECTAL DEFERRED EXTREM NO CCE, NO CALF TENDERNESS Assessment/Plan: Epigastric pain Most likely GI in nature Most likely unrelated to her D&C hysteroscopy Pathology benign Reviewed with the patient MD ANGELICA TELLEZ CMA [facility] Miscellaneous Notes* Telephone Encounter - Adina Sanchez - 09/01/2023 3:50 PM EDT We received a referral for education on Mere J White 1980. However per CMS Guidelines we needto have the services requested marked as such on referral. Please see pended order and sign if you are agreeable. Thank you [facility] * Telephone Encounter - Adina Sanchez - 09/01/2023 3:50 PM EDT Just checking on the status of this order. * Telephone Encounter - Conchis Soto CMA - 09/01/2023 3:50 PM EDT Just checking the status of the pended referral. documented in this [facility] Telephone encounter Note* Telephone Encounter - Adina Sanchez - 09/01/2023 3:50 PM EDT We received a referral for education on Mere J White 1980. However per CMS Guidelines we needto have the services requested marked as such on referral. Please see pended order and sign if you are agreeable. Thank you [facility] Telephone encounter Note* Telephone Encounter - Adina Sanchez - 09/01/2023 3:50 PM EDT Just checking on the status of this order. [facility] Telephone encounter Note* Telephone Encounter - Conchis Soto CMA - 09/01/2023 3:50 PM EDT Just checking the status of the pended referral. [facility] History of Present illness Narrative* Belén Goodwin MD - 09/01/2023 10:15 AM EDT Subjective Patient ID: Mere Esteban is a 42 y.o. female. For her postop check status post D and C hysteroscopy ablation 4 weeks ago Path is reviewed and noted to be benign as follows: Patient Name:MERE ESTEBAN:1980 (Age: 42)Gender:FTaken:4Reported:4Physician(s):Belén Goodwin M.D. ([phone])Copy To: Rec. #:[id number]: # [id number] Final Pathologic Diagnosis 1. Endocervical curettings: Fragments of endocervix, negative for dysplasia 2. Endometrial curettings: Fragments of secretory endometrium with breakdown No issues status post surgery and patient is more interested in weight loss questions and answers Patient also interested in weight loss TODAY Risks benefits alternatives indications of all options were discussed with the patient at great length to include but not limited to semaglutide Adipex Contrave Wellbutrin orlistat Ali etcetera Contraindications of semaglutide discussed with the patient to include personal history and family medical history of thyroid cancer and multiple endocrine neoplasia Common side effects of nausea vomiting diarrhea constipation or discussed as well as more serious side effects of pancreatitis Patient is getting laboratories and checking with her insurance coverage Home Demonstrator consult is placed All questions answered Chief Complaint Chief Complaint Patient presents with Weight Loss HPI Past Medical History Past Medical History: Diagnosis Date Anxiety Atrial fibrillation (CMS-HCC) Chronic bronchitis (CMS-HCC) issues with seasonal allergies Obesity Seasonal allergies Visual impairment Past Surgical History Past Surgical History: Procedure Laterality Date SECTION x2 HYSTEROSCOPY DILATION CURETTAGE ABLATION ENDOMETRIAL NOVASURE N/A 08/04/2023 Performed by Belén Goodwin MD at [facility] TUBAL LIGATION Family History Family History Problem Relation Age of Onset Cancer Mother multiple myeloma Parkinsonism Father Breast cancer Maternal Aunt Social History Social History Socioeconomic History Marital status: Single Spouse name: Not on file Number of children: Not on file Years of education: Not on file Highest education level: Not on file Occupational History Not on file Tobacco Use Smoking status: Every Day Current packs/day: 0.50 Types: Cigarettes Smokeless tobacco: Never Vaping Use Vaping status: Never Used Substance and Sexual Activity Alcohol use: Yes Comment: occassionally Drug use: Never Sexual activity: Yes Partners: Male control/protection: Surgical Comment: tubal ligation Other Topics Concern Not on file Social History Narrative Not on file Social Determinants of Health Financial Resource Strain: Not on file Food Insecurity: No Food Insecurity (06/17/2023) Hunger Screening Food Insecurity - Worry: Never True Food Insecurity - Inability: Never True Transportation Needs: Not on file Physical Activity: Not on file Stress: Not on file Social Connections: Not on file Interpersonal Safety: Not on file Housing Instability: Not on file Allergies No Known Allergies Current Medications Current Outpatient Medications Medication Sig Dispense Refill albuterol (PROVENTIL HFA;VENTOLIN HFA) 90 mcg/actuation inhaler Inhale 2 puffs every 4 (four) hoursas needed. albuterol (PROVENTIL,VENTOLIN) 2.5 mg /3 mL (0.083 %) nebulizer solution Inhale 3 mL by nebulization every 6 (six) hours as needed. ARIPiprazole (ABILIFY) 5 mg tablet Take 1 tablet (5 mg total) by mouth nightly. busPIRone (BUSPAR) 10 mg tablet Take 1 tablet (10 mg total) by mouth in the morning and 1 tablet (10 mg total) before bedtime. cgjzcaequzg-thxdivexq-iqtmxbyy (TRELEGY ELLIPTA) 200-62.5-25 mcg blister with device [...] mg total) by mouth in the morning. baclofen (LIORESAL) 10 mg tablet Take 1 tablet (10 mg total) by mouth nightly. (Patient not taking:Reported on 08/04/2023) benzonatate (TESSALON PERLES) 100 mg capsule Take 1 capsule (100 mg total) by mouth 3 (three) timesa day as needed. (Patient not taking: Reported on 08/04/2023) No current facility-administered medications for this visit. Review of Systems Review of Systems Objective Vitals BP 132/84 Ht 167 cm (5' 5.75 ) Wt 102.5 kg (226 lb) BMI 36.76 kg/m Physical Exam Physical Exam BP 132/84 Ht 167 cm (5' 5.75 ) Wt 102.5 kg (226 lb) BMI 36.76 kg/m Physical Exam GEN AAOX3, NAD HEENT UNREMARKABLE HEART RRR LUNGS CTAB ABD BENIGN, OBESE, NTND PELVIS: DEFERED RECTAL DEFERRED EXTREM NO CCE, NO CALF TENDERNESS Assessment/Plan Labs ordered: Hgb A1c, lipid profile, TSH, T4, CBC, CMP, fasting insuline Assessment Mere was seen today for weight loss. Diagnoses and all orders for this visit: Class 1 obesity due to excess calories with body mass index (BMI) of 34.0 to 34.9 in adult, unspecified whether serious comorbidity present - Lipid profile; Future - CBC without diff; Future - Comprehensive metabolic panel; Future - T4, free; Future - Vitamin D 25; Future - Hemoglobin A1c; Future - [facility] - Personal Nutrition Counseling; Future DUB (dysfunctional uterine bleeding) Plan Patient counseled on weight loss options regarding diet and lifestyle changes including exercise, increased activity, calorie intake, and increased water intake. We discussed medication options (adipex, contrave, wellbutrin, semaglutide), tree trimmer helper visit, referral for weight loss surgery. Risks, benefits, alternatives, indications of each as well as potential risks were discussed. Patient desires WEIGHT LOSS ASSISTNACE. All questions answered. Educational material provided. RTO one week to review labs. Risks benefits alternatives indications of all options were discussed with the patient at great length to include but not limited to semaglutide Adipex Contrave Wellbutrin orlistat Ali etcetera Contraindications of semaglutide discussed with the patient to include personal history and family medical history of thyroid cancer and multiple endocrine neoplasia Common side effects of nausea vomiting diarrhea constipation or discussed as well as more serious side effects of pancreatitis Patient is getting laboratories and checking with her insurance coverage Home Demonstrator consult is placed All questions answered BELÉN GOODWIN MD documented in this encounterSouthwestern Vermont Medical CenterTastemaker Labs [id number] Instructions* Patient Instructions* Mary Ellen Ramirez RN - 07/14/2023 9:45 AM EDT Preoperative Education Checklist- General Surgery date: 08/04/23 Surgery time: 1230 p.m. Arrival time: 1030 a.m. 1. Bring a photo ID and your insurance card with you the day of surgery. You will check in at the main lobby of the [facility]- registration desk is straight ahead as soon as you walk in. Tell them you are here for surgery. 2. If you have a Living Will/Durable Power of Welder for Health Care that is not on file here, please bring a copy the day of surgery. 3. Please shower/bathe the night before surgery with the provided soap or wipes. Do not shower the morning of surgery- you will do use wipes when you arrive here at the hospital before getting into your surgical gown. Do not shave the area of your procedure for 2 days prior to your surgery. 4. NO powder, lotion, perfume/cologne, aftershave, make-up, deodorant, or hair products after you have bathed. 5. NO nail monegasque/acrylic on at least one finger. If you are having a hand, wrist or foot surgery then all nail monegasque and artificial/acrylic nails must be removed from that hand or foot. 6. Avoid ALL Aspirin and non-steroidal anti-inflammatory drugs and certain vitamins (Ibuprofen, Advil, Aleve, Excedrin, Meloxicam, Celebrex, fish/krill oil, etc.) for 7 days prior to surgery as instructed by your surgeon and/or your prescribing doctor. Tylenol IS ALLOWED. If you are on Ticlid, Xarelto, Eliquis, Pradaxa, Plavix or Coumadin, please check with your prescribing doctor for instructions for when to stop them. 7. If you use an inhaler, continue to use it routinely. 8. Nothing to eat or drink (not even water, gum, mints, or hard candy!) AFTER midnight prior to your surgery. 9. Take only medications that you are instructed to on the morning of surgery with a TINY SIP OF WATER. 10. Choose a responsible adult that will be able to drive you home when you are discharged from your hospital stay for your surgery and can stay with you in your home for 24 hours after your procedure. You must NOT drive any vehicle or operate any machinery for 24 hours after surgery. 11. When you dress for your appointment, please wear loose fitting clothing that is appropriate to accommodate your surgical area procedure. BRING WITH YOU ANY DEVICES YOU MAY NEED: CORBY hose, ice machine, sling/swath, brace or special shoe, oversized zip-up or button up shirt, CPAP machine if staying overnight. 12. Do NOT wear jewelry, watches, or any piercings or metal for surgery- leave these valuables and money at home. 13. Do NOT wear contact lenses for surgery- glasses are okay if needed. 14. The anesthesiologist will talk with you the day of surgery and will ask you to sign a Consent Form. 15. Refrain from smoking or any type of tobacco use for at least 8 hours and marijuana for 24 hoursprior to arrival for your surgery. 16. If a GREEN BLOOD band is given to you, please bring it with you for the day of surgery. 17. Notify your surgeon if you develop any illness before your surgery. 18. If you are staying overnight, please DO NOT BRING your home medications with you. 19. If you have any questions prior to surgery, please call the Preadmission Testing office at [phone], Mon.-Fri. 7 a.m.-3 p.m. Leave a voicemail if needed. Pre-Surgery Instructions: Medication Instructions albuterol (PROVENTIL HFA;VENTOLIN HFA) 90 mcg/actuation inhaler Take morning of procedure if needed albuterol (PROVENTIL,VENTOLIN) 2.5 mg /3 mL (0.083 %) nebulizer solution Take morning of procedure if needed ARIPiprazole (ABILIFY) 5 mg tablet Stop taking 0 days prior to procedure baclofen (LIORESAL) 10 mg tablet Stop taking 0 days prior to procedure benzonatate (TESSALON PERLES) 100 mg capsule Stop taking 0 days prior to procedure busPIRone (BUSPAR) 10 mg tablet Stop taking 0 days prior to procedure hcccmdfobzi-ncihhwuib-aqnrrqsv (TRELEGY ELLIPTA) 200-62.5-25 mcg blister with device Take morning of procedure furosemide (LASIX) 20 mg tablet Stop taking 0 days prior to procedure hydrOXYzine (VISTARIL) 25 mg capsule Stop taking 0 days prior to procedure lamoTRIgine (LaMICtal) 100 mg tablet Stop taking 0 days prior to procedure venlafaxine XR (EFFEXOR XR) 75 mg 24 hr capsule Stop taking 0 days prior to procedure How to Avoid an Infection after Your Surgery Your doctor will give you specific instructions, but remember: -ALWAYS wash hands before caring for your catheter and/or after using the restroom. -ALWAYS wipe from front to back. -No make creams, lotion, powder, rubbing alcohol or hydrogen peroxide on surgical area (can harm the tissue and slow healing). -Your doctor will give you specific instructions for what type of dressing or equipment you will need and how often it will need changed for infection purposes. -Do not allow anyone to touch your surgical area unless they are cleaning, checking, or redressing it (be sure they wash their hands first). -No contact of your surgical area with pets or pet hair; avoid sleeping with pets. -Take full course of antibiotic if prescribed for you after surgery- do not stop unless directed jia your physician. You may also be given an antibiotic prior to your surgery to help prevent surgical site infections. -Eat a healthy and varied diet including proteins, fruits, and vegetables to help promote wound healing and keep blood sugars under control if you are diabetic. -Smoking slows the healing process by decreasing the amount of oxygen in your blood that is needed for tissue healing. Try to avoid or stop smoking if possible. CALL your doctor if you notice any of the following: -Increased redness or hardening around the surgical area. -Increased pain or increased blood in your urine. -If urine becomes increasingly cloudy, you notice sediment or particles in your urine, or you notice a foul odor or yellow or green discharge. -Fever higher than 101 degrees Fahrenheit for more than 4 hours. If you have a question, call your doctor s office. Go to the follow-up appointment with your doctor. documented in this encounterSouthwestern [facility] Medical CenterTastemaker Labs [id number] Miscellaneous Notes* Perioperative Nursing Note - Mary Ellen Ramirez RN - 07/14/2023 9:45 AM EDT Preoperative Education Checklist- General Surgery date: 08/04/23 Surgery time: 1230 p.m. Arrival time: 1030 a.m. 1. Bring a photo ID and your insurance card with you the day of surgery. You will check in at the main lobby of the [facility]- registration desk is straight ahead as soon as you walk in. Tell them you are here for surgery. 2. If you have a Living Will/Durable Power of Welder for Health Care that is not on file here, please bring a copy the day of surgery. 3. Please shower/bathe the night before surgery with the provided soap or wipes. Do not shower the morning of surgery- you will do use wipes when you arrive here at the hospital before getting into your surgical gown. Do not shave the area of your procedure for 2 days prior to your surgery. 4. NO powder, lotion, perfume/cologne, aftershave, make-up, deodorant, or hair products after you have bathed. 5. NO nail monegasque/acrylic on at least one finger. If you are having a hand, wrist or foot surgery then all nail monegasque and artificial/acrylic nails must be removed from that hand or foot. 6. Avoid ALL Aspirin and non-steroidal anti-inflammatory drugs and certain vitamins (Ibuprofen, Advil, Aleve, Excedrin, Meloxicam, Celebrex, fish/krill oil, etc.) for 7 days prior to surgery as instructed by your surgeon and/or your prescribing doctor. Tylenol IS ALLOWED. If you are on Ticlid, Xarelto, Eliquis, Pradaxa, Plavix or Coumadin, please check with your prescribing doctor for instructions for when to stop them. 7. If you use an inhaler, continue to use it routinely. 8. Nothing to eat or drink (not even water, gum, mints, or hard candy!) AFTER midnight prior to your surgery. 9. Take only medications that you are instructed to on the morning of surgery with a TINY SIP OF WATER. 10. Choose a responsible adult that will be able to drive you home when you are discharged from your hospital stay for your surgery and can stay with you in your home for 24 hours after your procedure. You must NOT drive any vehicle or operate any machinery for 24 hours after surgery. 11. When you dress for your appointment, please wear loose fitting clothing that is appropriate to accommodate your surgical area procedure. BRING WITH YOU ANY DEVICES YOU MAY NEED: CORBY hose, ice machine, sling/swath, brace or special shoe, oversized zip-up or button up shirt, CPAP machine if staying overnight. 12. Do NOT wear jewelry, watches, or any piercings or metal for surgery- leave these valuables and money at home. 13. Do NOT wear contact lenses for surgery- glasses are okay if needed. 14. The anesthesiologist will talk with you the day of surgery and will ask you to sign a Consent Form. 15. Refrain from smoking or any type of tobacco use for at least 8 hours and marijuana for 24 hoursprior to arrival for your surgery. 16. If a GREEN BLOOD band is given to you, please bring it with you for the day of surgery. 17. Notify your surgeon if you develop any illness before your surgery. 18. If you are staying overnight, please DO NOT BRING your home medications with you. 19. If you have any questions prior to surgery, please call the Preadmission Testing office at [phone], Mon.-Fri. 7 a.m.-3 p.m. Leave a voicemail if needed. Pre-Surgery Instructions: Medication Instructions albuterol (PROVENTIL HFA;VENTOLIN HFA) 90 mcg/actuation inhaler Take morning of procedure if needed albuterol (PROVENTIL,VENTOLIN) 2.5 mg /3 mL (0.083 %) nebulizer solution Take morning of procedure if needed ARIPiprazole (ABILIFY) 5 mg tablet Stop taking 0 days prior to procedure baclofen (LIORESAL) 10 mg tablet Stop taking 0 days prior to procedure benzonatate (TESSALON PERLES) 100 mg capsule Stop taking 0 days prior to procedure busPIRone (BUSPAR) 10 mg tablet Stop taking 0 days prior to procedure ueqcnwlovmp-gpsnzzhmw-pxtoistb (TRELEGY ELLIPTA) 200-62.5-25 mcg blister with device Take morning of procedure furosemide (LASIX) 20 mg tablet Stop taking 0 days prior to procedure hydrOXYzine (VISTARIL) 25 mg capsule Stop taking 0 days prior to procedure lamoTRIgine (LaMICtal) 100 mg tablet Stop taking 0 days prior to procedure venlafaxine XR (EFFEXOR XR) 75 mg 24 hr capsule Stop taking 0 days prior to procedure How to Avoid an Infection after Your Surgery Your doctor will give you specific instructions, but remember: -ALWAYS wash hands before caring for your catheter and/or after using the restroom. -ALWAYS wipe from front to back. -No make creams, lotion, powder, rubbing alcohol or hydrogen peroxide on surgical area (can harm the tissue and slow healing). -Your doctor will give you specific instructions for what type of dressing or equipment you will need and how often it will need changed for infection purposes. -Do not allow anyone to touch your surgical area unless they are cleaning, checking, or redressing it (be sure they wash their hands first). -No contact of your surgical area with pets or pet hair; avoid sleeping with pets. -Take full course of antibiotic if prescribed for you after surgery- do not stop unless directed jia your physician. You may also be given an antibiotic prior to your surgery to help prevent surgical site infections. -Eat a healthy and varied diet including proteins, fruits, and vegetables to help promote wound healing and keep blood sugars under control if you are diabetic. -Smoking slows the healing process by decreasing the amount of oxygen in your blood that is needed for tissue healing. Try to avoid or stop smoking if possible. CALL your doctor if you notice any of the following: -Increased redness or hardening around the surgical area. -Increased pain or increased blood in your urine. -If urine becomes increasingly cloudy, you notice sediment or particles in your urine, or you notice a foul odor or yellow or green discharge. -Fever higher than 101 degrees Fahrenheit for more than 4 hours. If you have a question, call your doctor s office. Go to the follow-up appointment with your doctor. * Perioperative Nursing Note - Mary Ellen Ramirez RN - 07/14/2023 9:45 AM EDT Surgical instructions reviewed. Patient verbalized understanding. documented in this encounterFirelands Regional Medical Center04-29-2024 Nurse Note* Perioperative Nursing Note - Mary Ellen Ramirez RN - 07/14/2023 9:45 AM EDT Preoperative Education Checklist- General Surgery date: 08/04/23 Surgery time: 1230 p.m. Arrival time: 1030 a.m. 1. Bring a photo ID and your insurance card with you the day of surgery. You will check in at the main lobby of the [facility]- registration desk is straight ahead as soon as you walk in. Tell them you are here for surgery. 2. If you have a Living Will/Durable Power of Welder for Health Care that is not on file here, please bring a copy the day of surgery. 3. Please shower/bathe the night before surgery with the provided soap or wipes. Do not shower the morning of surgery- you will do use wipes when you arrive here at the hospital before getting into your surgical gown. Do not shave the area of your procedure for 2 days prior to your surgery. 4. NO powder, lotion, perfume/cologne, aftershave, make-up, deodorant, or hair products after you have bathed. 5. NO nail monegasque/acrylic on at least one finger. If you are having a hand, wrist or foot surgery then all nail monegasque and artificial/acrylic nails must be removed from that hand or foot. 6. Avoid ALL Aspirin and non-steroidal anti-inflammatory drugs and certain vitamins (Ibuprofen, Advil, Aleve, Excedrin, Meloxicam, Celebrex, fish/krill oil, etc.) for 7 days prior to surgery as instructed by your surgeon and/or your prescribing doctor. Tylenol IS ALLOWED. If you are on Ticlid, Xarelto, Eliquis, Pradaxa, Plavix or Coumadin, please check with your prescribing doctor for instructions for when to stop them. 7. If you use an inhaler, continue to use it routinely. 8. Nothing to eat or drink (not even water, gum, mints, or hard candy!) AFTER midnight prior to your surgery. 9. Take only medications that you are instructed to on the morning of surgery with a TINY SIP OF WATER. 10. Choose a responsible adult that will be able to drive you home when you are discharged from your hospital stay for your surgery and can stay with you in your home for 24 hours after your procedure. You must NOT drive any vehicle or operate any machinery for 24 hours after surgery. 11. When you dress for your appointment, please wear loose fitting clothing that is appropriate to accommodate your surgical area procedure. BRING WITH YOU ANY DEVICES YOU MAY NEED: CORBY hose, ice machine, sling/swath, brace or special shoe, oversized zip-up or button up shirt, CPAP machine if staying overnight. 12. Do NOT wear jewelry, watches, or any piercings or metal for surgery- leave these valuables and money at home. 13. Do NOT wear contact lenses for surgery- glasses are okay if needed. 14. The anesthesiologist will talk with you the day of surgery and will ask you to sign a Consent Form. 15. Refrain from smoking or any type of tobacco use for at least 8 hours and marijuana for 24 hoursprior to arrival for your surgery. 16. If a GREEN BLOOD band is given to you, please bring it with you for the day of surgery. 17. Notify your surgeon if you develop any illness before your surgery. 18. If you are staying overnight, please DO NOT BRING your home medications with you. 19. If you have any questions prior to surgery, please call the Preadmission Testing office at [phone], Mon.-Fri. 7 a.m.-3 p.m. Leave a voicemail if needed. Pre-Surgery Instructions: Medication Instructions albuterol (PROVENTIL HFA;VENTOLIN HFA) 90 mcg/actuation inhaler Take morning of procedure if needed albuterol (PROVENTIL,VENTOLIN) 2.5 mg /3 mL (0.083 %) nebulizer solution Take morning of procedure if needed ARIPiprazole (ABILIFY) 5 mg tablet Stop taking 0 days prior to procedure baclofen (LIORESAL) 10 mg tablet Stop taking 0 days prior to procedure benzonatate (TESSALON PERLES) 100 mg capsule Stop taking 0 days prior to procedure busPIRone (BUSPAR) 10 mg tablet Stop taking 0 days prior to procedure brhlhgfmjol-dphweoclu-xrgejezx (TRELEGY ELLIPTA) 200-62.5-25 mcg blister with device Take morning of procedure furosemide (LASIX) 20 mg tablet Stop taking 0 days prior to procedure hydrOXYzine (VISTARIL) 25 mg capsule Stop taking 0 days prior to procedure lamoTRIgine (LaMICtal) 100 mg tablet Stop taking 0 days prior to procedure venlafaxine XR (EFFEXOR XR) 75 mg 24 hr capsule Stop taking 0 days prior to procedure How to Avoid an Infection after Your Surgery Your doctor will give you specific instructions, but remember: -ALWAYS wash hands before caring for your catheter and/or after using the restroom. -ALWAYS wipe from front to back. -No make creams, lotion, powder, rubbing alcohol or hydrogen peroxide on surgical area (can harm the tissue and slow healing). -Your doctor will give you specific instructions for what type of dressing or equipment you will need and how often it will need changed for infection purposes. -Do not allow anyone to touch your surgical area unless they are cleaning, checking, or redressing it (be sure they wash their hands first). -No contact of your surgical area with pets or pet hair; avoid sleeping with pets. -Take full course of antibiotic if prescribed for you after surgery- do not stop unless directed jia your physician. You may also be given an antibiotic prior to your surgery to help prevent surgical site infections. -Eat a healthy and varied diet including proteins, fruits, and vegetables to help promote wound healing and keep blood sugars under control if you are diabetic. -Smoking slows the healing process by decreasing the amount of oxygen in your blood that is needed for tissue healing. Try to avoid or stop smoking if possible. CALL your doctor if you notice any of the following: -Increased redness or hardening around the surgical area. -Increased pain or increased blood in your urine. -If urine becomes increasingly cloudy, you notice sediment or particles in your urine, or you notice a foul odor or yellow or green discharge. -Fever higher than 101 degrees Fahrenheit for more than 4 hours. If you have a question, call your doctor s office. Go to the follow-up appointment with your doctor. [facility] [id number] Nurse Note* Perioperative Nursing Note - Mary Ellen Ramirez RN - 07/14/2023 9:45 AM EDT Surgical instructions reviewed. Patient verbalized understanding. [facility] [id number] Miscellaneous Notes* Telephone Encounter - Shantel Fan [...] mailed to the patient. documented in this encounterFirelands [facility] Medical Center04-03-2024 Telephone encounter Note* Telephone Encounter - Shantel [...] dates & times and schedule surgery f/u. [facility]04-03-20[facility] Telephone encounter Note* Telephone Encounter - Shantel Fan - 06/18/2023 10:50 AM EDT Patient returned my call while I was out of the office at lunch. I returned patient's call. Patient notified of all dates & times. Patient voiced understanding. Surgery information letter mailed to the patient. [facility]04-02-20[facility] History of Present illness Narrative* Belén Goodwin [...] 1 tablet (10 mg total) before bedtime. eqlouhwjlfp-iecthdxuz-nbgitdkn (TRELEGY ELLIPTA) 200-62.5-25 mcg blister with device [...] MD Cori TELLEZ RN documented in this encounterFirelands Regional Medical Center03-19-2024 History of Present illness Narrative* Belén Goodwin [...] biopsy. BELÉN GOODWIN MD documented in this encounterFirelands Regional Medical Center03-19-2024 Miscellaneous Notes* Addendum Note - Angelica Zhang CMA - 06/03/2023 10:30 AM EDTAddended by: ANGELICA ZHANG on: 06/03/2023 12:04 PM Modules accepted: Orders documented in this encounterFirelands Regional Medical Center03-19-2024 Note* Addendum Note - Angelica Zhang CMA - 06/03/2023 10:30 AM EDTAddended by: ANGELICA ZHANG on: 06/03/2023 12:04 PM Modules accepted: Orders [facility]02-06-2024 History of Present illness Narrative* Belné Goodwin MD - 04/22/2023 9:00 AM EST Mere Esteban is a 42 y.o.female. Patient's last menstrual period was 04/08/2023.. She presents today for concerns with heavy period bleeding and cramping. She relates being on HRT and would like todiscuss a pertial hysterectomy. REPORTS SEVERAL YEAR HO DUB REC DUB EVAL STARTED ON HRT FOR SX FROM [facility] IN [place] BUT DID NOT HELP SX OR BLEEDING [...] before bedtime. estradioL (ESTRACE) 0.5 mg tablet xkxoethamby-imgcfxmhc-ltotyvzz (TRELEGY ELLIPTA) 200-62.5-25 mcg blister with device [...] RTO EMB/HYST TAKING ?HRT FROM DOC IN [place] WITHOUT EVAL OF AUB/DUB HEAVY TOBACCO USE ANXIETY OBESITY SP BTL LACK OF PREVENTATIVE CARE MD Cori TELLEZ, RN documented in this encounterFirelands Regional Medical Center01-17-2024 History of Present illness Narrative* Shanthi Belle Lugo, 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 - 04/02/2023 9:45 AM EST Images from [...] Anxiety Chronic bronchitis [facility] [address]-[facility]) PERTINENT HISTORY: Her pertinent medical history includes Past Medical History: Diagnosis Date Anxiety Chronic bronchitis (CMS-HCC) CURRENT MEDICATIONS: Reviewed with patient. Current Outpatient [...] 0.5 mg tablet, , Disp: , Rfl: qxjeuzrtdmf-sqkokbhae-ohpctvvr (TRELEGY ELLIPTA) 200-62.5-25 mcg blister with device, [...] office a call. CC: Sridhar Bird, FRANK[facility]DIANA [facility] Office: [phone] 8:26 AM on 04/21/2023 This note is dictated with the use of M*Modal.Please note that this dictation was completed with computer voice recognition software. Quite often unanticipated grammatical, syntax, homophones, and other interpretive errors are inadvertently transcribed by the computer software. Please disregard these errors. Please excuse any errors that have escaped final proofreading. SUSIE Bellamy 04/21/23 0840 documented in [facility] Instructions* Patient Instructions* SUSIE Bellamy - 04/02/2023 9:45 AM EST If you re looking for general health and wellness resources, please visit [email or web address]. documented in this encounterFirelands [facility] Center12-18-2023 Evaluation note* Encounter Date Diagnosis [...] 24-28 hours if s/s persists or worsens. [facility] Other 06-12-2023 Evaluation note* Encounter Date Diagnosis [...] understanding and is agreeable to treatment plan. [facility] Other 04-14-2023 Evaluation note* Encounter Date Diagnosis [...] fever. May return to work on Friday [facility] Other 02-16-2023 NoteCONSULTATION CONSULTATION DATE: 05/02/2022 HISTORY [...] Medications include diclofenac 50 mg b.i.d., Abilify, Marianna 5/325 daily p.r.n., Lyrica 50 mg b.i.d. [...] 50 mg b.i.d. and will refill her Marianna today 5/325 daily p.r.n. We will have her return to the clinic in three months' time for medication management.[facility] 01-24-2022 NoteCONSULTATION CONSULTATION DATE: 01/24/2022 HISTORY [...] She does take ibuprofen 800 mg b.i.d., Abilify, and she is currently working with an cotton opener. Our clinic has prescribed her Marianna 5/325 daily p.r.n. in the past. Patient was unaware she could call for refills. She has been out of Marianna since early November and has increased the [...] will start diclofenac 50 mg b.i.d. Her Marianna will be restarted at 5/325 daily p.r.n. Vitamin importance was discussed as was continuing with her workout therapy. She will be seen in the clinic in three months' time, unless otherwise indicated. Patient is in agreement with this plan.[facility] [id number] NoteCONSULTATION PROCEDURE DATE: 10/25/2021 PRE AND POSTOPERATIVE [...] be followed up in the clinic. [facility] [id number] NoteCONSULTATION CONSULTATION DATE: 10/25/2021 This is a [...] standing, walking and bending. Her medications include Marianna 5/325 q. day, Baclofen 10 mg q.h.s. and Motrin 600 mg daily. The patient did have oral surgery last week for removal of a broken tooth. The patient was given Tylenol 3 and a course of amoxicillin. The patient did not take the Tylenol 3 but continued with the Marianna that was prescribed from our clinic. REVIEW [...] in three months' time unless otherwise indicated.[facility] [id number] NoteCONSULTATION CONSULTATION DATE: 09/13/2021 This is a [...] to Baclofen 10 mg q.h.s. and add Marianna 5/325 one q. day p.r.n. The patient was educated on the excessive use of her NSAIDs and appropriate doses were discussed. The intent is that the Marianna will help with her pain relief and decrease the need for the ibuprofen as frequently. The patient agrees with the plan of care. She will be brought back to the clinic in two weeks' time for x-ray review. [facility] Signed and Approved by: FABIOLA BARTLETT . 10/05/2021 14:14:00[facility]01-13-2022 Evaluation note* Encounter Date Diagnosis [...] care instructions given in writting by [facility] Care At Home document. [place] [email or web address] Other Evaluation + Plan note No data available for this section [facility] Future Appointments Appointment Date:10/06/2023 08:30:00 AM Scheduled Provider: Location:[facility] Surgical Services Appointment Type:Surgery FT [facility] General Surgery Prue Evalubbzlb noteNort [email or web address] Other evaluation noteNo assessment information available [facility] Work Phone: evaluation note* Diagnosis Chronic pansinusitis Other chronic sinusitis documented in this encounter [facility] HealthcareEvaluation note* Diagnosis Preop examination- Primary Unspecified pre-operative examination Chronic bronchitis, unspecified chronic bronchitis type (CMS-HCC) Smoker Tobacco use disorder Preop examination Unspecified pre-operative examination Chronic bronchitis, unspecified chronic bronchitis type (CMS-HCC) Smoker Tobacco use disorder [facility] Diagnosis Asthma-COPD overlap syndrome (CMS-HCC)- Primary Tobacco dependence Tobacco use disorder Class 1 obesity with body mass index (BMI) of 34.0 to 34.9 in adult, unspecified obesity type, unspecified whether serious comorbidity present [facility] this encounter [facility]* Diagnosis Chronic bronchitis, unspecified chronic bronchitis type (CMS-HCC)- Primary Asthma-COPD overlap syndrome Tobacco dependence Tobacco use disorder Class 1 obesity with body mass index (BMI) of 34.0 to 34.9 in adult, unspecified obesity type, unspecified whether serious comorbidity present [facility] this encounter [facility]* Diagnosis DUB (dysfunctional uterine bleeding)- Primary Other disorder of menstruation and other abnormal bleeding from female genital tract [facility] Diagnosis Class 1 obesity due to excess calories with body mass index (BMI) of 34.0 to 34.9 in adult, unspecified whether serious comorbidity present- Primary DUB (dysfunctional uterine bleeding) Other disorder of menstruation and other abnormal bleeding from female genital tract documented in this encounter [facility] SystemEvaluation note* Diagnosis Epigastric pain- Primary Abdominal pain, epigastric documented in this encounter [facility] SystemEvaluation note* Diagnosis Class 1 obesity due to excess calories with body mass index (BMI) of 34.0 to 34.9 in adult, unspecified whether serious comorbidity present- Primary documented in this encounter [facility] SystemEvaluation note* Diagnosis DUB (dysfunctional uterine bleeding)- Primary Other disorder of menstruation and other abnormal bleeding from female genital tract documented in this encounter [facility] SystemEvaluation note* Diagnosis Abnormal uterine bleeding (AUB) Abnormal uterine bleeding (AUB)- Primary documented in this encounter [facility] SystemEvaluation note* Diagnosis DUB (dysfunctional uterine bleeding)- Primary Other disorder of menstruation and other abnormal bleeding from female genital tract documented in this encounter [facility] SystemEvaluation note* Diagnosis Asthma-COPD overlap syndrome ([facility] [address] [facility])- Primary documented in this encounter [facility] SystemEvaluation note* Diagnosis Class 1 obesity due to excess calories with body mass index (BMI) of 34.0 to 34.9 in adult, unspecified whether serious comorbidity present- Primary documented in this encounter [facility] SystemEvaluation note* Diagnosis Class 1 obesity due to excess calories with body mass index (BMI) of 34.0 to 34.9 in adult, unspecified whether serious comorbidity present- Primary documented in this encounter [facility]ileraEvaluation note* Diagnosis Class 1 obesity due to excess calories with body mass index (BMI) of 34.0 to 34.9 in adult, unspecified whether serious comorbidity present documented in this encounter [facility] SystemEvaluation note* Diagnosis Asthma-COPD overlap syndrome ([facility] [address]-[facility])- Primary Tobacco dependence Tobacco use disorder documented in this encounter [facility] TileraHistory general Narrative - ReportedNort [email or web address] Other History general Narrative - Reported* Type Description Date 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 Surgical History C section (two) [facility] Other History general Narrative - Reported* Type Description Date 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 Medical History Edema leg Medical History Depression Surgical History C section (two) [facility] Other Hospital Discharge instructions No data available for this section [facility] CenterInstructionsNot on filedocumented in this encounter [...] note No data available for this section [facility] CenterReason for referral (narrative)* Consultation (Routine) - Pending Review Specialty Diagnoses / Procedures Referred By Ken sierra Referred To Contact Nutrition Diagnoses Class 1 obesity due to excess calories with body mass index (BMI) of 34.0 to 34.9 in adult, unspecified whether serious comorbidity present Belén Goodwin MD [address] [place] [address] [facility] [address] [place] [address] Referral ID Status Reason Start Date Expiration Date V isits Requested Visits Authorized [id number] Pending Review 09/01/2023 08/31/2024 1 1 [facility] Teresa for referral (narrative)* Consultation (Routine) - Pending Review Specialty Diagnoses / Procedures Referred By Ken sierra Referred To Contact Endocrinology, Diabetes & Metabolism Diagnoses Class 1 obesity due to excess calories with body mass index (BMI) of 34.0 to 34.9 in adult, unspecified whether serious comorbidity present Belén Goodwin MD [address] [place] [address] [facility] Diabetes/Nutrition Ed [address] [place] [address] Referral ID Status Reason Start Date Expiration Date Visits Requested Visits Authorized [id number] Pending Review Specialty Services Required 09/15/2023 09/14/2024 1 1 [facility] (narrative)* Consultation (Routine) - Pending Review Specialty Diagnoses / Procedures Referred By Ken sierra Referred To Contact Endocrinology, Diabetes & Metabolism Diagnoses Class 1 obesity due to excess calories with body mass index (BMI) of 34.0 to 34.9 in adult, unspecified whether serious comorbidity present Belén Goodwin MD [address] [place] [address] [facility] Diabetes/Nutrition Ed [address] [place] [address] Referral ID Status Reason Start Date Expiration Date Visits Requested Visits Authorized [id number] Pending Review Specialty Services Required 11/04/2023 11/03/2024 1 1 [facility] Summary Purpose Family History Relationship Condition Age at Onset Recorded Date/T marcie Not Specified Malignant neoplasm of bone Unknown Unknown Malignant neoplasm Unknown sister Malignant neoplasm Unknown History of malignant neoplasm of cervix U nknown Advance Directives Advance Directive Response Recorded Date/ Time Advance Directives No November 13, 2017 10:32am Reason for Referral Specialty Diagnoses / Procedures Referred By Ken sierra Referred To Contact Diagnoses Class 1 obesity due to excess calories with body mass index (BMI) of 34.0 to 34.9 in adult, unspecified whether serious comorbidity present Belén Goodwin MD [address] [place] [address] Referral ID Status Reason Start Date Expiration Date V isits Requested Visits Authorized [id number] Authorized 11/11/2023 06/10/2024 1 1 Additional Source Comments REASON FOR VISIT (unrecogniz ed section and content) Reason Comments Med Refill Reason Comments Asthma PFT: 05/05/2024SOB: d eniesSmoking 0.25 pks per day Reason Comments Asthma Labs: 01/29/2023 Cough Reason Comments Menopause Reason Comments Weight Loss Reason Comments Follow-up Reason Comments EMB/Hysteroscopy Reason Comments Follow-up CXR: 07/14/2023FT: 04/23/2022 COPD Asthma Reason Comments weight loss Reason Comments MNT - Individual Specialty Diagnoses / Procedures Referred By Contac t Referred To Contact Endocrinology, Diabetes & Metabolism Diagnoses Class 1 obesity due to excess calories with body mass index (BMI) of 34.0 to 34.9 in adult, unspecified whether serious comorbidity present Belén Goodwin MD [address] [facility] [address] [facility] Diabetes/Nutrition Ed [address] [place] [address] Referral ID Status Reason Start Date Expiration Date Visits Requested Visits Authorized [id number] Pending Review Specialty Services Required 11/04/2023 11/03/2024 1 1 Reason Onset Date Comments Med Refill 05/14/2024 Reason Comments Asthma Smoking 0.5 or less packs per day COPD INFORMATION SOURCE (unrecogn ized section and content) DATE CREATED AUTHOR 07/27/2022 [facility] DATE CREATED AUTHOR AUTHOR'S ORGANIZ ATION 08/19/2023 [facility] DATE CREATED AUTHOR AUTHOR'S ORGANIZ ATION 10/10/2023 [facility] DATE CREATED AUTHOR AUTHOR'S ORGANIZ ATION 10/16/2023 [facility] DATE CREATED AUTHOR AUTHOR'S ORGANIZ ATION 10/19/2023 [facility] DATE CREATED AUTHOR AUTHOR'S ORGANIZ ATION 10/22/2023 [facility] DATE CREATED AUTHOR AUTHOR'S ORGANIZ ATION 11/02/2023 [facility] DATE CREATED AUTHOR AUTHOR'S ORGANIZ ATION 10/26/2024 [facility] DATE CREATED AUTHOR AUTHOR'S ORGANIZ ATION 11/10/2024 [facility] Patient Care team informatio n (unrecognized section and content) Team Status: Inactive Member Role Status Dates Jana Melvin Jr, MD Attending Provider Active Start: August 12, 2023 End: August 12, 2023 Bin Piler Relationship Specialty Start Date End Date Zenaida Paz, DELIVERY TECH [address] [place] [id number] Referring Physician Family Medicine 10/14/23 Bin Piler Relationship Specialty Start Date End Date Zenaida Paz ACCOUNTING OFFICER-ACCOUNTING MACHINE SERVICER [address] [place] [address] PCP - General Family Medicine 07/14/23 Bin Piler Relationship Specialty Start Date End Date Zenaida Paz ACCOUNTING OFFICER-ACCOUNTING MACHINE SERVICER [address] [place] [id number] PCP - General Family Medicine 07/14/23 Bin Piler Relationship Specialty Start Date End Date Sridhar Bird, 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 [address] [place] [address] PCP - General Primary Care 09/09/22 Bin Piler Relationship Specialty Start Date End Date Sridhar Bird, 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 [address] [place] [address] PCP - General Primary Care 09/09/22 Bin Piler Relationship Specialty Start Date End Date Zenaida Paz, ACCOUNTING OFFICER-ACCOUNTING MACHINE SERVICER [address] [place] [address] PCP - General Family Medicine 07/14/23 Bin Piler Relationship Specialty Start Date End Date Zenaida Paz ACCOUNTING OFFICER-ACCOUNTING MACHINE SERVICER [address] [place] [address] PCP - General Family Medicine 07/14/23 Bin Piler Relationship Specialty Start Date End Date Zenaida Paz, ACCOUNTING OFFICER-ACCOUNTING MACHINE SERVICER [address] [place] [address] [phone] PCP - General Family Medicine 07/14/23 Bin Piler Relationship Specialty Start Date End Date Zenaida Paz, ACCOUNTING OFFICER-ACCOUNTING MACHINE SERVICER [address] [place] [address] PCP - General Family Medicine 07/14/23 Bin Piler Relationship Specialty Start Date End Date Shammo, Sridhar, 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 [address] [place], [place] [id number] PCP - General Primary Care 09/09/22 Bin Piler Relationship Specialty Start Date End Date Shammo, Sridhar, 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 [address] [place] [address] PCP - General Primary Care 09/09/22 Bin Piler Relationship Specialty Start Date End Date Zenaida Paz, ACCOUNTING OFFICER-ACCOUNTING MACHINE SERVICER [address] [place] [address] PCP - General Family Medicine 07/14/23 Bin Piler Relationship Specialty Start Date End Date Shammo, Sridhar, 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 [address] [place] [address] PCP - General Primary Care 09/09/22 Bin Piler Relationship Specialty Start Date End Date Shammo, Sridhar, 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 [address] [place] [address] PCP - General Primary Care 09/09/22 Bin Piler Relationship Specialty Start Date End Date Zenaida Paz, ACCOUNTING OFFICER-ACCOUNTING MACHINE SERVICER [address] [place] [address], [place] [address] PCP - General Family Medicine 07/14/23 Bin Piler Relationship Specialty Start Date End Date Zenaida Paz APRN-ACCOUNTING MACHINE SERVICER [address] [place] [address] [facility] [address] PCP - General Family Medicine 07/14/23 Bin Piler Relationship Specialty Start Date End Date Zenaida Paz ACCOUNTING OFFICER-ACCOUNTING MACHINE SERVICER [address] [place], [place] [address], [place] [address] PCP - General Family Medicine 07/14/23 Bin Piler Relationship Specialty Start Date End Date Zenaida Paz ACCOUNTING OFFICER-ACCOUNTING MACHINE SERVICER [address] [place] [address], [place] [address] PCP - General Family Medicine 07/14/23 Bin Piler Relationship Specialty Start Date End Date Zenaida Paz ACCOUNTING OFFICER-ACCOUNTING MACHINE SERVICER [address] [place], [place] [address], [place] [address] PCP - General Family Medicine 07/14/23 Bin Piler Relationship Specialty Start Date End Date Zenaida Paz ACCOUNTING OFFICER-ACCOUNTING MACHINE SERVICER [address] [place] [address], [place] [address] PCP - General Family Medicine 07/14/23 Bin Piler Relationship Specialty Start Date End Date Zenaida Paz ACCOUNTING OFFICER-ACCOUNTING MACHINE SERVICER [address] [place] [address], [place] [address] PCP - General Family Medicine 07/14/23 Goals (unrecognized section and content) Goals may [...] BE BASED ON THE PRIMARY CLINICAL RECORDS. [employer] [facility]. provides no warranty or guarantee of the accuracy or completeness of information in this document.
[2024-12-21 12:11] LABS: Hematocrit 49.4 % (36.0-48.0); Hemoglobin 16.9 g/dL (12.0-16.0); Immature Granulocytes Abs Auto 0.03 10^3/uL (0.00-0.03); Immature Granulocytes Pct Auto 0.3 % (0.0-0.5); Lymphocytes Absolute Auto 2.0 10^3/uL (1.2-3.8); Mean Corpuscular HGB Conc 34.2 g/dL (29.9-35.2); Mean Corpuscular Hemoglobin 33.1 pg (26.7-34.0); Mean Corpuscular Volume 96.9 fL (81.0-99.0); Platelet Count 303 10^3/uL (150-450); Red Blood Count 5.10 10^6/uL (4.20-5.40); White Blood Count 9.4 10^3/uL (4.0-11.0)
[2024-12-21 13:03] LABS: Iron 287.0 ug/dL (50.0-170.0); Percent Iron Saturation 83.4 %; Total Iron Binding Capacity 344.0 ug/dL (250.0-450.0)
[2024-12-21 13:05] LABS: Alanine Aminotransferase 29 U/L (14-59); Albumin Globulin Ratio 0.8; Albumin Level 3.2 g/dL (3.4-5.0); Alkaline Phosphatase 90 U/L (46-116); Anion Gap 14.2; Aspartate Amino Transferase 20 U/L (15-37); Blood Urea Nitrogen 6.0 mg/dL (7.0-18.0); Calcium 8.4 mg/dL (8.5-10.1); Carbon Dioxide 25.2 mmol/L (21.0-32.0); Chloride 104 mmol/L (98-107); Cholesterol 117 mg/dL (<=200); Estimated GFR (African America >60 (>=60 mL/min/1.73m^2); Estimated GFR (Non-African Ame >60 (>=60 mL/min/1.73m^2); Globulin 3.8 g/dL; Glucose 87 mg/dL (74-106); HDL Cholesterol 52 mg/dL (40-60); Potassium 3.4 mmol/L (3.5-5.1); Sodium 140 mmol/L (136-145); Thyroid Stimulating Hormone 2.729 uIU/mL (0.358-3.740); Total Protein 7.0 g/dL (6.4-8.2); Triglycerides 88 mg/dL (<=150); VLDL CHOLESTEROL 17.6 mg/dL
[2024-12-21 13:22] LABS: Ferritin 37.0 ng/mL (8.0-252.0)
[2024-12-22 05:12] LABS: Vitamin B12 344 pg/mL (232-1245)
== END 2024-12-21 11:10 | disposition home or self-care (01) ==
LOC: LAB 11:11
DX: Z79.899 Other long term (current) drug therapy (principal); R53.83 Other fatigue; E83.10 Disorder of iron metabolism, unspecified
CPT/HCPCS: 36415; 80053; 80061; 80307; 82306; 82607; 82728; 82746; 83036; 83540; 83550; 84436; 84443; 84480; 84702; 85025